=== PATIENT | female | born 1985 | race Caucasian/White ===

== ENCOUNTER → 2017-09-20 08:17 | Outpatient (CLI) | payer BC, SELFPAY ==
--- NOTE | 2017-09-20 | DI.US.S_ITS ---
PROCEDURE: US PELVIC COMPLETE INDICATIONS: DYSMENORRHEA TECHNIQUE: Real-time scanning was performed of the pelvic organs, with image documentation. Additional endovaginal scanning was necessary due to incomplete visualization of the adnexal and endometrial structures by transabdominal scanning. COMPARISON: None. FINDINGS: Transabdominal scanning: Limited scanning through the kidneys shows no hydronephrosis. No pathologic free abdominal or pelvic fluid. Endovaginal scanning: Uterus: Uterus is normal in size at 4.0 x 5.8 x 7.1 cm. The endometrium measures 4.5 mm in combined thickness. Ovaries: The right ovary measures 2.1 x 2.1 x 3.7 cm and the left measures 2.2 x 1.9 x 3.5 cm IMPRESSION: Normal appearing uterus and ovaries, source of dysmenorrhea is not identified by this examination. Dictated by: Papi Ruiz M.D. on 09/20/2017 at 9:08 Approved by: Papi Ruiz M.D. on 09/20/2017 at 9:10
== END ==
PROVIDERS: PCP Naturopath; Visit Provider Naturopath
DX: N94.6 Dysmenorrhea, unspecified (principal)
CPT/HCPCS: 76830; 76856

== ENCOUNTER → 2018-06-05 13:19 | Outpatient (CLI) | payer BC, SELFPAY ==
--- NOTE | 2018-06-05 | DI.RAD.S_ITS ---
PROCEDURE: XR HIP W PEL IF DONE LT MIN 4V INDICATIONS: BILATERAL HIP PAIN TECHNIQUE: AP pelvis with lateral view(s) of the bilateral hip(s). COMPARISON: None. FINDINGS: Bones: No fractures or dislocations. Pelvic ring appears intact. No suspicious bony lesions. Soft tissues: The visualized bowel gas pattern is normal. No suspicious soft tissue calcifications. IMPRESSION: No visualized acute fracture or dislocation. However, if clinical concern and/or pain persist, short interval imaging followup in 7-10 days is recommended, as occult injury cannot be definitively excluded. Dictated by: Cele Bonner M.D. on 06/05/2018 at 16:23 Approved by: Cele Bonner M.D. on 06/05/2018 at 16:25
== END ==
PROVIDERS: PCP Naturopath; Visit Provider Nurse Practitioner
DX: M25.551 Pain in right hip (principal); M25.552 Pain in left hip
CPT/HCPCS: 73522

== ENCOUNTER → 2018-06-25 13:39 | Outpatient (CLI) | payer BC, SELFPAY ==
[2018-06-25 14:37] LABS: Add Manual Diff / Slide Review NO; Basophils Absolute Auto 0 /uL (0-100); Basophils Percent Auto 0.5 % (0-2); Eosinophils Absolute Auto 100 /uL (0-450); Eosinophils Percent Auto 1.5 % (2-4); Hematocrit 42.3 % (36-46); Hemoglobin 13.8 g/dL (12.0-16.0); Lymphocytes Absolute Auto 2500 /uL (1100-4500); Lymphocytes Percent Auto 46.6 % (25-40); Mean Corpuscular HGB Conc 32.7 % (30-36); Monocytes Absolute Auto 400 /uL (0-900); Monocytes Percent Auto 7.9 % (3-14); Neutrophils Absolute Auto 2400 /uL (1500-7000); Neutrophils Percent Auto 43.5 % (50-75); Platelet Count 292 X10^3/uL (150-400); Red Blood Cell Count 4.19 X10^6/uL (4.0-5.2); White Blood Cell Count 5.5 X10^3/uL (4.5-11.0)
[2018-06-25 14:46] LABS: Blood Urea Nitrogen 7 mg/dL (7-17); Calcium 10.3 mg/dL (8.4-10.2); Carbon Dioxide 30 mmol/L (22-32); Chloride 100 mmol/L (98-107); Estimated Glomerular Filt Rate > 60.0 mL/min (>60); Glucose 91 mg/dL (70-100); HEMOLYSIS < 15 (0-50); Potassium 4.5 mmol/L (3.4-5.1); Sodium 140 mmol/L (137-145)
== END ==
PROVIDERS: PCP Naturopath; Visit Provider Orthopaedic Surgery Orthopaedic Surgery of the Spine
DX: M48.02 Spinal stenosis, cervical region (principal)
CPT/HCPCS: 36415; 80048; 85025

== ENCOUNTER → 2018-09-11 08:05 | Outpatient (CLI) | payer BC, SELFPAY ==
--- NOTE | 2018-09-11 | DI.RAD.S_ITS ---
PROCEDURE: XR CERVICAL SPINE 2V OR 3V INDICATIONS: NECK PAIN TECHNIQUE: 3 views of the cervical spine were acquired. COMPARISON: [facility], CR, XR CERVICAL SPINE 4V OR 5V, 06/07/2017, 13:36. FINDINGS: Bones: No fractures or dislocations to the T1 level. The lateral masses of C1 appear intact on the odontoid view. No suspicious bony lesions. Soft tissues: No prevertebral soft tissue swelling. IMPRESSION: Prior C5-6 anterior fusion plate fixation with interbody bone graft at at this disc level, establishing normal alignment. There is no visualized evidence of fixation plate loosening or disruption. Dictated by: Papi Ruiz M.D. on 09/11/2018 at 9:15 Approved by: Papi Ruiz M.D. on 09/11/2018 at 9:17
== END ==
PROVIDERS: Family Provider Physician Assistant Medical; PCP Naturopath; Visit Provider Physician Assistant Medical
DX: M43.22 Fusion of spine, cervical region (principal); M54.2 Cervicalgia; M54.12 Radiculopathy, cervical region; M48.20 Kissing spine, site unspecified
CPT/HCPCS: 72040

== ENCOUNTER → 2018-11-13 07:59 | Outpatient (CLI) | payer BC, SELFPAY ==
--- NOTE | 2018-11-13 | DI.RAD.S_ITS ---
PROCEDURE: XR CERVICAL SPINE 4V OR 5V INDICATIONS: Spinal stenosis, cervical region TECHNIQUE: 5 views of the cervical spine were acquired. COMPARISON: [facility], CR, XR CERVICAL SPINE 2V OR 3V, 09/11/2018, 8:48. [facility], MR, MR CERVICAL SPINE WITHOUT CONTRAST, 06/29/2017, 20:53. [facility], CR, XR CERVICAL SPINE 4V OR 5V, 06/07/2017, 13:36. FINDINGS: Bones: No fractures or dislocations to the T1 level. No suspicious bony lesions. There is discectomy and anterior fusion at C5-C6. There is preserved alignment between flexion and extension. Soft tissues: Prevertebral soft tissues are normal in thickness. IMPRESSION: 1. Stable post surgical changes with discectomy and anterior fusion at C5-C6. Dictated by: Colt Chaudhari M.D. on 11/13/2018 at 8:52 Approved by: Colt Chaudhari M.D. on 11/13/2018 at 8:54
== END ==
PROVIDERS: Family Provider Physician Assistant Medical; PCP Naturopath; Visit Provider Neurological Surgery
DX: M48.02 Spinal stenosis, cervical region (principal); M54.12 Radiculopathy, cervical region; Z98.1 Arthrodesis status
CPT/HCPCS: 72050

== ENCOUNTER 2018-12-21 17:15 | Emergency (ER) | payer OTHER, MEDICAID, SELFPAY ==
[2018-12-21 17:21] VITALS: BP 128/90; PULSE 87; RESP 18; TEMP 37.3; O2SAT 100
--- NOTE | 2018-12-21 19:21 | PC.NURSE ---
Warm blankets given. Pt resting quietly in darkened room. Awaiting orders from provider.
--- NOTE | 2018-12-21 20:15 | ED_ITS ---
HPI - Allergic Reaction <OSMEL Bess - Last Filed: 12/21/18 20:26> General Chief complaint: Allergic Reaction Stated complaint: thinks adverse reaction to medication change Time Seen by Provider: 12/21/18 17:24 Source: patient Mode of arrival: Ambulatory Limitations: no limitations History of Present Illness HPI narrative: The patient is a 33-year-old female former smoker with history of a C-spine injury who presents with a chief complaint of a medication reaction. She was changed from 200 mg pregabalin t.i.d. to 300 mg b.i.d.. She took her 1st 300 mg dose at noon today and felt very poorly after. She states that she felt muscle spasms, like her brain is caught on fire etc. She states that this is consistent with her previous reactions to medication increases for this medication. She states that the her chronic pain is worse since that medication has worn off, but she is decreasing side effects of higher dose medication. She states that she had to have a C-spine fusion after a injury resulting from a chiropractor visit several years ago. She states that she is trying to get off the Lyrica, but is having trouble controlling her pain. She has a pending pain management visit next month. Related Data Home Medications Medication Instructions Recorded Confirmed levothyroxine 50 mcg capsule 50 mcg PO DAILY 04/24/18 07/09/18 pregabalin 25 mg capsule 25 mg PO DAILY 07/09/18 07/09/18 Previous Rx's Medication Instructions Recorded pregabalin 200 mg PO TID #18 cap 12/21/18 Allergies Allergy/AdvReac Type Severity Reaction Status Date / Time adhesive [ADHESIVE] Allergy Unknown RASH Unverified 05/29/18 10:42 latex [LATEX] Allergy Unknown RASH, SKIN Unverified 05/29/18 10:42 CRACKING Penicillins [PENICILLINS] Allergy Unknown RASH Unverified 05/29/18 10:42 egg [EGG] AdvReac Unknown NAUSEA Unverified 05/29/18 10:42 Opioids - Morphine Analogues AdvReac Unknown NAUSEA Unverified 05/29/18 10:42 [OPIOIDS - MORPHINE ANALOGUES] gabapentin AdvReac Verified 12/21/18 17:56 narcotics Allergy Intermediate NAUSEA / Uncoded 05/29/18 10:42 VOMITING Review of Systems <OSMEL Bess - Last Filed: 12/21/18 20:26> Review of Systems Narrative: GENERAL: Denies chills, fatigue, malaise, fever, sweats. HEENT: Denies sinus pain, ear pain, sore throat, difficulty swallowing, dizziness. RESPIRATORY: Denies dyspnea, cough, wheezing, hemoptysis, sputum. CARDIOVASCULAR: Denies chest pain, palpitations, orthopnea, edema, GASTROINTESTINAL: Denies nausea, vomiting, abdominal pain, diarrhea, constipation, melena. : Denies dysuria, frequency, incontinence, hematuria, urinary retention. MUSCULOSKELETAL: denies weakness, joint pain, or bony pain SKIN: Denies rash, skin lesions, or other NEUROLOGIC: See HPI PSYCHIATRIC: No concerning psychosocial issues. 12 point review of systems is negative except for those stated above Patient History <OSMEL Bess - Last Filed: 12/21/18 20:26> Medical History Anemia (Acute) Anxiety (Acute ~1994) Asthma (Acute) Endometriosis (Acute) Former smoker (Acute) Hypothyroidism (Acute) Insomnia (Chronic) Migraines (Acute) Osteoarthritis (Acute) Pancreatitis (Acute ~2009) Panic attacks (Acute ~1994) PTSD (post-traumatic stress disorder) (Chronic ~1994) Seasonal allergies (Acute) Spinal stenosis of cervical region (Acute) Surgical History History of bilateral tubal ligation (Acute 04/28/17) Hx of appendectomy (Acute ~2005) Hx of laparoscopy (Acute ~2007) Status post appendectomy (Deleted) Status post delivery Status post delivery Status post delivery (02/22/16) Status post laparoscopy (Deleted) Social History marital status: details: venancio Pham, lives in [place] number of children: 3 household members: spouse and children lives independently: Yes caregiver/support person: No housing: house education level: college do you feel safe at home: Yes Smoking Status: Former smoker alcohol intake: former substance use type: does not use Exam <OSMEL Bess - Last Filed: 12/21/18 20:26> Narrative Exam Narrative: GENERAL: Thin female in no acute distress HEAD: Atraumatic. Normocephalic. No temporal or scalp tenderness. EYES: Pupils equal round and reactive. Extraocular motions intact. No scleral icterus. No injection or drainage. ENT: Nose without bleeding, purulent drainage or septal hematoma. Throat without erythema, tonsillar hypertrophy or exudate. Uvula midline. Airway patent. NECK: Trachea midline. No JVD or lymphadenopathy. Supple, nontender, no meningeal signs. CARDIOVASCULAR: Regular rate and rhythm RESPIRATORY: Clear to auscultation. Breath sounds equal bilaterally. No wheezes, rales, or rhonchi. No cough. No increased respiratory effort. No accessory muscle use. GASTROINTESTINAL: Abdomen soft, non-tender, nondistended. No hepato- splenomegaly, or palpable masses. No guarding. EXTREMITIES: No clubbing, cyanosis, or edema. No joint tenderness, effusion, or edema noted. BACK: Nontender without deformity or crepitance. No flank tenderness. NEURO: AOx3. Stable gait. Clear speech. No gross cranial nerve deficit SKIN: No rash or erythema. Initial Vital Signs Initial Vital Signs: Vital Signs Temperature 99.1 F 12/21/18 17:21 Pulse Rate 87 12/21/18 17:21 Respiratory Rate 18 12/21/18 17:21 Blood Pressure 128/90 12/21/18 17:21 Pulse Oximetry 100 12/21/18 17:21 <Michelle Hirsch DO - Last Filed: 12/22/18 01:58> Initial Vital Signs Initial Vital Signs: Vital Signs Temperature 99.1 F 12/21/18 17:21 Pulse Rate 87 12/21/18 17:21 Respiratory Rate 18 12/21/18 17:21 Blood Pressure 128/90 12/21/18 17:21 Pulse Oximetry 100 12/21/18 17:21 Course <OSMEL Bess - Last Filed: 12/21/18 20:26> Vital Signs Vital signs: Vital Signs - 8 hr 12/21/18 20:20 Pulse Rate 74 Respiratory Rate 16 Blood Pressure [Left Arm] 106/72 Pulse Oximetry 100 <Michelle Hirsch DO - Last Filed: 12/22/18 01:58> Vital Signs Vital signs: Vital Signs - 8 hr 12/21/18 20:20 Pulse Rate 74 Respiratory Rate 16 Blood Pressure [Left Arm] 106/72 Pulse Oximetry 100 MDM - Allergic Reaction <Summer MirandaCHOLO mcnally-BC - Last Filed: 12/21/18 20:26> [facility] Narrative Medical decision making narrative: The patient is a 33-year-old female who presents several hours after having a negative reaction to an increase in pregabalin dosing. She is concerned about continuing to take this medication, is concerned about titrating down. I spoke with Luis NAVARRO who is on-call for her PCP. He recommends restarting her on 200 mg t.i.d and would like her to follow up in clinic in the next few days. I discussed this with the patient and she is in accordance. She requests if she can stop taking the medication cold turkey, and I discouraged this. Discussed coming back to the emergency department for any acute concerns. Patient has no questions or concerns upon discharge and states understanding of return precautions as well as plan of care. Discharge Plan Departure Patient Disposition: Home Clinical Impression: Medication adverse effect Qualifiers: Encounter type: initial encounter Qualified Code(s): T50.905A - Adverse effect of unspecified drugs, medicaments and biological substances, initial encounter Discharge Date/Time: 12/21/18 20:21 Instructions: DI for Safely Taking and Storing Medications -- Adults, DI for Taking Pain Medication Activity Restrictions/Additional Instructions: Please stop taking your current dose of pregabalin and resume taking 200 mg 3 times a day. Please follow up with primary care provider as soon as possible. Please come back to the emergency department for any acute concerns. Prescriptions: New pregabalin 200 mg capsule 200 mg PO TID Qty: 18 RF: 0 No Action Lyrica 25 mg capsule 25 mg PO DAILY RF: 0 levothyroxine 50 mcg capsule 50 mcg PO DAILY RF: 0 Referrals: Yanelis Gillespie ND [Primary Care Provider] -
[2018-12-21 20:20] VITALS: BP 106/72; PULSE 74; RESP 16; O2SAT 100
== END 2018-12-21 20:21 | disposition home or self-care (01) ==
PROVIDERS: Emergency Provider Nurse Practitioner Family; Family Provider Physician Assistant Medical; PCP Naturopath
DX: T50.905A Adverse effect of unspecified drugs, medicaments and biological substances, initial encounter (principal)
CPT/HCPCS: 99283

== ENCOUNTER → 2019-03-22 17:37 | Outpatient (CLI) | payer OTHER, MEDICAID, SELFPAY ==
--- NOTE | 2019-03-22 17:39 | DI.MRI.S_ITS ---
PROCEDURE: MR CERVICAL SPINE WO CON INDICATIONS: Chronic cervical radiculopathy status post fusion TECHNIQUE: Noncontrast sagittal T1 spin echo and T2 fast spin echo, sagittal STIR, foraminal oblique sagittal T2 fast spin echo, and axial gradient echo or T2 fast spin echo through the cervical spine. COMPARISON: [facility], , C-SPINE WITHOUT CONTRAST, 02/24/2017, 7:56. FINDINGS: Image quality: Excellent. Alignment and Curvature: Straightening of the normal lordotic curvature. Trace retrolisthesis of C4 and C5 Bone Marrow: Postsurgical changes related to C5-C6 ACDF. Spinal Cord: Visualized spinal cord has normal size and signal. No cerebellar tonsillar herniation. Paraspinous Soft Tissues: No paravertebral masses. Prevertebral soft tissues are normal in thickness. C2-C3: Normal appearance. C3-C4: Persistent canal stenosis. Minimal if any bilateral foraminal narrowing, no interval change. C4-C5: No high-grade central canal stenosis. Mild bilateral foraminal stenoses, with questionable nerve root compression on the right. C5-C6: No high-grade central canal stenosis. No definite foraminal stenosis bilaterally C6-C7: No central canal stenosis. No foraminal stenosis bilaterally C7-T1: Normal appearance. IMPRESSION: Postsurgical changes as above, with mild straightening of the normal lordotic curvature and trace retrolisthesis C4 on C5. Mild bilateral C4-C5 foraminal narrowing, which is stable to very minimally progressed since the prior study Dictated by: Javi Allred M.D. on 03/25/2019 at 9:32 Approved by: Javi Allred M.D. on 03/25/2019 at 9:39
== END ==
PROVIDERS: Family Provider Physician Assistant Medical; PCP Naturopath; Referring Provider Physical Medicine & Rehabilitation; Visit Provider Physical Medicine & Rehabilitation
DX: M50.00 Cervical disc disorder with myelopathy, unspecified cervical region (principal); M54.12 Radiculopathy, cervical region; G95.9 Disease of spinal cord, unspecified; M48.02 Spinal stenosis, cervical region; Z98.1 Arthrodesis status
CPT/HCPCS: 72141

== ENCOUNTER → 2019-08-15 12:54 | Outpatient (CLI) | payer OTHER, MEDICAID, SELFPAY | PROVIDERS: PCP Naturopath; Referring Provider Physical Medicine & Rehabilitation; Visit Provider Physical Medicine & Rehabilitation | DX: Z98.1 Arthrodesis status (principal); M54.12 Radiculopathy, cervical region | CPT/HCPCS: 95886; 95910 ==

== ENCOUNTER → 2019-09-17 13:17 | Outpatient (CLI) | payer OTHER, MEDICAID, SELFPAY ==
--- NOTE | 2019-09-17 13:19 | DI.RAD.S_ITS ---
PROCEDURE: FL BARIUM SWALLOW W SPEECH INDICATIONS: Dysphagia status post cervical ACDF COMPARISON: None. TECHNIQUE: Examination was conducted in conjunction with speech pathology per standard protocol. In the lateral projection, filming was performed of the patient swallowing. AP projection filming may also be performed with patient swallowing. COMPARISON: FINDINGS: Function: The oral preparatory phase appears normal, with proper containment. The subsequent oral propulsive phase, pharyngeal phase, and esophageal phase of swallowing also appear normal with all proffered substances. No laryngotracheal penetration or aspiration. No pathologic vallecular pooling. Mild pooling noted in the vallecula bilaterally which was easily cleared with repeat swallows. 13 millimeter barium tablet passes was delayed at the left piriform sinus, but cleared from the piriform sinus and rapidly passed into the stomach with additional consumption of water. Morphology: No cricopharyngeal bar is identified. No cervical esophageal webs. No Zenker's diverticulum. No strictures. IMPRESSION: 1. No laryngotracheal penetration or aspiration. 2. No abnormal mass, stricture or diverticulum. 3. Mild bilateral vallecular pooling rapidly cleared with repeat swallows. Dictated by: Stella Stevens MD, PhD on 09/17/2019 at 16:36 Approved by: Stella Stevens MD, PhD on 09/17/2019 at 16:38
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
== END ==
PROVIDERS: PCP Naturopath; Referring Provider Physical Medicine & Rehabilitation; Visit Provider Physical Medicine & Rehabilitation
DX: R13.10 Dysphagia, unspecified (principal); Z98.1 Arthrodesis status
CPT/HCPCS: 74230; 92611

== ENCOUNTER → 2019-12-18 08:31 | Outpatient (CLI) | payer OTHER, MEDICAID, SELFPAY ==
--- NOTE | 2019-12-18 08:31 | DI.RAD.S_ITS ---
PROCEDURE: XR SHOULDER RT MIN 2V INDICATIONS: Right shoulder impingement TECHNIQUE: 3 views of the shoulder were acquired. COMPARISON: None. FINDINGS: Bones: No fractures or dislocations. No suspicious bony lesions. Visualized ribs appear intact. Soft tissues: No suspicious soft tissue calcifications. IMPRESSION: Source of shoulder pain is not seen. No trauma found, no osteophytic spurring. Follow-up MR evaluation may become necessary. Dictated by: Papi Ruiz M.D. on 12/18/2019 at 9:26 Approved by: Papi Ruiz M.D. on 12/18/2019 at 9:27
== END ==
PROVIDERS: Family Provider Naturopath; PCP Naturopath; Referring Provider Naturopath; Visit Provider Physical Medicine & Rehabilitation
DX: M75.41 Impingement syndrome of right shoulder (principal); M25.511 Pain in right shoulder
CPT/HCPCS: 73030

== ENCOUNTER 2019-12-18 10:30 | Outpatient (RCR) | payer OTHER, MEDICAID, SELFPAY ==
--- NOTE | 2019-10-21 17:18 | ST.OPIE ---
Visit Care Team Role Provider Type Yanelis Gillespie ND Primary Care Provider Non-Staff Specialty: Medical Address: [address] [place] [address], [place], [address] Email: Leander Romo DO Attending Provider Physician Referring Provider Specialty: Physiatry Pain Management Address: [address] [place], [address] Email: [email or web address] Speech-Language Pathology Initial Evaluation STERILIZATION TECHNICIAN Clinical Swallow Evaluation Start: 10/16/19 12:32 Freq: Status: Active Protocol: Document 10/16/19 13:18 SHEYLA (Rec: 10/16/19 13:18 SHEYLA [email or web address]) Clinical Swallow Evaluation Session Time Visit Start Date 10/16/19 Visit Start Time 12:30 Visit Stop Date 10/16/19 Visit Stop Time 13:30 Total Visit Minutes 60 Visit Information Visit Number Initial Evaluation Plan of Care Dates 10/16/19 - 01/08/20 Insurance Information [employer] Referral Referring Provider Reason for Referral Dysphagia Setting Assessment Location Outpatient Care Visit Type Note Type Initial evaluation Next Note Type Next Note Type Treatment Note Patient Information Identification Type Name,Date of History The pt is a 34-yr-old female familiar to this STERILIZATION TECHNICIAN from Modified Barium Study administered 09/23/19, which revealed mild oropharyngeal dysphagia (see report for details). The pt has a complex past medical history. 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 Sequela of injury included upper body neuropathy (face, neck, arms, mostly right side; unable to feel right side of face for 9 mos), changes in cognition, vision, taste, smell, speech articulation, and language skills, and increased fatigue. She underwent ACDF surgery ( July 2018) during which muscle relaxers were required in order to displace laryngeal musculature to perform surgery . Since then, she has experienced difficulty initiating swallow trigger, coughing and choking, and sticking sensation with oral intake. 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 Distant medical history is significant for developmental trauma resulting in PTSD and OCD. The pt also has a history of alcoholism, currently with 2 yrs sobriety after admitting herself in emergent recovery care. Currently, the pt reports difficulty with reading d/t injury of eye muscles on the right side but states she has normal auditory comprehension. She has been wearing corrective glasses which has improved the balance of vision between the two eyes. She reported having seen an optomotrist in [facility] and a neuro-optomotrist in [place] who told her that her optic nerve is intact but she has muscle weakness. To address her PTSD and OCD, the pt is actively working with mental health professionals and taking Wellbutrin for trauma. She also reports participating in neuro feedback system therapy and is working with Physical Therapy at a different clinic for strengthening and addressing nerve pain. The pt has a neurosurgeon consultation scheduled at [facility] in December. 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 She reports difficulty with managing multiple tasks, invoicing clients, etc. 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 She anticipates sharing control room operator responsibilities with colleagues as it is difficult for her to manage independently. She feels doing tasks takes 5x longer than it used to. She reports that other board members are aware of deficits and are supportive . Subjective Observations The pt arrived on time and provided extensive case history. Reported by Patient Location Head,Neck Other Symptoms Coughing,Food gets stuck Current Diet Regular,Chopped,Thin liquids Baseline Feeding Method Independent in self-feeding Objective Assessment Mental Status Alert,Responsive,Cooperative Oral Integrity WFL Dentition Within normal limits Lip Function Within normal limits Observation of Lips at Rest Symmetrical Pucker Within normal limits Lip Retraction Within normal limits Tongue Function Mild impairment Observations of Tongue at Rest Within normal limits Tongue Protrusion Within normal limits Tongue Lateralization Within normal limits Jaw Function Mild impairment Observations of Jaw at Rest Within normal limits Jaw Opening Reduced range of motion Jaw Closing Within normal limits Jaw Lateralization Within normal limits Hard/Soft Palate Function Within normal limits Observations of Hard/Soft Palate Within normal limits Gag Reflex Hyperactive Nasality Within normal limits Phonation Within normal limits Respiratory Sufficiency Within normal limits Comment Persistent glottal claros noted in speech Findings Swallowing Function Oropharyngeal phase dysphagia Severity of Swallow Impairment Mildly impaired Contributing Factors to Swallow Reduced oral strength/ Impairment coordination/sensation, Impaired oral-pharyngeal transport,Delayed swallow initiation Prognosis Good Based on Cognitive status,Age,Duration of symptoms/severity Comment Dysphagia type and severity are based on MBSS findings. No oral trials were administered in today's session d/t time constraints. Education RE MBSS findings was provided to the pt including video review. Trained pt in swallow exercises targeting lingual strength for oral containment and pharyngeal clearance, pharyngeal stripping wave, and airway protection. The pt returned demonstration and verbalized understanding. Impact on Safety and Functioning Risk for aspiration Recommendations Instrumental Assessment No Swallowing Treatment Yes Frequency 1x/wk Duration 3-5 visits; May increase with eval of speech, lang, cognitive communication Recommended Solids Regular Recommended Liquids Thin Safety Precautions/Swallowing Reduce distractions,Remain Recommendations upright (90 degrees) during all oral intake,Upright position at least 30 minutes after meals,Small bites and sips when eating Medication Recommendations As Tolerated Discharge Recommendations Home,Outpatient therapy Education Patient/Caregiver Education Described results of evaluation,Patient expressed understanding of evaluation, Patient expressed agreement with goals & treatment plans Goals Short-term Goals 1. The pt will participate in evaluation of speech, voice, and expressive/receptive/ cognitive communication to determine deficits and strengths and to guide POC. 2. The pt will complete exercises independently to improve swallow function/ safety and reduce risk of aspiration. 3. The pt will employ swallow precautions independently to improve swallow function/ safety and reduce risk of aspiration. Long-term Goals 1. The pt will consume regular texture and thin liquids WNL (i.e., without s/sx of aspiration and without discomfort).
--- NOTE | 2019-10-23 10:11 | ST.OPTN ---
Visit Care Team Role Provider Type Yanelis Gillespie ND Primary Care Provider Non-Staff Address: [address] [place] [address], [place], [address] Leander Romo DO Attending Provider Physician Referring Provider Address: [address] [place], [address] SUPERVISOR DRYING AND WINDING Treatment Note SUPERVISOR [employer]YING AND W[employer]ING Treatment Note Start: 10/16/19 12:32 Freq: Status: Active Protocol: Document 10/22/19 11:29 SHEYLA (Rec: 10/22/19 11:30 SHEYLA [id number]) Speech Pathology Treatment Note Session Time Visit Start Time 10:30 Visit Stop Time 11:25 Total Visit Minutes 55 Visit Information Visit Number 1 Plan of Care Dates 10/16/19 - 01/08/20 Insurance Information [employer] Setting Treatment Setting Outpatient Care Visit Type Note Type Treatment Note Next Note Type Next Note Type Treatment Note General Information General Information The pt is a 34-yr-old female familiar to this SUPERVISOR DRYING AND WINDING from Modified Barium Study administered 09/23/19, which revealed mild oropharyngeal dysphagia (see report for details). The pt has a complex past medical history. 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 Sequela of injury included upper body neuropathy (face, neck, arms, mostly right side; unable to feel right side of face for 9 mos), changes in cognition, vision, taste, smell, speech articulation, and language skills, and increased fatigue. She underwent ACDF surgery ( July 2018) during which muscle relaxers were required in order to displace laryngeal musculature to perform surgery . Since then, she has experienced difficulty initiating swallow trigger, coughing and choking, and sticking sensation with oral intake. 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 Distant medical history is significant for developmental trauma resulting in PTSD and OCD. The pt also has a history of alcoholism, currently with 2 yrs sobriety after admitting herself in emergent recovery care. Currently, the pt reports difficulty with reading d/t injury of eye muscles on the right side but states she has normal auditory comprehension. She has been wearing corrective glasses which has improved the balance of vision between the two eyes. She reported having seen an optomotrist in [facility] and a neuro-optomotrist in [place] who told her that her optic nerve is intact but she has muscle weakness. To address her PTSD and OCD, the pt is actively working with mental health professionals and taking Wellbutrin for trauma. She also reports participating in neuro feedback system therapy and is working with Physical Therapy at a different clinic for strengthening and addressing nerve pain. The pt has a neurosurgeon consultation scheduled at [facility] in December. 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 She reports difficulty with managing multiple tasks, invoicing clients, etc. 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 She anticipates sharing atmospheric chemist responsibilities with colleagues as it is difficult for her to manage independently. She feels doing tasks takes 5x longer than it used to. She reports that other board members are aware of deficits and are supportive. Subjective Observations/Patient Presentation Pt arrived on time. Reported increased stressors in personal life, adding to physical pain. She stated she had misplaced instructions for swallow exercises but completed 2 that she rememembered. Replacement copy was provided. The pt had no questions about exercises. Chief Complaint(s) Speech,Language,Swallowing, Cognitive,Voice Patient Knowledge/Awareness of SUPERVISOR DRYING AND WINDING Role Good in Treatment Objective Short Term Goals 1. The pt will participate in evaluation of speech, voice, and expressive/receptive/ cognitive communication to determine deficits and strengths and to guide POC. 2. The pt will complete exercises independently to improve swallow function/ safety and reduce risk of aspiration. 3. The pt will employ swallow precautions independently to improve swallow function/ safety and reduce risk of aspiration. 4. The pt will produce voicing in structured speaking tasks without glottal claros in 60% of opportunities, given min v/v cues. Snf Goals 1. The pt will consume regular texture and thin liquids WNL (i.e., without s/sx of aspiration and without discomfort). 2. The pt will produce vocal quality WNL in spontaneous speech with no greater than mild presence of glottal claros, as measured by CAPE-V assessment, to improve pt's ability to use voice as needed with reduced discomfort. Treatment Activities Assessed pt's vocal quality perceptually via Consensus Auditory-Perceptual Evaluation of Voice (CAPE-V): Overall Severity 49% (Moderate ) Roughness 36% (Mild-Moderate) Breathiness WNL Strain 41% (Moderate) Pitch WNL Loudness 22% (Mild) The majority of the roughness is perceived to be glottal claros vs possible VF pathology. Educated pt RE glottal claros, breath support at power of voice, impact of laryngeal strain and emotions on vocal quality. Trained awareness and avoidance of glottal claros. Given speech including and excluding glottal claros, the pt correctly identified glottal claros, demonstrating awareness and ability to perceive. She acknowledged hearing it come and go from her own voice and demonstrated ability to avoid producing it in structured exercises with ~85% accuracy. Loudness = ~62 dB in conversation. Increased to 68 in functional phrases created by the pt which she read aloud without glottal claros w/ 95% acc. Pt reported mild increase in soreness at throat as result of shift in vocal modal . Skilled feedback provided. Admiistered Cognitive Screen via SLUMS: WNL. Errors in understanding math problem presented orally and recall of story detail presented orally . Pt exhibited decreased clarity of thought and reported brain fog as she attempted to discuss personal reflection on the difficulty of SLUMS tasks. Stated she felt the questions were not difficult as long as she could take her time with them. Assessment Patient Response to Treatment Good Rehab Potential Good Impairments Identified Auditory Comprehension, Auditory Processing,Cognitive- Linguistic Skills,Dysphagia, Fluency of Speech,Memory - Short Term,Memory - Working, Reading Comprehension, Receptive Language,Vocal Quality Progress Towards Goals Good Progress Assessment of Overall Progress Improving Assessment of Improvement The pt exhibited ability to identify and minimize glottal claros. Anticipate soreness of throat to decrease as laryngeal musculature adapts to new correct posture and movements during speech. The pt scored WNL in completing simple cogntive assessment tasks. She c/o and exhibited increased effort and brain fog with increased length and complexity of cognitive tasks, such as reflecting on her symptoms and how they present, as well as explaining processes of moderate complexity. Further assessment of expressive/ receptive and cognitive communication skills to be performed at next treatment to better identify deficits and guide POC. Reviewed with Patient Goals,Progress Being Made,Home Exercise Program Patient/Caregiver Understanding Excellent Plan Therapeutic Contents Client Education,Cognitive- Linguistic Training, Compensatory Swallowing Training,Expressive Language Training,Fluency,Home Exercise Program,Information Processing,Receptive Language Training,Swallowing/Feeding, Voice Training Provided Patient/Caregiver Instruction Home Exercise Program,Plan of Care,Questions/Concerns Therapy Recommendations Continue with Current Program
--- NOTE | 2019-10-30 11:06 | ST.OPTN ---
Visit Care Team Role Provider Type Yanelis Gillespie ND Primary Care Provider Non-Staff Address: [address] [place] [address], [place], [address] Leander Romo DO Attending Provider Physician Referring Provider Address: [address] [place], [address] FUR GLAZER Treatment Note FUR GLAZER Treatment Note Start: 10/16/19 12:32 Freq: Status: Active Protocol: Document 10/30/19 10:23 SHEYLA (Rec: 10/30/19 11:06 SHEYLA [id number]) Speech Pathology Treatment Note Session Time Visit Start Time 09:30 Visit Stop Time 10:15 Total Visit Minutes 45 Visit Information Visit Number 2 Plan of Care Dates 10/16/19 - 01/08/20 Insurance Information [employer] Setting Treatment Setting Outpatient Care Visit Type Note Type Treatment Note Next Note Type Next Note Type Treatment Note General Information General Information The pt is a 34-yr-old female familiar to this FUR GLAZER from Modified Barium Study administered 09/23/19, which revealed mild oropharyngeal dysphagia (see report for details). The pt has a complex past medical history. 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 Sequela of injury included upper body neuropathy (face, neck, arms, mostly right side; unable to feel right side of face for 9 mos), changes in cognition, vision, taste, smell, speech articulation, and language skills, and increased fatigue. She underwent ACDF surgery ( July 2018) during which muscle relaxers were required in order to displace laryngeal musculature to perform surgery . Since then, she has experienced difficulty initiating swallow trigger, coughing and choking, and sticking sensation with oral intake. 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 Distant medical history is significant for developmental trauma resulting in PTSD and OCD. The pt also has a history of alcoholism, currently with 2 yrs sobriety after admitting herself in emergent recovery care. Currently, the pt reports difficulty with reading d/t injury of eye muscles on the right side but states she has normal auditory comprehension. She has been wearing corrective glasses which has improved the balance of vision between the two eyes. She reported having seen an [facility]omotrist in [facility] and a neuro-optomotrist in [place] who told her that her optic nerve is intact but she has muscle weakness. To address her PTSD and OCD, the pt is actively working with mental health professionals and taking Wellbutrin for trauma. She also reports participating in neuro feedback system therapy and is working with Physical Therapy at a different clinic for strengthening and addressing nerve pain. The pt has a neurosurgeon consultation scheduled at [facility] in December. 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 She reports difficulty with managing multiple tasks, invoicing clients, etc. 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 She anticipates sharing marshmallow runner responsibilities with colleagues as it is difficult for her to manage independently. She feels doing tasks takes 5x longer than it used to. She reports that other board members are aware of deficits and are supportive . Subjective Observations/Patient Presentation Pt arrived on time. Reported variable improvement with swallowing. Continues to have good and bad days, which seem dependent on stress levels. On bad days, the pt feels food sticking in her throat and has observed escape of solids to throat prior to swallow onset. She also reported increased WFDs the last day or two, as well as words not coming out as she intended. She described what appear to be attention deficits when reading aloud to her son, in which she assumes how a sentence will be completed, which is often wrong. She stated she has always tended to do this. Chief Complaint(s) Speech,Language,Swallowing, Cognitive,Voice Patient Knowledge/Awareness of FUR GLAZER Role Good in Treatment Objective Short Term Goals 1. The pt will participate in evaluation of speech, voice, and expressive/receptive/ cognitive communication to determine deficits and strengths and to guide POC. 2. The pt will complete exercises independently to improve swallow function/ safety and reduce risk of aspiration. 3. The pt will employ swallow precautions independently to improve swallow function/ safety and reduce risk of aspiration. 4. The pt will produce voicing in structured speaking tasks without glottal claros in 60% of opportunities, given min v/v cues. Rubber And Pounder Goals 1. The pt will consume regular texture and thin liquids WNL (i.e., without s/sx of aspiration and without discomfort). 2. The pt will produce vocal quality WNL in spontaneous speech with no greater than mild presence of glottal claros, as measured by CAPE-V assessment, to improve pt's ability to use voice as needed with reduced discomfort. Treatment Activities Swallowing: Education and feedback provided RE pt complaints/concerns. Encouraged her to continue back of tongue exercises to improve oral containment. Also recommended chin tuck for same, as well as trialing chin tuck and head turn to affected side to ease swallow and improve pharyngeal clearance and airway protection. The pt trialed postural changes with swallows of saliva and reported increased ease of swallow with chin tuck. Word Recall: Education and training provided RE word recall strategies including pausing, phonemic cueing, and using semantic features strategy. Provided training with use of semantic features worksheet and pictures. The pt verbalized understanding. Worksheet and instructions provided for home practice. Also recommended exercises and activities to promote word recall, including reading and/ or describing pictures aloud ( the pt reports increased headaches and fatigue with too much reading), practicing strategies as stated above, and playing word games alone or with others. She identified several word games she and her children enjoy, which are strongly encouraged. Speech Fluency/Accuracy: Educated and trained pt in use of pacing board to reduce rate of speech in effort to coordinate cognitive planning and speech production. The pt returned demonstration and verbalized understanding. She stated that slowing her speech has been beneficial and expected pacing board use would be even more helpful. Voice: The pt was observed to reduce glottal claros in speech, moreso at the start of the session with increased glottal claros present over duration of session, likely secondary to fatigue. Skilled feedback was provided, and the pt demonstrated her awareness and ability to self-correct. Assessment Patient Response to Treatment Good Rehab Potential Good Impairments Identified Auditory Comprehension, Auditory Processing,Cognitive- Linguistic Skills,Dysphagia, Fluency of Speech,Memory - Short Term,Memory - Working, Reading Comprehension, Receptive Language,Vocal Quality Progress Towards Goals Good Progress Assessment of Overall Progress Improving Assessment of Improvement The pt was highly receptive to all education and training provided today. She already employs some of the recommended strategies and activities, but stated, Not to this extent. It will be good to take them further. The pt is making progress with reducing glottal claros. Needs reinforcement. Her swallow safety and function is improving but inconsistent. Anticipate postural modifications will facilitate improvement. Reviewed with Patient Goals,Progress Being Made,Home Exercise Program Patient/Caregiver Understanding Excellent Plan Therapeutic Contents Client Education,Cognitive- Linguistic Training, Compensatory Swallowing Training,Expressive Language Training,Fluency,Home Exercise Program,Information Processing,Receptive Language Training,Swallowing/Feeding, Voice Training Provided Patient/Caregiver Instruction Home Exercise Program,Plan of Care,Questions/Concerns Therapy Recommendations Continue with Current Program
--- NOTE | 2019-11-14 16:36 | ST.OPTN ---
Visit Care Team Role Provider Type Yanelis Gillespie ND Primary Care Provider Non-Staff Address: [address] [place] [address], [place], [address] Leander Romo DO Attending Provider Physician Referring Provider Address: [address] [place], [address] BIOLOGICAL SCIENCE TECHNICIAN Treatment Note BIOLOGICAL SCIENCE TECHNICIAN Treatment Note Start: 10/16/19 12:32 Freq: Status: Active Protocol: Document 11/13/19 12:02 SHEYLA (Rec: 11/13/19 12:26 SHEYLA [id number]) Speech Pathology Treatment Note Session Time Visit Start Time 09:30 Visit Stop Time 10:24 Total Visit Minutes 54 Visit Information Visit Number 3 Plan of Care Dates 10/16/19 - 01/08/20 Insurance Information [employer] Setting Treatment Setting Outpatient Care Visit Type Note Type Treatment Note Next Note Type Next Note Type Treatment Note General Information General Information The pt is a 34-yr-old female familiar to this BIOLOGICAL SCIENCE TECHNICIAN from Modified Barium Study administered 09/23/19, which revealed mild oropharyngeal dysphagia (see report for details). The pt has a complex past medical history. 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 Sequela of injury included upper body neuropathy (face, neck, arms, mostly right side; unable to feel right side of face for 9 mos), changes in cognition, vision, taste, smell, speech articulation, and language skills, and increased fatigue. She underwent ACDF surgery ( July 2018) during which muscle relaxers were required in order to displace laryngeal musculature to perform surgery . Since then, she has experienced difficulty initiating swallow trigger, coughing and choking, and sticking sensation with oral intake. 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 Distant medical history is significant for developmental trauma resulting in PTSD and OCD. The pt also has a history of alcoholism, currently with 2 yrs sobriety after admitting herself in emergent recovery care. Currently, the pt reports difficulty with reading d/t injury of eye muscles on the right side but states she has normal auditory comprehension. She has been wearing corrective glasses which has improved the balance of vision between the two eyes. She reported having seen an optomotrist in [facility] and a neuro-optomotrist in [place] who told her that her optic nerve is intact but she has muscle weakness. To address her PTSD and OCD, the pt is actively working with mental health professionals and taking Wellbutrin for trauma. She also reports participating in neuro feedback system therapy and is working with Physical Therapy at a different clinic for strengthening and addressing nerve pain. The pt has a neurosurgeon consultation scheduled at [facility] in December. 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 She reports difficulty with managing multiple tasks, invoicing clients, etc. 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 She anticipates sharing electronic component processor responsibilities with colleagues as it is difficult for her to manage independently. She feels doing tasks takes 5x longer than it used to. She reports that other board members are aware of deficits and are supportive . Subjective Observations/Patient Presentation Pt arrived on time. She reported ongoing vision and balance issues. Stated she felt vision deficits directly impacted cognitive function and fatigue. She inquired if the clinician thought it would be beneficial for the pt to transfer her physical therapy, which she receives at a separate clinic and which focuses on right upper body pain, to [facility] for better communication between members of her medical team. Chief Complaint(s) Speech,Language,Swallowing, Cognitive,Voice Additional Areas of Concern Vision, balance, neck pain Rehab Expectation/Goals: Patient Goals Improve swallow safety/comfort , speech, language and cognitive skills Patient Knowledge/Awareness of BIOLOGICAL SCIENCE TECHNICIAN Role Excellent in Treatment Patient/Caregiver Compliance with Home Good Exercise Program Objective Short Term Goals 1. The pt will participate in evaluation of speech, voice, and expressive/receptive/ cognitive communication to determine deficits and strengths and to guide POC. 2. The pt will complete exercises independently to improve swallow function/ safety and reduce risk of aspiration. 3. The pt will employ swallow precautions independently to improve swallow function/ safety and reduce risk of aspiration. 4. The pt will produce voicing in structured speaking tasks without glottal claros in 60% of opportunities, given min v/v cues. Correction Goals 1. The pt will consume regular texture and thin liquids WNL (i.e., without s/sx of aspiration and without discomfort). 2. The pt will produce vocal quality WNL in spontaneous speech with no greater than mild presence of glottal claros, as measured by CAPE-V assessment, to improve pt's ability to use voice as needed with reduced discomfort. Treatment Activities Education provided RE memory, attention and executive function skills, their relationships to each other, and their involvement in functional activities which the pt reports having difficulty completing (e.g., forgetting about task from which she is interrupted, forgetting why she enters a room, misplacing objects, difficulties identifying and completing steps to complex tasks, etc.). Discussed external memory tools, strategies, and training of skills; incorporation of Constant Therapy training sidney into HEP; and potential impact of vision and vestibular impairments on cognitive function. Addressed the pt's questions and discussed pros and cons of transferring PT to [facility]. The pt expressed desire to do so and requested recommendation for referral be made to her PCP, Yanelis Gillespie ND, of [facility]. Pt also requested BIOLOGICAL SCIENCE TECHNICIAN inform Dr. Romo of this request for referral, and the clinician agreed. Memory & Attn: Initiated development of memory notebook . Trained pt in say-aloud strategies to increase attention and subsequently memory. The pt verbalized understanding and wrote steps to the strategy in her memory notebook for carryover and practice. Assessment Patient Response to Treatment Good Rehab Potential Good Impairments Identified Auditory Comprehension, Auditory Processing,Cognitive- Linguistic Skills,Dysphagia, Fluency of Speech,Memory - Short Term,Memory - Working, Reading Comprehension, Receptive Language,Vocal Quality Progress Towards Goals Good Progress Assessment of Overall Progress Improving Assessment of Improvement The pt was highly receptive to all education and training provided today. She initiated development of memory notebook and verbalized It is suspected that vision and vestibular impairments strongly impact the pt's cognitive skills, largely by increasing cognitive load and resulting in cognitive and physical fatigue. Vision deficits also appear to be a cause of frequent headaches, and the pt is frequently dizzy , and both situations require her to rest and interfere with her ability to complete tasks . It is recommended that the pt be assessed by Physical Therapists who specialize in vestibular impairments. Based on the pt's description of other pain, such as TMJ and muscular tightness aroung the head, neck and face, she may also benefit from working with PTs who specialize in these areas. As [facility] employs PTs who offer specialty services in these areas, it is recommended that the pt be referred to this clinic for evaluation and treatment, as indicated. Request for referral will be sent to the pt's PCP, and referring MD, Dr. Romo, will be copied on the request. Reviewed with Patient Goals,Progress Being Made,Home Exercise Program Patient/Caregiver Understanding Excellent Plan Therapeutic Contents Client Education,Cognitive- Linguistic Training, Compensatory Swallowing Training,Expressive Language Training,Fluency,Home Exercise Program,Information Processing,Receptive Language Training,Swallowing/Feeding, Voice Training Provided Patient/Caregiver Instruction Home Exercise Program,Plan of Care,Questions/Concerns Therapy Recommendations Continue with Current Program
--- NOTE | 2019-11-20 11:26 | ST.OPTN ---
Visit Care Team Role Provider Type Yanelis Gillespie ND Primary Care Provider Non-Staff Address: [address] [place] [address], [place], [address] Leander Romo DO Attending Provider Physician Referring Provider Address: [address] [place], [address] NICKEL PLANT OPERATOR Treatment Note NICKEL PLANT OPERATOR Treatment Note Start: 10/16/19 12:32 Freq: Status: Active Protocol: Document 11/20/19 11:07 SHEYLA (Rec: 11/20/19 11:26 SHEYLA [id number]) Speech Pathology Treatment Note Session Time Visit Start Time 09:30 Visit Stop Time 10:20 Total Visit Minutes 50 Visit Information Visit Number 4 Plan of Care Dates 10/16/19 - 01/08/20 Insurance Information [facility] Setting Treatment Setting Outpatient Care Visit Type Note Type Treatment Note Next Note Type Next Note Type Treatment Note General Information General Information The pt is a 34-yr-old female familiar to this NICKEL PLANT OPERATOR from Modified Barium Study administered 09/23/19, which revealed mild oropharyngeal dysphagia (see report for details). The pt has a complex past medical history. 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 Sequela of injury included upper body neuropathy (face, neck, arms, mostly right side; unable to feel right side of face for 9 mos), changes in cognition, vision, taste, smell, speech articulation, and language skills, and increased fatigue. She underwent ACDF surgery ( July 2018) during which muscle relaxers were required in order to displace laryngeal musculature to perform surgery . Since then, she has experienced difficulty initiating swallow trigger, coughing and choking, and sticking sensation with oral intake. 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 Distant medical history is significant for developmental trauma resulting in PTSD and OCD. The pt also has a history of alcoholism, currently with 2 yrs sobriety after admitting herself in emergent recovery care. Currently, the pt reports difficulty with reading d/t injury of eye muscles on the right side but states she has normal auditory comprehension. She has been wearing corrective glasses which has improved the balance of vision between the two eyes. She reported having seen an optomotrist in [facility] and a neuro-optomotrist in [place] who told her that her optic nerve is intact but she has muscle weakness. To address her PTSD and OCD, the pt is actively working with mental health professionals and taking Wellbutrin for trauma. She also reports participating in neuro feedback system therapy and is working with Physical Therapy at a different clinic for strengthening and addressing nerve pain. The pt has a neurosurgeon consultation scheduled at [facility] in December. 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 She reports difficulty with managing multiple tasks, invoicing clients, etc. 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 She anticipates sharing securities supervisor responsibilities with colleagues as it is difficult for her to manage independently. She feels doing tasks takes 5x longer than it used to. She reports that other board members are aware of deficits and are supportive . Subjective Observations/Patient Presentation Pt arrived on time. No new complaints. Chief Complaint(s) Speech,Language,Swallowing, Cognitive,Voice Additional Areas of Concern Vision, balance, neck pain Rehab Expectation/Goals: Patient Goals Improve swallow safety/comfort , speech, language and cognitive skills Patient Knowledge/Awareness of NICKEL PLANT OPERATOR Role Excellent in Treatment Patient/Caregiver Compliance with Home Good Exercise Program Objective Short Term Goals 1. The pt will participate in evaluation of speech, voice, and expressive/receptive/ cognitive communication to determine deficits and strengths and to guide POC. 2. The pt will complete exercises independently to improve swallow function/ safety and reduce risk of aspiration. 3. The pt will employ swallow precautions independently to improve swallow function/ safety and reduce risk of aspiration. 4. The pt will produce voicing in structured speaking tasks without glottal claros in 60% of opportunities, given min v/v cues. Retirement Goals 1. The pt will consume regular texture and thin liquids WNL (i.e., without s/sx of aspiration and without discomfort). 2. The pt will produce vocal quality WNL in spontaneous speech with no greater than mild presence of glottal claros, as measured by CAPE-V assessment, to improve pt's ability to use voice as needed with reduced discomfort. Treatment Activities Administered Cognitive Linguistic Quick Test (CLQT) for assessment of cognitive linquistic skills with the following results: Composite Severity Rating: Mild Impairment Attention, Executive Functions , and Visuospatial Skills: Mild Impairment Memory, Language, and Clock Drawing: WNL The pt exhibited slowed completion of [id number]-[id number]-[id number] tasks, often requiring page rotation in order to draw lines in different directions, d/t right hand pain with small motor movements. Although she made excellent progress and exhibited good executive function skills with both mazes, she did not complete either in the allotted time, rendering a score of zero. Additionally, secondary to visual impairments, the pt often expressed feeling visually overstimulated when presented with busy pages, such as symbol cancelation, trail making, and design memory tasks. She did, however, score full points in each of these tasks. At the end of the assessment, she reported increased brain fog, which she said is a very typical experience of most days when she attempts to work and do other activities. She stated that by the end of most days, she is exhausted. Assessment Patient Response to Treatment Good Rehab Potential Good Impairments Identified Auditory Comprehension, Auditory Processing,Cognitive- Linguistic Skills,Dysphagia, Fluency of Speech,Memory - Short Term,Memory - Working, Reading Comprehension, Receptive Language,Vocal Quality Progress Towards Goals Good Progress Assessment of Overall Progress Improving Assessment of Improvement The pt presents with mild cogntive-linguistic deficits in areas of attention, executive function, and visuospatial skills, which supports her reports. Ability to complete tasks was impeded by visual impairments and pain in her right hand, both of which slowed her ability to complete tasks within time constraints. Skilled intervention is medically necessary to increase ability to perform ADLs and work/ family responsibilities, particularly as the pt is a single mother reliant on her own income to care for herself and her family. Reviewed with Patient Goals,Progress Being Made,Home Exercise Program Patient/Caregiver Understanding Excellent Plan Amount of Therapy Recommended 5 Months Frequency of Treatment Once a Week Length of Session 45 Minutes Therapeutic Contents Client Education,Cognitive- Linguistic Training, Compensatory Swallowing Training,Expressive Language Training,Fluency,Home Exercise Program,Information Processing,Receptive Language Training,Swallowing/Feeding, Voice Training Provided Patient/Caregiver Instruction Home Exercise Program,Plan of Care,Questions/Concerns Therapy Recommendations Continue with Current Program
--- NOTE | 2019-11-20 17:11 | ST.OPTN ---
Visit Care Team Role Provider Type Yanelis Gillespie ND Primary Care Provider Non-Staff Address: [address] [place] [address], [place], [address] Leander Romo DO Attending Provider Physician Referring Provider Address: [address] [place], [address] GREY GOODS TESTER Treatment Note GREY GOODS TESTER Treatment Note Start: 10/16/19 12:32 Freq: Status: Active Protocol: Document 11/20/19 11:07 SHEYLA (Rec: 11/20/19 11:26 SHEYLA [id number]) Speech Pathology Treatment Note Session Time Visit Start Time 09:30 Visit Stop Time 10:20 Total Visit Minutes 50 Visit Information Visit Number 4 Plan of Care Dates 10/16/19 - 01/08/20 Insurance Information [employer] Setting Treatment Setting Outpatient Care Visit Type Note Type Treatment Note Next Note Type Next Note Type Treatment Note General Information General Information The pt is a 34-yr-old female familiar to this GREY GOODS TESTER from Modified Barium Study administered 09/23/19, which revealed mild oropharyngeal dysphagia (see report for details). The pt has a complex past medical history. 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 Sequela of injury included upper body neuropathy (face, neck, arms, mostly right side; unable to feel right side of face for 9 mos), changes in cognition, vision, taste, smell, speech articulation, and language skills, and increased fatigue. She underwent ACDF surgery ( July 2018) during which muscle relaxers were required in order to displace laryngeal musculature to perform surgery . Since then, she has experienced difficulty initiating swallow trigger, coughing and choking, and sticking sensation with oral intake. 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 Distant medical history is significant for developmental trauma resulting in PTSD and OCD. The pt also has a history of alcoholism, currently with 2 yrs sobriety after admitting herself in emergent recovery care. Currently, the pt reports difficulty with reading d/t injury of eye muscles on the right side but states she has normal auditory comprehension. She has been wearing corrective glasses which has improved the balance of vision between the two eyes. She reported having seen an optomotrist in [facility] and a neuro-optomotrist in [place] who told her that her optic nerve is intact but she has muscle weakness. To address her PTSD and OCD, the pt is actively working with mental health professionals and taking Wellbutrin for trauma. She also reports participating in neuro feedback system therapy and is working with Physical Therapy at a different clinic for strengthening and addressing nerve pain. The pt has a neurosurgeon consultation scheduled at [facility] in December. 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 She reports difficulty with managing multiple tasks, invoicing clients, etc. 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 She anticipates sharing outer diameter grinder tool responsibilities with colleagues as it is difficult for her to manage independently. She feels doing tasks takes 5x longer than it used to. She reports that other board members are aware of deficits and are supportive . Subjective Observations/Patient Presentation Pt arrived on time. No new complaints. Chief Complaint(s) Speech,Language,Swallowing, Cognitive,Voice Additional Areas of Concern Vision, balance, neck pain Rehab Expectation/Goals: Patient Goals Improve swallow safety/comfort , speech, language and cognitive skills Patient Knowledge/Awareness of GREY GOODS TESTER Role Excellent in Treatment Patient/Caregiver Compliance with Home Good Exercise Program Objective Short Term Goals 1. The pt will participate in evaluation of speech, voice, and expressive/receptive/ cognitive communication to determine deficits and strengths and to guide POC. GOAL MET 2. The pt will complete exercises independently to improve swallow function/ safety and reduce risk of aspiration. 3. The pt will employ swallow precautions independently to improve swallow function/ safety and reduce risk of aspiration. 4. The pt will produce voicing in structured speaking tasks without glottal claros in 60% of opportunities, given min v/v cues. COGNITIVE COMMUNICATION: 1. The pt will complete selective and alternating attention tasks of moderate difficulty to improve attention skills required for work/family/personal responsibilities. 2. The pt will use attention/ memory strategies with min cues while completing a series of tasks to increase her ability to track task progress and alternate between tasks effectively and improve attention and executive function skills. 3. The pt will complete deductive reasoning tasks of moderate complexity to improve executive functions. Nursing Home Goals 1. The pt will consume regular texture and thin liquids WNL (i.e., without s/sx of aspiration and without discomfort). 2. The pt will produce vocal quality WNL in spontaneous speech with no greater than mild presence of glottal claros, as measured by CAPE-V assessment, to improve pt's ability to use voice as needed with reduced discomfort. COGNITIVE COMMUNICATION: 1. Using attention/memory strategies independently as needed, the pt will complete a series of alternating tasks of moderate complexity with 80 % accuracy across all tasks to improve attention and executive function skills. 3. The pt will demonstrate executive function skills in work/family ADLs WFL as measured by pt report and clinician judgment. Treatment Activities Administered Cognitive Linguistic Quick Test (CLQT) for assessment of cognitive linguistic skills with the following results: Composite Severity Rating: Mild Impairment Attention, Executive Functions , and Visuospatial Skills: Mild Impairment Memory, Language, and Clock Drawing: WNL The pt exhibited slowed completion of gyo-kog-itajd tasks, often requiring page rotation in order to draw lines in different directions, d/t right hand pain with small motor movements. Although she made excellent progress and exhibited good executive function skills with both mazes, she did not complete either in the allotted time, rendering a score of zero. Additionally, secondary to visual impairments, the pt often expressed feeling visually overstimulated when presented with busy pages, such as symbol cancelation, trail making, and design memory tasks. She did, however, score full points in each of these tasks. At the end of the assessment, she reported increased brain fog, which she said is a very typical experience of most days when she attempts to work and do other activities. She stated that by the end of most days, she is exhausted. Assessment Patient Response to Treatment Good Rehab Potential Good Impairments Identified Auditory Comprehension, Auditory Processing,Cognitive- Linguistic Skills,Dysphagia, Fluency of Speech,Memory - Short Term,Memory - Working, Reading Comprehension, Receptive Language,Vocal Quality Progress Towards Goals Good Progress Assessment of Overall Progress Improving Assessment of Improvement The pt presents with mild cogntive-linguistic deficits in areas of attention, executive function, and visuospatial skills, which supports her reports. Ability to complete tasks was impeded by visual impairments and pain in her right hand, both of which slowed her ability to complete tasks within time constraints. Skilled intervention is medically necessary to increase ability to perform ADLs and work/ family responsibilities, particularly as the pt is a single mother reliant on her own income to care for herself and her family. Reviewed with Patient Goals,Progress Being Made,Home Exercise Program Patient/Caregiver Understanding Excellent Plan Amount of Therapy Recommended 5 Months Frequency of Treatment Once a Week Length of Session 45 Minutes Therapeutic Contents Client Education,Cognitive- Linguistic Training, Compensatory Swallowing Training,Expressive Language Training,Fluency,Home Exercise Program,Information Processing,Receptive Language Training,Swallowing/Feeding, Voice Training Provided Patient/Caregiver Instruction Home Exercise Program,Plan of Care,Questions/Concerns Therapy Recommendations Continue with Current Program
--- NOTE | 2019-11-27 10:47 | ST.OPTN ---
Visit Care Team Role Provider Type Yanelis Gillespie ND Primary Care Provider Non-Staff Address: [address] [place] [address], [place], [address] Leander Romo DO Attending Provider Physician Referring Provider Address: [address] [place], [address] REAL ESTATE OPERATIONS MANAGER Treatment Note REAL ESTATE OPERATIONS MANAGER Treatment Note Start: 10/16/19 12:32 Freq: Status: Active Protocol: Document 11/27/19 10:31 SHEYLA (Rec: 11/27/19 10:47 SHEYLA [id number]) Speech Pathology Treatment Note Session Time Visit Start Time 09:30 Visit Stop Time 10:15 Total Visit Minutes 45 Visit Information Visit Number 5 Plan of Care Dates 10/16/19 - 01/08/20 Insurance Information [facility] Setting Treatment Setting Outpatient Care Visit Type Note Type Treatment Note Next Note Type Next Note Type Treatment Note General Information General Information The pt is a 34-yr-old female familiar to this REAL ESTATE OPERATIONS MANAGER from Modified Barium Study administered 09/23/19, which revealed mild oropharyngeal dysphagia (see report for details). The pt has a complex past medical history. 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 Sequela of injury included upper body neuropathy (face, neck, arms, mostly right side; unable to feel right side of face for 9 mos), changes in cognition, vision, taste, smell, speech articulation, and language skills, and increased fatigue. She underwent ACDF surgery ( July 2018) during which muscle relaxers were required in order to displace laryngeal musculature to perform surgery . Since then, she has experienced difficulty initiating swallow trigger, coughing and choking, and sticking sensation with oral intake. 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 Distant medical history is significant for developmental trauma resulting in PTSD and OCD. The pt also has a history of alcoholism, currently with 2 yrs sobriety after admitting herself in emergent recovery care. Currently, the pt reports difficulty with reading d/t injury of eye muscles on the right side but states she has normal auditory comprehension. She has been wearing corrective glasses which has improved the balance of vision between the two eyes. She reported having seen an optomotrist in [facility] and a neuro-optomotrist in [place] who told her that her optic nerve is intact but she has muscle weakness. To address her PTSD and OCD, the pt is actively working with mental health professionals and taking Wellbutrin for trauma. She also reports participating in neuro feedback system therapy and is working with Physical Therapy at a different clinic for strengthening and addressing nerve pain. The pt has a neurosurgeon consultation scheduled at [facility] in December. 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 She reports difficulty with managing multiple tasks, invoicing clients, etc. 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 She anticipates sharing construction craft laborer responsibilities with colleagues as it is difficult for her to manage independently. She feels doing tasks takes 5x longer than it used to. She reports that other board members are aware of deficits and are supportive . Subjective Observations/Patient Presentation Pt arrived on time. Continues to have significant neck pain since 2 wks ago when she feels she may have strained it. She continues to feel sticking sensation with oral intake, particularly with pills which she feels are stuck in my throat for hours. She is doing swallow exercises and states that recommended postures with intake are helping. She also reported a childhood hx of 2 pancreatic attacks, GERD for which she was treated medicinally, and abuse of diet pills which may have triggered the pancreatic attacks. She denied heartburn symptom of GERD. Chief Complaint(s) Speech,Language,Swallowing, Cognitive,Voice Additional Areas of Concern Vision, balance, neck pain Rehab Expectation/Goals: Patient Goals Improve swallow safety/comfort , speech, language and cognitive skills Patient Knowledge/Awareness of REAL ESTATE OPERATIONS MANAGER Role Excellent in Treatment Patient/Caregiver Compliance with Home Good Exercise Program Objective Short Term Goals 1. The pt will participate in evaluation of speech, voice, and expressive/receptive/ cognitive communication to determine deficits and strengths and to guide POC. GOAL MET 2. The pt will complete exercises independently to improve swallow function/ safety and reduce risk of aspiration. 3. The pt will employ swallow precautions independently to improve swallow function/ safety and reduce risk of aspiration. 4. The pt will produce voicing in structured speaking tasks without glottal claros in 60% of opportunities, given min v/v cues. COGNITIVE COMMUNICATION: 1. The pt will complete selective and alternating attention tasks of moderate difficulty to improve attention skills required for work/family/personal responsibilities. 2. The pt will use attention/ memory strategies with min cues while completing a series of tasks to increase her ability to track task progress and alternate between tasks effectively and improve attention and executive function skills. 3. The pt will complete deductive reasoning tasks of moderate complexity to improve executive functions. Nursing Home Goals 1. The pt will consume regular texture and thin liquids WNL (i.e., without s/sx of aspiration and without discomfort). 2. The pt will produce vocal quality WNL in spontaneous speech with no greater than mild presence of glottal claros, as measured by CAPE-V assessment, to improve pt's ability to use voice as needed with reduced discomfort. COGNITIVE COMMUNICATION: 1. Using attention/memory strategies independently as needed, the pt will complete a series of alternating tasks of moderate complexity with 80 % accuracy accross all tasks to improve attention and executive function skills. 3. The pt will demonstrate executive function skills in work/family ADLs WFL as measured by pt report and clinician judgment. Treatment Activities Dysphagia: Pt was educated ( orally and in writing) on GERD /LPR symptoms and potential impacts on swallow and voice. She completed Reflux Symptom Index with score of 24 pts (> 13 may be indicative of significant reflux disease). Difficult to determine, however, if symptoms are result from reflux or from cervical spine comorbidities. General GERD/LPR diet and lifestyle modifications were discussed and recommended as a trial to see if symptoms are relieved. Cognitive-Linguistic: Initiated training of internal memory strategies. Education was provided orally with examples and in writing for home practice. The pt verbalized understanding, and given 2 word lists of 3 words each, one associated words and one unassociated words, the pt developed a sentence for each word to assist recall. Will reinforce in future sessions. Assessment Patient Response to Treatment Good Rehab Potential Good Impairments Identified Auditory Comprehension, Auditory Processing,Cognitive- Linguistic Skills,Dysphagia, Fluency of Speech,Memory - Short Term,Memory - Working, Reading Comprehension, Receptive Language,Vocal Quality Progress Towards Goals Good Progress Assessment of Overall Progress Improving Assessment of Improvement The pt reports improved but not resolved dysphagia symptoms, primarily characterized by sticking sensation in throat. While she scored high on Reflux Symptoms Index, it is difficult to determine if symptoms are related to GERD or cervical comorbidities. The pt may benefit from modification to food and lifestyle as a trial to see if symptoms lessen. She was receptive to this recommendation without committing to it. The pt was responsive to initial training of internal memory strategies and was participatory in discussion and initial exercises, demonstrating understanding of strategies. She also independently identified functional situations in which she could apply these strategies. Additionally, she reported having good success with say-aloud strategies and other external memory tools targeted in previous sessions. Reviewed with Patient Goals,Progress Being Made,Home Exercise Program Patient/Caregiver Understanding Excellent Plan Amount of Therapy Recommended 5 Months Frequency of Treatment Once a Week Length of Session 45 Minutes Treatment Emphasis Next Session F/U on memory notebook; Cont internal mem strategies; HEP: deductive reason Therapeutic Contents Client Education,Cognitive- Linguistic Training, Compensatory Swallowing Training,Expressive Language Training,Fluency,Home Exercise Program,Information Processing,Receptive Language Training,Swallowing/Feeding, Voice Training Provided Patient/Caregiver Instruction Home Exercise Program,Plan of Care,Questions/Concerns Therapy Recommendations Continue with Current Program
--- NOTE | 2019-12-04 18:40 | ST.OPTN ---
Visit Care Team Role Provider Type Yanelis Gillespie ND Primary Care Provider Non-Staff Address: [address] [place] [address], [place], [address] Leander Romo DO Attending Provider Physician Referring Provider Address: [address] [place], [address] APPLICATION COUNSELOR Treatment Note APPLICATION COUNSELOR Treatment Note Start: 10/16/19 12:32 Freq: Status: Active Protocol: Document 12/04/19 18:31 SHEYLA (Rec: 12/04/19 18:40 SHEYLA [id number]) Speech Pathology Treatment Note Session Time Visit Start Time 14:30 Visit Stop Time 15:20 Total Visit Minutes 50 Visit Information Visit Number 6 Plan of Care Dates 10/16/19 - 01/08/20 Insurance Information [facility] Setting Treatment Setting Outpatient Care Visit Type Note Type Treatment Note Next Note Type Next Note Type Treatment Note General Information General Information The pt is a 34-yr-old female familiar to this APPLICATION COUNSELOR from Modified Barium Study administered 09/23/19, which revealed mild oropharyngeal dysphagia (see report for details). The pt has a complex past medical history. 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 Sequela of injury included upper body neuropathy (face, neck, arms, mostly right side; unable to feel right side of face for 9 mos), changes in cognition, vision, taste, smell, speech articulation, and language skills, and increased fatigue. She underwent ACDF surgery ( July 2018) during which muscle relaxers were required in order to displace laryngeal musculature to perform surgery . Since then, she has experienced difficulty initiating swallow trigger, coughing and choking, and sticking sensation with oral intake. 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 Distant medical history is significant for developmental trauma resulting in PTSD and OCD. The pt also has a history of alcoholism, currently with 2 yrs sobriety after admitting herself in emergent recovery care. Currently, the pt reports difficulty with reading d/t injury of eye muscles on the right side but states she has normal auditory comprehension. She has been wearing corrective glasses which has improved the balance of vision between the two eyes. She reported having seen an optomotrist in [facility] and a neuro-optomotrist in [place] who told her that her optic nerve is intact but she has muscle weakness. To address her PTSD and OCD, the pt is actively working with mental health professionals and taking Wellbutrin for trauma. She also reports participating in neuro feedback system therapy and is working with Physical Therapy at a different clinic for strengthening and addressing nerve pain. The pt has a neurosurgeon consultation scheduled at [facility] in December. 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 She reports difficulty with managing multiple tasks, invoicing clients, etc. 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 She anticipates sharing oyster unloader responsibilities with colleagues as it is difficult for her to manage independently. She feels doing tasks takes 5x longer than it used to. She reports that other board members are aware of deficits and are supportive . Subjective Observations/Patient Presentation Pt arrived on time. She reported successful carryover of internal memory strategies trained in therapy to notetaking and studying in her education courses. She continues to struggle with losing items around the house and tracking other objects and information, such as appts. She described use of sticky- note reminders that worked in past but are no longer helping her. Chief Complaint(s) Speech,Language,Swallowing, Cognitive,Voice Additional Areas of Concern Vision, balance, neck pain Rehab Expectation/Goals: Patient Goals Improve swallow safety/comfort , speech, language and cognitive skills Patient Knowledge/Awareness of APPLICATION COUNSELOR Role Excellent in Treatment Patient/Caregiver Compliance with Home Good Exercise Program Objective Short Term Goals 1. The pt will participate in evaluation of speech, voice, and expressive/receptive/ cognitive communication to determine deficits and strengths and to guide POC. GOAL MET 2. The pt will complete exercises independently to improve swallow function/ safety and reduce risk of aspiration. 3. The pt will employ swallow precautions independently to improve swallow function/ safety and reduce risk of aspiration. 4. The pt will produce voicing in structured speaking tasks without glottal claros in 60% of opportunities, given min v/v cues. COGNITIVE COMMUNICATION: 1. The pt will complete selective and alternating attention tasks of moderate difficulty to improve attention skills required for work/family/personal responsibilities. 2. The pt will use attention/ memory strategies with min cues while completing a series of tasks to increase her ability to track task progress and alternate between tasks effectively and improve attention and executive function skills. 3. The pt will complete deductive reasoning tasks of moderate complexity to improve executive functions. Hunter Trapper Goals 1. The pt will consume regular texture and thin liquids WNL (i.e., without s/sx of aspiration and without discomfort). 2. The pt will produce vocal quality WNL in spontaneous speech with no greater than mild presence of glottal claros, as measured by CAPE-V assessment, to improve pt's ability to use voice as needed with reduced discomfort. COGNITIVE COMMUNICATION: 1. Using attention/memory strategies independently as needed, the pt will complete a series of alternating tasks of moderate complexity with 80 % accuracy accross all tasks to improve attention and executive function skills. 3. The pt will demonstrate executive function skills in work/family ADLs WFL as measured by pt report and clinician judgment. Treatment Activities The pt described use of internal memory strategies related to educational studies , demonstrating excellent understanding and carryover of trained skills. Educated pt on external memory tools including memory notebook and organizing her home environment to promote a place for everything, and everything in its place to reduce episodes of losing objects. A memory notebook had been initiated in previous session. The pt produced it from her purse but had used it very little with no sense of overt organization. Trained pt in organizing the book in sections targeting her needs. She verbalized understanding of all information provided and identified categories for Memory Notebook sections as well as objects for which she agreed to determine a designated place for at home. Assessment Patient Response to Treatment Good Rehab Potential Good Impairments Identified Auditory Comprehension, Auditory Processing,Cognitive- Linguistic Skills,Dysphagia, Fluency of Speech,Memory - Short Term,Memory - Working, Reading Comprehension, Receptive Language,Vocal Quality Progress Towards Goals Good Progress Assessment of Overall Progress Improving Assessment of Improvement The pt is demonstrating excellent understanding and carryover of internal memory strategies that are assisting her in completing coursework with less effort and resulting in better grades. She expressed being very encouraged by this. She was receptive to all information and training provided. Reviewed with Patient Goals,Progress Being Made,Home Exercise Program Patient/Caregiver Understanding Excellent Plan Amount of Therapy Recommended 5 Months Frequency of Treatment Once a Week Length of Session 45 Minutes Treatment Emphasis Next Session F/U on home organization/ external memory tools; HEP, executive function Therapeutic Contents Client Education,Cognitive- Linguistic Training, Compensatory Swallowing Training,Expressive Language Training,Fluency,Home Exercise Program,Information Processing,Receptive Language Training,Swallowing/Feeding, Voice Training Provided Patient/Caregiver Instruction Home Exercise Program,Plan of Care,Questions/Concerns Therapy Recommendations Continue with Current Program
--- NOTE | 2019-12-23 09:32 | ST.OPTN ---
Visit Care Team Role Provider Type Yanelis Gillespie ND Primary Care Provider Non-Staff Address: [address] [place] [address], [place], [address] Leander Romo DO Attending Provider Physician Referring Provider Address: [address] [place], [address] ESCALATION ENGINEER Treatment Note ESCALATION ENGINEER Treatment Note Start: 10/16/19 12:32 Freq: Status: Active Protocol: Document 12/18/19 18:08 SHEYLA (Rec: 12/18/19 18:09 [email or web address]) Speech Pathology Treatment Note Session Time Visit Start Time 10:30 Visit Stop Time 11:20 Total Visit Minutes 50 Visit Information Visit Number 7 Plan of Care Dates 10/16/19 - 01/08/20 Insurance Information [employer] Setting Treatment Setting Outpatient Care Visit Type Note Type Treatment Note General Information General Information The pt is a 34-yr-old female familiar to this ESCALATION ENGINEER from Modified Barium Study administered 09/23/19, which revealed mild oropharyngeal dysphagia (see report for details). The pt has a complex past medical history. 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 Sequela of injury included upper body neuropathy (face, neck, arms, mostly right side; unable to feel right side of face for 9 mos), changes in cognition, vision, taste, smell, speech articulation, and language skills, and increased fatigue. She underwent ACDF surgery ( July 2018) during which muscle relaxers were required in order to displace laryngeal musculature to perform surgery . Since then, she has experienced difficulty initiating swallow trigger, coughing and choking, and sticking sensation with oral intake. 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 Distant medical history is significant for developmental trauma resulting in PTSD and OCD. The pt also has a history of alcoholism, currently with 2 yrs sobriety after admitting herself in emergent recovery care. Currently, the pt reports difficulty with reading d/t injury of eye muscles on the right side but states she has normal auditory comprehension. She has been wearing corrective glasses which has improved the balance of vision between the two eyes. She reported having seen an optomotrist in [facility] and a neuro-optomotrist in [place] who told her that her optic nerve is intact but she has muscle weakness. To address her PTSD and OCD, the pt is actively working with mental health professionals and taking Wellbutrin for trauma. She also reports participating in neuro feedback system therapy and is working with Physical Therapy at a different clinic for strengthening and addressing nerve pain. The pt has a neurosurgeon consultation scheduled at [facility] in December. 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 She reports difficulty with managing multiple tasks, invoicing clients, etc. 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 She anticipates sharing digital marketing lead responsibilities with colleagues as it is difficult for her to manage independently. She feels doing tasks takes 5x longer than it used to. She reports that other board members are aware of deficits and are supportive . Subjective Observations/Patient Presentation The pt arrived on time. No new complaints. At the start of the session she was upset from a negative personal encounter she had had right before coming to the clinic. After discussing the issue, she was less tearful and able to transition to topics of the session. The pt reported having established care with Dr. Tyesha Guo of Neurology who requested a copy of the pt's MBSS reports. The pt signed a ROZ and reports were faxed to Dr. Guo after the session. Chief Complaint(s) Speech,Language,Swallowing, Cognitive,Voice Additional Areas of Concern Vision, balance, neck pain Rehab Expectation/Goals: Patient Goals Improve swallow safety/comfort , speech, language and cognitive skills Patient Knowledge/Awareness of ESCALATION ENGINEER Role Excellent in Treatment Patient/Caregiver Compliance with Home Good Exercise Program Objective Short Term Goals 1. The pt will complete exercises independently to improve swallow function/ safety and reduce risk of aspiration. GOAL MET 3. The pt will employ swallow precautions independently to improve swallow function/ safety and reduce risk of aspiration. GOAL MET 4. The pt will produce voicing in structured speaking tasks without glottal claros in 60% of opportunities, given min v/v cues. GOAL NOT MET COGNITIVE COMMUNICATION: 1. The pt will complete selective and alternating attention tasks of moderate difficulty to improve attention skills required for work/family/personal responsibilities. MAKING PROGRESS; GOAL NOT MET 2. The pt will use attention/ memory strategies with min cues while completing a series of tasks to increase her ability to track task progress and alternate between tasks effectively and improve attention and executive function skills. MAKING PROGRESS; GOAL NOT MET 3. The pt will complete deductive reasoning tasks of moderate complexity to improve executive functions. MAKING PROGRESS; GOAL NOT MET Mechanical Engineering Technologist Goals 1. The pt will consume regular texture and thin liquids WNL (i.e., without s/sx of aspiration and without discomfort). MAKING PROGRESS; GOAL NOT MET. PT CONTINUES WITH DISCOMFORT AND OCCASIONAL COUGHING. 2. The pt will produce vocal quality WNL in spontaneous speech with no greater than mild presence of glottal claros, as measured by CAPE-V assessment, to improve pt's ability to use voice as needed with reduced discomfort. GOAL NOT MET COGNITIVE COMMUNICATION: 1. Using attention/memory strategies independently as needed, the pt will complete a series of alternating tasks of moderate complexity with 80 % accuracy accross all tasks to improve attention and executive function skills. MAKING PROGRESS; GOAL NOT MET 3. The pt will demonstrate executive function skills in work/family ADLs WFL as measured by pt report and clinician judgment. GOAL MET Treatment Activities Skilled counseling was provided to the pt at start of session as related to the issue that was upsetting her. Discussed establishment of care with Neurology, and [facility]. This session is the last that has been authorized by the pt's insurance. We discussed possibility of requesting additional authorization, as the pt has not yet met goals of treatment , or ending care now and resuming at start of the new year. The pt requested some time to think about this and stated she would let the clinician know within the week how she would like to proceed . Dysphagia: The pt reported compliance with swallow exercises, continued frequent discomfort with swallow as if her larynx gets caught high in her throat requiring manual assistance to return to natural position. Discussed possible referral to manual therapist, but recommended discussing this with Dr. Sari snell and proceding based on her recommendation. The pt also reported continued difficulty when gargling, stating that while improving, liquid occasionally enters the pharynx causing her significant coughing. Educated and trained pt in back of tongue exercises, which are part of her existing HEP, and mindfulness of tongue positioning during gargle. She verbalized understanding and demonstrated appropriate completion of exercises. Dysphonia: The pt exhibited significant glottal claros; otherwise vocal quality WNL. The pt demonstrated ability to reduce/eliminate glottal claros volitionally, indicating glottal claros as a behavior choice/habit vs VF pathology. Cognitive Communication: The pt c/o continued eye strain and headaches related to excessive exposure to computer screens. Paper based HEP tasks were provided to the pt with oral and written instructions. The pt completed visual analogies x2 trials, demonstrating understanding. Instructions for memory tasks, also provided in paper-based format, were given orally and in writing, of which the pt verbalized understanding. Assessment Patient Response to Treatment Good Rehab Potential Good Impairments Identified Auditory Comprehension, Auditory Processing,Cognitive- Linguistic Skills,Dysphagia, Fluency of Speech,Memory - Short Term,Memory - Working, Reading Comprehension, Receptive Language,Vocal Quality Progress Towards Goals Good Progress Assessment of Overall Progress Improving Assessment of Improvement Over the course of treatment, the pt has made progress with dysphagia symptoms though continues with physical discomfort with swallow, most notably the sensation that her larynx or possibly hyoid bone displaces and feels to be lodged in an elevated postion frequently with swallow. The pt is able to manually manage this but it does significantly interfere with swallow. Manual therapy may be beneficial. This clinician is not trained in manual therapy and, therefore, this would need to be referred out. The pt has newly established care with a neurologist who should be consulted prior to referral for manual therapy. The pt verbalized understanding of this and intention to discuss with Dr. Guo. The pt continues with nearly constant glottal claros in voice. She is able to volitionally eliminate this, demonstrating that this is a behavior choice and/or vocal habit vs a pathology. It is most likely an indication of the amount of stress the pt is under in her very busy personal life as a single working mother and student with many responsibilities. Skilled intervention is no longer warranted for dysphonia. The pt has made good progress in using internal and external memory tools to improve short -term and working memory skills as well as executive functions. This has enabled her to be more efficient with her work, particularly her schoolwork, and has resulted in better grades. She continues with deficits in areas of attention and has not yet met goals targeting cognitive communication skills . Continued skilled intervention is recommended and medically necessary to improve these skills in order for the pt to meet her many functional demands of work, family, and school lives. Reviewed with Patient Goals,Progress Being Made,Home Exercise Program Patient/Caregiver Understanding Excellent Plan Therapeutic Contents Client Education,Cognitive- Linguistic Training, Compensatory Swallowing Training,Expressive Language Training,Fluency,Home Exercise Program,Information Processing,Receptive Language Training,Swallowing/Feeding, Voice Training Provided Patient/Caregiver Instruction Home Exercise Program,Plan of Care,Questions/Concerns Therapy Recommendations Continue with Current Program
--- NOTE | 2020-04-13 16:06 | ST.OPDS ---
Visit Care Team Role Provider Type Yanelis Gillespie ND Primary Care Provider Non-Staff Address: [address] [place] [address], [place], [address] Leander Romo DO Attending Provider Physician Referring Provider Address: [address] [place], [address] HEADING MATCHER AND ASSEMBLER Treatment Note HEADING MATCHER AND ASSEMBLER Treatment Note Start: 10/16/19 12:32 Freq: Status: Active Protocol: Document 04/13/20 16:04 SHEYLA (Rec: 04/13/20 16:06 SHEYLA [email or web address]) Speech Pathology Treatment Note Visit Information Plan of Care Dates 10/16/19 - 01/08/20 Insurance Information [employer] Setting Treatment Setting Outpatient Care Visit Type Note Type Discharge Summary General Information General Information The pt is a 34-yr-old female familiar to this HEADING MATCHER AND ASSEMBLER from Modified Barium Study administered 09/23/19, which revealed mild oropharyngeal dysphagia (see report for details). The pt has a complex past medical history. 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 Sequela of injury included upper body neuropathy (face, neck, arms, mostly right side; unable to feel right side of face for 9 mos), changes in cognition, vision, taste, smell, speech articulation, and language skills, and increased fatigue. She underwent ACDF surgery ( July 2018) during which muscle relaxers were required in order to displace laryngeal musculature to perform surgery . Since then, she has experienced difficulty initiating swallow trigger, coughing and choking, and sticking sensation with oral intake. 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 Distant medical history is significant for developmental trauma resulting in PTSD and OCD. The pt also has a history of alcoholism, currently with 2 yrs sobriety after admitting herself in emergent recovery care. Currently, the pt reports difficulty with reading d/t injury of eye muscles on the right side but states she has normal auditory comprehension. She has been wearing corrective glasses which has improved the balance of vision between the two eyes. She reported having seen an optomotrist in [facility] and a neuro-optomotrist in [place] who told her that her optic nerve is intact but she has muscle weakness. To address her PTSD and OCD, the pt is actively working with mental health professionals and taking Wellbutrin for trauma. She also reports participating in neuro feedback system therapy and is working with Physical Therapy at a different clinic for strengthening and addressing nerve pain. The pt has a neurosurgeon consultation scheduled at [facility] in December. 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 She reports difficulty with managing multiple tasks, invoicing clients, etc. 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 She anticipates sharing mail superintendent responsibilities with colleagues as it is difficult for her to manage independently. She feels doing tasks takes 5x longer than it used to. She reports that other board members are aware of deficits and are supportive . Subjective Observations/Patient Presentation The pt was last seen Dec 18, 2019, when treatment was held d/t exhaustion of benefits. Pt now has new orders to resume therapy. This chart is d/c'd and new chart will be opened under new orders. Chief Complaint(s) Speech,Language,Swallowing, Cognitive,Voice Additional Areas of Concern Vision, balance, neck pain Rehab Expectation/Goals: Patient Goals Improve swallow safety/comfort , speech, language and cognitive skills Objective Short Term Goals 1. The pt will complete exercises independently to improve swallow function/ safety and reduce risk of aspiration. GOAL MET 3. The pt will employ swallow precautions independently to improve swallow function/ safety and reduce risk of aspiration. GOAL MET 4. The pt will produce voicing in structured speaking tasks without glottal claros in 60% of opportunities, given min v/v cues. GOAL NOT MET COGNITIVE COMMUNICATION: 1. The pt will complete selective and alternating attention tasks of moderate difficulty to improve attention skills required for work/family/personal responsibilities. MAKING PROGRESS; GOAL NOT MET 2. The pt will use attention/ memory strategies with min cues while completing a series of tasks to increase her ability to track task progress and alternate between tasks effectively and improve attention and executive function skills. MAKING PROGRESS; GOAL NOT MET 3. The pt will complete deductive reasoning tasks of moderate complexity to improve executive functions. MAKING PROGRESS; GOAL NOT MET Longterm Goals 1. The pt will consume regular texture and thin liquids WNL (i.e., without s/sx of aspiration and without discomfort). MAKING PROGRESS; GOAL NOT MET. PT CONTINUES WITH DISCOMFORT AND OCCASIONAL COUGHING. 2. The pt will produce vocal quality WNL in spontaneous speech with no greater than mild presence of glottal claros, as measured by CAPE-V assessment, to improve pt's ability to use voice as needed with reduced discomfort. GOAL NOT MET COGNITIVE COMMUNICATION: 1. Using attention/memory strategies independently as needed, the pt will complete a series of alternating tasks of moderate complexity with 80 % accuracy accross all tasks to improve attention and executive function skills. MAKING PROGRESS; GOAL NOT MET 3. The pt will demonstrate executive function skills in work/family ADLs WFL as measured by pt report and clinician judgment. GOAL MET Assessment Patient Response to Treatment Good Rehab Potential Good Impairments Identified Auditory Comprehension, Auditory Processing,Cognitive- Linguistic Skills,Dysphagia, Fluency of Speech,Memory - Short Term,Memory - Working, Reading Comprehension, Receptive Language,Vocal Quality Progress Towards Goals Good Progress Assessment of Overall Progress Improving Plan Therapy Recommendations Discharge from Speech Therapy
== END 2020-04-13 17:00 ==
LOC: SP 10:30
PROVIDERS: PCP Naturopath; Referring Provider Physical Medicine & Rehabilitation; Visit Provider Physical Medicine & Rehabilitation
DX: R13.10 Dysphagia, unspecified (principal)
CPT/HCPCS: 92507; 92526; 92610; 96125; 97129; 97130

== ENCOUNTER → 2020-03-12 13:04 | Outpatient (CLI) | payer OTHER, MEDICAID, SELFPAY ==
--- NOTE | 2020-03-12 | DI.CT.S_ITS ---
PROCEDURE: CT CERVICAL SPINE WO CON INDICATIONS: Arthrodesis status TECHNIQUE: Noncontrast 3 mm thick sections acquired from the skull base to the T4 level. Sagittal and coronal reformats were then constructed. For radiation dose reduction, the following was used: automated exposure control, adjustment of mA and/or kV according to patient size. COMPARISON: [facility], CR, XR CERVICAL SPINE 4V OR 5V, 06/07/2017, 13:36. [facility], CT, HEAD AND NECK ANGIO, 02/27/2017, 21:50. [facility], CR, XR CERVICAL SPINE 4V OR 5V, 11/13/2018, 9:01. [facility], CR, XR CERVICAL SPINE 2V OR 3V, 09/11/2018, 8:48. [facility], MR, MR CERVICAL SPINE WO CON, 03/22/2019, 17:48. FINDINGS: Image quality: Excellent. Bones: No fractures or dislocations. Visualized superior ribs are intact. Reversal of the normal cervical lordosis is seen, with the apex at the C3-C4 level. No focal AP alignment abnormality is seen. Anterior fixation hardware is seen at the C5-C6 level. The screws appear well placed. The fusion plate is well seated. There is a disc spacer seen at C5-C6. No findings of hardware failure or hardware loosening are seen. Soft tissues: Prevertebral soft tissues are normal in thickness. No paravertebral hematomas. No apical pneumothoraces. IMPRESSION: Normal anterior C5-C6 hardware, without findings of hardware failure or hardware loosening. Reversal of the normal cervical lordosis is seen. This is commonly observed in patients with muscular spasm. Dictated by: Jimbo Garland M.D. on 03/12/2020 at 12:32 Approved by: Jimbo Garland M.D. on 03/12/2020 at 12:34
== END ==
PROVIDERS: Family Provider Naturopath; PCP Naturopath; Referring Provider Physician Assistant; Visit Provider Physician Assistant
DX: M54.2 Cervicalgia (principal); Z98.1 Arthrodesis status
CPT/HCPCS: 72125

== ENCOUNTER → 2020-03-27 12:41 | Outpatient (CLI) | payer OTHER, MEDICAID, SELFPAY ==
--- NOTE | 2020-03-27 | DI.MRI.S_ITS ---
PROCEDURE: MR SHOULDER RT W CON INDICATIONS: Right shoulder pain TECHNIQUE: After the administration of 12 mL of dilute intra-articular Gadolinium contrast, oblique coronal T1 and T2 spin echo with fat saturation, oblique sagittal T1 spin echo with and without fat saturation, oblique sagittal T2 fast spin echo with fat saturation, axial T1 spin echo with fat saturation through the shoulder. COMPARISON: [facility], CR, XR SHOULDER RT MIN 2V, 12/18/2019, 8:33. [facility], RF, [place] SHOULDER INJECTION MR/CT RT, 03/27/2020, 13:55. FINDINGS: Image quality: Excellent. Rotator cuff: Mild supraspinatus and infraspinatus tendinosis. The teres minor and subscapularis tendons are intact. There is no significant rotator cuff muscle atrophy. Bones and bursae: No acute trabecular bone injury. Mild acromioclavicular degenerative changes are present. A trace amount of fluid in the subacromial/subdeltoid bursa may indicate mild bursitis. Capsule and soft tissues: The glenoid labrum is intact. A normal variant sublabral sulcus is noted superiorly. There is tendinosis and partial longitudinal tearing of the intra-articular portion of the biceps long head tendon. The inferior glenohumeral ligament is of normal thickness. No intra-articular bodies. IMPRESSION: 1. Partial longitudinal tearing of the biceps long head tendon superimposed on moderate tendinosis. 2. Mild supraspinatus and infraspinatus tendinosis. 3. Intact glenoid labrum. 4. Mild acromioclavicular joint osteoarthrosis. 5. Trace subacromial/subdeltoid bursal effusion or bursitis. Dictated by: Dameon Montoya M.D. on 03/27/2020 at 14:08 Approved by: Dameon Montoya M.D. on 03/27/2020 at 14:16
--- NOTE | 2020-03-27 | DI.RAD.S_ITS ---
PROCEDURE: [place] SHOULDER INJECTION MR/CT RT INDICATIONS: Right shoulder pain COMPARISON: None. TECHNIQUE: The indications, alternatives, benefits, risks, and complications of the procedure were explained to the patient. Written informed consent was obtained and placed in the chart. The shoulder was examined fluoroscopically and a site for needle placement chosen for entry into the glenohumeral joint from an anterior approach. The skin was prepped and draped in a sterile fashion, and 1% lidocaine infiltrated from skin down to joint capsule. A spinal needle was inserted into the glenohumeral joint, and a small amount of iodinated contrast media injected to confirm intra-articular placement of the needle tip. This was followed by approximately 12 mL dilute solution of a gadolinium containing MR contrast agent. The needle was removed and a dressing was applied. The patient was given postprocedural instructions and sent to the MR suite for MR imaging. FINDINGS: A single fluoroscopic spot image demonstrates intra-articular location of injected iodinated contrast. IMPRESSION: Successful fluoroscopically guided administration of dilute Gadolinium solution into the shoulder joint for MR arthrogram. Dictated by: Stella Stevens MD, PhD on 03/27/2020 at 13:39 Approved by: Stella Stevens MD, PhD on 03/27/2020 at 13:39
== END ==
PROVIDERS: Family Provider Naturopath; PCP Naturopath; Referring Provider Physician Assistant Medical; Visit Provider Physician Assistant Medical
DX: M25.511 Pain in right shoulder (principal); S46.111A Strain of muscle, fascia and tendon of long head of biceps, right arm, initial encounter; M19.011 Primary osteoarthritis, right shoulder
CPT/HCPCS: 23350; 73222; 77002

== ENCOUNTER 2020-04-27 11:00 | Outpatient (RCR) | payer OTHER, MEDICAID, SELFPAY ==
--- NOTE | 2020-01-10 16:00 | PT.OPPOC ---
Physical, Occupational & Speech Therapy At [facility] Current Diagnoses Cervicalgia (01/10/20) Dizziness and giddiness (01/10/20) Visit Care Team Role Provider Type Yanelis Gillespie ND Family Provider Non-Staff Primary Care Provider Specialty: Medical Address: [address] [place] [address], [id number] Email: OSMEL Beckham Attending Provider Non-Staff Referring Provider Specialty: Medical Address: [address] [place] [address], [address], [place], [address] Email: Plan Of Care PT-OP-T Assessment and Plan Start: 01/07/20 15:06 Freq: Status: Active Protocol: Document 01/10/20 11:00 AMB (Rec: 01/13/20 09:59 AMB [id number]) Physical Therapy Assessment Rehab Potential Rehabilitation Potential Good Evaluation Complexity Number of Personal Factors/Comorbidities 3 or More Number of Body Systems Impaired 4 or More Clinical Presentation at Evaluation Evolving Impairments Impairments Activity Tolerance,Functional Activities,Pain,ROM,Vestibular ,Visual Motor Goals Three Impairment Pain Short Term Goal (STG) Sarah will study at her computer for 1 hour with pain of 4/10 or less. STG Duration 4 weeks Phone Engineer Goal (LTG) Sarah will drive her car for 20 minutes with 4/10 pain or less. LTG Duration 8 weeks Two Impairment Dizziness Short Term Goal (STG) Sarah will look up without dizziness. STG Duration 4 weeks Long-Term Goal (LTG) Sarah will read for 20 minutes without dizziness. LTG Duration 8 weeks One Impairment Neck ROM Short Term Goal (STG) Sarah will improve her cervical extension AROM to 40 degrees. STG Duration 4 weeks Assessment Summary Assessment Sarah attends PT with a host of chronic autonomic pain complaints s/p ACDF. She has previously tried physical therapy, but is coming to this physical therapy to work on her dizziness. We will further evaluate her vestibular function, but likely her dizziness is more cervicogenic and part of her difficulty with her autonomic nervous system in the context of persistent pain. She will benefit from gentle habituation and pain education to help her be able to move her neck, shoulder and overall body with greater ease and less pain. Physical Therapy Plan Frequency and Duration Frequency of Treatment 2x/Week Duration of Treatment 8 weeks Plan of Care Start Date 01/10/20 Plan of Care End Date 03/06/20 Therapeutic Interventions Therapeutic Interventions Balance Training,Home Exercise Program,Manual Therapy, Neuromuscular Re-education, Self-Care/Home Management, Therapeutic Activities, Therapeutic Exercises Modalities Cold Pack/Ice Massage,Hot Packs Plan of Care Dates Plan of Care Start Date 01/10/20 Plan of Care End Date 03/06/20 Electronically Signed by: Sophia Solis, PT 01/13/20 1015 Please Sign and Return: I have reviewed this Plan of Care and certify that the skilled therapy services above are required to meet the patient?s needs. Physician Signature Date Printed Name and Credentials Clinical Instructor Signature Printed Name and Credentials
--- NOTE | 2020-01-10 16:00 | PT.OIE ---
Current Diagnoses Cervicalgia (01/10/20) Dizziness and giddiness (01/10/20) Past Medical History (Last Reviewed 12/18/19 @ 10:01 by Leander Romo DO) Anemia Anxiety (~1994) Asthma Cervical myelopathy Cervical radiculopathy Dysphagia Endometriosis Former smoker History of ETOH abuse Hypothyroidism Insomnia Migraines Occipital neuralgia of right side Osteoarthritis Pancreatitis (~2009) Panic attacks (~1994) PTSD (post-traumatic stress disorder) (~1994) Rotator cuff impingement syndrome of right shoulder Seasonal allergies Spinal stenosis of cervical region Past Surgical History (Last Reviewed 12/18/19 @ 10:01 by Leander Romo DO) History of bilateral tubal ligation (04/28/17) Hx of appendectomy (~2005) Hx of laparoscopy (~2007) S/P cervical spinal fusion Status post appendectomy Status post delivery Status post delivery Status post delivery (02/22/16) Status post laparoscopy Visit Care Team Role Provider Type Yanelis Gillespie ND Family Provider Non-Staff Primary Care Provider Specialty: Medical Address: [address] [place] [address], [id number] Email: OSMEL Beckham Attending Provider Non-Staff Referring Provider Specialty: Medical Address: [address] [place] [address] [place], [address] Email: Physical Therapy Initial Evaluation PT-OP-A Visit Information Start: 01/07/20 15:06 Freq: Status: Active Protocol: Document 01/10/20 11:00 AMB (Rec: 01/10/20 15:56 AMB [email or web address]) Out-Patient Physical Therapy Visit Information Visit Information Visit Type Initial Evaluation Visit Start Time 11:00 Visit Stop Time 12:00 Total Visit Minutes 60 Visit Number 1 PT-OP-B Current Condition Start: 01/07/20 15:06 Freq: Status: Active Protocol: Document 01/10/20 11:00 AMB (Rec: 01/10/20 11:21 AMB [id number]) Current Condition History of Current Condition Onset Date July 11, 2018 Current Complaints upper cervical pain History of Current Condition Neck pain s/p C56 ACDF which she had after a chiropractic neck adjustment for frozen shoulder. Continues to have upper cervical neck pain. Had a surgical consult with pt reports nerve compression at C23. R shoulder issues. Constant headaches with L neck pain s/p stretching/yoga 6 weeks ago. The most troubling part of it is cognitive brain fog-- visually challenged and swallow issues. Also reports TMJ sx. Also reports dizziness- feels like she is floating around in her body. 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 Extended sitting with studying is struggling. Pt feels scapular pain and feels like anterior cervical muscles get really tense. Prior Treatments and Tests Previous PT- hoping for vestibular assessment- has previously tried strengthening and soft tissue work. Treatment Goals Patient/Caregiver Goals Address the dizziness Personal Factors Other Personal Factors That May Effect Concussion hx, dizziness/falls Therapy/Recovery , depression, hypothyroid, current custody navarro PT-OP-C Subjective Start: 01/07/20 15:06 Freq: Status: Active Protocol: Document 01/10/20 11:00 AMB (Rec: 01/13/20 08:12 AMB [email or web address]) Patient Questionnaires Neck Disability Index NDI Score 32 Neck Disability Index Impairment 60 to 79% Impaired (Score 30- 39) Quick Dash- Upper Extremity Quick Dash UE Score 66 OP-PT Pain Assessment Comments Pain Comments Sub occipital: 7/10, R parascapular 6/10, R anterior cervical 6/10, PT-OP-K Range of Motion Start: 01/07/20 15:06 Freq: Status: Active Protocol: Document 01/10/20 11:00 AMB (Rec: 01/13/20 08:12 AMB [email or web address]) Cervical Spine Range of Motion Cervical Spine Active Degrees Testing Position Sitting Flexion 60 Extension 20 Rotation Left 45 Rotation Right 45 Shoulder Goniometric Range of Motion Shoulder Right Active Flexion 170 Abduction 105 Comments pain limits PT-OP-T Assessment and Plan Start: 01/07/20 15:06 Freq: Status: Active Protocol: Document 01/10/20 11:00 AMB (Rec: 01/13/20 09:59 AMB [id number]) Physical Therapy Assessment Rehab Potential Rehabilitation Potential Good Evaluation Complexity Number of Personal Factors/Comorbidities 3 or More Number of Body Systems Impaired 4 or More Clinical Presentation at Evaluation Evolving Impairments Impairments Activity Tolerance,Functional Activities,Pain,ROM,Vestibular ,Visual Motor Goals Three Impairment Pain Short Term Goal (STG) Sarah will study at her computer for 1 hour with pain of 4/10 or less. STG Duration 4 weeks Nursing Home Goal (LTG) Sarah will drive her car for 20 minutes with 4/10 pain or less. LTG Duration 8 weeks Two Impairment Dizziness Short Term Goal (STG) Sarah will look up without dizziness. STG Duration 4 weeks Nursing Home Goal (LTG) Sarah will read for 20 minutes without dizziness. LTG Duration 8 weeks One Impairment Neck ROM Short Term Goal (STG) Sarah will improve her cervical extension AROM to 40 degrees. STG Duration 4 weeks Assessment Summary Assessment Sarah attends PT with a host of chronic autonomic pain complaints s/p ACDF. She has previously tried physical therapy, but is coming to this physical therapy to work on her dizziness. We will further evaluate her vestibular function, but likely her dizziness is more cervicogenic and part of her difficulty with her autonomic nervous system in the context of persistent pain. She will benefit from gentle habituation and pain education to help her be able to move her neck, shoulder and overall body with greater ease and less pain. Physical Therapy Plan Frequency and Duration Frequency of Treatment 2x/Week Duration of Treatment 8 weeks Plan of Care Start Date 01/10/20 Plan of Care End Date 03/06/20 Therapeutic Interventions Therapeutic Interventions Balance Training,Home Exercise Program,Manual Therapy, Neuromuscular Re-education, Self-Care/Home Management, Therapeutic Activities, Therapeutic Exercises Modalities Cold Pack/Ice Massage
--- NOTE | 2020-01-17 12:00 | PT.OTN ---
Current Diagnoses Cervicalgia (01/17/20) Dizziness and giddiness (01/17/20) Physical Therapy Treatment Note PT-OP-A Visit Information Start: 01/07/20 15:06 Freq: Status: Active Protocol: Document 01/17/20 10:15 AMB (Rec: 01/18/20 09:30 AMB [email or web address]) Out-Patient Physical Therapy Visit Information Visit Information Visit Type Treatment Note Visit Start Time 10:15 Visit Stop Time 11:00 Total Visit Minutes 45 Visit Number 2 PT-OP-B Current Condition Start: 01/07/20 15:06 Freq: Status: Active Protocol: Document 01/10/20 11:00 AMB (Rec: 01/10/20 11:21 AMB [id number]) Current Condition History of Current Condition Onset Date July 11, 2018 Current Complaints upper cervical pain History of Current Condition Neck pain s/p C56 ACDF which she had after a chiropractic neck adjustment for frozen shoulder. Continues to have upper cervical neck pain. Had a surgical consult with pt reports nerve compression at C23. R shoulder issues. Constant headaches with L neck pain s/p stretching/yoga 6 weeks ago. The most troubling part of it is cognitive brain fog-- visually challenged and swallow issues. Also reports TMJ sx. Also reports dizziness- feels like she is floating around in her body. 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 Extended sitting with studying is struggling. Pt feels scapular pain and feels like anterior cervical muscles get really tense. Prior Treatments and Tests Previous PT- hoping for vestibular assessment- has previously tried strengthening and soft tissue work. Treatment Goals Patient/Caregiver Goals Address the dizziness Personal Factors Other Personal Factors That May Effect Concussion hx, dizziness/falls Therapy/Recovery , depression, hypothyroid, current custody navarro PT-OP-C Subjective Start: 01/07/20 15:06 Freq: Status: Active Protocol: Document 01/17/20 10:15 AMB (Rec: 01/18/20 09:30 AMB [email or web address]) OP-PT Subjective Patient Comments Patient Comments Sarah attends continuing to have brain fog. Spent time asking more about dizziness. Does occur with positional changes, mostly the act of lying down or looking up, but she will stay dizzy until she moves out of the position. PT-OP-K Range of Motion Start: 01/07/20 15:06 Freq: Status: Active Protocol: Document 01/10/20 11:00 AMB (Rec: 01/13/20 08:12 AMB [email or web address]) Cervical Spine Range of Motion Cervical Spine Active Degrees Testing Position Sitting Flexion 60 Extension 20 Rotation Left 45 Rotation Right 45 Shoulder Goniometric Range of Motion Shoulder Right Active Flexion 170 Abduction 105 Comments pain limits PT-OP-Q Treatments Start: 01/07/20 15:06 Freq: Status: Active Protocol: Document 01/17/20 10:15 AMB (Rec: 01/18/20 09:30 AMB [email or web address]) Neuro Re-Education Treatment Vestibular Rehabilitation VOR Retraining Background white Distance From Target 3 feet Speed slow Position seated Reps/Duration 15 seconds at a time Comments difficulty with convergence Other Activities 1 Details breathing Comments paced, slow, diaphragmatic, educated on energy conservation PT-OP-T Assessment and Plan Start: 01/07/20 15:06 Freq: Status: Active Protocol: Document 01/17/20 10:15 AMB (Rec: 01/18/20 09:30 AMB [email or web address]) Physical Therapy Assessment Assessment Summary Assessment Sarah had dizziness with vertebral artery screen, but also neck pain. 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 Presentation is complicated, but mostly presents as migraine related dizziness to me at this time, likely complicated by neck pain, true BPPV unlikely at this time due to sx description and no increase in dizziness or nystagmus with supine roll test, but if pt can tolerate more cervical extension in the future, could consider [place] to rule out. Physical Therapy Plan Next Visit Focus/Plan Next Note Type Treatment Note Next Visit Plan Progress visual/vestibular tx, breathing techniques for pain management
--- NOTE | 2020-01-20 13:02 | PT.OTN ---
Current Diagnoses Cervicalgia (01/20/20) Dizziness and giddiness (01/20/20) Physical Therapy Treatment Note PT-OP-A Visit Information Start: 01/07/20 15:06 Freq: Status: Active Protocol: Document 01/20/20 10:15 AMB (Rec: 01/20/20 13:01 AMB [email or web address]) Out-Patient Physical Therapy Visit Information Visit Information Visit Type Treatment Note Visit Start Time 10:15 Visit Stop Time 11:00 Total Visit Minutes 45 Visit Number 3 PT-OP-B Current Condition Start: 01/07/20 15:06 Freq: Status: Active Protocol: Document 01/10/20 11:00 AMB (Rec: 01/10/20 11:21 AMB [id number]) Current Condition History of Current Condition Onset Date July 11, 2018 Current Complaints upper cervical pain History of Current Condition Neck pain s/p C56 ACDF which she had after a chiropractic neck adjustment for frozen shoulder. Continues to have upper cervical neck pain. Had a surgical consult with pt reports nerve compression at C23. R shoulder issues. Constant headaches with L neck pain s/p stretching/yoga 6 weeks ago. The most troubling part of it is cognitive brain fog-- visually challenged and swallow issues. Also reports TMJ sx. Also reports dizziness- feels like she is floating around in her body. 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 Extended sitting with studying is struggling. Pt feels scapular pain and feels like anterior cervical muscles get really tense. Prior Treatments and Tests Previous PT- hoping for vestibular assessment- has previously tried strengthening and soft tissue work. Treatment Goals Patient/Caregiver Goals Address the dizziness Personal Factors Other Personal Factors That May Effect Concussion hx, dizziness/falls Therapy/Recovery , depression, hypothyroid, current custody navarro PT-OP-C Subjective Start: 01/07/20 15:06 Freq: Status: Active Protocol: Document 01/20/20 10:15 AMB (Rec: 01/20/20 13:01 AMB [email or web address]) OP-PT Subjective Patient Comments Patient Comments Sarah has not tried the VOR exercise yet, she had a weekend of self care. PT-OP-K Range of Motion Start: 01/07/20 15:06 Freq: Status: Active Protocol: Document 01/10/20 11:00 AMB (Rec: 01/13/20 08:12 AMB [email or web address]) Cervical Spine Range of Motion Cervical Spine Active Degrees Testing Position Sitting Flexion 60 Extension 20 Rotation Left 45 Rotation Right 45 Shoulder Goniometric Range of Motion Shoulder Right Active Flexion 170 Abduction 105 Comments pain limits PT-OP-Q Treatments Start: 01/07/20 15:06 Freq: Status: Active Protocol: Document 01/20/20 10:15 AMB (Rec: 01/20/20 13:01 AMB [email or web address]) Neuro Re-Education Treatment Balance Activities 1 Details hallway walking Comments vertical and horizontal head turns Vestibular Rehabilitation Targets Details vertical/horizontal Comments horizontal more challenging Other- 1 Details rhea string Comments supine PT-OP-R Modalities Start: 01/07/20 15:06 Freq: Status: Active Protocol: Document 01/20/20 10:15 AMB (Rec: 01/20/20 13:02 AMB [email or web address]) Hot Pack/Cold Pack Treatment Hot Pack Patient Position Hooklying Comments hot pack to upper back, cold pack to occiput PT-OP-T Assessment and Plan Start: 01/07/20 15:06 Freq: Status: Active Protocol: Document 01/20/20 10:15 AMB (Rec: 01/20/20 13:01 AMB [email or web address]) Physical Therapy Assessment Goals Three Impairment Pain Short Term Goal (STG) Sarah will study at her computer for 1 hour with pain of 4/10 or less. STG Duration 4 weeks Corner Bead Operator Goal (LTG) Sarah will drive her car for 20 minutes with 4/10 pain or less. LTG Duration 8 weeks Two Impairment Dizziness Short Term Goal (STG) Sarah will look up without dizziness. STG Duration 4 weeks Corner Bead Operator Goal (LTG) Sarah will read for 20 minutes without dizziness. LTG Duration 8 weeks One Impairment Neck ROM Short Term Goal (STG) Sarah will improve her cervical extension AROM to 40 degrees. STG Duration 4 weeks Assessment Summary Assessment Walking with head turns increased dizziness, other exercises increased eye strain / headache. Physical Therapy Plan Frequency and Duration Frequency of Treatment 2x/Week Duration of Treatment 8 weeks Plan of Care Start Date 01/10/20 Plan of Care End Date 03/06/20 Therapeutic Interventions Therapeutic Interventions Balance Training,Home Exercise Program,Manual Therapy, Neuromuscular Re-education, Self-Care/Home Management, Therapeutic Activities, Therapeutic Exercises Modalities Cold Pack/Ice Massage,Hot Packs Next Visit Focus/Plan Next Note Type Treatment Note Next Visit Plan REcheck how cold/heat combo worked, progress dynamic balance exercises as tolerated .
--- NOTE | 2020-01-24 12:00 | PT.OTN ---
Current Diagnoses Cervicalgia (01/24/20) Dizziness and giddiness (01/24/20) Physical Therapy Treatment Note PT-OP-A Visit Information Start: 01/07/20 15:06 Freq: Status: Active Protocol: Document 01/24/20 10:20 AMB (Rec: 01/24/20 11:01 AMB [id number]) Out-Patient Physical Therapy Visit Information Visit Information Visit Type Treatment Note Visit Note pt arrived 5 min late Visit Start Time 10:20 Visit Stop Time 11:10 Total Visit Minutes 55 Visit Number 4 PT-OP-B Current Condition Start: 01/07/20 15:06 Freq: Status: Active Protocol: Document 01/10/20 11:00 AMB (Rec: 01/10/20 11:21 AMB [id number]) Current Condition History of Current Condition Onset Date July 11, 2018 Current Complaints upper cervical pain History of Current Condition Neck pain s/p C56 ACDF which she had after a chiropractic neck adjustment for frozen shoulder. Continues to have upper cervical neck pain. Had a surgical consult with pt reports nerve compression at C23. R shoulder issues. Constant headaches with L neck pain s/p stretching/yoga 6 weeks ago. The most troubling part of it is cognitive brain fog-- visually challenged and swallow issues. Also reports TMJ sx. Also reports dizziness- feels like she is floating around in her body. 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 Extended sitting with studying is struggling. Pt feels scapular pain and feels like anterior cervical muscles get really tense. Prior Treatments and Tests Previous PT- hoping for vestibular assessment- has previously tried strengthening and soft tissue work. Treatment Goals Patient/Caregiver Goals Address the dizziness Personal Factors Other Personal Factors That May Effect Concussion hx, dizziness/falls Therapy/Recovery , depression, hypothyroid, current custody navarro PT-OP-C Subjective Start: 01/07/20 15:06 Freq: Status: Active Protocol: Document 01/24/20 10:20 AMB (Rec: 01/24/20 11:01 AMB [id number]) OP-PT Subjective Patient Comments Patient Comments Sarah has not done her exercises due to her period starting and being extra fatigue, she does attend with her glasses today. PT-OP-K Range of Motion Start: 01/07/20 15:06 Freq: Status: Active Protocol: Document 01/10/20 11:00 AMB (Rec: 01/13/20 08:12 AMB [email or web address]) Cervical Spine Range of Motion Cervical Spine Active Degrees Testing Position Sitting Flexion 60 Extension 20 Rotation Left 45 Rotation Right 45 Shoulder Goniometric Range of Motion Shoulder Right Active Flexion 170 Abduction 105 Comments pain limits PT-OP-Q Treatments Start: 01/07/20 15:06 Freq: Status: Active Protocol: Document 01/24/20 10:20 AMB (Rec: 01/25/20 09:10 AMB [email or web address]) Neuro Re-Education Treatment Balance Activities 2 Details foam balance Comments blue foam EO HT horizontal 1 Details hallway walking Comments pt noted feeling of hip instability with looking down, discussed SI Belt, pt can purchase from [employer], as she did find it helpful Vestibular Rehabilitation VOR Retraining Background white Distance From Target 3 feet Speed slow Position standing Reps/Duration 15 seconds at a time Comments difficulty with convergence PT-OP-R Modalities Start: 01/07/20 15:06 Freq: Status: Active Protocol: Document 01/24/20 10:20 AMB (Rec: 01/25/20 09:10 AMB [email or web address]) Hot Pack/Cold Pack Treatment Hot Pack Patient Position Hooklying Treatment Duration (minutes) 10 Comments hot pack to upper back, cold pack to occiput PT-OP-T Assessment and Plan Start: 01/07/20 15:06 Freq: Status: Active Protocol: Document 01/24/20 10:20 AMB (Rec: 01/24/20 11:01 AMB [id number]) Physical Therapy Assessment Assessment Summary Assessment Pt tolerated balance and eye exercises better with glasses with prism. Ended with ice and heat as exercises do exacerbate her sx Physical Therapy Plan Next Visit Focus/Plan Next Visit Plan Progress VOR and balance exercises as tolerated
--- NOTE | 2020-02-12 16:07 | PT.OTN ---
Current Diagnoses Cervicalgia (02/12/20) Dizziness and giddiness (02/12/20) Physical Therapy Treatment Note PT-OP-A Visit Information Start: 01/07/20 15:06 Freq: Status: Active Protocol: Document 02/12/20 11:05 AMB (Rec: 02/12/20 12:01 AMB [id number]) Out-Patient Physical Therapy Visit Information Visit Information Visit Type Treatment Note Visit Note pt arrived 5 min late Visit Start Time 11:00 Visit Stop Time 11:55 Total Visit Minutes 55 Visit Number 5 PT-OP-B Current Condition Start: 01/07/20 15:06 Freq: Status: Active Protocol: Document 01/10/20 11:00 AMB (Rec: 01/10/20 11:21 AMB [id number]) Current Condition History of Current Condition Onset Date July 11, 2018 Current Complaints upper cervical pain History of Current Condition Neck pain s/p C56 ACDF which she had after a chiropractic neck adjustment for frozen shoulder. Continues to have upper cervical neck pain. Had a surgical consult with pt reports nerve compression at C23. R shoulder issues. Constant headaches with L neck pain s/p stretching/yoga 6 weeks ago. The most troubling part of it is cognitive brain fog-- visually challenged and swallow issues. Also reports TMJ sx. Also reports dizziness- feels like she is floating around in her body. 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 Extended sitting with studying is struggling. Pt feels scapular pain and feels like anterior cervical muscles get really tense. Prior Treatments and Tests Previous PT- hoping for vestibular assessment- has previously tried strengthening and soft tissue work. Treatment Goals Patient/Caregiver Goals Address the dizziness Personal Factors Other Personal Factors That May Effect Concussion hx, dizziness/falls Therapy/Recovery , depression, hypothyroid, current custody navarro PT-OP-C Subjective Start: 01/07/20 15:06 Freq: Status: Active Protocol: Document 02/12/20 11:05 AMB (Rec: 02/12/20 12:01 AMB [id number]) OP-PT Subjective Patient Comments Patient Comments Eye exercises do increase sx but stop after. Pt is concerned about her neck but is still a problem PT-OP-K Range of Motion Start: 01/07/20 15:06 Freq: Status: Active Protocol: Document 01/10/20 11:00 AMB (Rec: 01/13/20 08:12 AMB [email or web address]) Cervical Spine Range of Motion Cervical Spine Active Degrees Testing Position Sitting Flexion 60 Extension 20 Rotation Left 45 Rotation Right 45 Shoulder Goniometric Range of Motion Shoulder Right Active Flexion 170 Abduction 105 Comments pain limits PT-OP-Q Treatments Start: 01/07/20 15:06 Freq: Status: Active Protocol: Document 02/12/20 11:00 AMB (Rec: 02/12/20 16:07 AMB [id number]) Neuro Re-Education Treatment Balance Activities 2 Details foam balance Comments blue foam stepping on and off Vestibular Rehabilitation VOR Retraining Background white Distance From Target 3 feet Speed slow Position standing Reps/Duration 15 seconds at a time Comments difficulty with convergence NBOS- stride stance PT-OP-R Modalities Start: 01/07/20 15:06 Freq: Status: Active Protocol: Document 02/12/20 11:00 AMB (Rec: 02/12/20 16:07 AMB [id number]) Hot Pack/Cold Pack Treatment Hot Pack Patient Position Hooklying Treatment Duration (minutes) 10 Comments hot pack to upper back, cold pack to occiput PT-OP-T Assessment and Plan Start: 01/07/20 15:06 Freq: Status: Active Protocol: Document 02/12/20 11:00 AMB (Rec: 02/12/20 15:45 AMB [email or web address]) Physical Therapy Assessment Assessment Summary Assessment Pt with difficulty with exercises today, continues to have neck pain limit her with her dizziness exercises, which does limit her. Walking backwards and stepping up continue to flare her sx. Physical Therapy Plan Next Visit Focus/Plan Next Note Type Treatment Note Next Visit Plan Progress VOR and balance exercises as tolerated. Return to walking backwards and stepping up.
--- NOTE | 2020-02-17 10:51 | PT.OTN ---
Current Diagnoses Cervicalgia (02/17/20) Dizziness and giddiness (02/17/20) Physical Therapy Treatment Note PT-OP-A Visit Information Start: 01/07/20 15:06 Freq: Status: Active Protocol: Document 02/17/20 10:17 AMB (Rec: 02/17/20 10:51 AMB [id number]) Out-Patient Physical Therapy Visit Information Visit Information Visit Type Treatment Note Visit Start Time 10:15 Visit Stop Time 11:10 Total Visit Minutes 55 Visit Number 6 PT-OP-B Current Condition Start: 01/07/20 15:06 Freq: Status: Active Protocol: Document 01/10/20 11:00 AMB (Rec: 01/10/20 11:21 AMB [id number]) Current Condition History of Current Condition Onset Date July 11, 2018 Current Complaints upper cervical pain History of Current Condition Neck pain s/p C56 ACDF which she had after a chiropractic neck adjustment for frozen shoulder. Continues to have upper cervical neck pain. Had a surgical consult with pt reports nerve compression at C23. R shoulder issues. Constant headaches with L neck pain s/p stretching/yoga 6 weeks ago. The most troubling part of it is cognitive brain fog-- visually challenged and swallow issues. Also reports TMJ sx. Also reports dizziness- feels like she is floating around in her body. 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 Extended sitting with studying is struggling. Pt feels scapular pain and feels like anterior cervical muscles get really tense. Prior Treatments and Tests Previous PT- hoping for vestibular assessment- has previously tried strengthening and soft tissue work. Treatment Goals Patient/Caregiver Goals Address the dizziness Personal Factors Other Personal Factors That May Effect Concussion hx, dizziness/falls Therapy/Recovery , depression, hypothyroid, current custody navarro PT-OP-C Subjective Start: 01/07/20 15:06 Freq: Status: Active Protocol: Document 02/17/20 10:17 AMB (Rec: 02/17/20 10:51 AMB [id number]) OP-PT Subjective Patient Comments Patient Comments Dizziness is about the same, increased headache over the last weekend. PT-OP-K Range of Motion Start: 01/07/20 15:06 Freq: Status: Active Protocol: Document 12/04/20 11:00 AMB (Rec: 01/13/20 08:12 AMB [email or web address]) Cervical Spine Range of Motion Cervical Spine Active Degrees Testing Position Sitting Flexion 60 Extension 20 Rotation Left 45 Rotation Right 45 Shoulder Goniometric Range of Motion Shoulder Right Active Flexion 170 Abduction 105 Comments pain limits PT-OP-Q Treatments Start: 01/07/20 15:06 Freq: Status: Active Protocol: Document 02/17/20 10:17 AMB (Rec: 02/17/20 10:51 AMB [id number]) Neuro Re-Education Treatment Vestibular Rehabilitation Targets Background white Distance From Target 3' Speed slow Comments on blue foam Other Activities 3 Details walking backwards Comments hallway 2 Details weightshift Comments in stride sx (r side) PT-OP-R Modalities Start: 01/07/20 15:06 Freq: Status: Active Protocol: Document 02/17/20 10:17 AMB (Rec: 02/17/20 10:51 AMB [id number]) Hot Pack/Cold Pack Treatment Hot Pack Patient Position Hooklying Treatment Duration (minutes) 10 Comments hot pack to upper back, cold pack to occiput PT-OP-T Assessment and Plan Start: 01/07/20 15:06 Freq: Status: Active Protocol: Document 02/17/20 10:17 AMB (Rec: 02/17/20 10:51 AMB [id number]) Physical Therapy Assessment Goals Three Impairment Pain Short Term Goal (STG) Sarah will study at her computer for 1 hour with pain of 4/10 or less. STG Duration 4 weeks Storage Manager Goal (LTG) Sarah will drive her car for 20 minutes with 4/10 pain or less. LTG Duration 8 weeks Two Impairment Dizziness Short Term Goal (STG) Sarah will look up without dizziness. STG Duration 4 weeks Storage Manager Goal (LTG) Sarah will read for 20 minutes without dizziness. LTG Duration 8 weeks One Impairment Neck ROM Short Term Goal (STG) Sarah will improve her cervical extension AROM to 40 degrees. STG Duration 4 weeks Assessment Summary Assessment Pt did noticed more sx with weightshift to the right side. Pt feels swishy when shifting onto the right side. Physical Therapy Plan Next Visit Focus/Plan Next Note Type Treatment Note Next Visit Plan Ask again about SI belt, review walking backward and stepping up.
--- NOTE | 2020-02-21 11:54 | PT.OTN ---
Current Diagnoses Cervicalgia (02/21/20) Dizziness and giddiness (02/21/20) Physical Therapy Treatment Note PT-OP-A Visit Information Start: 01/07/20 15:06 Freq: Status: Active Protocol: Document 02/21/20 10:15 AMB (Rec: 02/21/20 11:02 AMB [id number]) Out-Patient Physical Therapy Visit Information Visit Information Visit Type Treatment Note Visit Start Time 10:15 Visit Stop Time 11:10 Total Visit Minutes 55 Visit Number 7 PT-OP-B Current Condition Start: 01/07/20 15:06 Freq: Status: Active Protocol: Document 01/10/20 11:00 AMB (Rec: 01/10/20 11:21 AMB [id number]) Current Condition History of Current Condition Onset Date July 11, 2018 Current Complaints upper cervical pain History of Current Condition Neck pain s/p C56 ACDF which she had after a chiropractic neck adjustment for frozen shoulder. Continues to have upper cervical neck pain. Had a surgical consult with pt reports nerve compression at C23. R shoulder issues. Constant headaches with L neck pain s/p stretching/yoga 6 weeks ago. The most troubling part of it is cognitive brain fog-- visually challenged and swallow issues. Also reports TMJ sx. Also reports dizziness- feels like she is floating around in her body. 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 Extended sitting with studying is struggling. Pt feels scapular pain and feels like anterior cervical muscles get really tense. Prior Treatments and Tests Previous PT- hoping for vestibular assessment- has previously tried strengthening and soft tissue work. Treatment Goals Patient/Caregiver Goals Address the dizziness Personal Factors Other Personal Factors That May Effect Concussion hx, dizziness/falls Therapy/Recovery , depression, hypothyroid, current custody navarro PT-OP-C Subjective Start: 01/07/20 15:06 Freq: Status: Active Protocol: Document 02/21/20 10:15 AMB (Rec: 02/21/20 11:02 AMB [id number]) OP-PT Subjective Patient Comments Patient Comments Pt feels like dizziness is getting better, but headache and neck pain are worse. Pt was able to do two quizzes with good concentration. PT-OP-K Range of Motion Start: 12/01/20 15:06 Freq: Status: Active Protocol: Document 01/10/20 11:00 AMB (Rec: 01/13/20 08:12 AMB [email or web address]) Cervical Spine Range of Motion Cervical Spine Active Degrees Testing Position Sitting Flexion 60 Extension 20 Rotation Left 45 Rotation Right 45 Shoulder Goniometric Range of Motion Shoulder Right Active Flexion 170 Abduction 105 Comments pain limits PT-OP-Q Treatments Start: 01/07/20 15:06 Freq: Status: Active Protocol: Document 02/21/20 10:15 AMB (Rec: 02/21/20 11:53 AMB [email or web address]) Neuro Re-Education Treatment Balance Activities 2 Details foam balance Comments blue foam stepping on and off- - added VOR X exercise Other Activities 3 Details walking backwards Comments hallway 1 Details 3 step and bow with head turns PT-OP-R Modalities Start: 01/07/20 15:06 Freq: Status: Active Protocol: Document 02/17/20 10:17 AMB (Rec: 02/17/20 10:51 AMB [id number]) Hot Pack/Cold Pack Treatment Hot Pack Patient Position Hooklying Treatment Duration (minutes) 10 Comments hot pack to upper back, cold pack to occiput PT-OP-T Assessment and Plan Start: 01/07/20 15:06 Freq: Status: Active Protocol: Document 02/21/20 10:15 AMB (Rec: 02/21/20 11:02 AMB [id number]) Physical Therapy Assessment Goals Three Impairment Pain Short Term Goal (STG) Sarah will study at her computer for 1 hour with pain of 4/10 or less. STG Duration 4 weeks Command And Control Goal (LTG) Sarah will drive her car for 20 minutes with 4/10 pain or less. LTG Duration 8 weeks Two Impairment Dizziness Short Term Goal (STG) Sarah will look up without dizziness. STG Duration 4 weeks Command And Control Goal (LTG) Sarah will read for 20 minutes without dizziness. LTG Duration 8 weeks One Impairment Neck ROM Short Term Goal (STG) Sarah will improve her cervical extension AROM to 40 degrees. STG Duration 4 weeks Assessment Summary Assessment Pt tolerated treatment today without a significant increase in sx, slight increase in headache and nausea with walking backwards. Physical Therapy Plan Next Visit Focus/Plan Next Note Type Treatment Note Next Visit Plan Ask again about SI belt, review walking backward and stepping up.
--- NOTE | 2020-03-04 13:21 | PT.OPPOC ---
Physical, Occupational & Speech Therapy At [facility] Current Diagnoses Cervicalgia (03/04/20) Dizziness and giddiness (03/04/20) Visit Care Team Role Provider Type Yanelis Gillespie ND Family Provider Non-Staff Primary Care Provider Specialty: Medical Address: [address] [place] [address], [id number] Email: OSMEL Beckham Attending Provider Non-Staff Referring Provider Specialty: Medical Address: [address] [place] [address], [id number] Email: Plan Of Care PT-OP-T Assessment and Plan Start: 01/07/20 15:06 Freq: Status: Active Protocol: Document 03/04/20 11:33 AMB (Rec: 03/04/20 11:36 AMB [id number]) Physical Therapy Assessment Goals Three Impairment Pain Short Term Goal (STG) Sarah will study at her computer for 1 hour with pain of 4/10 or less. Flucuates between 5-7/10 STG Duration 4 weeks Long-Term Goal (LTG) Sarah will drive her car for 20 minutes with 4/10 pain or less. Fluctuates between 5 /10 and 7/10. LTG Duration 8 weeks Two Impairment Dizziness Short Term Goal (STG) Sarah will look up without dizziness.--- Improved, mild dizziness with looking up remains. STG Duration 4 weeks Long-Term Goal (LTG) Sarah will read for 20 minutes without dizziness. Can do for 5-10 minutes which is an improvement, but not meeting goal yet. LTG Duration 8 weeks One Impairment Neck ROM Short Term Goal (STG) Sarah will improve her cervical extension AROM to 40 degrees. STG Duration 4 weeks Assessment Summary Assessment Sarah states that her dizziness has improved with physical therapy, although reading continues to be problematic. She is most impacted at this point by her headache, and is hoping to work on that in physical therapy. She is also wondering if she is going to be getting further surgery- still waiting on insurance authorization for further imaging, and since she has a hard limit of therapy in a calendar year she is worried about using too much too early in the year. Physical therapy will therefore start working on headache issues for a brief stint, and then likely d/c if she is still considering surgery so that we don't use all of her insurance allowed visits. She is hoping to return to speech therapy, but would need a new referral to do so. Physical Therapy Plan Frequency and Duration Frequency of Treatment 1x/Week Duration of Treatment 8 weeks Plan of Care Start Date 03/04/20 Plan of Care End Date 04/29/20 Therapeutic Interventions Therapeutic Interventions Balance Training,Home Exercise Program,Manual Therapy, Neuromuscular Re-education, Self-Care/Home Management, Therapeutic Activities, Therapeutic Exercises Modalities Cold Pack/Ice Massage,Hot Packs Next Visit Focus/Plan Next Note Type Treatment Note Next Visit Plan Manual therapy with focus on home management techniques of headache Plan of Care Dates Plan of Care Start Date 03/04/20 Plan of Care End Date 04/29/20 Electronically Signed by: Sophia Solis, PT 03/04/20 [id number] Please Sign and Return: I have reviewed this Plan of Care and certify that the skilled therapy services above are required to meet the patient?s needs. Physician Signature Date Printed Name and Credentials Clinical Instructor Signature Printed Name and Credentials
--- NOTE | 2020-03-04 13:21 | PT.OTN ---
Current Diagnoses Cervicalgia (03/04/20) Dizziness and giddiness (03/04/20) Physical Therapy Treatment Note PT-OP-A Visit Information Start: 01/07/20 15:06 Freq: Status: Active Protocol: Document 03/04/20 11:15 AMB (Rec: 03/04/20 13:20 AMB [email or web address]) Out-Patient Physical Therapy Visit Information Visit Information Visit Type Progress Note Visit Start Time 11:15 Visit Stop Time 12:00 Total Visit Minutes 45 Visit Number 8 PT-OP-B Current Condition Start: 01/07/20 15:06 Freq: Status: Active Protocol: Document 01/10/20 11:00 AMB (Rec: 01/10/20 11:21 AMB [id number]) Current Condition History of Current Condition Onset Date July 11, 2018 Current Complaints upper cervical pain History of Current Condition Neck pain s/p C56 ACDF which she had after a chiropractic neck adjustment for frozen shoulder. Continues to have upper cervical neck pain. Had a surgical consult with pt reports nerve compression at C23. R shoulder issues. Constant headaches with L neck pain s/p stretching/yoga 6 weeks ago. The most troubling part of it is cognitive brain fog-- visually challenged and swallow issues. Also reports TMJ sx. Also reports dizziness- feels like she is floating around in her body. 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 Extended sitting with studying is struggling. Pt feels scapular pain and feels like anterior cervical muscles get really tense. Prior Treatments and Tests Previous PT- hoping for vestibular assessment- has previously tried strengthening and soft tissue work. Treatment Goals Patient/Caregiver Goals Address the dizziness Personal Factors Other Personal Factors That May Effect Concussion hx, dizziness/falls Therapy/Recovery , depression, hypothyroid, current custody navarro PT-OP-C Subjective Start: 01/07/20 15:06 Freq: Status: Active Protocol: Document 03/04/20 11:15 AMB (Rec: 03/04/20 13:20 AMB [email or web address]) OP-PT Subjective Patient Comments Patient Comments Pt continues to have 7/10 neck pain that is increasing her headache days. PT-OP-K Range of Motion Start: 01/07/20 15:06 Freq: Status: Active Protocol: Document 03/04/20 11:15 AMB (Rec: 03/04/20 12:55 AMB [email or web address]) Cervical Spine Range of Motion Cervical Spine Active Degrees Testing Position Sitting Extension 35 PT-OP-Q Treatments Start: 01/07/20 15:06 Freq: Status: Active Protocol: Document 03/04/20 11:15 AMB (Rec: 03/04/20 13:20 AMB [email or web address]) Therapeutic Exercises Sitting Exercises 1 Sitting Exercise Name cervical extension Comments AROM- increases stiffness Manual Therapy Treatment Soft Tissue Mobilization 1 Body Location neck Mobilization Type Myofascial Release Intensity/Depth Moderate Body Position Hooklying Comments suboccipitals, R SCM, cervical paraspinals PT-OP-T Assessment and Plan Start: 01/07/20 15:06 Freq: Status: Active Protocol: Document 03/04/20 11:33 AMB (Rec: 03/04/20 11:36 AMB [id number]) Physical Therapy Assessment Goals Three Impairment Pain Short Term Goal (STG) Sarah will study at her computer for 1 hour with pain of 4/10 or less. Flucuates between 5-7/10 STG Duration 4 weeks Tile Trimmer Goal (LTG) Sarah will drive her car for 20 minutes with 4/10 pain or less. Fluctuates between 5 /10 and 7/10. LTG Duration 8 weeks Two Impairment Dizziness Short Term Goal (STG) Sarah will look up without dizziness.--- Improved, mild dizziness with looking up remains. STG Duration 4 weeks Group Home Goal (LTG) Sarah will read for 20 minutes without dizziness. Can do for 5-10 minutes which is an improvement, but not meeting goal yet. LTG Duration 8 weeks One Impairment Neck ROM Short Term Goal (STG) Sarah will improve her cervical extension AROM to 40 degrees. STG Duration 4 weeks Assessment Summary Assessment Sarah states that her dizziness has improved with physical therapy, although reading continues to be problematic. She is most impacted at this point by her headache, and is hoping to work on that in physical therapy. She is also wondering if she is going to be getting further surgery- still waiting on insurance authorization for further imaging, and since she has a hard limit of therapy in a calendar year she is worried about using too much too early in the year. Physical therapy will therefore start working on headache issues for a brief stint, and then likely d/c if she is still considering surgery so that we don't use all of her insurance allowed visits. She is hoping to return to speech therapy, but would need a new referral to do so. Physical Therapy Plan Frequency and Duration Frequency of Treatment 1x/Week Duration of Treatment 8 weeks Plan of Care Start Date 03/04/20 Plan of Care End Date 04/29/20 Therapeutic Interventions Therapeutic Interventions Balance Training,Home Exercise Program,Manual Therapy, Neuromuscular Re-education, Self-Care/Home Management, Therapeutic Activities, Therapeutic Exercises Modalities Cold Pack/Ice Massage,Hot Packs Next Visit Focus/Plan Next Note Type Treatment Note Next Visit Plan Manual therapy with focus on home management techniques of headache
--- NOTE | 2020-03-06 15:12 | PT.OTN ---
Current Diagnoses Cervicalgia (03/06/20) Dizziness and giddiness (03/06/20) Physical Therapy Treatment Note PT-OP-A Visit Information Start: 01/07/20 15:06 Freq: Status: Active Protocol: Document 03/06/20 14:15 AMB (Rec: 03/07/20 15:12 AMB [email or web address]) Out-Patient Physical Therapy Visit Information Visit Information Visit Type Treatment Note Visit Start Time 14:15 Visit Stop Time 15:00 Total Visit Minutes 45 Visit Number 9 PT-OP-B Current Condition Start: 01/07/20 15:06 Freq: Status: Active Protocol: Document 01/10/20 11:00 AMB (Rec: 01/10/20 11:21 AMB [id number]) Current Condition History of Current Condition Onset Date July 11, 2018 Current Complaints upper cervical pain History of Current Condition Neck pain s/p C56 ACDF which she had after a chiropractic neck adjustment for frozen shoulder. Continues to have upper cervical neck pain. Had a surgical consult with pt reports nerve compression at C23. R shoulder issues. Constant headaches with L neck pain s/p stretching/yoga 6 weeks ago. The most troubling part of it is cognitive brain fog-- visually challenged and swallow issues. Also reports TMJ sx. Also reports dizziness- feels like she is floating around in her body. 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 Extended sitting with studying is struggling. Pt feels scapular pain and feels like anterior cervical muscles get really tense. Prior Treatments and Tests Previous PT- hoping for vestibular assessment- has previously tried strengthening and soft tissue work. Treatment Goals Patient/Caregiver Goals Address the dizziness Personal Factors Other Personal Factors That May Effect Concussion hx, dizziness/falls Therapy/Recovery , depression, hypothyroid, current custody navarro PT-OP-C Subjective Start: 01/07/20 15:06 Freq: Status: Active Protocol: Document 03/06/20 14:15 AMB (Rec: 03/07/20 15:12 AMB [email or web address]) OP-PT Subjective Patient Comments Patient Comments Pt reports significant reduction in headache sx after last treatment, down to more of a 4/10, still feels fuzzy. PT-OP-K Range of Motion Start: 01/07/20 15:06 Freq: Status: Active Protocol: Document 03/04/20 11:15 AMB (Rec: 03/04/20 12:55 AMB [email or web address]) Cervical Spine Range of Motion Cervical Spine Active Degrees Testing Position Sitting Extension 35 PT-OP-Q Treatments Start: 01/07/20 15:06 Freq: Status: Active Protocol: Document 03/06/20 14:15 AMB (Rec: 03/07/20 15:12 AMB [email or web address]) Manual Therapy Treatment Soft Tissue Mobilization 1 Body Location neck Mobilization Type Myofascial Release Intensity/Depth Moderate Body Position Hooklying Comments suboccipitals, R SCM, cervical paraspinals PT-OP-T Assessment and Plan Start: 01/07/20 15:06 Freq: Status: Active Protocol: Document 03/06/20 14:15 AMB (Rec: 03/07/20 15:12 AMB [email or web address]) Physical Therapy Assessment Assessment Summary Assessment Improved neck and headache sx after working on subboccipitals and R SCM, but will need to check in on how long that lasts. Extensive education today on neck/ shoulder/brain anatomy, given that pt is having upcoming imaging of neck and shoulder. Physical Therapy Plan Next Visit Focus/Plan Next Note Type Treatment Note Next Visit Plan Manual therapy with focus on home management techniques of headache
--- NOTE | 2020-03-09 13:28 | PT.OTN ---
Current Diagnoses Cervicalgia (03/09/20) Dizziness and giddiness (03/09/20) Physical Therapy Treatment Note PT-OP-A Visit Information Start: 01/07/20 15:06 Freq: Status: Active Protocol: Document 03/09/20 10:30 AMB (Rec: 03/09/20 12:48 AMB [email or web address]) Out-Patient Physical Therapy Visit Information Visit Information Visit Type Treatment Note Visit Start Time 10:30 Visit Stop Time 11:15 Total Visit Minutes 45 Visit Number 10 PT-OP-B Current Condition Start: 01/07/20 15:06 Freq: Status: Active Protocol: Document 01/10/20 11:00 AMB (Rec: 01/10/20 11:21 AMB [id number]) Current Condition History of Current Condition Onset Date July 11, 2018 Current Complaints upper cervical pain History of Current Condition Neck pain s/p C56 ACDF which she had after a chiropractic neck adjustment for frozen shoulder. Continues to have upper cervical neck pain. Had a surgical consult with pt reports nerve compression at C23. R shoulder issues. Constant headaches with L neck pain s/p stretching/yoga 6 weeks ago. The most troubling part of it is cognitive brain fog-- visually challenged and swallow issues. Also reports TMJ sx. Also reports dizziness- feels like she is floating around in her body. 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 Extended sitting with studying is struggling. Pt feels scapular pain and feels like anterior cervical muscles get really tense. Prior Treatments and Tests Previous PT- hoping for vestibular assessment- has previously tried strengthening and soft tissue work. Treatment Goals Patient/Caregiver Goals Address the dizziness Personal Factors Other Personal Factors That May Effect Concussion hx, dizziness/falls Therapy/Recovery , depression, hypothyroid, current custody navarro PT-OP-C Subjective Start: 01/07/20 15:06 Freq: Status: Active Protocol: Document 03/09/20 10:30 AMB (Rec: 03/09/20 12:48 AMB [email or web address]) OP-PT Subjective Patient Comments Patient Comments Pt was able to do homework over the weekend without a significant headache sx although SCM pain continues. PT-OP-K Range of Motion Start: 01/07/20 15:06 Freq: Status: Active Protocol: Document 03/04/20 11:15 AMB (Rec: 03/04/20 12:55 AMB [email or web address]) Cervical Spine Range of Motion Cervical Spine Active Degrees Testing Position Sitting Extension 35 PT-OP-Q Treatments Start: 01/07/20 15:06 Freq: Status: Active Protocol: Document 03/09/20 10:30 AMB (Rec: 03/09/20 12:48 AMB [email or web address]) Manual Therapy Treatment Soft Tissue Mobilization 1 Body Location neck Mobilization Type Instrument Assisted,Myofascial Release Intensity/Depth Moderate Body Position Hooklying Comments suboccipitals, R SCM, cervical paraspinals PT-OP-R Modalities Start: 03/09/20 12:49 Freq: Status: Active Protocol: Document 03/09/20 10:30 AMB (Rec: 03/09/20 13:28 AMB [email or web address]) Hot Pack/Cold Pack Treatment Hot Pack Patient Position Hooklying Treatment Duration (minutes) 10 Comments hot pack to upper back, cold pack to occiput PT-OP-T Assessment and Plan Start: 01/07/20 15:06 Freq: Status: Active Protocol: Document 03/09/20 10:30 AMB (Rec: 03/09/20 12:48 AMB [email or web address]) Physical Therapy Assessment Assessment Summary Assessment Pt's sx seem to be improving, but she is concerned about how many appt she will have if she does have surgery, so discussed self MFR possibly with cupping/ Physical Therapy Plan Next Visit Focus/Plan Next Note Type Treatment Note Next Visit Plan Manual therapy with focus on home management techniques of headache
--- NOTE | 2020-03-16 15:39 | PT.OTN ---
Current Diagnoses Cervicalgia (03/16/20) Dizziness and giddiness (03/16/20) Physical Therapy Treatment Note PT-OP-A Visit Information Start: 01/07/20 15:06 Freq: Status: Active Protocol: Document 03/16/20 13:30 AMB (Rec: 03/16/20 15:39 AMB [id number]) Out-Patient Physical Therapy Visit Information Visit Information Visit Type Treatment Note Visit Start Time 13:30 Visit Stop Time 14:15 Total Visit Minutes 45 Visit Number 11 PT-OP-B Current Condition Start: 01/07/20 15:06 Freq: Status: Active Protocol: Document 01/10/20 11:00 AMB (Rec: 01/10/20 11:21 AMB [id number]) Current Condition History of Current Condition Onset Date July 11, 2018 Current Complaints upper cervical pain History of Current Condition Neck pain s/p C56 ACDF which she had after a chiropractic neck adjustment for frozen shoulder. Continues to have upper cervical neck pain. Had a surgical consult with pt reports nerve compression at C23. R shoulder issues. Constant headaches with L neck pain s/p stretching/yoga 6 weeks ago. The most troubling part of it is cognitive brain fog-- visually challenged and swallow issues. Also reports TMJ sx. Also reports dizziness- feels like she is floating around in her body. 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 Extended sitting with studying is struggling. Pt feels scapular pain and feels like anterior cervical muscles get really tense. Prior Treatments and Tests Previous PT- hoping for vestibular assessment- has previously tried strengthening and soft tissue work. Treatment Goals Patient/Caregiver Goals Address the dizziness Personal Factors Other Personal Factors That May Effect Concussion hx, dizziness/falls Therapy/Recovery , depression, hypothyroid, current custody navarro PT-OP-C Subjective Start: 01/07/20 15:06 Freq: Status: Active Protocol: Document 03/16/20 13:30 AMB (Rec: 03/16/20 15:39 AMB [id number]) OP-PT Subjective Patient Comments Patient Comments Pt had midterms this weekend, so that did lead to headaches, noticing most tension in R side, did get CT, still waiting on MRI. PT-OP-K Range of Motion Start: 01/07/20 15:06 Freq: Status: Active Protocol: Document 03/04/20 11:15 AMB (Rec: 03/04/20 12:55 AMB [email or web address]) Cervical Spine Range of Motion Cervical Spine Active Degrees Testing Position Sitting Extension 35 PT-OP-Q Treatments Start: 01/07/20 15:06 Freq: Status: Active Protocol: Document 03/16/20 13:30 AMB (Rec: 03/16/20 15:39 AMB [id number]) Manual Therapy Treatment Soft Tissue Mobilization 1 Body Location neck Mobilization Type Myofascial Release Intensity/Depth Moderate Body Position Hooklying Comments suboccipitals, R SCM, cervical paraspinals, scalenes (R) PT-OP-R Modalities Start: 03/09/20 12:49 Freq: Status: Active Protocol: Document 03/09/20 10:30 AMB (Rec: 03/09/20 13:28 AMB [email or web address]) Hot Pack/Cold Pack Treatment Hot Pack Patient Position Hooklying Treatment Duration (minutes) 10 Comments hot pack to upper back, cold pack to occiput PT-OP-T Assessment and Plan Start: 01/07/20 15:06 Freq: Status: Active Protocol: Document 03/16/20 13:30 AMB (Rec: 03/16/20 15:39 AMB [id number]) Physical Therapy Assessment Assessment Summary Assessment Pt with tension at Scalenes, SCM and suboccipitals today. Physical Therapy Plan Next Visit Focus/Plan Next Note Type Treatment Note Next Visit Plan Manual therapy with focus on home management techniques of headache
--- NOTE | 2020-03-24 11:52 | PT.OTN ---
Current Diagnoses Cervicalgia (03/24/20) Dizziness and giddiness (03/24/20) Physical Therapy Treatment Note PT-OP-A Visit Information Start: 01/07/20 15:06 Freq: Status: Active Protocol: Document 03/24/20 11:00 AMB (Rec: 03/24/20 11:52 AMB [id number]) Out-Patient Physical Therapy Visit Information Visit Information Visit Type Treatment Note Visit Start Time 11:00 Visit Stop Time 11:45 Total Visit Minutes 45 Visit Number 12 PT-OP-B Current Condition Start: 01/07/20 15:06 Freq: Status: Active Protocol: Document 01/10/20 11:00 AMB (Rec: 01/10/20 11:21 AMB [id number]) Current Condition History of Current Condition Onset Date July 11, 2018 Current Complaints upper cervical pain History of Current Condition Neck pain s/p C56 ACDF which she had after a chiropractic neck adjustment for frozen shoulder. Continues to have upper cervical neck pain. Had a surgical consult with pt reports nerve compression at C23. R shoulder issues. Constant headaches with L neck pain s/p stretching/yoga 6 weeks ago. The most troubling part of it is cognitive brain fog-- visually challenged and swallow issues. Also reports TMJ sx. Also reports dizziness- feels like she is floating around in her body. 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 Extended sitting with studying is struggling. Pt feels scapular pain and feels like anterior cervical muscles get really tense. Prior Treatments and Tests Previous PT- hoping for vestibular assessment- has previously tried strengthening and soft tissue work. Treatment Goals Patient/Caregiver Goals Address the dizziness Personal Factors Other Personal Factors That May Effect Concussion hx, dizziness/falls Therapy/Recovery , depression, hypothyroid, current custody navarro PT-OP-C Subjective Start: 01/07/20 15:06 Freq: Status: Active Protocol: Document 03/24/20 11:00 AMB (Rec: 03/24/20 11:52 AMB [id number]) OP-PT Subjective Patient Comments Patient Comments Pt has had bad days and good days, having a hard time figuring out what is triggering the headaches. PT-OP-K Range of Motion Start: 01/07/20 15:06 Freq: Status: Active Protocol: Document 03/04/20 11:15 AMB (Rec: 03/04/20 12:55 AMB [email or web address]) Cervical Spine Range of Motion Cervical Spine Active Degrees Testing Position Sitting Extension 35 PT-OP-Q Treatments Start: 01/07/20 15:06 Freq: Status: Active Protocol: Document 03/24/20 11:00 AMB (Rec: 03/24/20 11:52 AMB [id number]) Therapeutic Exercises Supine Exercises 2 Supine Exercise Name SCM stretch Reps/Minutes 20 sec Comments increased dizziness 1 Supine Exercise Name cervical rotation isometrics Reps/Minutes 10 Other Exercises 1 Other Exercise Name cat cow Reps/Minutes 30 Comments reduced ROM to tolerance Manual Therapy Treatment Soft Tissue Mobilization 1 Body Location neck Mobilization Type Myofascial Release Intensity/Depth Moderate Body Position Hooklying Comments suboccipitals, R SCM, cervical paraspinals, scalenes (R) PT-OP-R Modalities Start: 03/09/20 12:49 Freq: Status: Active Protocol: Document 03/09/20 10:30 AMB (Rec: 03/09/20 13:28 AMB [email or web address]) Hot Pack/Cold Pack Treatment Hot Pack Patient Position Hooklying Treatment Duration (minutes) 10 Comments hot pack to upper back, cold pack to occiput PT-OP-T Assessment and Plan Start: 01/07/20 15:06 Freq: Status: Active Protocol: Document 03/24/20 11:00 AMB (Rec: 03/24/20 11:52 AMB [id number]) Physical Therapy Assessment Assessment Summary Assessment Pt with continued tension throughout neck that is impacting her dizziness. Physical Therapy Plan Next Visit Focus/Plan Next Note Type Treatment Note Next Visit Plan Manual therapy with focus on home management techniques of headache- review cat cow
--- NOTE | 2020-04-27 15:25 | PT.OTN ---
Current Diagnoses Cervicalgia (04/27/20) Dizziness and giddiness (04/27/20) Physical Therapy Treatment Note PT-OP-A Visit Information Start: 01/07/20 15:06 Freq: Status: Active Protocol: Document 04/27/20 11:00 AMB (Rec: 04/27/20 11:56 AMB [id number]) Out-Patient Physical Therapy Visit Information Visit Information Visit Type Treatment Note Visit Start Time 11:00 Visit Stop Time 11:45 Total Visit Minutes 45 Visit Number 13 PT-OP-B Current Condition Start: 01/07/20 15:06 Freq: Status: Active Protocol: Document 01/10/20 11:00 AMB (Rec: 01/10/20 11:21 AMB [id number]) Current Condition History of Current Condition Onset Date July 11, 2018 Current Complaints upper cervical pain History of Current Condition Neck pain s/p C56 ACDF which she had after a chiropractic neck adjustment for frozen shoulder. Continues to have upper cervical neck pain. Had a surgical consult with pt reports nerve compression at C23. R shoulder issues. Constant headaches with L neck pain s/p stretching/yoga 6 weeks ago. The most troubling part of it is cognitive brain fog-- visually challenged and swallow issues. Also reports TMJ sx. Also reports dizziness- feels like she is floating around in her body. 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 Extended sitting with studying is struggling. Pt feels scapular pain and feels like anterior cervical muscles get really tense. Prior Treatments and Tests Previous PT- hoping for vestibular assessment- has previously tried strengthening and soft tissue work. Treatment Goals Patient/Caregiver Goals Address the dizziness Personal Factors Other Personal Factors That May Effect Concussion hx, dizziness/falls Therapy/Recovery , depression, hypothyroid, current custody navarro PT-OP-C Subjective Start: 01/07/20 15:06 Freq: Status: Active Protocol: Document 04/27/20 11:00 AMB (Rec: 04/27/20 11:56 AMB [id number]) OP-PT Subjective Patient Comments Patient Comments Pt returns one month later, had to cancel because lack of childcare. PT-OP-K Range of Motion Start: 01/07/20 15:06 Freq: Status: Active Protocol: Document 03/04/20 11:15 AMB (Rec: 03/04/20 12:55 AMB [email or web address]) Cervical Spine Range of Motion Cervical Spine Active Degrees Testing Position Sitting Extension 35 PT-OP-Q Treatments Start: 01/07/20 15:06 Freq: Status: Active Protocol: Document 04/27/20 11:00 AMB (Rec: 04/27/20 15:23 AMB [id number]) Self-Care/Home Management Treatment Education Other Education Finalized HEP, pt concerned about recent MRI results, wondering if she should see ortho, also concerned about Lincoln Danlos syndrome. Likely not going to get surgery on neck at this time, considering surgery on shoulder. PT-OP-R Modalities Start: 03/09/20 12:49 Freq: Status: Active Protocol: Document 03/09/20 10:30 AMB (Rec: 03/09/20 13:28 AMB [email or web address]) Hot Pack/Cold Pack Treatment Hot Pack Patient Position Hooklying Treatment Duration (minutes) 10 Comments hot pack to upper back, cold pack to occiput PT-OP-T Assessment and Plan Start: 01/07/20 15:06 Freq: Status: Active Protocol: Document 04/27/20 11:00 AMB (Rec: 04/27/20 11:56 AMB [id number]) Physical Therapy Assessment Goals Three Impairment Pain Short Term Goal (STG) Sarah will study at her computer for 1 hour with pain of 4/10 or less. Flucuates between 5-7/10 STG Duration 4 weeks Rn Teacher Goal (LTG) Sarah will drive her car for 20 minutes with 4/10 pain or less. Fluctuates between 5 /10 and 7/10. LTG Duration 8 weeks Two Impairment Dizziness Short Term Goal (STG) Sarah will look up without dizziness.--- Improved, mild dizziness with looking up remains. STG Duration 4 weeks Detention Goal (LTG) Sarah will read for 20 minutes without dizziness. Can do for 5-10 minutes which is an improvement, but not meeting goal yet. LTG Duration 8 weeks One Impairment Neck ROM Short Term Goal (STG) Sarah will improve her cervical extension AROM to 40 degrees. STG Duration NOT MET Assessment Summary Assessment Pt on hold for one month, then likely d/c so we don't use all of her appointments for the calendar year, considerin that she might be pursuing surgery for her shoulder. Physical Therapy Plan Next Visit Focus/Plan Next Note Type Treatment Note Next Visit Plan Possible d/c
--- NOTE | 2020-06-07 11:50 | PT.OPDS ---
Current Diagnoses Cervicalgia (04/27/20) Dizziness and giddiness (04/27/20) Visit Care Team Role Provider Type Yanelis Gillespie ND Family Provider Non-Staff Primary Care Provider Specialty: Medical Address: [address] [place] [address], [id number] Email: OSMEL Beckham Attending Provider Non-Staff Referring Provider Specialty: Medical Address: [address] [place] [address], [id number] Email: Visit Number Visit Number 13 Discharge Summary PT-OP-B Current Condition Start: 01/07/20 15:06 Freq: Status: Active Protocol: Document 01/10/20 11:00 AMB (Rec: 01/10/20 11:21 AMB [id number]) Current Condition History of Current Condition Onset Date July 11, 2018 Current Complaints upper cervical pain History of Current Condition Neck pain s/p C56 ACDF which she had after a chiropractic neck adjustment for frozen shoulder. Continues to have upper cervical neck pain. Had a surgical consult with pt reports nerve compression at C23. R shoulder issues. Constant headaches with L neck pain s/p stretching/yoga 6 weeks ago. The most troubling part of it is cognitive brain fog-- visually challenged and swallow issues. Also reports TMJ sx. Also reports dizziness- feels like she is floating around in her body. 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 Extended sitting with studying is struggling. Pt feels scapular pain and feels like anterior cervical muscles get really tense. Prior Treatments and Tests Previous PT- hoping for vestibular assessment- has previously tried strengthening and soft tissue work. Treatment Goals Patient/Caregiver Goals Address the dizziness Personal Factors Other Personal Factors That May Effect Concussion hx, dizziness/falls Therapy/Recovery , depression, hypothyroid, current custody navarro PT-OP-C Subjective Start: 01/07/20 15:06 Freq: Status: Active Protocol: Document 04/27/20 11:00 AMB (Rec: 04/27/20 11:56 AMB [id number]) OP-PT Subjective Patient Comments Patient Comments Pt returns one month later, had to cancel because lack of childcare. PT-OP-K Range of Motion Start: 01/07/20 15:06 Freq: Status: Active Protocol: Document 03/04/20 11:15 AMB (Rec: 03/04/20 12:55 AMB [id number]) Cervical Spine Range of Motion Cervical Spine Active Degrees Testing Position Sitting Extension 35 PT-OP-T Assessment and Plan Start: 01/07/20 15:06 Freq: Status: Active Protocol: Document 06/07/20 11:49 AMB (Rec: 06/07/20 11:50 AMB [email or web address]) Physical Therapy Assessment Goals Three Impairment Pain Short Term Goal (STG) Sarah will study at her computer for 1 hour with pain of 4/10 or less. Flucuates between 5-7/10 STG Duration 4 weeks Half-Way Goal (LTG) Sarah will drive her car for 20 minutes with 4/10 pain or less. Fluctuates between 5 /10 and 7/10. LTG Duration 8 weeks Two Impairment Dizziness Short Term Goal (STG) Sarah will look up without dizziness.--- Improved, mild dizziness with looking up remains. STG Duration 4 weeks Half-Way Goal (LTG) Sarah will read for 20 minutes without dizziness. Can do for 5-10 minutes which is an improvement, but not meeting goal yet. LTG Duration 8 weeks One Impairment Neck ROM Short Term Goal (STG) Sarah will improve her cervical extension AROM to 40 degrees. STG Duration NOT MET Assessment Summary Assessment Pt was put on hold and has not followed up with the clinic in that time, therefore she is discharged. Progress with PT had been mixed, while we focused on her dizziness she continued to have pain and chronic fatigue issues that limited her function significantly.
== END 2020-06-10 13:39 | disposition home or self-care (01) ==
LOC: PHYS 11:00
PROVIDERS: Family Provider Naturopath; PCP Naturopath; Referring Provider Nurse Practitioner Family; Visit Provider Nurse Practitioner Family
DX: M54.2 Cervicalgia (principal); R42 Dizziness and giddiness
CPT/HCPCS: 97010; 97110; 97112; 97140; 97162; 97535

== ENCOUNTER → 2020-05-19 16:50 | Outpatient (CLI) | payer OTHER, MEDICAID, SELFPAY ==
--- NOTE | 2020-05-19 16:54 | DI.RAD.S_ITS ---
PROCEDURE: XR CERVICAL SPINE MIN 6V INDICATIONS: NECK PAIN TECHNIQUE: 7 views of the cervical spine were acquired. COMPARISON: [facility], CT, CT CERVICAL SPINE WO CON, 03/12/2020, 13:05. [facility], CR, XR CERVICAL SPINE 4V OR 5V, 11/13/2018, 9:01. FINDINGS: Bones: No acute fractures or dislocations to the T1 level. Postsurgical changes are seen from anterior fixation at the C5-C6 level with anterior plate and screws and disc spacer. There is suggestion of solid osseous fusion across the disc space, better seen on prior CT from 03/12/2020. No suspicious bony lesions. Mild disc space narrowing is seen at the C4-5 level with degenerative endplate changes. There is mild bilateral facet hypertrophy at multiple levels. There is mildly limited range of motion between flexion and extension, with preserved normal bony alignment. Oblique views demonstrate mild narrowing of the right C3-4 and C4-5 neural foramina and mild narrowing of the left C5-6 and C6-7 neural foramina. Open-mouth views demonstrate normal alignment of the C1 lateral masses relative to the odontoid. Soft tissues: Prevertebral soft tissues are normal in thickness. IMPRESSION: Postsurgical changes from anterior fixation at the C5-C6 level. Mild spondylosis as described above. Mildly limited range of motion without abnormal spondylolisthesis. Dictated by: Dameon Montoya M.D. on 05/20/2020 at 9:00 Approved by: Dameon Montoya M.D. on 05/20/2020 at 9:17
== END ==
PROVIDERS: PCP Naturopath; Referring Provider Physician Assistant; Visit Provider Physician Assistant
DX: M54.2 Cervicalgia (principal); M47.812 Spondylosis without myelopathy or radiculopathy, cervical region; Z98.1 Arthrodesis status
CPT/HCPCS: 72052

== ENCOUNTER 2020-07-15 09:30 | Outpatient (RCR) | payer OTHER, MEDICAID, SELFPAY ==
--- NOTE | 2020-04-20 16:19 | ST.OPIE ---
Visit Care Team Role Provider Type Yanelis Gillespie ND Primary Care Provider Non-Staff Specialty: Medical Address: [address] [place] [address], [place], [address] Email: Tyesha Ivan PA-C Attending Provider Non-Staff Referring Provider Specialty: Medical Address: [address] [place] [address], [address], [place], [address] Email: Speech-Language Pathology Initial Evaluation TERMITE CONTROL SERVICER Adult Cognitive Linguistic Eval Start: 04/20/20 12:27 Freq: Status: Active Protocol: Document 04/20/20 12:27 SHEYLA (Rec: 04/20/20 13:02 SHEYLA [email or web address]) Adult Cognitive Linguistic Evaluation Session Time Visit Start Time 12:30 Visit Stop Time 13:30 Total Visit Minutes 60 Visit Information Visit Number Initial Evaluation Plan of Care Dates 04/19/20 - 07/20/20 Insurance Information [employer] Referral Referring Provider Tyesha Ivan Reason for Referral Dysphagia, Poor short term memory Setting Assessment Location Outpatient Care Visit Type Note Type Initial evaluation Next Note Type Next Note Type Treatment Note Patient Information Identification Type Name,ID Card Medical History The pt is a 34-yr-old female familiar to this TERMITE CONTROL SERVICER from speech therapy last year, which targeted dysphagia and expressive, receptive and cognitive communication deficits resulting from a cervical injury sustained during a series of chiropractic treatments (Feb 2017) and ACDF surgery (). The pt reports continued mild swallow difficulties with occ pain at right side of larynx. Feels like there's an odd bone in [her] throat preventing throat movements from engaging. Oral phase appears to be normal. Pt is c/o choking d/t normal oral a/p transit of boluses to pharynx followed by delayed pharyngeal swallow trigger. She also continues with vocal claros, trouble singing, and sore throat with tightness at right side. The pt underwent physical evaluation at last week to address ongoing right side pain. 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 Pt is unable to write more than 3-4 sentences without severe hand pain. Cognitively, the pt feels she is more lucid for longer periods when able to avoid triggers, as compared to fall when last seen for Speech Therapy. STM is first to go. She reports difficulty maintaining attention with multiple steps in processes, trouble organizing and tracking tasks that have been/ need to be completed, including writing tasks for school. She also reports inability to organized both personal and business calendars, needing to focus on one or the other. 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 She continues to pursue her bachelor's degree at a part- time status but struggles with computer work, information processing and recall, and writing tasks. Pt goals: Improve executive functions to be sure she is completing personal and family responsibilities; to not fear she's forgetting important information for herself and her children; to manage a calendar; improve study goals to retain new information and improve critical thinking and organization. Be able to organize and articulate her thoughts. Language(s) Spoken in the Home Kiswahili Education Level BS in progress, on track for PhD program Occupation Status Not working d/t deficits Hearing Hearing Level Normal Auditory History Intermittent tinnitus Vision Vision Status Impaired Comments Right side muscle weakness, wears assistive glasses Previous Therapy Previous Speech-Language Therapy Yes History of Therapy Oct - Dec 2019; Discontinued d/t pt scheduling conflicts. Subjective Patient Report The pt arrived on time and provided updated case history as outlined above. Informal Assessment Receptive Language Normal Normal for basic conversation. Further evaluation required. Expressive Language Normal Normal for basic conversation. Further evaluation required. Pragmatic Language Normal Yes Speech Normal Yes Cognition Normal No Cognitive Impairment(s) Attention,Short-term memory, Executive functioning,Thought organization Formal Assessment Standardized Test/Screener Type Cognitive Linguistic Quick Test (CLQT) Administration Complete Results The pt scored WNL in all areas (Attn, Memory, Executive Functions, Language, Visuospatial Skills) with exception of Clock Drawing task, in which she struggled to recall placement of #12, resulting in crowded number spacing; also set hands to 12:10 vs 11:10. Story Retelling: Recalled 13/18 details, answered 6/6 yes/no questions. Generative Namin animals and 10 words beginning with M in 60 sec per task. Design Generation: 7 total designs with 1 design copied; pt acknowledged the design was copied but did not attempt to correct it. Findings/Results Findings Language function requires further assessment. CLQT results indicate normal cognitive function with mild deficits in clock drawing task , which is an improvement from results of same assessment administered in Oct 2019, which revealed mild cognitive impairment. Although the CLQT maintains test-retest reliability, administration of SCCAN (Scales of Cognitive and Communicative Ability for Neurorehabilitation) and informal language testing will be performed in treatment to further guide POC. Cognitive Communication Deficits Self-awareness of Cognitive- Predictive awareness (able to Communication Deficits predict problem; impact of impairments) Concomitant Factors Comment Pain, right side visual impairment Impact on Functioning Activity Limits/Particip.Rest. Mild: Household Tasks Interpersonal Interactions Community Mod: General Tasks and Demands Education Sev: Employment Prognosis Prognosis Good Based on Other (comment) Comment Benefit from previous Speech Therapy Plan of Care Speech-Language Treatment Yes Frequency 1x/wk Duration 16 wks Patient/Caregiver Education Described results of evaluation,Patient expressed understanding of evaluation, Patient expressed agreement with goals and treatment plans ,Patient requires further education/training Short Term Goals Additional goals to be developed upon completion of assessments. 1. The pt will participate in further assessment of expressive, receptive, and cognitive communication skills to guide POC. 2. Given novel information of moderate length and complexity presented orally, the pt will recall topic and kilgore details with 80% accuracy to improve auditory comprehension and recall necessary to perform school work and personal/ family responsibilities. 3. Given written text of moderate complexity and note taking guides as needed, the pt will take notes of important information in a visually organized manner to improve her ability to process and recall information related to college studies. 4. The pt will participate in development of external memory /organizational tools (e.g., family organization center, calendars, alarms, etc.) to improve her ability to track and recall information necessary to perform personal, family, and school related responsibilities. 5. The pt will independently perform exercises to improve strength, coordination, and ROM of swallow musculature to improve safety and comfort with oral intake. Brine Tank Operator Goals 1. Given information of moderate complexity presented orally and in writing and using organizational tools as needed, the pt will recall information via retelling or answering related questions with 80% accuracy to improve information processing, memory skills, and executive functions necessary to perform personal, family and educational responsibilities. 2. The pt will tolerate regular texture foods and thin liquids of choice with no overt s/sx of aspiration or discomfort, as measured by pt report and clinician judgment.
--- NOTE | 2020-05-18 16:35 | ST.OPTN ---
Visit Care Team Role Provider Type Yanelis Gillespie ND Primary Care Provider Non-Staff Address: [address] [place] [address], [place], [address] Tyesha Ivan PA-C Attending Provider Non-Staff Referring Provider Address: [address] [place] [address], [address], [place], [address] RESIDENT CARE MANAGER RN Treatment Note RESIDENT CARE MANAGER RN Treatment Note Start: 04/20/20 12:27 Freq: Status: Active Protocol: Document 05/18/20 15:59 SHEYLA (Rec: 05/18/20 16:00 SHEYLA [id number]) Speech Pathology Treatment Note Session Time Visit Start Time 09:30 Visit Stop Time 10:30 Total Visit Minutes 60 Visit Information Visit Number 1 Plan of Care Dates 04/19/20 - 07/20/20 Insurance Information [employer] Setting Treatment Setting Outpatient Care Visit Type Note Type Treatment Note Next Note Type Next Note Type Treatment Note General Information General Information The pt is a 34-yr-old female familiar to this RESIDENT CARE MANAGER RN from speech therapy last year, which targeted dysphagia and expressive, receptive and cognitive communication deficits resulting from a cervical injury sustained during a series of chiropractic treatments (Feb 2017) and ACDF surgery (). The pt reports continued mild swallow difficulties with occ pain at right side of larynx. Feels like there's an odd bone in her throat preventing throat movements from engaging. Oral phase appears to be normal. Pt is c/o choking d/t normal oral a/p transit of boluses to pharynx followed by delayed pharyngeal swallow trigger. She also continues with vocal claros, trouble singing, and sore throat with tightness at right side. The pt underwent physical evaluation at last week to address ongoing right side pain. 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 Pt is unable to write more than 3-4 sentences without severe hand pain. Cognitively, the pt feels she is more lucid for longer periods when able to avoid triggers, as compared to fall when last seen for Speech Therapy. STM is first to go. She reports difficulty maintaining attention with multiple steps in processes, trouble organizing and tracking tasks that have been/ need to be completed, including writing tasks for school. She also reports inability to organized both personal and business calendars, needing to focus on one or the other. 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 She continues to pursue her bachelor's degree at a part- time status but struggles with computer work, information processing and recall, and writing tasks. Pt goals: Improve executive functions to be sure she is completing personal and family responsibilities, to not fear she's forgetting important information for herself and her children; to manage a calendar; improve study goals to retain new information and improve critical thinking and organization. Be able to organize and articulate her thoughts. Subjective Observations/Patient Presentation The pt arrived on time. During assessment, the pt reported increased cognitive fogginess after the 3rd task; however, she was able to complete all tasks presented today. She informed she has consolidated all information related to her daily schedule in one daytimer but must review information multiple times a day to ensure she does not overlook anything. She also reported difficulty shifting between homework guidelines and research when attempting to write a research paper, for example, and losing her thought patterns while reading information related to schoolwork. She continues to listen to coursework via audio textbooks vs reading. Chief Complaint(s) Language,Swallowing,Cognitive, Voice Patient Knowledge/Awareness of RESIDENT CARE MANAGER RN Role Excellent in Treatment Objective Short Term Goals 1. The pt will participate in further assessment of expressive, receptive, and cognitive communication skills to guide POC. GOAL MET 2. Given novel information of moderate length and complexity presented orally, the pt will recall topic and kilgore details with 80% accuracy to improve auditory comprehension and recall necessary to perform school work and personal/ family responsibilities. 3. Given written text of moderate complexity and note taking guides as needed, the pt will take notes of important information in a visually organized manner to improve her ability to process and recall information related to college studies. 4. The pt will participate in development of external memory /organizational tools (e.g., family organization center, calendars, alarms, etc.) to improve her ability to track and recall information necessary to perform personal, family, and school related responsibilities. 5. The pt will independently perform exercises to improve strength, coordination, and ROM of swallow musculature to improve safety and comfort with oral intake. Language And Literature Division Chair Goals 1. Given information of moderate complexity presented orally and in writing and using organizational tools as needed, the pt will recall information via retelling or answering related questions with 80% accuracy to improve information processing, memory skills, and executive functions necessary to perform personal, family and educational responsibilities. 2. The pt will tolerate regular texture foods and thin liquids of choice with no overt s/sx of aspiration or discomfort, as measured by pt report and clinician judgment. Treatment Activities Administered Scales of Cognitive and Communicative Ability for Neurorehabilitation (SCCAN) for further assessment of expressive/receptive/cognitive communication skills withe the following results: Total Raw Score: 91 Percentile Rank: 61 SCCAN Index: 106 Degree of Severity: Typical Functioning The pt scored 100% in all areas tested with exception of Memory, which scored 84% with delayed recall more greatly impaired than immediate. Educated pt on results and discussed pt's challenges with attention and memory when tracking daily events/ responsibilities and completing schoolwork. Initiated training of PQRST reading strategy and Goal-Plan -Do-Review time management and problem solving strategy. The pt verbalized understanding. Recommended pt trial use of [id number] software when reading and organizing notes for homework assignments to assist with thought organization and compensation for attention deficits. She was in agreement. Assessment Patient Response to Treatment Good Rehab Potential Good Impairments Identified Attention,Auditory Processing, Cognitive-Linguistic Skills, Expressive Language,Memory - Short Term,Memory - Working Progress Towards Goals Good Progress Assessment of Overall Progress Improving Assessment of Improvement The pt performed very well on standardized testing, which revealed deficits in memory that are consistent with the pt's reports. She exhibited fatigue within 5 minutes of beginning today's assessment but was able to persevere and perform well. While her test scores were high, the impact of her deficits on functional task completion, including caring for herself and 3 childres, are significant and prevent her from holding employment. She is making progress in organizing her functional environment and in development of memory tools (e .g., daytimer use). She was receptive to feedback and recommendations of strategies and tools to increase thought and note organization necessary for schoolwork and others to reduce attention demands. Reviewed with Patient Goals,Progress Being Made,Home Exercise Program Patient/Caregiver Understanding Excellent Plan Therapeutic Contents Client Education,Cognitive- Linguistic Training, Compensatory Swallowing Training,Home Exercise Program ,Information Processing, Swallowing/Feeding,Voice Training Provided Patient/Caregiver Instruction Home Exercise Program,Plan of Care,Questions/Concerns Therapy Recommendations Continue with Current Program
--- NOTE | 2020-05-25 11:01 | ST.OPTN ---
Visit Care Team Role Provider Type Yanelis Gillespie ND Primary Care Provider Non-Staff Address: [address] [place] [address], [place], [address] Tyesha Ivan PA-C Attending Provider Non-Staff Referring Provider Address: [address] [place] [address], [address], [place], [address] FIRE PRODUCTION OPERATOR Treatment Note FIRE PRODUCTION OPERATOR Treatment Note Start: 04/20/20 12:27 Freq: Status: Active Protocol: Document 05/25/20 10:39 SHEYLA (Rec: 05/25/20 11:01 SHEYLA [id number]) Speech Pathology Treatment Note Session Time Visit Start Time 09:30 Visit Stop Time 10:20 Total Visit Minutes 50 Visit Information Visit Number 2 Plan of Care Dates 04/19/20 - 07/20/20 Insurance Information [employer] Setting Treatment Setting Outpatient Care Visit Type Note Type Treatment Note Next Note Type Next Note Type Treatment Note General Information General Information The pt is a 34-yr-old female familiar to this FIRE PRODUCTION OPERATOR from speech therapy last year, which targeted dysphagia and expressive, receptive and cognitive communication deficits resulting from a cervical injury sustained during a series of chiropractic treatments (Feb 2017) and ACDF surgery (). The pt reports continued mild swallow difficulties with occ pain at right side of larynx. Feels like there's an odd bone in her throat preventing throat movements from engaging. Oral phase appears to be normal. Pt is c/o choking d/t normal oral a/p transit of boluses to pharynx followed by delayed pharyngeal swallow trigger. She also continues with vocal claros, trouble singing, and sore throat with tightness at right side. The pt underwent physical evaluation at last week to address ongoing right side pain. 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 Pt is unable to write more than 3-4 sentences without severe hand pain. Cognitively, the pt feels she is more lucid for longer periods when able to avoid triggers, as compared to fall when last seen for Speech Therapy. STM is first to go. She reports difficulty maintaining attention with multiple steps in processes, trouble organizing and tracking tasks that have been/ need to be completed, including writing tasks for school. She also reports inability to organized both personal and business calendars, needing to focus on one or the other. 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 She continues to pursue her bachelor's degree at a part- time status but struggles with computer work, information processing and recall, and writing tasks. Pt goals: Improve executive functions to be sure she is completing personal and family responsibilities, to not fear she's forgetting important information for herself and her children; to manage a calendar; improve study goals to retain new information and improve critical thinking and organization. Be able to organize and articulate her thoughts. Subjective Observations/Patient Presentation The pt arrived on time. She reported difficulty consolidating and organizing her thoughts in order to complete online posts for her schoolwork. Stated she loses her train of thought, restarts task, loses train of thought again, becomes frustrated and abandons the task, resulting in loss of points in her classes. Chief Complaint(s) Language,Swallowing,Cognitive, Voice Patient Knowledge/Awareness of FIRE PRODUCTION OPERATOR Role Excellent in Treatment Objective Short Term Goals 1. The pt will participate in further assessment of expressive, receptive, and cognitive communication skills to guide POC. GOAL MET 2. Given novel information of moderate length and complexity presented orally, the pt will recall topic and kilgore details with 80% accuracy to improve auditory comprehension and recall necessary to perform school work and personal/ family responsibilities. 3. Given written text of moderate complexity and note taking guides as needed, the pt will take notes of important information in a visually organized manner to improve her ability to process and recall information related to college studies. 4. The pt will participate in development of external memory /organizational tools (e.g., family organization center, calendars, alarms, etc.) to improve her ability to track and recall information necessary to perform personal, family, and school related responsibilities. 5. The pt will independently perform exercises to improve strength, coordination, and ROM of swallow musculature to improve safety and comfort with oral intake. Half-Way Goals 1. Given information of moderate complexity presented orally and in writing and using organizational tools as needed, the pt will recall information via retelling or answering related questions with 80% accuracy to improve information processing, memory skills, and executive functions necessary to perform personal, family and educational responsibilities. 2. The pt will tolerate regular texture foods and thin liquids of choice with no overt s/sx of aspiration or discomfort, as measured by pt report and clinician judgment. Treatment Activities Initiated training in brainstorming strategies using both [id number] technology and visual idea mapping in order to improve the pt's ability to organize her thoughts to complete online posts required for academic credit. The pt chose an assignment topic and orally discussed her ideas about the topic and intended content of her response. While she discussed this orally, the FIRE PRODUCTION OPERATOR created a visual organizational map using kilgore words from the pt's speech. Given the completed visual map , the pt was instructed to form 1-3 simple sentences orally recorded into and transcribed by her phone ( [id number] technology). The pt completed 2 sentences that were lengthy and complex, yet targeted the topic. She expressed difficulty in letting go of the tendency to edit as she went, which increased complexity of the task and appears to contribute to her loss of train of thought. Recommended the pt record her initial oral brainstorming and print out the dictation so that she can highlight kilgore words in order to reduce physical pain associated with handwriting and assist in memory recall. The pt was receptive of and responsive to initial training of strategies; needs reinforcement. Assessment Patient Response to Treatment Good Rehab Potential Good Impairments Identified Attention,Auditory Processing, Cognitive-Linguistic Skills, Expressive Language,Memory - Short Term,Memory - Working Progress Towards Goals Good Progress Assessment of Overall Progress Improving Assessment of Improvement The pt's deficits in areas of word recall, thought organization, and memory are negatively impacting her ability to complete coursework and, ultimately, her grades. She was highly engaged in today's activities and orally discussed many excellent points related to an assignment topic, clearly demonstrating her knowledge of the subject. With visual diagram developed by this FIRE PRODUCTION OPERATOR, the pt was able to connect related ideas in order to organize thoughts, focus on the topic, and eliminate extraneous ideas. However, she exhibited difficulty in creating simple sentences; the use of complex sentences exemplifies her struggles in thought organization, while further contributing to the problem. Use of [id number] technology was helpful as it reduced physical demands of writing and reduced memory loss d/t extended processing times. The pt would likely benefit from recording (voice- to-text) oral brainstorming, from which she could independently develop a visual organization map (either while listening to recording or by printing out the java application developer). This needs further training and reinforcement, both of brainstorming strategies and ability to write simple sentences. The pt was receptive to these strategies and expressed intent to use. Reviewed with Patient Goals,Progress Being Made,Home Exercise Program Patient/Caregiver Understanding Excellent Plan Amount of Therapy Recommended 6 Months Frequency of Treatment Once a Week Length of Session 45 Minutes Therapeutic Contents Client Education,Cognitive- Linguistic Training, Compensatory Swallowing Training,Home Exercise Program ,Information Processing, Swallowing/Feeding,Voice Training Provided Patient/Caregiver Instruction Home Exercise Program,Plan of Care,Questions/Concerns Therapy Recommendations Continue with Current Program
--- NOTE | 2020-06-01 10:12 | ST.OPTN ---
Visit Care Team Role Provider Type Yanelis Gillespie ND Primary Care Provider Non-Staff Address: [address] [place] [address], [place], [address] Tyesha Ivan PA-C Attending Provider Non-Staff Referring Provider Address: [address] [place] [address], [address], [place], [address] LEAD MASSAGE THERAPIST Treatment Note LEAD MASSAGE THERAPIST Treatment Note Start: 04/20/20 12:27 Freq: Status: Active Protocol: Document 06/01/20 10:01 SHEYLA (Rec: 06/01/20 10:12 SHEYLA [email or web address]) Speech Pathology Treatment Note Session Time Visit Start Time 09:30 Visit Stop Time 10:00 Total Visit Minutes 30 Visit Information Visit Number 3 Plan of Care Dates 04/19/20 - 07/20/20 Insurance Information [employer] Setting Treatment Setting Outpatient Care Visit Type Note Type Treatment Note Next Note Type Next Note Type Treatment Note General Information General Information The pt is a 34-yr-old female familiar to this LEAD MASSAGE THERAPIST from speech therapy last year, which targeted dysphagia and expressive, receptive and cognitive communication deficits resulting from a cervical injury sustained during a series of chiropractic treatments (Feb 2017) and ACDF surgery (). The pt reports continued mild swallow difficulties with occ pain at right side of larynx. Feels like there's an odd bone in her throat preventing throat movements from engaging. Oral phase appears to be normal. Pt is c/o choking d/t normal oral a/p transit of boluses to pharynx followed by delayed pharyngeal swallow trigger. She also continues with vocal claros, trouble singing, and sore throat with tightness at right side. The pt underwent physical evaluation at last week to address ongoing right side pain. 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 Pt is unable to write more than 3-4 sentences without severe hand pain. Cognitively, the pt feels she is more lucid for longer periods when able to avoid triggers, as compared to fall when last seen for Speech Therapy. STM is first to go. She reports difficulty maintaining attention with multiple steps in processes, trouble organizing and tracking tasks that have been/ need to be completed, including writing tasks for school. She also reports inability to organized both personal and business calendars, needing to focus on one or the other. 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 She continues to pursue her bachelor's degree at a part- time status but struggles with computer work, information processing and recall, and writing tasks. Pt goals: Improve executive functions to be sure she is completing personal and family responsibilities, to not fear she's forgetting important information for herself and her children; to manage a calendar; improve study goals to retain new information and improve critical thinking and organization. Be able to organize and articulate her thoughts. Subjective Observations/Patient Presentation The pt arrived on time, needed to leave at 10:00 because she double-booked appts d/t operating from more than one calendar and forgot about the other appt. She reported a very stressful weekend with increased difficulties with word finding, STM, and generally unreliable memory. She completed her final exams for school, earning Cs d/t memory problems. Chief Complaint(s) Language,Swallowing,Cognitive, Voice Patient Knowledge/Awareness of LEAD MASSAGE THERAPIST Role Excellent in Treatment Objective Short Term Goals 1. The pt will participate in further assessment of expressive, receptive, and cognitive communication skills to guide POC. GOAL MET 2. Given novel information of moderate length and complexity presented orally, the pt will recall topic and matson details with 80% accuracy to improve auditory comprehension and recall necessary to perform school work and personal/ family responsibilities. 3. Given written text of moderate complexity and note taking guides as needed, the pt will take notes of important information in a visually organized manner to improve her ability to process and recall information related to college studies. 4. The pt will participate in development of external memory /organizational tools (e.g., family organization center, calendars, alarms, etc.) to improve her ability to track and recall information necessary to perform personal, family, and school related responsibilities. 5. The pt will independently perform exercises to improve strength, coordination, and ROM of swallow musculature to improve safety and comfort with oral intake. Assisted Goals 1. Given information of moderate complexity presented orally and in writing and using organizational tools as needed, the pt will recall information via retelling or answering related questions with 80% accuracy to improve information processing, memory skills, and executive functions necessary to perform personal, family and educational responsibilities. 2. The pt will tolerate regular texture foods and thin liquids of choice with no overt s/sx of aspiration or discomfort, as measured by pt report and clinician judgment. Treatment Activities Today's session focused on education, counseling and strategy training RE common occurrence of cognitive decline when stress is increased. Strategies: Deep breathing to calm system and allow flow of words; Mantra: Simple and Organized (what the brain needs) to increase focus and direction necessary for executive function; circumlocution for WFDs; consolidate all calendar events into one calendar to avoid double booking or missing appts. Pt in agreement with all strategies and receptive to education. Assessment Patient Response to Treatment Good Rehab Potential Good Impairments Identified Attention,Auditory Processing, Cognitive-Linguistic Skills, Expressive Language,Memory - Short Term,Memory - Working Progress Towards Goals Good Progress Assessment of Overall Progress Improving Assessment of Improvement The pt's deficits in areas of word recall, thought organization, and memory are negatively impacting her ability to complete coursework and, ultimately, her grades, as well as ADLs when stress levels are increased. She was responsive to all education and strategies discussed today , in agreement, and verbalized intention to employ them. Matson points were provided in writing for recall and carryover. Reviewed with Patient Goals,Progress Being Made,Home Exercise Program Patient/Caregiver Understanding Excellent Plan Amount of Therapy Recommended 6 Months Frequency of Treatment Once a Week Length of Session 45 Minutes Treatment Emphasis Next Session Memory & reading strategies for schoolwork Therapeutic Contents Client Education,Cognitive- Linguistic Training, Compensatory Swallowing Training,Home Exercise Program ,Information Processing, Swallowing/Feeding,Voice Training Provided Patient/Caregiver Instruction Home Exercise Program,Plan of Care,Questions/Concerns Therapy Recommendations Continue with Current Program
--- NOTE | 2020-06-15 15:55 | ST.OPTN ---
Visit Care Team Role Provider Type Yanelis Gillespie ND Primary Care Provider Non-Staff Address: [address] [place] [address], [place], [address] Tyesha Ivan PA-C Attending Provider Non-Staff Referring Provider Address: [address] [place] [address], [address], [place], [address] SUPERCALENDER OPERATOR Treatment Note SUPERCALENDER OPERATOR Clinical Instructor Line Start: 06/15/20 13:28 Freq: Status: Active Protocol: Document 06/15/20 15:48 LNK (Rec: 06/15/20 15:48 LNK [email or web address]) Clinical Instructor Signature Clinical Instructor Clinical Instructor Yes SUPERCALENDER OPERATOR Treatment Note Start: 04/20/20 12:27 Freq: Status: Active Protocol: Document 06/15/20 12:31 HM (Rec: 06/15/20 12:46 HM [id number]) Speech Pathology Treatment Note Session Time Visit Start Time 11:40 Visit Stop Time 12:30 Total Visit Minutes 50 Visit Information Visit Number 4 Plan of Care Dates 04/19/20 - 07/20/20 Insurance Information [employer] Setting Treatment Setting Outpatient Care Visit Type Note Type Treatment Note Next Note Type Next Note Type Treatment Note General Information General Information The pt is a 34-yr-old female familiar to this SUPERCALENDER OPERATOR from speech therapy last year, which targeted dysphagia and expressive, receptive and cognitive communication deficits resulting from a cervical injury sustained during a series of chiropractic treatments (Feb 2017) and ACDF surgery (). The pt reports continued mild swallow difficulties with occ pain at right side of larynx. Feels like there's an odd bone in her throat preventing throat movements from engaging. Oral phase appears to be normal. Pt is c/o choking d/t normal oral a/p transit of boluses to pharynx followed by delayed pharyngeal swallow trigger. She also continues with vocal claros, trouble singing, and sore throat with tightness at right side. The pt underwent physical evaluation at last week to address ongoing right side pain. 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 Pt is unable to write more than 3-4 sentences without severe hand pain. Cognitively, the pt feels she is more lucid for longer periods when able to avoid triggers, as compared to fall when last seen for Speech Therapy. STM is first to go. She reports difficulty maintaining attention with multiple steps in processes, trouble organizing and tracking tasks that have been/ need to be completed, including writing tasks for school. She also reports inability to organized both personal and business calendars, needing to focus on one or the other. 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 She continues to pursue her bachelor's degree at a part- time status but struggles with computer work, information processing and recall, and writing tasks. Pt goals: Improve executive functions to be sure she is completing personal and family responsibilities, to not fear she's forgetting important information for herself and her children; to manage a calendar; improve study goals to retain new information and improve critical thinking and organization. Be able to organize and articulate her thoughts. Subjective Observations/Patient Presentation Session conducted by student speech language pathologist, Christine Leonard. The pt arrived on time. She reported the past week had been very stressful due to a close friend needing support from her. She begins her school semester on June 22 and will have her youngest child home with her during the day (he is not in a summer preschool program). Pt reports she continues to consolidate her calendars and is hoping to use her phone for everything as it sends a daily agenda email. Chief Complaint(s) Language,Swallowing,Cognitive, Voice Patient Knowledge/Awareness of SUPERCALENDER OPERATOR Role Excellent in Treatment Objective Short Term Goals 1. The pt will participate in further assessment of expressive, receptive, and cognitive communication skills to guide POC. GOAL MET 2. Given novel information of moderate length and complexity presented orally, the pt will recall topic and kilgore details with 80% accuracy to improve auditory comprehension and recall necessary to perform school work and personal/ family responsibilities. 3. Given written text of moderate complexity and note taking guides as needed, the pt will take notes of important information in a visually organized manner to improve her ability to process and recall information related to college studies. 4. The pt will participate in development of external memory /organizational tools (e.g., family organization center, calendars, alarms, etc.) to improve her ability to track and recall information necessary to perform personal, family, and school related responsibilities. 5. The pt will independently perform exercises to improve strength, coordination, and ROM of swallow musculature to improve safety and comfort with oral intake. High School History Teacher Goals 1. Given information of moderate complexity presented orally and in writing and using organizational tools as needed, the pt will recall information via retelling or answering related questions with 80% accuracy to improve information processing, memory skills, and executive functions necessary to perform personal, family and educational responsibilities. 2. The pt will tolerate regular texture foods and thin liquids of choice with no overt s/sx of aspiration or discomfort, as measured by pt report and clinician judgment. Treatment Activities Today's session focused on counseling and developing strategies for to-do lists/ planning and completing daily tasks. Pt reported that she continues to utilize a central location for important information. Pt was given a linear [employer] form as she reported it was easier for her to follow than the previously used [employer] chart. Discussed cross-checking her phone calendar with paper calendar each morning to make sure everything is accounted for in her phone. Talked through setting specific study times and discussing this with her 4 year-old. Pt and clinician set up an external aid for identifying daily tasks, estimating time to complete each one, and plugging the tasks into available times throughout the day. Pt was enthusiastic about this strategy and expressed that this will help her to focus on one task at a time. Assessment Patient Response to Treatment Good Rehab Potential Good Impairments Identified Attention,Auditory Processing, Cognitive-Linguistic Skills, Expressive Language,Memory - Short Term,Memory - Working Progress Towards Goals Good Progress Assessment of Overall Progress Improving Assessment of Improvement The pt's deficits in areas of word recall, thought organization, and memory are negatively impacting her ability to complete coursework and, ultimately, her grades, as well as ADLs when stress levels are increased. She was responsive to all education and strategies discussed today , in agreement, and verbalized intention to employ them. Reviewed with Patient Goals,Progress Being Made,Home Exercise Program Patient/Caregiver Understanding Excellent Plan Amount of Therapy Recommended 6 Months Frequency of Treatment Once a Week Length of Session 45 Minutes Treatment Emphasis Next Session Memory & reading strategies for schoolwork Therapeutic Contents Client Education,Cognitive- Linguistic Training, Compensatory Swallowing Training,Home Exercise Program ,Information Processing, Swallowing/Feeding,Voice Training Provided Patient/Caregiver Instruction Home Exercise Program,Plan of Care,Questions/Concerns Therapy Recommendations Continue with Current Program
--- NOTE | 2020-07-15 15:49 | ST.OPTN ---
Visit Care Team Role Provider Type Yanelis Gillespie ND Primary Care Provider Non-Staff Address: [address] [place] [address], [place], [address] Tyesha Ivan PA-C Attending Provider Non-Staff Referring Provider Address: [address] [place] [address], [address], [place], [address] COLLAR SEWER Treatment Note COLLAR SEWER Clinical Instructor Line Start: 06/15/20 13:28 Freq: Status: Active Protocol: Document 06/15/20 15:48 LNK (Rec: 06/15/20 15:48 LNK [id number]) Clinical Instructor Signature Clinical Instructor Clinical Instructor Yes COLLAR SEWER Treatment Note Start: 04/20/20 12:27 Freq: Status: Active Protocol: Document 07/15/20 19:35 SHEYLA (Rec: 07/15/20 19:41 SHEYLA [id number]) Speech Pathology Treatment Note Session Time Visit Start Time 09:30 Visit Stop Time 10:20 Total Visit Minutes 50 Visit Information Visit Number 5 Plan of Care Dates 04/19/20 - 07/20/20 Insurance Information [employer] Setting Treatment Setting Outpatient Care Visit Type Note Type Treatment Note Next Note Type Next Note Type Progress Note General Information General Information The pt is a now 35-yr-old female familiar to this COLLAR SEWER from speech therapy last year, which targeted dysphagia and expressive, receptive and cognitive communication deficits resulting from a cervical injury sustained during a series of chiropractic treatments (Feb 2017) and ACDF surgery (). The pt reports continued mild swallow difficulties with occ pain at right side of larynx. Feels like there's an odd bone in her throat preventing throat movements from engaging. Oral phase appears to be normal. Pt is c/o choking d/t normal oral a/p transit of boluses to pharynx followed by delayed pharyngeal swallow trigger. She also continues with vocal claros, trouble singing, and sore throat with tightness at right side. The pt underwent physical evaluation at last week to address ongoing right side pain. 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 Pt is unable to write more than 3-4 sentences without severe hand pain. Cognitively, the pt feels she is more lucid for longer periods when able to avoid triggers, as compared to fall when last seen for Speech Therapy. STM is first to go. She reports difficulty maintaining attention with multiple steps in processes, trouble organizing and tracking tasks that have been/ need to be completed, including writing tasks for school. She also reports inability to organized both personal and business calendars, needing to focus on one or the other. These cognitive challenges have forced her to end her [employer] business and prevent her from earning income. 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 She continues to pursue her bachelor's degree at a part- time status but struggles with computer work, information processing and recall, and writing tasks. Pt goals: Improve executive functions to be sure she is completing personal and family responsibilities, to not fear she's forgetting important information for herself and her children; to manage a calendar; improve study goals to retain new information and improve critical thinking and organization. Be able to organize and articulate her thoughts. Subjective Others Present Student Observations/Patient Presentation The pt arrived on time. No new complaints. Continues to struggle with managing multiple calendars for self, children, and school. She underwent a MBSS at since last visit, finding mild pharyngeal dysphagia secondary to presence of cervical hardware that intrudes into pharynx and interferes with bolus flow, per pt report. The administering COLLAR SEWER advised the pt to continue with swallow exercises that have been targeted previously in dysphagia therapy. No changes in diet were recommended. Chief Complaint(s) Language,Swallowing,Cognitive, Voice Patient Knowledge/Awareness of COLLAR SEWER Role Excellent in Treatment Patient/Caregiver Compliance with Home Good Exercise Program Objective Short Term Goals 1. The pt will participate in further assessment of expressive, receptive, and cognitive communication skills to guide POC. GOAL MET 2. Given novel information of moderate length and complexity presented orally, the pt will recall topic and kilgore details with 80% accuracy to improve auditory comprehension and recall necessary to perform school work and personal/ family responsibilities. 3. Given written text of moderate complexity and note taking guides as needed, the pt will take notes of important information in a visually organized manner to improve her ability to process and recall information related to college studies. 4. The pt will participate in development of external memory /organizational tools (e.g., family organization center, calendars, alarms, etc.) to improve her ability to track and recall information necessary to perform personal, family, and school related responsibilities. 5. The pt will independently perform exercises to improve strength, coordination, and ROM of swallow musculature to improve safety and comfort with oral intake. Assembler Watch Train Goals 1. Given information of moderate complexity presented orally and in writing and using organizational tools as needed, the pt will recall information via retelling or answering related questions with 80% accuracy to improve information processing, memory skills, and executive functions necessary to perform personal, family and educational responsibilities. 2. The pt will tolerate regular texture foods and thin liquids of choice with no overt s/sx of aspiration or discomfort, as measured by pt report and clinician judgment. Treatment Activities Consulted with pt RE MBSS findings and current swallow function, which the pt reported is manageable but unchanged. Also discussed note -taking and management of classwork. The pt stated that her class this summer was not as challenging as others, making it easier to manage. Skilled feedback was provided RE continued use of voice-to- text software for note-taking and review of materials, as well as using audiobooks when able for course textbooks. The pt was able to obtain audiobooks for this course, which she finds helpful. Continued collaboration with pt RE calendar and information management with suggestions of using or creating a daytimer with various sections that allow the pt to consolidate various calendars and information into one tool. The pt was agreeable to this idea. Assessment Patient Response to Treatment Good Rehab Potential Good Impairments Identified Attention,Auditory Processing, Cognitive-Linguistic Skills, Expressive Language,Memory - Short Term,Memory - Working Progress Towards Goals Good Progress Assessment of Overall Progress Improving Assessment of Improvement The pt's deficits in areas of word recall, thought organization, and memory are negatively impacting her ability to complete coursework and, ultimately, her grades and ability to return to work, as well as ADLs when stress levels are increased. She was responsive to all education and strategies discussed today , in agreement, and verbalized intention to employ them. Continued skilled intervention is medically necessary for the pt to improve skills and strategies necessary to meet demands of her personal, school and family life and to return to work. Reviewed with Patient Goals,Progress Being Made,Home Exercise Program Patient/Caregiver Understanding Excellent Plan Amount of Therapy Recommended 6 Months Frequency of Treatment Once a Week Length of Session 45 Minutes Treatment Emphasis Next Session Memory & reading strategies for schoolwork Therapeutic Contents Client Education,Cognitive- Linguistic Training, Compensatory Swallowing Training,Home Exercise Program ,Information Processing, Swallowing/Feeding,Voice Training Provided Patient/Caregiver Instruction Home Exercise Program,Plan of Care,Questions/Concerns Therapy Recommendations Continue with Current Program
--- NOTE | 2020-07-17 15:49 | ST.OPTN ---
Visit Care Team Role Provider Type Yanelis Gillespie ND Primary Care Provider Non-Staff Address: [address] [place] [address], [place], [address] Tyesha Ivan PA-C Attending Provider Non-Staff Referring Provider Address: [address] [place] [address], [address], [place], [address] WIRELESS SALES ASSOCIATE Treatment Note WIRELESS SALES ASSOCIATE Clinical Instructor Line Start: 06/15/20 13:28 Freq: Status: Active Protocol: Document 06/15/20 15:48 LNK (Rec: 06/15/20 15:48 LNK [id number]) Clinical Instructor Signature Clinical Instructor Clinical Instructor Yes WIRELESS SALES ASSOCIATE Treatment Note Start: 04/20/20 12:27 Freq: Status: Active Protocol: Document 07/15/20 19:35 SHEYLA (Rec: 07/15/20 19:41 SHEYLA [id number]) Speech Pathology Treatment Note Session Time Visit Start Time 09:30 Visit Stop Time 10:20 Total Visit Minutes 50 Visit Information Visit Number 5 Plan of Care Dates 04/19/20 - 07/20/20 Insurance Information [employer] Setting Treatment Setting Outpatient Care Visit Type Note Type Treatment Note Next Note Type Next Note Type Progress Note General Information General Information The pt is a now 35-yr-old female familiar to this WIRELESS SALES ASSOCIATE from speech therapy last year, which targeted dysphagia and expressive, receptive and cognitive communication deficits resulting from a cervical injury sustained during a series of chiropractic treatments (Feb 2017) and ACDF surgery (). The pt reports continued mild swallow difficulties with occ pain at right side of larynx. Feels like there's an odd bone in her throat preventing throat movements from engaging. Oral phase appears to be normal. Pt is c/o choking d/t normal oral a/p transit of boluses to pharynx followed by delayed pharyngeal swallow trigger. She also continues with vocal claros, trouble singing, and sore throat with tightness at right side. The pt underwent physical evaluation at last week to address ongoing right side pain. 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 Pt is unable to write more than 3-4 sentences without severe hand pain. Cognitively, the pt feels she is more lucid for longer periods when able to avoid triggers, as compared to fall when last seen for Speech Therapy. STM is first to go. She reports difficulty maintaining attention with multiple steps in processes, trouble organizing and tracking tasks that have been/ need to be completed, including writing tasks for school. She also reports inability to organized both personal and business calendars, needing to focus on one or the other. These cognitive challenges have forced her to end her [employer] business and prevent her from earning income. 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 She continues to pursue her bachelor's degree at a part- time status but struggles with computer work, information processing and recall, and writing tasks. Pt goals: Improve executive functions to be sure she is completing personal and family responsibilities, to not fear she's forgetting important information for herself and her children; to manage a calendar; improve study goals to retain new information and improve critical thinking and organization. Be able to organize and articulate her thoughts. Subjective Others Present Student Observations/Patient Presentation The pt arrived on time. No new complaints. Continues to struggle with managing multiple calendars for self, children, and school. She underwent a MBSS at since last visit, finding mild pharyngeal dysphagia secondary to presence of cervical hardware that intrudes into pharynx and interferes with bolus flow, per pt report. The administering WIRELESS SALES ASSOCIATE advised the pt to continue with swallow exercises that have been targeted previously in dysphagia therapy. No changes in diet were recommended. Chief Complaint(s) Language,Swallowing,Cognitive, Voice Patient Knowledge/Awareness of WIRELESS SALES ASSOCIATE Role Excellent in Treatment Patient/Caregiver Compliance with Home Good Exercise Program Objective Short Term Goals 1. The pt will participate in further assessment of expressive, receptive, and cognitive communication skills to guide POC. GOAL MET 2. Given novel information of moderate length and complexity presented orally, the pt will recall topic and kilgore details with 80% accuracy to improve auditory comprehension and recall necessary to perform school work and personal/ family responsibilities. 3. Given written text of moderate complexity and note taking guides as needed, the pt will take notes of important information in a visually organized manner to improve her ability to process and recall information related to college studies. 4. The pt will participate in development of external memory /organizational tools (e.g., family organization center, calendars, alarms, etc.) to improve her ability to track and recall information necessary to perform personal, family, and school related responsibilities. 5. The pt will independently perform exercises to improve strength, coordination, and ROM of swallow musculature to improve safety and comfort with oral intake. Ager Operator Goals 1. Given information of moderate complexity presented orally and in writing and using organizational tools as needed, the pt will recall information via retelling or answering related questions with 80% accuracy to improve information processing, memory skills, and executive functions necessary to perform personal, family and educational responsibilities. 2. The pt will tolerate regular texture foods and thin liquids of choice with no overt s/sx of aspiration or discomfort, as measured by pt report and clinician judgment. Treatment Activities Consulted with pt RE MBSS findings and current swallow function, which the pt reported is manageable but unchanged. Also discussed note -taking and management of classwork. The pt stated that her class this summer was not as challenging as others, making it easier to manage. Skilled feedback was provided RE continued use of voice-to- text software for note-taking and review of materials, as well as using audiobooks when able for course textbooks. The pt was able to obtain audiobooks for this course, which she finds helpful. Continued collaboration with pt RE calendar and information management with suggestions of using or creating a daytimer with various sections that allow the pt to consolidate various calendars and information into one tool. The pt was agreeable to this idea. Assessment Patient Response to Treatment Good Rehab Potential Good Impairments Identified Attention,Auditory Processing, Cognitive-Linguistic Skills, Expressive Language,Memory - Short Term,Memory - Working Progress Towards Goals Good Progress Assessment of Overall Progress Improving Assessment of Improvement The pt's deficits in areas of word recall, thought organization, and memory are negatively impacting her ability to complete coursework and, ultimately, her grades and ability to return to work, as well as ADLs when stress levels are increased. She was responsive to all education and strategies discussed today , in agreement, and verbalized intention to employ them. Continued skilled intervention is medically necessary for the pt to improve skills and strategies necessary to meet demands of her personal, school and family life and to return to work. Reviewed with Patient Goals,Progress Being Made,Home Exercise Program Patient/Caregiver Understanding Excellent Plan Amount of Therapy Recommended 6 Months Frequency of Treatment Once a Week Length of Session 45 Minutes Treatment Emphasis Next Session Memory & reading strategies for schoolwork Therapeutic Contents Client Education,Cognitive- Linguistic Training, Compensatory Swallowing Training,Home Exercise Program ,Information Processing, Swallowing/Feeding,Voice Training Provided Patient/Caregiver Instruction Home Exercise Program,Plan of Care,Questions/Concerns Therapy Recommendations Continue with Current Program
--- NOTE | 2021-03-30 18:40 | ST.OPTN ---
Visit Care Team Role Provider Type Yanelis SierraHELEN hicks Primary Care Provider Non-Staff Address: [address] [place] [address], [place], [address] Tyesha Ivan PA-C Attending Provider Non-Staff Referring Provider Address: [address] [place] [address], [address], [place], [address] TOOL AND DIE ASSEMBLER Treatment Note TOOL AND DIE ASSEMBLER Clinical Instructor Line Start: 06/15/20 13:28 Freq: Status: Active Protocol: Document 06/15/20 15:48 LNK (Rec: 06/15/20 15:48 LNK [id number]) Clinical Instructor Signature Clinical Instructor Clinical Instructor Yes TOOL AND DIE ASSEMBLER Treatment Note Start: 04/20/20 12:27 Freq: Status: Active Protocol: Document 04/21/21 18:36 SHEYLA (Rec: 04/21/21 18:40 SHEYLA [id number]) Speech Pathology Treatment Note Setting Treatment Setting Outpatient Care Visit Type Note Type Discharge Summary General Information General Information The pt is a 35-yr-old female familiar to this clinician from previous Speech Therapy targeting dysphagia and expressive, receptive and cognitive communication skills . Impairments resulted from a cervical spine injury sustained during a series of chiropractic treatments (Feb 2017) and ACDF surgery (July 2017). Dysphagia symptoms include difficutly transporting boluses through the pharynx with occasional sticking sensation and coughing. Communication deficits include word finding difficulties, occasional oral motor difficulties in producing speech, difficulty reading d/t visual impairments sustained during same injuries, and significant working and short-term memory. The pt reports amneisa of many events occurring during the 2-3 yrs immediately following injury, some of which are now starting to re- emerge. She also reports mild improvement of peripheral vision, but occasional significant episodes of vertigo associated with visual impairments. The pt lives at home with her 3 children. She is a single mother and full-time student. Subjective Observations/Patient Presentation Pt was last seen in July. New orders have been obtained. Pt is discharged from this course of therapy to begin a new course. Objective Short Term Goals PROGRESS MADE. GOALS NOT MET 1. The pt will develop and adhere to a routine of keeping and monitoring a calendar with at least 80% compliance to meet personal and family responsibilities. 2. The pt will demonstrate understanding of Plan-Execute- Repair strategy by completing its steps within structured tasks to improve ability to plan and follow steps to tasks . 3. The pt will complete structured working and short- term memory tasks with 80% accuracy to improve memory skills necessary to fulfill personal, family, and education responsibilities. Truck Unloader Goals PROGRESS MADE. GOALS NOT MET 1. Using external tools as needed, the pt will recall and attend to daily events/appts in 90% of opportunities to improve ability to recall and meet functional responsibilities for self, education, and family. 2. Using Kqam-[id number]-Ormbaf or other strategy as needed, the pt will complete tasks with multiple steps with 90% accuracy and latency WFL to meet demands of education and home responsibilities. 3. Using external memory tools as needed, the pt will recall functional information sufficient to fulfill personal , family, and education responsibilities in >80% of opportunities. Plan Therapy Recommendations Discharge from Speech Therapy
--- NOTE | 2021-04-21 18:40 | ST.OPDS ---
Visit Care Team Role Provider Type Yanelis SierraHELEN hicks Primary Care Provider Non-Staff Address: [address] [place] [address], [place], [address] Tyesha Ivan PA-C Attending Provider Non-Staff Referring Provider Address: [address] [place] [address], [address], [place], [address] DIRECTOR OF WOMEN'S SERVICES Treatment Note DIRECTOR OF WOMEN'S SERVICES Clinical Instructor Line Start: 06/15/20 13:28 Freq: Status: Active Protocol: Document 06/15/20 15:48 LNK (Rec: 06/15/20 15:48 LNK [id number]) Clinical Instructor Signature Clinical Instructor Clinical Instructor Yes DIRECTOR OF WOMEN'S SERVICES Treatment Note Start: 04/20/20 12:27 Freq: Status: Active Protocol: Document 04/21/21 18:36 SHEYLA (Rec: 04/21/21 18:40 SHEYLA [email or web address]) Speech Pathology Treatment Note Setting Treatment Setting Outpatient Care Visit Type Note Type Discharge Summary General Information General Information The pt is a 35-yr-old female familiar to this clinician from previous Speech Therapy targeting dysphagia and expressive, receptive and cognitive communication skills . Impairments resulted from a cervical spine injury sustained during a series of chiropractic treatments (Feb 2017) and ACDF surgery (July 2017). Dysphagia symptoms include difficutly transporting boluses through the pharynx with occasional sticking sensation and coughing. Communication deficits include word finding difficulties, occasional oral motor difficulties in producing speech, difficulty reading d/t visual impairments sustained during same injuries, and significant working and short-term memory. The pt reports amneisa of many events occurring during the 2-3 yrs immediately following injury, some of which are now starting to re- emerge. She also reports mild improvement of peripheral vision, but occasional significant episodes of vertigo associated with visual impairments. The pt lives at home with her 3 children. She is a single mother and full-time student. Subjective Observations/Patient Presentation Pt was last seen in July. New orders have been obtained. Pt is discharged from this course of therapy to begin a new course. Objective Short Term Goals PROGRESS MADE. GOALS NOT MET 1. The pt will develop and adhere to a routine of keeping and monitoring a calendar with at least 80% compliance to meet personal and family responsibilities. 2. The pt will demonstrate understanding of Plan-Execute- Repair strategy by completing its steps within structured tasks to improve ability to plan and follow steps to tasks . 3. The pt will complete structured working and short- term memory tasks with 80% accuracy to improve memory skills necessary to fulfill personal, family, and education responsibilities. Colored Liquid Plastic Applier Goals PROGRESS MADE. GOALS NOT MET 1. Using external tools as needed, the pt will recall and attend to daily events/appts in 90% of opportunities to improve ability to recall and meet functional responsibilities for self, education, and family. 2. Using Xgvq-Nbhwvch-Hepcfv or other strategy as needed, the pt will complete tasks with multiple steps with 90% accuracy and latency WFL to meet demands of education and home responsibilities. 3. Using external memory tools as needed, the pt will recall functional information sufficient to fulfill personal , family, and education responsibilities in >80% of opportunities. Plan Therapy Recommendations Discharge from Speech Therapy
== END 2021-05-03 10:40 ==
LOC: SP 09:30
PROVIDERS: PCP Naturopath; Referring Provider Physician Assistant; Visit Provider Physician Assistant
DX: R13.10 Dysphagia, unspecified (principal); R41.3 Other amnesia
CPT/HCPCS: 92507; 96125

== ENCOUNTER 2020-11-12 15:21 | Emergency (ER) | payer OTHER, MEDICAID, SELFPAY ==
[2020-11-12 16:18] VITALS: BP 115/77; PULSE 82; RESP 16; TEMP 36.8; O2SAT 99; BMI 20.1
--- NOTE | 2020-11-12 16:20 | DI.RAD.S_ITS ---
PROCEDURE: XR SHOULDER RT MIN 2V INDICATIONS: recent surgery, increase pain concerns of dislocation TECHNIQUE: 2 views of the shoulder were acquired. COMPARISON: [facility], CR, XR SHOULDER RT MIN 2V, 12/18/2019, 8:33. FINDINGS: Bones: Recent distal right clavicular resection. No fractures or dislocations. No suspicious bony lesions. Visualized ribs appear intact. Soft tissues: No suspicious soft tissue calcifications. IMPRESSION: Expected appearance post distal clavicular resection. evidence acute bony abnormality of the right shoulder. If clinical suspicion and/or symptoms persist, further assessment with repeat plain films, or advanced imaging (e.g., CT, MRI, or bone scan) may be helpful for further assessment. Dictated by: Warren Morris M.D. on 11/12/2020 at 17:02 Approved by: Warren Morris M.D. on 11/12/2020 at 17:03
[2020-11-12 19:43] VITALS: BP 138/82; PULSE 91; RESP 20; O2SAT 99
--- NOTE | 2020-11-12 19:45 | ED.UPPEXIN ---
HPI - Extremity Injury (Upper) General Chief Complaint: Extremity Injury, Upper Stated Complaint: states rt shoulder out of socket, recent surgery Time Seen by Provider: 11/12/20 18:40 Source: patient Mode of arrival: Ambulatory History of Present Illness HPI narrative: 35-year-old female former smoker with no significant chronic medical problems presents with a chief complaint that her right shoulder is dislocated. She is wearing a splint and a wrap from her orthopedic surgeon and just had a surgery at an outside facility a few days ago. She states that she feels like there is significant swelling and she has an inability to move her shoulder, she call the orthopedic office and they suggested she come to the emergency department as it sounds dislocated. She denies any trauma or injury. Patient denies any numbness, tingling or weakness Related Data Home Medications Medication Instructions Recorded Confirmed levothyroxine 50 mcg capsule 50 mcg PO DAILY 04/24/18 09/25/20 acetaminophen 325 mg capsule 325 mg PO ONCE PRN 12/18/19 09/25/20 (Tylenol) ibuprofen 200 mg tablet 200 mg PO Q6H PRN 12/18/19 09/25/20 bupropion HCl 150 mg tablet,12 hr 300 mg PO DAILY ea 07/02/20 09/25/20 sustained-release (Wellbutrin SR) Previous Rx's Medication Instructions Recorded pregabalin 150 mg capsule (Lyrica) 150 mg PO TID #90 cap 09/15/20 temazepam 15 mg capsule 30 mg PO BEDTIME #60 cap 11/02/20 Allergies Allergy/AdvReac Type Severity Reaction Status Date / Time adhesive [ADHESIVE] Allergy Unknown RASH Verified 11/12/20 16:20 latex [LATEX] Allergy Unknown RASH, SKIN Verified 11/12/20 16:20 CRACKING Penicillins [PENICILLINS] Allergy Unknown RASH Verified 11/12/20 16:20 egg [EGG] AdvReac Unknown NAUSEA Verified 11/12/20 16:20 Opioids - Morphine Analogues AdvReac Unknown NAUSEA Verified 11/12/20 16:20 [OPIOIDS - MORPHINE ANALOGUES] gabapentin AdvReac Verified 11/12/20 16:20 narcotics Allergy Intermediate NAUSEA / Uncoded 11/12/20 16:20 VOMITING Review of Systems Review of Systems Narrative: GENERAL: Denies chills, fatigue, malaise, fever, sweats. HEENT: Denies sinus pain, ear pain, sore throat, difficulty swallowing, dizziness. RESPIRATORY: Denies dyspnea, cough, wheezing, hemoptysis, sputum. CARDIOVASCULAR: Denies chest pain, palpitations, orthopnea, edema, GASTROINTESTINAL: Denies nausea, vomiting, abdominal pain, diarrhea, constipation, melena. : Denies dysuria, frequency, incontinence, hematuria, urinary retention. MUSCULOSKELETAL: denies weakness, joint pain, or bony pain SKIN: Denies rash, skin lesions, or other NEUROLOGIC: Denies weakness, headache, numbness, change in speech, confusion, seizures, incoordination. PSYCHIATRIC: No concerning psychosocial issues. 12 point review of systems is negative except for those stated above Patient History Medical History (Updated 11/12/20 @ 19:43 by Kumar Mathis DO) Anemia Anorexia nervosa (~1995) Anxiety (~1994) Asthma Bilateral hand pain Bladder problem (~2009) Bulimia (~1998) Cervical myelopathy Cervical radiculopathy Cervical somatic dysfunction Chicken pox (~1988) Chronic back pain Chronic right shoulder pain (~2017) Cranial somatic dysfunction Dysphagia Endometriosis (~2007) Foot pain Former smoker Headache History of ETOH abuse Hypothyroidism (~2011) Insomnia Knee pain, chronic Lumbar region somatic dysfunction Migraines Occipital neuralgia of right side Osteoarthritis (~2017) Painful menstrual periods Pancreatitis (~2009) Panic attacks (~1994) Pelvic somatic dysfunction PTSD (post-traumatic stress disorder) (~1994) Rotator cuff impingement syndrome of right shoulder Sacral region somatic dysfunction Seasonal allergies Segmental and somatic dysfunction of abdomen and other regions Spinal stenosis of cervical region Substance abuse (~2016) Tension headache, chronic Thoracic region somatic dysfunction Tinnitus Upper extremity somatic dysfunction Vertigo (~2017) Surgical History (Updated 08/24/20 @ 19:59 by Zeynep Varela) Anesthesia History of bilateral tubal ligation (04/28/17) History of section (01/14/16) Hx of appendectomy (~2005) Hx of laparoscopy (~2007) S/P cervical spinal fusion (~07/2019) Status post appendectomy Status post delivery (~2003) Status post delivery (~2004) Status post delivery (02/22/16) Status post laparoscopy (~2017) Family History (Updated 08/24/20 @ 20:01 by Zeynep Varela) Mother No problems noted. Father Hypothyroid Grandfather Cancer Grandfather Cancer Social History marital status: details: venancio Pham, lives in [place] number of children: 3 household members: spouse and children lives independently: Yes caregiver/support person: No housing: house education level: college do you feel safe at home: Yes Smoking Status: Former smoker alcohol intake: former substance use type: does not use Smoking Status: Former smoker Exam Narrative Exam Narrative: GEN: AOx3 and in mild distress EYES: Pupils are equal, round, and reactive to light and accommodation. Extraoccular muscles are intact bilaterally. There is no subconjunctival hemorrhage or exudate. CHEST: Lungs are clear to auscultation bilaterally and free of wheezes, rales, or rhonchi. Heart rate is regular rhythm, there are no murmurs, clicks, rubs, or gallops. There is no chest wall tenderness. ABD: Abdomen is soft and nontender. There is no guarding or rebound. Bowel sounds are normal in all 4 quadrants. There is no mass or organomegaly. EXT: Full but painful range of motion of right shoulder, no obvious deformity, closed, neurovascularly intact SKIN: Warm, pink, and dry. No erythema or rash Initial Vital Signs Initial Vital Signs: Vital Signs Temperature 98.2 F 11/12/20 16:18 Pulse Rate 82 11/12/20 16:18 Respiratory Rate 16 11/12/20 16:18 Blood Pressure 115/77 11/12/20 16:18 Pulse Oximetry 99 11/12/20 16:18 Course Orders Ordered: ED Orders 11/12/20 16:20 XR shoulder RT min 2V Stat Vital Signs Vital signs: Vital Signs - 8 hr 11/12/20 16:18 11/12/20 19:43 Temperature 98.2 F Pulse Rate 82 91 H Respiratory Rate 16 20 Blood Pressure 115/77 138/82 Pulse Oximetry 99 99 MDM - Extremity Injury (Upper) Imaging Data Extremity x-ray #1: Radiologist's Impression: Sarah Donohue?(Lin)??35??F??1985 ? Allergy/Adv: adhesive, latex, Penicillins, egg, Opioids - Morphine Analogues, gabapentin, [narcotics] (More??) Close Shoulder X-Ray (Signed) Warren Morris - 11/12/20 Cervical Spine X-Ray (Signed) Dameon Montoya - 05/19/20 Shoulder MRI (Signed) Dameon Montoya - 03/27/20 Shoulder Arthrogram (Cancelled) 03/27/20 Injection for MRI Arthrogram (Signed) Stella Stevens - 03/27/[address] (Signed) Jimbo Garland - 03/12/20 Shoulder X-Ray (Signed) Papi Ruiz - 12/18/19 Modified Barium Swallow (Signed) Stella Stevens - 09/17/19 DI Result 08/15/19 Cervical Spine MRI (Signed) Javi Allred - 03/22/19 Cervical Spine X-Ray (Signed) Hilaria Chaudhari - 11/13/18 Cervical Spine X-Ray (Signed) Papi Ruiz - 09/11/18 Hip X-Ray (Signed) Cele Bonner - 06/05/18 Hip X-Ray (Cancelled) 06/05/18 Pelvis Ultrasound (Signed) Papi Ruiz - 09/20/17 Cervical Spine X-Ray (Signed) Papi Ruiz - 06/07/17 Radiology - Historical 02/27/17 Radiology - Historical 08/01/15 [place] [address] XRay Report Signed Patient: Sarah Donohue MR#: [id number] : 1985 Acct:[id number] Age/Sex: 35 / F Date of Service: 11/12/20 Loc: ED Accession Number: [id number] ?? Procedure: XR shoulder RT min 2V Ordering Provider: Zamzam Shepard MD PROCEDURE:? XR SHOULDER RT MIN 2V ? INDICATIONS:? recent surgery, increase pain concerns of dislocation ? TECHNIQUE:? 2 views of the shoulder were acquired.? ? COMPARISON:? [facility], CR, XR SHOULDER RT MIN 2V, 12/18/2019, 8:33. ? FINDINGS:? ? Bones:? Recent distal right clavicular resection.? No fractures or dislocations.? No suspicious bony lesions.? Visualized ribs appear intact.? ? Soft tissues:? No suspicious soft tissue calcifications.? ? IMPRESSION:? Expected appearance post distal clavicular resection.? evidence acute bony abnormality of the right shoulder. ? If clinical suspicion and/or symptoms persist, further assessment with repeat plain films, or advanced imaging (e.g., CT, MRI, or bone scan) may be helpful for further assessment. ? Dictated by: Warren Morris M.D. on 11/12/2020 at 17:02 ? ? Approved by: Warren Morris M.D. on 11/12/2020 at 17:03 ? Discharge Plan Departure Patient Disposition: Home Clinical Impression: Acute shoulder pain Qualifiers: Laterality: right Qualified Code(s): M25.511 - Pain in right shoulder Instructions: DI for Shoulder Pain Activity Restrictions/Additional Instructions: *You have been diagnosed with [acute shoulder pain. This very well could be due to your block wearing off. Your physical exam and x-ray are very reassuring *What to do: *Please continue to take your regular medications as directed. [ ] New medication prescriptions sent to your pharmacy: [ ] [ ] New medication written as a paper prescription [ x] No new medications given *Please follow up with your primary care provider in 2-3 days, call for an appointment. Let them know you were seen in the Emergency Department and that we ask that you be seen in follow up. We will electronically transmit a record of today's note if your PCP is in our system *If you do not have a primary care provider please contact the [facility] Resource line at [phone]. They will ask some questions about your medical history and help get you set up with a doctor in the community. *Return to Emergency Department if you should have any new, worsening or concerning symptoms, such as [fever greater than 101 F, shaking chills, worsening pain, persistent vomiting or other bothersome symptoms] Prescriptions: No Action pregabalin [Lyrica] 150 mg capsule 150 mg PO TID Qty: 90 RF: 1 temazepam 15 mg capsule 30 mg PO BEDTIME Qty: 60 RF: 0 bupropion HCl [Wellbutrin SR] 150 mg tablet sustained-release 12 hr 300 mg PO DAILY RF: 0 ibuprofen 200 mg tablet 200 mg PO Q6H PRNRF: 0 acetaminophen [Tylenol] 325 mg capsule 325 mg PO ONCE PRNRF: 0 levothyroxine 50 mcg capsule 50 mcg PO DAILY RF: 0 Referrals: Juan Han DO [Primary Care Provider] -
--- NOTE | 2020-11-12 19:49 | PC.NURSE ---
Patient reports she is s/p right shoulder/clavicular surgery. Today reports she felt like it slipped out like ti used to in the past and she is afraid to pop it back in because of the surgery. States she feels like her scapula is sticking out more than it should.
== END 2020-11-12 19:54 | disposition home or self-care (01) ==
PROVIDERS: Emergency Provider Emergency Medicine; PCP Family Medicine
DX: M25.511 Pain in right shoulder (principal)
CPT/HCPCS: 73030; 99283

== ENCOUNTER → 2021-03-11 10:12 | Outpatient (CLI) | payer OTHER, MEDICAID, SELFPAY ==
--- NOTE | 2021-03-11 | DI.RAD.S_ITS ---
PROCEDURE: FL BARIUM SWALLOW INDICATIONS: Dysphagia, pharyngoesophageal phase COMPARISON: [facility], CR, XR SHOULDER 2+ VIEWS RIGHT, 01/11/2021, 7:29. FINDINGS: Function: There is normal esophageal peristalsis. No elicited gastroesophageal reflux. There is normal transit of a calibrated barium tablet through the esophagus into the stomach. Morphology: Air-contrast images demonstrate normal mucosal morphology. Single contrast views show no esophageal strictures, extrinsic mass effects, or diverticula. Limited images of the stomach demonstrate normal appearance. IMPRESSION: Normal barium swallow exam. Dictated by: Colt Chaudhari M.D. on 03/11/2021 at 11:21 Approved by: Colt Chaudhari M.D. on 03/11/2021 at 11:22
== END ==
PROVIDERS: PCP Family Medicine; Referring Provider Physician Assistant; Visit Provider Physician Assistant
DX: R13.14 Dysphagia, pharyngoesophageal phase (principal)
CPT/HCPCS: 74221

== ENCOUNTER 2021-06-23 13:30 | Outpatient (RCR) | payer MEDICARE, OTHER, MEDICAID, SELFPAY ==
--- NOTE | 2021-03-31 17:03 | ST.OPIE ---
Visit Care Team Role Provider Type Juan Han DO Attending Provider Physician Family Provider Primary Care Provider Referring Provider Specialty: Family Practice Address: [address] [place] [address], [facility] Email: Speech-Language Pathology Initial Evaluation PROGRAM ARRANGER Adult Cognitive Linguistic Eval Start: 03/31/21 15:34 Freq: Status: Active Protocol: Document 03/31/21 15:34 SHEYLA (Rec: 03/31/21 16:44 SHEYLA [id number]) Adult Cognitive Linguistic Evaluation Session Time Visit Start Time 15:30 Visit Stop Time 16:40 Total Visit Minutes 70 Visit Information Visit Number Initial Evaluation Plan of Care Dates 03/31/21 - 09/28/21 Insurance Information [employer] ([phone]; [id number] x 6 /yr authorized) Referral Referring Provider Dr. Juan Han Reason for Referral Mild cognitive impairment Setting Assessment Location Outpatient Care Visit Type Note Type Initial evaluation Next Note Type Next Note Type Treatment Note Patient Information Identification Type Name,ID Card Medical History The pt is a 35-yr-old female familiar to this clinician from previous Speech Therapy targeting dysphagia and expressive, receptive and cognitive communication skills . Impairments resulted from a cervical spine injury sustained during a series of chiropractic treatments (Feb 2017) and ACDF surgery (July 2017). Dysphagia symptoms include difficultly transporting boluses through the pharynx, experiencing occasional sticking sensation and coughing. Communication deficits include word finding difficulties, occasional oral motor difficulties in producing speech, difficulty reading d/t visual impairments sustained during same injuries, and significant working and short-term memory. The pt reports amnesia of many events occurring during the 2-3 yrs immediately following injury, some of which are now starting to re- emerge. She also reports mild improvement of peripheral vision, but occasional significant episodes of vertigo associated with visual impairments. The pt lives at home with her 3 children. She is a single mother and full-time student. Language(s) Spoken in the Home [place] Education Level Currently obtaining BA Occupation Status Not employed d/t injury; Full- time student Hearing Hearing Level Normal Vision Vision Status Impaired Comments Strabismus with reduced peripheral vision, per pt report Previous Therapy Previous Speech-Language Therapy Yes: 2 courses with this clinician since 10/2019 History of Therapy As described above Subjective Patient Report The pt arrived on time and provided updated case history: Intense visual processing, such as reading and navigating computer screens, increases brain fog and fatigue. She has found that reading comprehension is best if she can hear and see text at the same time. Auditory comprehension is better than reading comprehension when presented in isolation. She struggles with remembering appts, daily events (past and future) and has significant difficulty following/tracking steps to tasks. WFDs continue, especially when on the spot . She has noticed particular difficulty recalling and producing words starting with letters f, s and p and when she is tired. Handwriting is not as legible as PLOF and she often misspells words. Due to muscle and nerve pain in her dominant (right) arm and hand, she is only able to write for short periods of time (~5-10 min). The pt uses the following tools to compensate for deficits: [employer]ook[employer] technology to minimize writing /typing; Audio books in place of reading; Calendar to track daily events, though this is only minimally helpful as she often misplaces the calendar or struggles to keep it current; Reduced rate of speech to improve expressive language and WFDs. Her stated priorities for Speech Therapy are to improve working and short-term memory, calendar use, and ability to follow [id number] processes. Informal Assessment Receptive Language Normal Yes: Comprehension/retention impacted by vision & memory deficits Receptive Language Impairment(s) Following 3-step commands Expressive Language Normal No Expressive Language Impairment(s) Expression of complex thoughts /ideas,Written expression Pragmatic Language Normal Yes Speech Normal No Speech Impairment(s) Slow speech rate Cognition Normal No Cognitive Impairment(s) Short-term memory,Executive functioning Formal Assessment Standardized Test/Screener Type [facility] Status ([facility]) Administration Complete Results Total Score: 20/30, Moderate Neurocognitive Disorder Errors occurred in areas of recall of auditory information and in mental flexibility: Completion of addition/ subtraction when problem presented orally -- the pt was unable to recall components of story problem; on second presentation, addition was incorrect and subtraction was correct. Reverse ordering of 4-digit number; transposing of hands on clock (pt set time to 1:55 vs 11:10); recall of story details (50% acc). Findings/Results Language Function Mildly impaired Cognitive Function Moderately impaired Findings The pt presents with moderate neurocognitive disorder with deficits in areas of memory, mental flexibility, information processing speeds and executive function. These, in addition to vision and neuromuscular impairments, negatively impact reading and writing skills. She also presents with expressive speech and language impairments characterized by occasional halting and effortful speech indicative of WFDs as well as oral motor impairments. Impairments worsen when the pt is fatigued , and she is easily fatigued when visual processing and cognitive communication skills are taxed. The pt is completing a college degree program with use of supportive tools such as audio books, oral vs written exams and feedback from professors, [employer]ook[employer] technology, etc. Cognitive Communication Deficits Self-awareness of Cognitive- Predictive awareness (able to Communication Deficits predict problem; impact of impairments) Concomitant Factors Concomitant Factors Other (comment) Comment Strabismus, neuromuscular pain Impact on Functioning Activity Limits/Particip.Rest. Mild: Interpersonal Interactions Mod: General Tasks and Demands Household Tasks Education Sev: Employment Prognosis Prognosis Good Based on Cognitive status,Family support,Other (comment) Comment Pt motivation, age, and support from college Plan of Care Speech-Language Treatment Yes Frequency 6 visits Duration in 6 mos Patient/Caregiver Education Described results of evaluation,Patient expressed understanding of evaluation, Patient expressed agreement with goals and treatment plans Short Term Goals 1. The pt will develop and adhere to a routine of keeping and monitoring a calendar with at least 80% compliance to meet personal and family responsibilities. 2. The pt will demonstrate understanding of Plan-Execute- Repair strategy by completing its steps within structured tasks to improve ability to plan and follow steps to tasks . 3. The pt will complete structured working and short- term memory tasks with 80% accuracy to improve memory skills necessary to fulfill personal, family, and education responsibilities. Glue Jointer Operator Goals 1. Using external tools as needed, the pt will recall and attend to daily events/appts in 90% of opportunities to improve ability to recall and meet functional responsibilities for self, education, and family. 2. Using Tkul-[id number] or other strategy as needed, the pt will complete tasks with multiple steps with 90% accuracy and latency WFL to meet demands of education and home responsibilities. 3. Using external memory tools as needed, the pt will recall functional information sufficient to fulfill personal , family, and education responsibilities in >80% of opportunities.
--- NOTE | 2021-04-21 18:33 | ST.OPTN ---
Visit Care Team Role Provider Type Juan Han DO Attending Provider Physician Family Provider Primary Care Provider Referring Provider Address: [address] [place] [address], [id number] SPECIAL EFFECTS PERSON Treatment Note SPECIAL EFFECTS PERSON Treatment Note Start: 03/31/21 15:34 Freq: Status: Active Protocol: Document 04/21/21 18:16 SHEYLA (Rec: 04/21/21 18:17 SHEYLA [email or web address]) Speech Pathology Treatment Note Session Time Visit Start Time 15:30 Visit Stop Time 16:20 Total Visit Minutes 50 Visit Information Visit Number 03/14 Plan of Care Dates 03/31/21 - 09/28/21 Insurance Information [employer] ([phone], [phone] x 6 /yr authorized) Setting Treatment Setting Outpatient Care Visit Type Note Type Treatment Note Next Note Type Next Note Type Treatment Note General Information General Information The pt is a 35-yr-old female familiar to this clinician from previous Speech Therapy targeting dysphagia and expressive, receptive and cognitive communication skills . Impairments resulted from a cervical spine injury sustained during a series of chiropractic treatments (Feb 2017) and ACDF surgery (July 2017). Dysphagia symptoms include difficutly transporting boluses through the pharynx with occasional sticking sensation and coughing. Communication deficits include word finding difficulties, occasional oral motor difficulties in producing speech, difficulty reading d/t visual impairments sustained during same injuries, and significant working and short-term memory. The pt reports amneisa of many events occurring during the 2-3 yrs immediately following injury, some of which are now starting to re- emerge. She also reports mild improvement of peripheral vision, but occasional significant episodes of vertigo associated with visual impairments. The pt lives at home with her 3 children. She is a single mother and full-time student. Subjective Observations/Patient Presentation The pt arrived on time. She brought with her a Rocket ( smart') Notebook. She reported challenges with recalling algebra terminology required for one of her classes, and also reported continued frequent misplacing of objects , including the Rocket Notebook which she had misplaced for several days. This was particularly problematic because she was using its calendar feature. Chief Complaint(s) Language,Cognitive Patient Knowledge/Awareness of SPECIAL EFFECTS PERSON Role Excellent in Treatment Patient/Caregiver Compliance with Home Excellent Exercise Program Objective Short Term Goals 1. The pt will develop and adhere to a routine of keeping and monitoring a calendar with at least 80% compliance to meet personal and family responsibilities. 2. The pt will demonstrate understanding of Plan-Execute- Repair strategy by completing its steps within structured tasks to improve ability to plan and follow steps to tasks . 3. The pt will complete structured working and short- term memory tasks with 80% accuracy to improve memory skills necessary to fulfill personal, family, and education responsibilities. Penitentiary Goals 1. Using external tools as needed, the pt will recall and attend to daily events/appts in 90% of opportunities to improve ability to recall and meet functional responsibilities for self, education, and family. 2. Using Lzxq-Uddvudn-Qvjzoh or other strategy as needed, the pt will complete tasks with multiple steps with 90% accuracy and latency WFL to meet demands of education and home responsibilities. 3. Using external memory tools as needed, the pt will recall functional information sufficient to fulfill personal , family, and education responsibilities in >80% of opportunities. Treatment Activities Developed a written list of algebra terminology in paper format to assist with completion of math homework and to reduce the pt's exposure to computer screens and thereby reduce frequency and severity of headaches that she often gets from reading from screens. Collaborated with pt on Jobster Notebook calendar usage and a consistent place to keep the notebook to reduce likelihood of losing it. The pt recalled having purchased a computer bag for her schoolwork and identified this as a potentially effective place to keep her notebook. Agreed to trial this, and if the bag is too heavy or cumbersome to be protable, pt agreed to get a smaller bag with strap for the notebook, which can be taken in and out of the larger computer bag, thereby continuing to use the computer bag as the primary place for all of her school-related items. Assessment Patient Response to Treatment Good Rehab Potential Excellent Impairments Identified Cognitive-Linguistic Skills, Expressive Language,Memory - Short Term,Memory - Working, Problem Solving,Written Expression Progress Towards Goals Good Progress Assessment of Overall Progress Improving Assessment of Improvement The pt was partcipatory and collaborative. She continues with difficulty tracking objects and daily events. It is anticipated that use of the smart notebook will assist with organization of belongings and reducing the quantity of items to track. Establishing consistent storage places for belongings is necessary to reduce confusion and to assist the pt in having access to items necessary to fulfill personal, family, and school-related responsibilities. Reviewed with Patient Goals,Progress Being Made,Home Exercise Program Patient/Caregiver Understanding Excellent Plan Amount of Therapy Recommended 2-3 Months Frequency of Treatment Once a Week Length of Session 60 Minutes Treatment Emphasis Next Session F/U on notebook, calendar use & storage; initiate following directions Therapeutic Contents Client Education,Cognitive- Linguistic Training,Expressive Language Training,Home Exercise Program,Information Processing,Written Expression Provided Patient/Caregiver Instruction Home Exercise Program,Plan of Care,Questions/Concerns Therapy Recommendations Continue with Current Program
--- NOTE | 2021-04-28 17:20 | ST.OPTN ---
Visit Care Team Role Provider Type Juan Han DO Attending Provider Physician Family Provider Primary Care Provider Referring Provider Address: [address] [place] [address], [id number] ADDICTION SPECIALIST Treatment Note ADDICTION SPECIALIST Treatment Note Start: 03/31/21 15:34 Freq: Status: Active Protocol: Document 04/28/21 17:11 SHEYLA (Rec: 04/28/21 17:20 SHEYLA [email or web address]) Speech Pathology Treatment Note Session Time Visit Start Time 15:40 Visit Stop Time 16:40 Total Visit Minutes 60 Visit Information Visit Number 3 Plan of Care Dates 03/31/21 - 09/28/21 Insurance Information [employer] ([phone], [phone] x 6 /yr authorized) Setting Treatment Setting Outpatient Care Visit Type Note Type Treatment Note Next Note Type Next Note Type Treatment Note General Information Patient History The pt is a 35-yr-old female familiar to this ADDICTION SPECIALIST from previous treatement including Modified Barium Study administered 09/23/19, which revealed mild oropharyngeal dysphagia (see report for details). The pt has a complex past medical history. 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 Sequela of injury included upper body neuropathy (face, neck, arms, mostly right side; unable to feel right side of face for 9 mos), changes in cognition, vision, taste, smell, speech articulation, and language skills, and increased fatigue. She underwent ACDF surgery ( July 2018) during which muscle relaxers were required in order to displace laryngeal musculature to perform surgery . Since then, she has experienced difficulty initiating swallow trigger, coughing and choking, and sticking sensation with oral intake. 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 Distant medical history is significant for developmental trauma resulting in PTSD and OCD. The pt also has a history of alcoholism, currently with 2 yrs sobriety after admitting herself in emergent recovery care. Currently, the pt reports difficulty with reading d/t injury of eye muscles on the right side but states she has normal auditory comprehension. She has been wearing corrective glasses which has improved the balance of vision between the two eyes. She reported having seen an optomotrist in [facility] and a neuro-optomotrist in [place] who told her that her optic nerve is intact but she has muscle weakness. To address her PTSD and OCD, the pt is actively working with mental health professionals and taking Wellbutrin for trauma. She also reports participating in neuro feedback system therapy and is working with Physical Therapy at a different clinic for strengthening and addressing nerve pain. The pt has a neurosurgeon consultation scheduled at [facility] in December. 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 She reports difficulty with managing multiple tasks, invoicing clients, etc. 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 She anticipates sharing theater technician responsibilities with colleagues as it is difficult for her to manage independently. She feels doing tasks takes 5x longer than it used to. She reports that other board members are aware of deficits and are supportive . Subjective Observations/Patient Presentation The pt arrived on time. She brought her computer bag, computer, and notebook/ calendar with her. She reported organization strategies targeted in previous session were helping her track items. She had concerns related to recalling steps to tasks required in her coursework. Chief Complaint(s) Language,Cognitive Patient Knowledge/Awareness of ADDICTION SPECIALIST Role Excellent in Treatment Patient/Caregiver Compliance with Home Excellent Exercise Program Objective Short Term Goals 1. The pt will develop and adhere to a routine of keeping and monitoring a calendar with at least 80% compliance to meet personal and family responsibilities. 2. The pt will demonstrate understanding of Plan-Execute- Repair strategy by completing its steps within structured tasks to improve ability to plan and follow steps to tasks . 3. The pt will complete structured working and short- term memory tasks with 80% accuracy to improve memory skills necessary to fulfill personal, family, and education responsibilities. Skilled Nursing Goals 1. Using external tools as needed, the pt will recall and attend to daily events/appts in 90% of opportunities to improve ability to recall and meet functional responsibilities for self, education, and family. 2. Using Xfjg-Bdfqafm-Wyacbl or other strategy as needed, the pt will complete tasks with multiple steps with 90% accuracy and latency WFL to meet demands of education and home responsibilities. 3. Using external memory tools as needed, the pt will recall functional information sufficient to fulfill personal , family, and education responsibilities in >80% of opportunities. Treatment Activities The pt demonstrated academic tasks in which she was having difficulty recalling steps. Trained pt in use of kilgore words /mnemonics to track reduce complexity and improve recall. Using a sequence of steps required in one of her assignments, the pt generated 2 labels for kilgore components of the sequence. Using these labels, she accurately completed 2/3 tasks. Discussion of the error provided processing opportunity that reinforced the labels, and the pt was able to complete an additional task accurately and more quickly. She wrote notes to record the labels with examples for reinforcement. Assessment Patient Response to Treatment Good Rehab Potential Excellent Impairments Identified Cognitive-Linguistic Skills, Expressive Language,Memory - Short Term,Memory - Working, Problem Solving,Written Expression Progress Towards Goals Good Progress Assessment of Overall Progress Improving Assessment of Improvement The pt successfully generated labels for steps to tasks that assisted her in recalling steps and completing multi- step tasks of moderate complexity. She has followed through on organizational strategies developed in treatment with good success. Reviewed with Patient Goals,Progress Being Made,Home Exercise Program Patient/Caregiver Understanding Excellent Plan Amount of Therapy Recommended 2-3 Months Frequency of Treatment Once a Week Length of Session 60 Minutes Treatment Emphasis Next Session Continue training memory strategies for following multi -step directions Therapeutic Contents Client Education,Cognitive- Linguistic Training,Expressive Language Training,Home Exercise Program,Information Processing,Written Expression Provided Patient/Caregiver Instruction Home Exercise Program,Plan of Care,Questions/Concerns Therapy Recommendations Continue with Current Program
--- NOTE | 2021-05-12 17:04 | ST.OPTN ---
Visit Care Team Role Provider Type Juan Han DO Attending Provider Physician Family Provider Primary Care Provider Referring Provider Address: [address] [place] [address], [id number] PROJECT MANAGER/TEAM COACH Treatment Note PROJECT MANAGER/TEAM COACH Treatment Note Start: 03/31/21 15:34 Freq: Status: Active Protocol: Document 05/12/21 18:10 SHEYLA (Rec: 05/12/21 18:11 SHEYLA [email or web address]) Speech Pathology Treatment Note Session Time Visit Start Time 15:30 Visit Stop Time 16:30 Total Visit Minutes 60 Visit Information Visit Number 05/12 Plan of Care Dates 03/31/21 - 09/28/21 Insurance Information [employer] ([phone], [phone] x 6 /yr authorized) Setting Treatment Setting Outpatient Care Visit Type Note Type Treatment Note Next Note Type Next Note Type Treatment Note General Information Patient History The pt is a 35-yr-old female familiar to this PROJECT MANAGER/TEAM COACH from previous treatement including Modified Barium Study administered 09/23/19, which revealed mild oropharyngeal dysphagia (see report for details). The pt has a complex past medical history. 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 Sequela of injury included upper body neuropathy (face, neck, arms, mostly right side; unable to feel right side of face for 9 mos), changes in cognition, vision, taste, smell, speech articulation, and language skills, and increased fatigue. She underwent ACDF surgery ( July 2018) during which muscle relaxers were required in order to displace laryngeal musculature to perform surgery . Since then, she has experienced difficulty initiating swallow trigger, coughing and choking, and sticking sensation with oral intake. 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 Distant medical history is significant for developmental trauma resulting in PTSD and OCD. The pt also has a history of alcoholism, currently with 2 yrs sobriety after admitting herself in emergent recovery care. Currently, the pt reports difficulty with reading d/t injury of eye muscles on the right side but states she has normal auditory comprehension. She has been wearing corrective glasses which has improved the balance of vision between the two eyes. She reported having seen an optomotrist [facility] and a neuro-optomotrist in [place] who told her that her optic nerve is intact but she has muscle weakness. To address her PTSD and OCD, the pt is actively working with mental health professionals and taking Wellbutrin for trauma. She also reports participating in neuro feedback system therapy and is working with Physical Therapy at a different clinic for strengthening and addressing nerve pain. The pt has a neurosurgeon consultation scheduled at [facility] in December. 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 She reports difficulty with managing multiple tasks, invoicing clients, etc. 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 She anticipates sharing dental cream maker responsibilities with colleagues as it is difficult for her to manage independently. She feels doing tasks takes 5x longer than it used to. She reports that other board members are aware of deficits and are supportive . Subjective Observations/Patient Presentation The pt arrived on time. She brought her computer bag, computer, and notebook/ calendar with her. She reported omemory strategies targeted in last session were helpful but she continues to have difficulty remembering the amount of content necessary to complete math problems in a timely manner. Chief Complaint(s) Language,Cognitive Patient Knowledge/Awareness of PROJECT MANAGER/TEAM COACH Role Excellent in Treatment Patient/Caregiver Compliance with Home Excellent Exercise Program Objective Short Term Goals 1. The pt will develop and adhere to a routine of keeping and monitoring a calendar with at least 80% compliance to meet personal and family responsibilities. 2. The pt will demonstrate understanding of Plan-Execute- Repair strategy by completing its steps within structured tasks to improve ability to plan and follow steps to tasks . 3. The pt will complete structured working and short- term memory tasks with 80% accuracy to improve memory skills necessary to fulfill personal, family, and education responsibilities. Health And Wellness Advisor Goals 1. Using external tools as needed, the pt will recall and attend to daily events/appts in 90% of opportunities to improve ability to recall and meet functional responsibilities for self, education, and family. 2. Using Jgsv-Ssdrvqz-Binjvj or other strategy as needed, the pt will complete tasks with multiple steps with 90% accuracy and latency WFL to meet demands of education and home responsibilities. 3. Using external memory tools as needed, the pt will recall functional information sufficient to fulfill personal , family, and education responsibilities in >80% of opportunities. Treatment Activities Consulted with pt RE content that she's having difficulty tracking and recalling. Because concepts build on one another, PROJECT MANAGER/TEAM COACH recommended writing sequential steps on notecards all contained in order on a ring. The pt was agreeable to this system, which is small enough to be portable, and development of the system was initiated. Pt verbalized and demonstrated understanding of organization via creation of 2 notecards and agreed to continue development at home. Will follow up at next session and assist with development as needed. Will use notecards as tools for targeting internal memory strategies. Assessment Patient Response to Treatment Good Rehab Potential Excellent Impairments Identified Cognitive-Linguistic Skills, Expressive Language,Memory - Short Term,Memory - Working, Problem Solving,Written Expression Progress Towards Goals Good Progress Assessment of Overall Progress Improving Assessment of Improvement The pt continues to show excellent awareness of deficits and to be effectively collaborative in development of systems to improve organization and recall of functional information necessary for personal, family and academic responsibilities . Reviewed with Patient Goals,Progress Being Made,Home Exercise Program Patient/Caregiver Understanding Excellent Plan Amount of Therapy Recommended 2-3 Months Frequency of Treatment Once a Week Length of Session 60 Minutes Treatment Emphasis Next Session Continue training memory strategies for following multi -step directions Therapeutic Contents Client Education,Cognitive- Linguistic Training,Expressive Language Training,Home Exercise Program,Information Processing,Written Expression Provided Patient/Caregiver Instruction Home Exercise Program,Plan of Care,Questions/Concerns Therapy Recommendations Continue with Current Program
--- NOTE | 2021-06-23 18:24 | ST.OPTN ---
Visit Care Team Role Provider Type Juan Han DO Attending Provider Physician Family Provider Primary Care Provider Referring Provider Address: [address] [place] [address], [id number] LOAN REVIEW ANALYST Treatment Note LOAN REVIEW ANALYST Treatment Note Start: 03/31/21 15:34 Freq: Status: Active Protocol: Document 06/23/21 18:15 SHEYLA (Rec: 06/28/21 18:24 SHEYLA [id number]) Speech Pathology Treatment Note Session Time Visit Start Time 13:30 Visit Stop Time 14:25 Total Visit Minutes 55 Visit Information Visit Number 02/15 Plan of Care Dates 03/31/21 - 09/28/21 Insurance Information Medicare Setting Treatment Setting Outpatient Care Visit Type Note Type Treatment Note Next Note Type Next Note Type Treatment Note General Information Patient History The pt is a 35-yr-old female familiar to this LOAN REVIEW ANALYST from previous treatement including Modified Barium Study administered 09/23/19, which revealed mild oropharyngeal dysphagia (see report for details). The pt has a complex past medical history. 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 Sequela of injury included upper body neuropathy (face, neck, arms, mostly right side; unable to feel right side of face for 9 mos), changes in cognition, vision, taste, smell, speech articulation, and language skills, and increased fatigue. She underwent ACDF surgery ( July 2018) during which muscle relaxers were required in order to displace laryngeal musculature to perform surgery . Since then, she has experienced difficulty initiating swallow trigger, coughing and choking, and sticking sensation with oral intake. 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 Distant medical history is significant for developmental trauma resulting in PTSD and OCD. The pt also has a history of alcoholism, currently with 2 yrs sobriety after admitting herself in emergent recovery care. Currently, the pt reports difficulty with reading d/t injury of eye muscles on the right side but states she has normal auditory comprehension. She has been wearing corrective glasses which has improved the balance of vision between the two eyes. She reported having seen an optomotrist in [facility] and a neuro-optomotrist in [place] who told her that her optic nerve is intact but she has muscle weakness. To address her PTSD and OCD, the pt is actively working with mental health professionals and taking Wellbutrin for trauma. She also reports participating in neuro feedback system therapy and is working with Physical Therapy at a different clinic for strengthening and addressing nerve pain. The pt has a neurosurgeon consultation scheduled at [facility] in December. 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 She reports difficulty with managing multiple tasks, invoicing clients, etc. 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 She anticipates sharing electrophysiology technician responsibilities with colleagues as it is difficult for her to manage independently. She feels doing tasks takes 5x longer than it used to. She reports that other board members are aware of deficits and are supportive . Subjective Others Present Student Observations/Patient Presentation The pt arrived on time. She reported difficulty tracking information and completing tasks needed for her son's high school graduation. Chief Complaint(s) Language,Cognitive Patient Knowledge/Awareness of LOAN REVIEW ANALYST Role Excellent in Treatment Patient/Caregiver Compliance with Home Excellent Exercise Program Objective Short Term Goals 1. The pt will develop and adhere to a routine of keeping and monitoring a calendar with at least 80% compliance to meet personal and family responsibilities. 2. The pt will demonstrate understanding of Plan-Execute- Repair strategy by completing its steps within structured tasks to improve ability to plan and follow steps to tasks . 3. The pt will complete structured working and short- term memory tasks with 80% accuracy to improve memory skills necessary to fulfill personal, family, and education responsibilities. Harvester Operator Goals 1. Using external tools as needed, the pt will recall and attend to daily events/appts in 90% of opportunities to improve ability to recall and meet functional responsibilities for self, education, and family. 2. Using Aakg-Oowtodd-Rukwbx or other strategy as needed, the pt will complete tasks with multiple steps with 90% accuracy and latency WFL to meet demands of education and home responsibilities. 3. Using external memory tools as needed, the pt will recall functional information sufficient to fulfill personal , family, and education responsibilities in >80% of opportunities. Treatment Activities Trained pt in Ffwe-Ammj-Bm- Review (GPDR) strategy for completing tasks and solving problems. With LOAN REVIEW ANALYST guidance, the pt identified a goal for completing one step planning her son's democrat. In listed the materials and steps needed to complete the task, she initially included 50% of the materials needed, recalling additional items as she talked through the steps that needed to be completed. She identified steps that were partially completed but which had been disrupted d/t poor planning of items needed to complete them. This demonstrated the importance of a tool such as GPDR, and education and feedback was provided RE ways this structure can carry over to various tasks. The pt was receptive and agreed to use the tool to do the task. Will review at next session. Assessment Patient Response to Treatment Good Rehab Potential Excellent Progress Towards Goals Good Progress Assessment of Overall Progress Improving Assessment of Improvement The pt was responsive to training in GPDR and, during the process, acknowledged her need for such a planning tool in order to stay organized and complete and track tasks. She verbally acknowledged ways in which this tool can be applied to many tasks. Needs reinforcement. Reviewed with Patient Goals,Progress Being Made,Home Exercise Program Patient/Caregiver Understanding Excellent Plan Amount of Therapy Recommended 2-3 Months Frequency of Treatment Once a Week Length of Session 60 Minutes Treatment Emphasis Next Session F/U GPDR; Strategies for following multi-step directions Therapeutic Contents Client Education,Cognitive- Linguistic Training,Expressive Language Training,Home Exercise Program,Information Processing,Written Expression Provided Patient/Caregiver Instruction Home Exercise Program,Plan of Care,Questions/Concerns Therapy Recommendations Continue with Current Program
--- NOTE | 2021-09-01 18:28 | ST.OPDS ---
Visit Care Team Role Provider Type Juan Han DO Attending Provider Physician Family Provider Primary Care Provider Referring Provider Address: [address] [place] [address], [phone] ADMINISTRATIVE HEARING OFFICER Treatment Note ADMINISTRATIVE HEARING OFFICER Treatment Note Start: 03/31/21 15:34 Freq: Status: Active Protocol: Document 09/01/21 18:24 SHEYLA (Rec: 09/01/21 18:28 SHEYLA [id number]) Speech Pathology Treatment Note Visit Information Plan of Care Dates 03/31/21 - 09/28/21 Insurance Information Medicare Setting Treatment Setting Outpatient Care Visit Type Note Type Discharge Summary General Information Patient History The pt is a 35-yr-old female familiar to this ADMINISTRATIVE HEARING OFFICER from previous treatement including Modified Barium Study administered 09/23/19, which revealed mild oropharyngeal dysphagia (see report for details). The pt has a complex past medical history. 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 Sequela of injury included upper body neuropathy (face, neck, arms, mostly right side; unable to feel right side of face for 9 mos), changes in cognition, vision, taste, smell, speech articulation, and language skills, and increased fatigue. She underwent ACDF surgery ( July 2018) during which muscle relaxers were required in order to displace laryngeal musculature to perform surgery . Since then, she has experienced difficulty initiating swallow trigger, coughing and choking, and sticking sensation with oral intake. 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 Distant medical history is significant for developmental trauma resulting in PTSD and OCD. The pt also has a history of alcoholism, currently with 2 yrs sobriety after admitting herself in emergent recovery care. Currently, the pt reports difficulty with reading d/t injury of eye muscles on the right side but states she has normal auditory comprehension. She has been wearing corrective glasses which has improved the balance of vision between the two eyes. She reported having seen an [facility]omotrist [facility] and a neuro-optomotrist in [place] who told her that her optic nerve is intact but she has muscle weakness. To address her PTSD and OCD, the pt is actively working with mental health professionals and taking Wellbutrin for trauma. She also reports participating in neuro feedback system therapy and is working with Physical Therapy at a different clinic for strengthening and addressing nerve pain. The pt has a neurosurgeon consultation scheduled at [facility] in December. 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 She reports difficulty with managing multiple tasks, invoicing clients, etc. 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 She anticipates sharing wood heel attacher responsibilities with colleagues as it is difficult for her to manage independently. She feels doing tasks takes 5x longer than it used to. She reports that other board members are aware of deficits and are supportive . Subjective Observations/Patient Presentation The pt was last seen June 23. She has requested discharge d /t plan to continue treatment elsewhere. Chief Complaint(s) Language,Cognitive Objective Short Term Goals 1. The pt will develop and adhere to a routine of keeping and monitoring a calendar with at least 80% compliance to meet personal and family responsibilities. 2. The pt will demonstrate understanding of Plan-Execute- Repair strategy by completing its steps within structured tasks to improve ability to plan and follow steps to tasks . 3. The pt will complete structured working and short- term memory tasks with 80% accuracy to improve memory skills necessary to fulfill personal, family, and education responsibilities. Long-Term Goals 1. Using external tools as needed, the pt will recall and attend to daily events/appts in 90% of opportunities to improve ability to recall and meet functional responsibilities for self, education, and family. 2. Using Spif-Xegjeqq-Zqqwsj or other strategy as needed, the pt will complete tasks with multiple steps with 90% accuracy and latency WFL to meet demands of education and home responsibilities. 3. Using external memory tools as needed, the pt will recall functional information sufficient to fulfill personal , family, and education responsibilities in >80% of opportunities. Assessment Patient Response to Treatment Good Rehab Potential Good Impairments Identified Expressive language,Cognitive communication,Speech,Swallow Plan Therapy Recommendations Discharge from Speech Therapy Reason for Discharge Pt request
== END 2022-01-13 14:21 | disposition home or self-care (01) ==
LOC: SP 13:30
PROVIDERS: Family Provider Family Medicine; PCP Family Medicine; Referring Provider Family Medicine; Visit Provider Family Medicine
DX: G31.84 Mild cognitive impairment of uncertain or unknown etiology (principal)
CPT/HCPCS: 92507; 92523; 97129; 97130

== ENCOUNTER → 2021-07-23 09:28 | Outpatient (CLI) | payer MEDICARE, SELFPAY ==
[2021-07-24 03:55] LABS: Thyroid Stimulating Hormone 1.11 uIU/mL (0.47-4.68)
[2021-07-24 05:44] LABS: Homocysteine 5.9 umol/L (0.0-14.5)
[2021-07-24 11:24] LABS: Calcium 9.4 mg/dL (8.7-10.2); Parathyroid Hormone, Intact 17 pg/mL (15-65)
[2021-07-24 19:28] LABS: Anti Thyroglobulin Antibody <1.0 IU/mL (0.0-0.9); Thyroid Peroxidase Antibodies <8 IU/mL (0-34)
[2021-07-25 15:28] LABS: Free T3, Triiodothyronine Free 2.73 pg/mL (2.77-5.27); Free T4, Direct Thyroxine 1.36 ng/dL (0.78-2.19)
[2021-07-25 16:11] LABS: Vitamin B12 Reflex MMA if <400 815 pg/mL (239-931)
== END ==
PROVIDERS: Family Provider Family Medicine; PCP Family Medicine; Referring Provider Family Medicine; Visit Provider Family Medicine
DX: F32.9 Major depressive disorder, single episode, unspecified (principal); R13.19 Other dysphagia; G62.9 Polyneuropathy, unspecified; N94.6 Dysmenorrhea, unspecified; E83.52 Hypercalcemia
CPT/HCPCS: 36415; 82310; 82607; 83090; 83970; 84439; 84443; 84481; 86376; 86800

== ENCOUNTER → 2022-03-15 12:05 | Outpatient (CLI) | payer MEDICARE, SELFPAY ==
[2022-03-15 14:27] LABS: Free T3, Triiodothyronine Free 2.69 pg/mL (2.77-5.27); Free T4, Direct Thyroxine 1.65 ng/dL (0.78-2.19)
[2022-03-15 14:40] LABS: Thyroid Stimulating Hormone 0.194 uIU/mL (0.47-4.68)
[2022-03-15 16:56] LABS: Urine N gonorrhoeae NOT DETECTED
[2022-03-15 17:01] LABS: Urine Chlamydia NOT DETECTED
[2022-03-16 06:36] LABS: RPR Screen Non Reactive (Non Reactive)
[2022-03-16 08:36] LABS: HSV 2 IGG AB < 0.91 index (0.00-0.90)
[2022-03-17 16:01] LABS: Hepatitis B Surface Antigen NEGATIVE s/c (NEGATIVE)
[2022-03-17 16:29] LABS: HIV 1 & 2 Ab/Ag 4th Gen Combo NEGATIVE (NEGATIVE); Hep C Virus Ab w/Reflex Quant NEGATIVE s/c (NEGATIVE)
== END ==
PROVIDERS: Family Provider Family Medicine; PCP Family Medicine; Referring Provider Nurse Practitioner Family; Visit Provider Nurse Practitioner Family
DX: E03.9 Hypothyroidism, unspecified (principal); Z01.419 Encounter for gynecological examination (general) (routine) without abnormal findings; Z20.2 Contact with and (suspected) exposure to infections with a predominantly sexual mode of transmission
CPT/HCPCS: 36415; 84439; 84443; 84481; 86592; 86695; 86696; 86803; 87340; 87389; 87491; 87591

== ENCOUNTER → 2022-03-21 12:11 | Outpatient (CLI) | payer MEDICARE, SELFPAY ==
--- NOTE | 2022-03-21 12:12 | DI.CT.S_ITS ---
PROCEDURE: CT HEAD/BRAIN WO CON INDICATIONS: chronic headache TECHNIQUE: Noncontrast 4.5 mm thick angled axial sections acquired from the foramen magnum to the vertex, with coronal and sagittal reformats. For radiation dose reduction, the following was used: automated exposure control, adjustment of mA and/or kV according to patient size. COMPARISON: [facility], MR, BRAIN WITHOUT CONTRAST, 05/16/2017, 7:49. [facility], CT, HEAD AND NECK ANGIO, 02/27/2017, 21:50. FINDINGS: Image quality: Excellent. CSF spaces: Basal cisterns are patent. No extra-axial fluid collections. Ventricles are normal in size and shape. Brain: No midline shift. No intracranial masses or hemorrhage. Rodas-white matter interface is normal. Skull and face: Calvarium and visualized facial bones are intact, without suspicious lesions. Sinuses: Visualized sinuses and mastoids are clear. IMPRESSION: Unremarkable noncontrast head CT, without a cause of headache identified. Dictated by: Jimbo Garland M.D. on 03/21/2022 at 11:31 Approved by: Jimbo Garland M.D. on 03/21/2022 at 11:34
== END ==
PROVIDERS: Family Provider Family Medicine; PCP Family Medicine; Referring Provider Family Medicine; Visit Provider Family Medicine
DX: M54.12 Radiculopathy, cervical region (principal); G31.84 Mild cognitive impairment of uncertain or unknown etiology; G44.221 Chronic tension-type headache, intractable; Z98.1 Arthrodesis status; M54.81 Occipital neuralgia
CPT/HCPCS: 70450

== ENCOUNTER → 2022-07-29 10:22 | Outpatient (CLI) | payer MEDICARE, SELFPAY ==
[2022-07-29 12:41] LABS: Free T3, Triiodothyronine Free 4.59 pg/mL (2.77-5.27); Free T4, Direct Thyroxine 0.84 ng/dL (0.78-2.19)
[2022-07-29 12:55] LABS: Thyroid Stimulating Hormone 0.801 uIU/mL (0.47-4.68)
== END ==
PROVIDERS: Family Provider Family Medicine; PCP Family Medicine; Referring Provider Family Medicine; Visit Provider Family Medicine
DX: E03.9 Hypothyroidism, unspecified (principal)
CPT/HCPCS: 36415; 84439; 84443; 84481

== ENCOUNTER 2022-10-13 08:15 | Inpatient (IN) | payer MEDICARE, SELFPAY ==
[2022-10-05 07:49] VITALS: BMI 21.0
[2022-10-13] VITALS (7 sets, daily range): BP systolic 89–108; BP diastolic 52–74; PULSE 62–79; RESP 13–20; TEMP 36.3–36.9; O2SAT 93–100; BMI 21.0
--- NOTE | 2022-10-13 | PATH_ITS ---
[facility] Accession Number: [id number] No. of containers..01 Tissue . 01 Material submitted: . uterus - UTERUS AND BILATERAL FALLOPIAN TUBES . 01 Diagnosis: Uterus and Bilateral Fallopian Tubes; Supracervical Hysterectomy (Morcellated) and Bilateral Salpingectomy: Proliferative phase endometrium without evidence of endometrial polyps, hyperplasia, atypia or malignancy. No evidence of adenomyosis, on admitting representative sections examined. Benign bilateral fallopian tubes. MRV 10/20/2022 1535 Local . 01 Electronically signed: . Fouzia Alejandro MD, Pathologist NPI- [id number] . 01 Gross description: . Received in formalin, labeled with the patient's name and uterus and bilateral fallopian tubes is a 73 gram, 10 x 6 x 6 cm aggregate of morcellated and fragmented pink-bales trabecular tissue, as well as two fimbriated fallopian tubes averaging 3.4 cm long by 0.5 cm diameter. The serosa is pink-bales, smooth with no adhesions, were identified. The fragments with endometrium show red-pink endometrium with a 0.2 cm thickness. The myometrium is trabecular with no identified nodules or lesions. No cervix is identified. The myometrial thickness is suspected to be 2.0 cm. Personal Development Mentor sections are submitted: . A1-A3 = Endomyometrium and serosa. A4-A5 = One fallopian tube per cassette. ([id number]) /MRV 10/14/2022 1801 Local . 01 Pathologist provided ICD-10: R10.2, N94.6, Z87.42 . 01 CPT . 986742 Specimen Comment: A courtesy copy of this report has been sent to [phone] Performed at: 01 [facility] [address], [place], [place] [id number] MD Lio Tripp MD Phone: [phone]
[2022-10-13] MEDS: LACTATED RINGERS 1,000 ML 42 ML IV (08:28)
[2022-10-13] MEDS: SCOPOLAMINE 1 PATCH TOP (08:58)
--- NOTE | 2022-10-13 09:16 | PM.PREOP ---
Pre-operative Note COVID-19 Criteria for continued procedure: Non-surgical alternatives not available or appropriate per current SOC Interval Note History & Physical reviewed/Exam performed by Physician: Yes Changes to H&P: No H&P completed within 30 days and has changed as indicated here:: 10/07/22
--- NOTE | 2022-10-13 09:52 | SUR.OPER ---
Lithotomy on padded OR bed. Barnard Pad Positioner under torso. Head on pillow, arms padded and tucked at sides. Legs secured in padded yellow fins stirrups.
[2022-10-13] MEDS: CEFAZOLIN 2 GM/100 ML PREMIX 100 ML IV (10:03)
[2022-10-13] MEDS: BUPIVACAINE 0.5% (PF) 30 ML, EPINEPHrine 0.15 MG INJ (11:07)
[2022-10-13] MEDS: ROPIVACAINE 0.2% PF 2 MG/ML 20ML AMP 20 ML INJ (11:08)
--- NOTE | 2022-10-13 11:33 | P.OP_ITS ---
Operative Date/Time/Diagnoses Date of procedure: 10/13/22 Time of procedure: 11:33 Pre-op diagnosis: Dysmenorrhea Dyspareunia Pelvic pain History of endometriosis Post-op diagnosis: same Procedure & Clinicians Procedure: Procedures Operation Date: 10/13/22 09:15 Actual Procedure Side Surgeon p Laparoscopic Supracervical Hysterectomy; bilateral salpingectomy Not Applicable Sarah Lee MD Indications: 37 year old with dyspareunia, dysmenorrhea and pelvic pain. H/O endometriosis Surgeon: Sarah Lee Registration Officer: Romina Meredith Anesthesia Type: General and Local Operative Notes Findings: 8 wk size anteverted uterus Normal left ovary Right ovary with 3 endometriotic lesions Normal liver and gallbladder Appendix previously removed Tubes s/p ligation bilaterally Closure Type: primary Specimen(s): left tube, right tube and uterus Applied: catheter (Removed at the end of the case) Estimated blood loss (mL): 10 Blood products transfused: none Procedure in detail: The patient was taken to the operating room where she was placed in the dorsal supine position. After adequate general endotracheal anesthesia was achieved, she was placed in the dorsal lithotomy position, and prepped and draped in the usual sterile fashion. A timeout was performed. A bivalve speculum was placed into the vagina and the anterior lip of the cervix grasped with a single-tooth tenaculum. The cervical os was sequentially dilated until the ZUMI uterine manipulator could pass easily into the endometrial cavity. The single-tooth tenaculum was removed from the anterior lip of the cervix, and the bivalve speculum was removed from the vagina. Attention was then turned to the abdomen where 6 mL of half percent Marcaine with epinephrine were injected in the umbilical fold. A 5 mm incision was made. The Verees needle was placed into the peritoneal cavity, and its placement confirmed by aspiration and drop test. The Verees needle was removed. A 5 mm trocar was placed without difficulty. 2 other incisions were made 4 cm lateral to the umbilicus after 5 mL of half percent Marcaine with epinephrine were injected. These were 5 mm incisions. Two 5 mm trocars were placed under direct visualization. The pelvis and abdomen were examined with the findings noted above. The right tube was grasped with an atraumatic grasper. Using the power seal, the mesosalpinx was cauterized and cut all the way down to the cornua of the uterus. The cornua of the uterus was then grasped with an atraumatic grasper. The utero-ovarian ligaments were cauterized and cut. The round ligament and broad ligament was cauterized and cut with the power seal. Hemostasis was achieved. The bladder flap was created using the power seal with cautery and cut assisted across. The uterine arteries on the right side were extensively cauterized with the power seal. All of this was repeated on the left side. The remainder of the bladder flap was created using the power seal, and the bladder taken down off the lower uterine segment and cervix. Using the Linaloop, the cervix was amputated from the uterus 2 cm above the uterosacral ligaments, after the ZUMI uterine manipulator was removed from the uterus. There was a small amount of bleeding noted from the posterior edge of the cervix, and this was cauterized for hemostasis. A sponge stick was placed into the vagina. 6 mL of half percent Marcaine with epinephrine were injected above the pubic symphysis. A 12 mm trocar was placed. A large Endobag was placed through the suprapubic trocar and the uterus and tubes were placed into the Endobag. The trocar was removed. The edges of the bag were brought up through the skin. The uterus was grasped with a Daphne. The Victor Manuel placed into the endobag. The uterus and tubes were hand morcellated in approximately 10 pieces. The Endobag was removed from the peritoneal cavity. The fascia on the suprapubic incision was closed with 0 Vicryl in a running fashion. The abdomen was re-insufflated with carbon dioxide gas. The pelvis was examined and there was no bleeding noted. The 3 endometriotic lesions on the right ovary were extensively cauterized with the spatula cautery. The pelvis was copiously irrigated with warm normal saline. No bleeding was noted. The instruments were removed from the abdomen. The CO2 was allowed to escape. Two simple interrupted sutures with 3-0 Vicryl were placed in the subcutaneous layer of the suprapubic incision. All of the incisions were closed with 4-0 Monocryl in a subcuticular fashion. The moistened sponge stick was removed from the vagina. Sponge, lap, and instrument counts were correct x-2. The patient tolerated the procedure well, was taken to PACU in stable condition. Complications: none Post-operative Condition: stable Disposition: PACU Plan for aftercare: Home after recovery
[2022-10-13] MEDS: ACETAMINOPHEN 325 MG TABLET 650 MG PO (11:47)
[2022-10-13] MEDS: ONDANSETRON 4 MG/2 ML INJ IV (11:47)
[2022-10-13] MEDS: TRAMADOL 50 MG TABLET PO (12:09)
== END 2022-10-13 12:46 | disposition home or self-care (01) | DRG 743 ==
PROVIDERS: Admitting Provider Obstetrics & Gynecology; Family Provider Family Medicine; PCP Family Medicine; Referring Provider Obstetrics & Gynecology; Visit Provider Obstetrics & Gynecology
PROC: 0UT94ZL Resection of Uterus, Supracervical, Percutaneous Endoscopic Approach (ICD-10-PCS; principal; 2022-10-13 09:15)
DX: N80.101 Endometriosis of right ovary, unspecified depth (principal); N94.10 Unspecified dyspareunia; N94.6 Dysmenorrhea, unspecified; R10.2 Pelvic and perineal pain
CPT/HCPCS: J0171; J0690; J1100; J1885; J2250; J2405; J2704; J2795; J3010

== ENCOUNTER → 2023-06-07 14:47 | Outpatient (CLI) | payer MEDICARE, SELFPAY ==
[2023-06-07 15:40] LABS: Add Manual Diff / Slide Review NO; Basophils Absolute Auto 0 /uL (0-100); Basophils Percent Auto 1.2 % (0-2); Eosinophils Absolute Auto 0 /uL (0-450); Eosinophils Percent Auto 1.2 % (2-4); Hematocrit 38.6 % (36-46); Hemoglobin 12.9 g/dL (12.0-16.0); Lymphocytes Absolute Auto 1500 /uL (1100-4500); Lymphocytes Percent Auto 42.4 % (25-40); Mean Corpuscular HGB Conc 33.5 % (30-36); Mean Corpuscular Hemoglobin 32.9 PG (26-34); Mean Corpuscular Volume 98.1 fL (80-100); Monocytes Absolute Auto 300 /uL (0-900); Monocytes Percent Auto 8.8 % (3-14); Neutrophils Absolute Auto 1700 /uL (1500-7000); Neutrophils Percent Auto 46.4 % (50-75); Platelet Count 314 X10^3/uL (150-400); Red Blood Cell Count 3.94 X10^6/uL (4.0-5.2); Red Cell Distribution Width 12.6 % (11.6-14.8); White Blood Cell Count 3.6 X10^3/uL (4.5-11.0)
[2023-06-07 15:44] LABS: HEMOLYSIS < 15 (0-50); Iron 93 ug/dL (37-170)
[2023-06-07 15:51] LABS: Alanine Aminotransferase 27 IU/L (<35); Albumin 4.5 g/dL (3.5-5.0); Albumin Globulin Ratio 1.7 (1.0-2.8); Alkaline Phosphatase 56 U/L (38-126); Aspartate Aminotransferase 35 IU/L (14-36); BUN Creatinine Ratio 16.2 (6-22); Blood Urea Nitrogen 11 mg/dL (7-17); Carbon Dioxide 26 mmol/L (22-32); Chloride 107 mmol/L (98-107); Estimated Glomerular Filt Rate > 60 mL/min (>60); Globulin 2.7 g/dL (1.7-4.1); Glucose 86 mg/dL (70-100); HEMOLYSIS 25 (0-50); Magnesium 2.2 mg/dL (1.6-2.3); Potassium 4.2 mmol/L (3.4-5.1); Sodium 138 mmol/L (137-145); Total Protein 7.2 g/dL (6.3-8.2)
[2023-06-07 15:56] LABS: Percent Iron Saturation 38 % (15-50); Total Iron Binding Capacity 248 ug/dL (265-497); Transferrin 187 mg/dL (206-381)
[2023-06-07 16:15] LABS: TSH w/ Reflex to FT4 0.73 uIU/mL (0.47-4.68)
[2023-06-07 16:50] LABS: Folate 14.3 ng/mL (2.76-20.0); Vitamin B12 Reflex MMA if <400 780 pg/mL (239-931)
[2023-06-07 17:14] LABS: Vitamin D 25 Hydroxy (D3) 35.8 ng/mL (30.0-100.0)
== END ==
PROVIDERS: Family Provider Family Medicine; PCP Family Medicine; Referring Provider Family Medicine; Visit Provider Family Medicine
DX: E03.9 Hypothyroidism, unspecified (principal); G62.9 Polyneuropathy, unspecified; M62.838 Other muscle spasm; M54.12 Radiculopathy, cervical region; M54.81 Occipital neuralgia
CPT/HCPCS: 36415; 80053; 82306; 82607; 82746; 83540; 83550; 83735; 84443; 85025

== ENCOUNTER → 2023-06-15 11:22 | Outpatient (CLI) | payer MEDICARE, SELFPAY ==
[2023-06-16 22:07] LABS: Deamidated Gliadin Ab IgA 3 units (0-19); Deamidated Gliadin Ab IgG 2 units (0-19); Immunoglobulin A,Qn 156 mg/dL (87-352); t-Transglutaminase IgA <2 U/mL (0-3)
== END ==
LOC: LAB 11:24
PROVIDERS: Family Provider Family Medicine; PCP Family Medicine; Referring Provider Family Medicine; Visit Provider Family Medicine
DX: M62.838 Other muscle spasm (principal); E03.9 Hypothyroidism, unspecified; M54.50 Low back pain, unspecified; G89.29 Other chronic pain; G62.9 Polyneuropathy, unspecified; F32.9 Major depressive disorder, single episode, unspecified; Z87.42 Personal history of other diseases of the female genital tract
CPT/HCPCS: 36415; 82784; 83516; 86038

== ENCOUNTER 2023-11-30 14:30 | Outpatient (RCR) | payer MEDICARE, MEDICAID, SELFPAY ==
--- NOTE | 2023-07-04 17:27 | PT.OPPOC ---
Physical, Occupational & Speech Therapy At [facility] Current Diagnoses Pain in left shoulder (07/04/23) Low back pain, unspecified (07/04/23) Muscle weakness (generalized) (07/04/23) Other muscle spasm (07/04/23) Abnormal posture (07/04/23) Visit Care Team Role Provider Type Salbador Han DO Attending Provider Physician Family Provider Primary Care Provider Referring Provider Specialty: Family Practice Address: [address] [place] [address], [facility] Email: Plan Of Care PT-OP-T Assessment and Plan Start: 06/29/23 18:12 Freq: Status: Active Protocol: Document 07/04/23 10:33 [facility] (Rec: 07/04/23 11:23 [facility] [id number]) Physical Therapy Assessment Rehab Potential Rehabilitation Potential Good Evaluation Complexity Number of Personal Factors/Comorbidities 3 or More Number of Body Systems Impaired 4 or More Clinical Presentation at Evaluation Unstable Impairments Impairments Activity Tolerance,Balance, Functional Activities,Gait, Pain,Posture,ROM,Soft Tissue Mobility,Strength Goals activity Short Term Goal (STG) Pt will show good squat and hip hinge mechanics STG Duration 08/20 Mcfp Goal (LTG) 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 LTG Duration 09/26 Assessment Summary Assessment Pt presents w/L shoulder pain and instability w/hx of dislocation as young as 2 years old along w/other dislocations and subluxations later in life. She has hx of SLAP repair on R in 2020 and hx of C5-6 fusion after neck pain w/accident after chiro manipulations. She has had recent inc in L shoulder pain and LBP and pt is hoping to return to work (has been on disability since neck injury). 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 Pt may have instability of upper cervical based on pt reported symptoms and MRI reports not showing anything in brain. This will complicate recovery along w/central sensitization and inc sensitivity to touch throughout body. Pt would benefit from skilled PT to improve lumbar, thoracic, cervical and shoulder stabiltiy to improve her ability to be more active and return to work w/o inc pain. Physical Therapy Plan Frequency and Duration Frequency of Treatment 2x/Week Duration of treatment (weeks) 12 Plan of Care Start Date 07/04/23 Plan of Care End Date 09/27/23 Therapeutic Interventions Therapeutic Interventions Home Exercise Program,Joint Mobilizations,Manual Therapy, Neuromuscular Re-education, Patient/Caregiver Education, Self-Care/Home Management,Soft Tissue Mobilization, Therapeutic Activities, Therapeutic Exercises Modalities Cold Pack/Ice Massage,Electric Stimulation,Hot Packs, Infrared Therapy,Ultrasound Next Visit Focus/Plan Next Note Type Treatment Note Next Visit Plan WARN pt WITH ALL TOUCH try gentle close to body scap stability exercises, wall posture, scap setting, B ER, B rows light resistance latex free band; SL isometric core, supine core gentle manual to tspine & ribs & STM & gentle SI mobs Plan of Care Dates Plan of Care Start Date 07/04/23 Plan of Care End Date 09/27/23 Electronically Signed by: Yasmine Santos, PT 07/05/23 [id number] If you are in agreement with this Plan of Care, please return a signed and dated copy. I have reviewed this Plan of Care and certify that the skilled therapy services above are required to meet the patient?s needs. Physician Signature Date Printed Name and Credentials Clinical Instructor Signature Printed Name and Credentials
--- NOTE | 2023-07-04 17:27 | PT.OIE ---
Current Diagnoses Pain in left shoulder (07/04/23) Low back pain, unspecified (07/04/23) Muscle weakness (generalized) (07/04/23) Other muscle spasm (07/04/23) Abnormal posture (07/04/23) Past Medical History (Last Updated 03/22/23 @ 15:11 by Salbador Han DO) Acute left-sided low back pain without sciatica Acute pain of left shoulder Anemia Anorexia nervosa (~1995) Anxiety (~1994) Asthma Bilateral hand pain Bladder problem (~2009) Bulimia (~1998) Cervical myelopathy Cervical radiculopathy Cervical somatic dysfunction Chicken pox (~1988) Chronic left-sided thoracic back pain Chronic low back pain without sciatica Chronic right shoulder pain (~2017) Cranial somatic dysfunction Dysphagia Endometriosis (~2007) Foot joint stiffness, bilateral Foot pain Former smoker History of ETOH abuse Hx of endometriosis Hypercalcemia Hypothyroidism (~2011) Insomnia Knee pain, chronic Lumbar region somatic dysfunction Migraine headache with aura Migraines Mild cognitive impairment Occipital neuralgia of right side Osteoarthritis (~2017) Painful menstrual periods Pancreatitis (~2009) Panic attacks (~1994) Pelvic pain affecting in first trimester, antepartum Pelvic somatic dysfunction PTSD (post-traumatic stress disorder) (~1994) Rotator cuff impingement syndrome of right shoulder Sacral region somatic dysfunction Seasonal allergies Segmental and somatic dysfunction of abdomen and other regions Segmental and somatic dysfunction of rib cage Somatic dysfunction of lower extremity Spinal stenosis of cervical region Substance abuse (~2016) Tension headache, chronic Thoracic region somatic dysfunction Tinnitus Upper extremity somatic dysfunction Vertigo (~2017) Past Surgical History (Last Updated 08/24/20 @ 19:59 by Zeynep Varela) Anesthesia History of bilateral tubal ligation (04/28/17) History of section (01/14/16) Hx of appendectomy (~2005) Hx of laparoscopy (~2007) S/P cervical spinal fusion (~07/2019) Status post appendectomy Status post delivery (~2003) Status post delivery (~2004) Status post delivery (02/22/16) Status post laparoscopy (~2017) Visit Care Team Role Provider Type Salbador Han DO Attending Provider Physician Family Provider Primary Care Provider Referring Provider Specialty: Family Practice Address: [address] [place] [address], [facility] Email: Physical Therapy Initial Evaluation PT-OP-A Visit Information Start: 06/29/23 18:12 Freq: Status: Active Protocol: Document 07/04/23 10:33 [facility] (Rec: 07/04/23 11:23 [facility] [id number]) Out-Patient Physical Therapy Visit Information Visit Information Visit Type Initial Evaluation Visit Start Time 10:33 Visit Stop Time 11:18 Visit Number 1 Number of SAP SENIOR DEVELOPER Visits 0 PT-OP-B Current Condition Start: 06/29/23 18:12 Freq: Status: Active Protocol: Document 07/04/23 10:33 [facility] (Rec: 07/04/23 11:23 [facility] [id number]) Current Condition History of Current Condition Current Complaints L shoulder pain & LBP History of Current Condition Pt reports having R SLAP surgery in 2020. L shoulder is currently giving her issues like what R shoulder did. At night both arms are falling asleep. 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 She had a neck injury in 2017 resulting in C5-6 ACDF 2019. She has neck pain and vertigo afte that injury and has done PT alot. She avoids lifting as most of the time, this will inc her vertigo and neck symptoms and it takes a few days to resolve. She spasms pretty bad when gets flared up . If she uses too much UE motion, neck tightnes up and locks down and gets spasms in post and ant neck w/massive ORNELAS. She is careful to lift and keeps wt close to her and doesn't lift heavy. She is trying to get back to work as she has been on disability since neck injury. Pt has hx of 3 sections, tubal ligation, appendectomy, and hysterectomy. She still works w/[employer]. Even a light tap that is not anticipatory, that can inc symptoms of vertigo. She was injured in a too rough chiro adjustment and tried to communicate that it was worse, and further manipulation was treatment and it got worse. first 9 months had symptoms like L sided stroke but was cleared from doctor w/ potential for stroke. Xrays showed tailbone sitting in wrong direction. 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 She is going to school for forensic psychology . She is going to graduate in [facility] ( has had accomidations). She is going to take a gap year after that and will be going into a doctoral program. 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, have better desk set up PT-OP-C Subjective Start: 06/29/23 18:12 Freq: Status: Active Protocol: Document 07/04/23 10:33 [facility] (Rec: 07/04/23 11:23 [id number] OP-PT Pain Assessment Location low back Pain Location Details lumbo sacral Description Burning Other Pain Alleviating Factors hooklying L shoulder Pain Location Details L scap region & lat shoulder Intensity 8 Scale Used Numeric (0 - 10) Description With Movement Description- Other pops Pain Aggravating Factors Lifting Other Pain Aggravating Factors swing, lifting UE, rot PT-OP-F Manual Assessment Start: 06/29/23 18:12 Freq: Status: Active Protocol: Document 07/04/23 10:33 [facility] (Rec: 07/05/23 08:21 [id number] Manual Assessments Soft Tissue Assessment Soft Tissue Mobility Assessment tender to even light touch. If pt not warned to specific area of touch, pt will jump in response PT-OP-J Posture/Palpation/Skin Start: 06/29/23 18:12 Freq: Status: Active Protocol: Document 07/04/23 10:33 [facility] (Rec: 07/04/23 11:23 [facility] [id number]) Posture Evaluation Comments Posture Comments L scap elevated, L scap winging and abd,ant tipped, cervical L SB when sitting, inc kyphosis slight, scoliosis curvature noted through spine PT-OP-K Range of Motion Start: 06/29/23 18:12 Freq: Status: Active Protocol: Document 07/04/23 10:33 [facility] (Rec: 07/04/23 11:23 [facility] [id number]) Shoulder Goniometric Range of Motion Shoulder Left Active Flexion 150 Extension 62 Abduction 170 External Rotation at 0 degrees Abduction 75 Internal Rotation Behind Back (text) T5 Comments elbow bent w/flex/abd d/t inc pain w/arm away from body; goes into scaption w/abd and pops and pain w/flex and abd & rot PT-OP-Q Treatments Start: 06/29/23 18:12 Freq: Status: Active Protocol: Document 07/04/23 10:33 [facility] (Rec: 07/05/23 08:21 [facility] [id number]) Self-Care/Home Management Treatment Education Other Education 12 min: edu to pt re: her symptoms may be d/t neck instability and somethingt o discuss with neurologist and ask about prolo potentially etc but neurologist would be best for this. Edu how dec cervical stabiltiy likely affecting L shoulder also and w/hx of dislocations, likely has labral tear especially given how much pt can sublux surgery. PT-OP-T Assessment and Plan Start: 06/29/23 18:12 Freq: Status: Active Protocol: Document 07/04/23 10:33 [facility] (Rec: 07/04/23 11:23 [facility] [id number]) Physical Therapy Assessment Rehab Potential Rehabilitation Potential Good Evaluation Complexity Number of Personal Factors/Comorbidities 3 or More Number of Body Systems Impaired 4 or More Clinical Presentation at Evaluation Unstable Impairments Impairments Activity Tolerance,Balance, Functional Activities,Gait, Pain,Posture,ROM,Soft Tissue Mobility,Strength Goals activity Short Term Goal (STG) Pt will show good squat and hip hinge mechanics STG Duration 08/20 Bowling Pin Refinisher Goal (LTG) Pt will be able to work in [employer] w/o inc back/L shoulder pain greater than 2/ 10 LTG Duration 09/26 ROM Bowling Pin Refinisher Goal (LTG) Pt will have full L shoulder AROM w/o inc pain LTG Duration 09/26 desk Impairment can only sit very short bouts at desk Short Term Goal (STG) Pt will adjust desk set up for better ergonomics based on PT suggestions STG Duration 08/04 Penitentiary Goal (LTG) Pt will be able to sit for 1 hour at desk w/o inc shoulder or back pain. LTG Duration 09/26 Assessment Summary Assessment Pt presents w/L shoulder pain and instability w/hx of dislocation as young as 2 years old along w/other dislocations and subluxations later in life. She has hx of SLAP repair on R in 2020 and hx of C5-6 fusion after neck pain w/accident after chiro manipulations. She has had recent inc in L shoulder pain and LBP and pt is hoping to return to work (has been on disability since neck injury). 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 Pt may have instability of upper cervical based on pt reported symptoms and MRI reports not showing anything in brain. This will complicate recovery along w/central sensitization and inc sensitivity to touch throughout body. Pt would benefit from skilled PT to improve lumbar, thoracic, cervical and shoulder stabiltiy to improve her ability to be more active and return to work w/o inc pain. Physical Therapy Plan Frequency and Duration Frequency of Treatment 2x/Week Duration of treatment (weeks) 12 Plan of Care Start Date 07/04/23 Plan of Care End Date 09/27/23 Therapeutic Interventions Therapeutic Interventions Home Exercise Program,Joint Mobilizations,Manual Therapy, Neuromuscular Re-education, Patient/Caregiver Education, Self-Care/Home Management,Soft Tissue Mobilization, Therapeutic Activities, Therapeutic Exercises Modalities Cold Pack/Ice Massage,Electric Stimulation,Hot Packs, Infrared Therapy,Ultrasound Next Visit Focus/Plan Next Note Type Treatment Note Next Visit Plan WARN pt WITH ALL TOUCH try gentle close to body scap stability exercises, wall posture, scap setting, B ER, B rows light resistance latex free band; SL isometric core, supine core gentle manual to tspine & ribs & STM & gentle SI mobs
--- NOTE | 2023-07-10 13:16 | PT-OP ANOTE ---
Pt called re: no show and very apologetic. Reports that d/t injury, she has trouble w/executive function and new routines are difficult. Pt confirmed next appt. Reminded of no show policy
--- NOTE | 2023-07-12 11:16 | PT.OTN ---
Current Diagnoses Pain in left shoulder (07/12/23) Low back pain, unspecified (07/12/23) Muscle weakness (generalized) (07/12/23) Other muscle spasm (07/12/23) Abnormal posture (07/12/23) Physical Therapy Treatment Note PT-OP-A Visit Information Start: 06/29/23 18:12 Freq: Status: Active Protocol: Document 07/12/23 10:33 [facility] (Rec: 07/12/23 12:28 [facility] [id number]) Out-Patient Physical Therapy Visit Information Visit Information Visit Type Treatment Note Visit Start Time 10:33 Visit Stop Time 11:16 Visit Number 2 Number of SURVEILLANCE DIRECTOR Visits 1 PT-OP-B Current Condition Start: 06/29/23 18:12 Freq: Status: Active Protocol: Document 07/04/23 10:33 [facility] (Rec: 07/04/23 11:23 [facility] [id number]) Current Condition History of Current Condition Current Complaints L shoulder pain & LBP History of Current Condition Pt reports having R SLAP surgery in 2020. L shoulder is currently giving her issues like what R shoulder did. At night both arms are falling asleep. 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 She had a neck injury in 2017 resulting in C5-6 ACDF 2019. She has neck pain and vertigo afte that injury and has done PT alot. She avoids lifting as most of the time, this will inc her vertigo and neck symptoms and it takes a few days to resolve. She spasms pretty bad when gets flared up . If she uses too much UE motion, neck tightnes up and locks down and gets spasms in post and ant neck w/massive ORNELAS. She is careful to lift and keeps wt close to her and doesn't lift heavy. She is trying to get back to work as she has been on disability since neck injury. Pt has hx of 3 sections, tubal ligation, appendectomy, and hysterectomy. She still works w/[employer]. Even a light tap that is not anticipatory, that can inc symptoms of vertigo. She was injured in a too rough chiro adjustment and tried to communicate that it was worse, and further manipulation was treatment and it got worse. first 9 months had symptoms like L sided stroke but was cleared from doctor w/ potential for stroke. Xrays showed tailbone sitting in wrong direction. 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 She is planning to get back to [employer]. She is going to school for forensic psychology . She is going to graduate in [facility] ( has had accomidations). She is going to take a gap year after that and will be going into a doctoral program. 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 PT-OP-F Manual Assessment Start: 06/29/23 18:12 Freq: Status: Active Protocol: Document 07/04/23 10:33 [facility] (Rec: 07/05/23 08:21 [facility] [id number]) Manual Assessments Soft Tissue Assessment Soft Tissue Mobility Assessment tender to even light touch. If pt not warned to specific area of touch, pt will jump in response PT-OP-J Posture/Palpation/Skin Start: 06/29/23 18:12 Freq: Status: Active Protocol: Document 07/04/23 10:33 [facility] (Rec: 07/04/23 11:23 [facility] [id number]) Posture Evaluation Comments Posture Comments L scap elevated, L scap winging and abd,ant tipped, cervical L SB when sitting, inc kyphosis slight, scoliosis curvature noted through spine PT-OP-K Range of Motion Start: 06/29/23 18:12 Freq: Status: Active Protocol: Document 07/04/23 10:33 [facility] (Rec: 07/04/23 11:23 [facility] [id number]) Shoulder Goniometric Range of Motion Shoulder Left Active Flexion 150 Extension 62 Abduction 170 External Rotation at 0 degrees Abduction 75 Internal Rotation Behind Back (text) T5 Comments elbow bent w/flex/abd d/t inc pain w/arm away from body; goes into scaption w/abd and pops and pain w/flex and abd & rot PT-OP-Q Treatments Start: 06/29/23 18:12 Freq: Status: Active Protocol: Document 07/12/23 10:33 [facility] (Rec: 07/12/23 12:28 [facility] [id number]) Therapeutic Exercises Sidelying Exercises shld ER Sidelying Exercise Name added to HEP Side left Resistance AROM> 1# DB Reps/Minutes x10 Comments Cues for scap retracted neutral, elbow near hip slight depressed shld abd Sidelying Exercise Name added toHEP Side left Resistance AROM trialed 1# DB (hold few more tx) Reps/Minutes 8 reps Comments cued scap retracted neutral, slight SerAnt Press through range /c ER open book Sidelying Exercise Name added to HEP Side left Resistance AROM>1# DB Reps/Minutes x8 Comments cued segmental GH & scap glide , slight humeral ER Other Exercises Self STMs Other Exercise Name added toHEP Side left Equipment Used is self use ball wall posterior scap, Comments MWM head nods & turns use theracane CS- UT, subocc. Manual Therapy Treatment Soft Tissue Mobilization cranium & neck Body Location SOR, UT, SCM, Longus Colli, suprahyoids, cranial: perietal /frontal/sphenoid Body Position Hooklying Comments manual, ed MWM Joint Mobilizations L scapulothoracic Direction retraction, depression Grade II Comments STMs UT, Rhomboid, pec /c PROM scapular glides then tactile cues scapular ther ex. 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 LTG Duration 09/26 Assessment Summary Assessment Pt tolerated treatment well. Improved CS head nod and better understanding response decrease neck muscle tension post manual and ed use of theracane on neck MWM head nods/turns. Pt required some tactile cuing and VCs for L scapular retraction/depression stability with serratus press and humeral ER into OH ROM diminished pinch feeling top L hld and able to progress into 1# DB with low reps. Cued slow pacing for allowance stability and proper form. PNfree end tx and pleased with initiated HEP for home carryover including HOs. Physical Therapy Plan Frequency and Duration Frequency of Treatment 2x/Week Duration of treatment (weeks) 12 Plan of Care Start Date 07/04/23 Plan of Care End Date 09/27/23 Therapeutic Interventions Therapeutic Interventions Home Exercise Program,Joint Mobilizations,Manual Therapy, Neuromuscular Re-education, Patient/Caregiver Education, Self-Care/Home Management,Soft Tissue Mobilization, Therapeutic Activities, Therapeutic Exercises Modalities Cold Pack/Ice Massage,Electric Stimulation,Hot Packs, Infrared Therapy,Ultrasound Next Visit Focus/Plan Next Note Type Treatment Note Next Visit Plan WARN pt WITH ALL TOUCH Assess initiated sidelying HEP . POC: try gentle close to body scap stability exercises, wall posture, scap setting, B ER, B rows light resistance latex free band; SL isometric core, supine core gentle manual to tspine & ribs & STM & gentle SI mobs
--- NOTE | 2023-07-20 11:07 | PT.OTN ---
Current Diagnoses Pain in left shoulder (07/20/23) Low back pain, unspecified (07/20/23) Muscle weakness (generalized) (07/20/23) Other muscle spasm (07/20/23) Abnormal posture (07/20/23) Physical Therapy Treatment Note PT-OP-A Visit Information Start: 06/29/23 18:12 Freq: Status: Active Protocol: Document 07/20/23 10:27 SP (Rec: 07/20/23 11:18 SP [id number]) Out-Patient Physical Therapy Visit Information Visit Information Visit Type Treatment Note Visit Start Time 10:27 Visit Stop Time 11:07 Visit Number 3 Number of WOOD SHINGLE ROOFER Visits 2 Precautions Precautions sensitivity to latex PT-OP-B Current Condition Start: 06/29/23 18:12 Freq: Status: Active Protocol: Document 07/04/23 10:33 [facility] (Rec: 07/04/23 11:23 [facility] [id number]) Current Condition History of Current Condition Current Complaints L shoulder pain & LBP History of Current Condition Pt reports having R SLAP surgery in 2020. L shoulder is currently giving her issues like what R shoulder did. At night both arms are falling asleep. 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 She had a neck injury in 2017 resulting in C5-6 ACDF 2018. She has neck pain and vertigo afte that injury and has done PT alot. She avoids lifting as most of the time, this will inc her vertigo and neck symptoms and it takes a few days to resolve. She spasms pretty bad when gets flared up . If she uses too much UE motion, neck tightnes up and locks down and gets spasms in post and ant neck w/massive ORNELAS. She is careful to lift and keeps wt close to her and doesn't lift heavy. She is trying to get back to work as she has been on disability since neck injury. Pt has hx of 3 sections, tubal ligation, appendectomy, and hysterectomy. She still works w/[employer]. Even a light tap that is not anticipatory, that can inc symptoms of vertigo. She was injured in a too rough chiro adjustment and tried to communicate that it was worse, and further manipulation was treatment and it got worse. first 9 months had symptoms like L sided stroke but was cleared from doctor w/ potential for stroke. Xrays showed tailconstancee sitting in wrong direction. 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 She is planning to get back to [employer]. She is going to school for forensic psychology . She is going to graduate in [facility] ( has had accomidations). She is going to take a gap year after that and will be going into a doctoral program. 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 She did do some easy simple basketball with playground children, not to aggressive and made her sore with gross motor movement rotation front/ side and tightness in neck. Hasn't had time HEP past 2 days. Still side lift arm and neck tension arrival. Mentioned again ask if recommendation of a vision therapist to support R eye strength and headache reduction, being referred to by [facility], R side more delayed and especially computer time classes endurance but off this summer. At times get specs/sparkles when turning typically L and down but goes away with flexibility of neck tension reduction. PT-OP-F Manual Assessment Start: 06/29/23 18:12 Freq: Status: Active Protocol: Document 07/04/23 10:33 [facility] (Rec: 07/05/23 08:21 [facility] [id number]) Manual Assessments Soft Tissue Assessment Soft Tissue Mobility Assessment tender to even light touch. If pt not warned to specific area of touch, pt will jump in response PT-OP-J Posture/Palpation/Skin Start: 06/29/23 18:12 Freq: Status: Active Protocol: Document 07/04/23 10:33 [facility] (Rec: 07/04/23 11:23 [facility] [id number]) Posture Evaluation Comments Posture Comments L scap elevated, L scap winging and abd,ant tipped, cervical L SB when sitting, inc kyphosis slight, scoliosis curvature noted through spine PT-OP-K Range of Motion Start: 06/29/23 18:12 Freq: Status: Active Protocol: Document 07/04/23 10:33 [facility] (Rec: 07/04/23 11:23 [facility] [id number]) Shoulder Goniometric Range of Motion Shoulder Left Active Flexion 150 Extension 62 Abduction 170 External Rotation at 0 degrees Abduction 75 Internal Rotation Behind Back (text) T5 Comments elbow bent w/flex/abd d/t inc pain w/arm away from body; goes into scaption w/abd and pops and pain w/flex and abd & rot PT-OP-Q Treatments Start: 06/29/23 18:12 Freq: Status: Active Protocol: Document 07/20/23 10:27 SP (Rec: 07/20/23 11:18 SP [id number]) Therapeutic Exercises Sidelying Exercises shld ER Sidelying Exercise Name reviewed Side left Resistance AROM> 1# DB Equipment Used towel roll under arm Reps/Minutes x15 Comments Cues for scap retracted neutral, elbow near hip slight depressed shld abd Sidelying Exercise Name reviewed Side left Resistance AROM (hold 1# DB til next tx) Reps/Minutes 10 reps Comments cued scap retracted neutral, slight SerAnt Press through range /c ER OH- open book Sidelying Exercise Name added to HEP Side left Resistance AROM>1# DB Reps/Minutes 10- reminders breath Comments cued segmental GH & scap glide , slight humeral ER Standing Exercises shld rows & ext Standing Exercise Name added to HEP Side bilateral Resistance Tb #1 peach Reps/Minutes 2x8 each Comments cued for body positioning from wall, tall, scap retract/dep, open front Other Exercises Self STMs Other Exercise Name reviewed Side bilateral Equipment Used theracane Comments MWM head nods & turns use theracane CS- UT, subocc. Manual Therapy Treatment Soft Tissue Mobilization cranium & neck Body Location SOR, UT, SCM, scalenes Body Position Hooklying Comments manual STMs and MWM head nods turns, then ed performance with theracane for home carryover Joint Mobilizations L scapulothoracic Direction retraction, depression Grade II Comments STMs MWM pec and scapular glides AAROM tactile cues scapular corrections /c ther ex. PT-OP-T Assessment and Plan Start: 06/29/23 18:12 Freq: Status: Active Protocol: Document 07/20/23 10:27 SP (Rec: 07/20/23 11:18 SP [id number]) Physical Therapy Assessment Goals activity Short Term Goal (STG) Pt will show good squat and hip hinge mechanics STG Duration 08/20 Electrical Supervisor Goal (LTG) Pt will be able to work in [employer] w/o inc back/L shoulder pain greater than 2/ 10 LTG Duration 09/26 ROM Electrical Supervisor Goal (LTG) Pt will have full L shoulder AROM w/o inc pain LTG Duration 09/26 desk Impairment can only sit very short bouts at desk Short Term Goal (STG) Pt will adjust desk set up for better ergonomics based on PT suggestions STG Duration 08/04 Electrical Supervisor Goal (LTG) Pt will be able to sit for 1 hour at desk w/o inc shoulder or back pain. LTG Duration 09/26 Assessment Summary Assessment Pt good feedback response manual and better understanding self use theracane neck and scapula posteriorly for self relief home carryover. Occasional tactile cues retraction/ depression during sidelying HEP with slower pacing for stability and strengthening. Added standing shld ext and rows, reports feels good muscle engagement for better control that help activities home. Pt reports trying to put HOs where remind to perform home. PRovided latex free for home ex. Physical Therapy Plan Frequency and Duration Frequency of Treatment 2x/Week Duration of treatment (weeks) 12 Plan of Care Start Date 07/04/23 Plan of Care End Date 09/27/23 Therapeutic Interventions Therapeutic Interventions Home Exercise Program,Joint Mobilizations,Manual Therapy, Neuromuscular Re-education, Patient/Caregiver Education, Self-Care/Home Management,Soft Tissue Mobilization, Therapeutic Activities, Therapeutic Exercises Modalities Cold Pack/Ice Massage,Electric Stimulation,Hot Packs, Infrared Therapy,Ultrasound Other Referrals/Consults Referrals/Consults Recommended Has referral for Vision PT, hoping can have at or where recommend. Referral from [facility] for R eye, assist strength and headache recovery through summer before return to classes fall. Next Visit Focus/Plan Next Note Type Treatment Note Next Visit Plan WARN pt WITH ALL TOUCH, latex free Assess initiated sidelying HEP , progress wt as manju. POC: try gentle close to body scap stability exercises, wall posture, scap setting, B ER; SL isometric core, supine core gentle manual to tspine & ribs & STM & gentle SI mobs
--- NOTE | 2023-07-26 09:48 | PT.OTN ---
Current Diagnoses Pain in left shoulder (07/26/23) Low back pain, unspecified (07/26/23) Muscle weakness (generalized) (07/26/23) Other muscle spasm (07/26/23) Abnormal posture (07/26/23) Physical Therapy Treatment Note PT-OP-A Visit Information Start: 06/29/23 18:12 Freq: Status: Active Protocol: Document 07/26/23 09:12 SP (Rec: 07/26/23 09:52 SP [id number]) Out-Patient Physical Therapy Visit Information Visit Information Visit Type Treatment Note Visit Start Time 09:05 Visit Stop Time 09:48 Visit Number 4 Number of YARN DYER Visits 3 Precautions Precautions sensitivity to latex PT-OP-B Current Condition Start: 06/29/23 18:12 Freq: Status: Active Protocol: Document 07/04/23 10:33 [facility] (Rec: 07/04/23 11:23 [facility] [id number]) Current Condition History of Current Condition Current Complaints L shoulder pain & LBP History of Current Condition Pt reports having R SLAP surgery in 2020. L shoulder is currently giving her issues like what R shoulder did. At night both arms are falling asleep. 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 She had a neck injury in 2017 resulting in C5-6 ACDF 2018. She has neck pain and vertigo afte that injury and has done PT alot. She avoids lifting as most of the time, this will inc her vertigo and neck symptoms and it takes a few days to resolve. She spasms pretty bad when gets flared up . If she uses too much UE motion, neck tightnes up and locks down and gets spasms in post and ant neck w/massive ORNELAS. She is careful to lift and keeps wt close to her and doesn't lift heavy. She is trying to get back to work as she has been on disability since neck injury. Pt has hx of 3 sections, tubal ligation, appendectomy, and hysterectomy. She still works w/[employer]. Even a light tap that is not anticipatory, that can inc symptoms of vertigo. She was injured in a too rough chiro adjustment and tried to communicate that it was worse, and further manipulation was treatment and it got worse. first 9 months had symptoms like L sided stroke but was cleared from doctor w/ potential for stroke. Xrays showed chandni sitting in wrong direction. 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 She is planning to get back to [employer]. She is going to school for forensic psychology . She is going to graduate in [facility] ( has had accomidations). She is going to take a gap year after that and will be going into a doctoral program. 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 She reports neck tightness anterior R and posterior bilateral as over region nucal lig. She is compliant with HEP loraine open book and straight arm theraband, wants to review for form and how snapping reduction. When speaks today noted slower speech forming her words to complete sentance/ thought. She is seeing speech, pt reports slower delay form words due fatigued, didn't sleep well last night dog barking woke her up alot. PT-OP-F Manual Assessment Start: 06/29/23 18:12 Freq: Status: Active Protocol: Document 07/04/23 10:33 [facility] (Rec: 07/05/23 08:21 [facility] [id number]) Manual Assessments Soft Tissue Assessment Soft Tissue Mobility Assessment tender to even light touch. If pt not warned to specific area of touch, pt will jump in response PT-OP-J Posture/Palpation/Skin Start: 06/29/23 18:12 Freq: Status: Active Protocol: Document 07/04/23 10:33 [facility] (Rec: 07/04/23 11:23 [facility] [id number]) Posture Evaluation Comments Posture Comments L scap elevated, L scap winging and abd,ant tipped, cervical L SB when sitting, inc kyphosis slight, scoliosis curvature noted through spine PT-OP-K Range of Motion Start: 06/29/23 18:12 Freq: Status: Active Protocol: Document 07/04/23 10:33 [facility] (Rec: 07/04/23 11:23 [facility] [id number]) Shoulder Goniometric Range of Motion Shoulder Left Active Flexion 150 Extension 62 Abduction 170 External Rotation at 0 degrees Abduction 75 Internal Rotation Behind Back (text) T5 Comments elbow bent w/flex/abd d/t inc pain w/arm away from body; goes into scaption w/abd and pops and pain w/flex and abd & rot PT-OP-Q Treatments Start: 06/29/23 18:12 Freq: Status: Active Protocol: Document 07/26/23 09:12 SP (Rec: 07/26/23 09:52 SP [id number]) Therapeutic Exercises Supine Exercises abd /c IR& ER Supine Exercise Name trialed in PT (not home yet check next tx if ok then add with HO)- 90/90 Side left Resistance AROM Reps/Minutes x5 reps- pnfree, muscle tiring . Comments tactile cues for slow & inferior glide elbow press away- tendon, click gone Sidelying Exercises shld ER Sidelying Exercise Name reviewed Side left Resistance AROM, 1# DB Equipment Used towel roll under arm Reps/Minutes x15 AROM and 1# DB Comments Cues for scap retracted neutral, elbow near hip slight depressed shld abd Sidelying Exercise Name reviewed Side left Resistance 1# DB Reps/Minutes 10 reps Comments tactile & VC slower pacing and press away slightly, better control Standing Exercises shld rows & ext Standing Exercise Name continue rows, hold ext due to crackly at this time Side bilateral Resistance Tb #1 peach Reps/Minutes x10 each Comments cued for body positioning from wall, tall, scap retract/dep, open front Manual Therapy Treatment Soft Tissue Mobilization L shld Body Location bicep Comments MWM IR/ER cranium & neck Body Location SOR, UT, SCM, scalenes Body Position Hooklying Comments manual STMs, gave scanned images can get self SOR tool for home carrover trying to find effective. 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 LTG Duration 09/26 Assessment Summary Assessment Pt improved neck ROM, tension reduction after manual. Cued slower pacing and L humeral ER as needed with serratus press activiation improved GH control during ther ex with ability to use #1 DB. Trialed abd 90 deg /c IR& ER supine for assess progress open chain with tactile cue inferior GH glide- good response no crunch midrange and tiring weakness. Pt improved resisted shld rows with tactile cue inferior GH glide L but not able maintain during extension so holding this ex. Pt reports feels pretty good with progress making and realizes will be slow with weakness experiencing. Physical Therapy Plan Frequency and Duration Frequency of Treatment 2x/Week Duration of treatment (weeks) 12 Plan of Care Start Date 07/04/23 Plan of Care End Date 09/27/23 Therapeutic Interventions Therapeutic Interventions Home Exercise Program,Joint Mobilizations,Manual Therapy, Neuromuscular Re-education, Patient/Caregiver Education, Self-Care/Home Management,Soft Tissue Mobilization, Therapeutic Activities, Therapeutic Exercises Modalities Cold Pack/Ice Massage,Electric Stimulation,Hot Packs, Infrared Therapy,Ultrasound Other Referrals/Consults Referrals/Consults Recommended Has referral for Vision PT, hoping can have at or where recommend. Referral from [facility] for R eye, assist strength and headache recovery through summer before return to classes fall. Next Visit Focus/Plan Next Note Type Treatment Note Next Visit Plan WARN pt WITH ALL TOUCH and table adjust height, latex free Discussed email PT with verbage of Vision referral either our PT or [facility] more specific needed. Assess resisted ther ex, manual for support scap and GH re-ed. POC: try gentle close to body scap stability exercises, wall posture, scap setting, B ER; SL isometric core, supine core gentle manual to tspine & ribs & STM & gentle SI mobs
--- NOTE | 2023-08-02 09:38 | PT.OTN ---
Current Diagnoses Pain in left shoulder (08/02/23) Low back pain, unspecified (08/02/23) Muscle weakness (generalized) (08/02/23) Other muscle spasm (08/02/23) Abnormal posture (08/02/23) Physical Therapy Treatment Note PT-OP-A Visit Information Start: 06/29/23 18:12 Freq: Status: Active Protocol: Document 08/02/23 08:25 [facility] (Rec: 08/02/23 09:38 [facility] [id number]) Out-Patient Physical Therapy Visit Information Visit Information Visit Type Treatment Note Visit Start Time 08:22 Visit Stop Time 09:01 Visit Number 5 Number of PHYSICIAN REPRESENTATIVE Visits 0 PT-OP-B Current Condition Start: 06/29/23 18:12 Freq: Status: Active Protocol: Document 07/04/23 10:33 [facility] (Rec: 07/04/23 11:23 [facility] [id number]) Current Condition History of Current Condition Current Complaints L shoulder pain & LBP History of Current Condition Pt reports having R SLAP surgery in 2020. L shoulder is currently giving her issues like what R shoulder did. At night both arms are falling asleep. 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 She had a neck injury in 2017 resulting in C5-6 ACDF 2019. She has neck pain and vertigo afte that injury and has done PT alot. She avoids lifting as most of the time, this will inc her vertigo and neck symptoms and it takes a few days to resolve. She spasms pretty bad when gets flared up . If she uses too much UE motion, neck tightnes up and locks down and gets spasms in post and ant neck w/massive ORNELAS. She is careful to lift and keeps wt close to her and doesn't lift heavy. She is trying to get back to work as she has been on disability since neck injury. Pt has hx of 3 sections, tubal ligation, appendectomy, and hysterectomy. She still works w/[employer]. Even a light tap that is not anticipatory, that can inc symptoms of vertigo. She was injured in a too rough chiro adjustment and tried to communicate that it was worse, and further manipulation was treatment and it got worse. first 9 months had symptoms like L sided stroke but was cleared from doctor w/ potential for stroke. Xrays showed chandni sitting in wrong direction. 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 She is planning to get back to [place]. She is going to school for forensic psychology . She is going to graduate in [facility] ( has had accomidations). She is going to take a gap year after that and will be going into a doctoral program. 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 (Rec: 08/02/23 09:38 [facility] [id number]) OP-PT Subjective Patient Comments Patient Comments Pt reports shoulder pain cont. She has noted dizziness episodes again. Unsure why. Feels like exercises are okay PT-OP-F Manual Assessment Start: 06/29/23 18:12 Freq: Status: Active Protocol: Document 07/04/23 10:33 [facility] (Rec: 07/05/23 08:21 [facility] [id number]) Manual Assessments Soft Tissue Assessment Soft Tissue Mobility Assessment tender to even light touch. If pt not warned to specific area of touch, pt will jump in response PT-OP-J Posture/Palpation/Skin Start: 06/29/23 18:12 Freq: Status: Active Protocol: Document 07/04/23 10:33 [facility] (Rec: 07/04/23 11:23 [facility] [id number]) Posture Evaluation Comments Posture Comments L scap elevated, L scap winging and abd,ant tipped, cervical L SB when sitting, inc kyphosis slight, scoliosis curvature noted through spine PT-OP-K Range of Motion Start: 06/29/23 18:12 Freq: Status: Active Protocol: Document 07/04/23 10:33 [facility] (Rec: 07/04/23 11:23 [facility] [id number]) Shoulder Goniometric Range of Motion Shoulder Left Active Flexion 150 Extension 62 Abduction 170 External Rotation at 0 degrees Abduction 75 Internal Rotation Behind Back (text) T5 Comments elbow bent w/flex/abd d/t inc pain w/arm away from body; goes into scaption w/abd and pops and pain w/flex and abd & rot PT-OP-Q Treatments Start: 06/29/23 18:12 Freq: Status: Active Protocol: Document 08/02/23 08:25 [facility] (Rec: 08/02/23 09:38 [facility] [id number]) Therapeutic Exercises Sidelying Exercises shld ER Sidelying Exercise Name reviewed Side left Resistance 1# DB Equipment Used towel roll under arm Reps/Minutes 8 Comments Cues for scap retracted neutral, elbow near hip slight depressed shld abd Sidelying Exercise Name reviewed Side left Resistance no resistance d/t clicking Reps/Minutes 10 reps Comments cues for scap set open book Sidelying Exercise Name added to HEP Side bilateral Reps/Minutes 5 Comments cues for knees closer to chest Standing Exercises shld rows & ext Side bilateral Resistance Tb #1 peach Reps/Minutes x10 each Comments cued for body positioning from wall, tall, scap retract/dep, open front Manual Therapy Treatment Consent Patient gave verbal consent for manual Yes treatment Soft Tissue Mobilization scap Body Location L rhomboids, lats, tspine paraspinals Mobilization Type Rolling,Sustained Pressure Intensity/Depth Moderate Body Position Sidelying L shld Body Location L pecs, biceps Mobilization Type Rolling,Strumming,Sustained Pressure Intensity/Depth Moderate Body Position Supine cranium & neck Body Location L UT, LS, scalenes (distally), scalenes Mobilization Type Rolling,Sustained Pressure Intensity/Depth Moderate Body Position Sidelying Comments w/gentle scap motion Joint Mobilizations thoracic Joint T4 and 5 Grade II Body Position Sidelying Comments transverse R SC Joint L distraction & sup FM Body Position Sidelying AC Body Position Sidelying Comments L ant clavicle FM L GH Jt Body Position Supine Comments L post translation and post glide w/IR FM; distraction, inf glide FM PT-OP-T Assessment and Plan Start: 06/29/23 18:12 Freq: Status: Active Protocol: Document 08/02/23 08:25 [facility] (Rec: 08/02/23 09:38 [facility] [id number]) Physical Therapy Assessment Goals activity Short Term Goal (STG) Pt will show good squat and hip hinge mechanics STG Duration 08/20 Detention Goal (LTG) Pt will be able to work in [place] w/o inc back/L shoulder pain greater than 2/ 10 LTG Duration 09/26 ROM Detention Goal (LTG) Pt will have full L shoulder AROM w/o inc pain LTG Duration 09/26 desk Impairment can only sit very short bouts at desk Short Term Goal (STG) Pt will adjust desk set up for better ergonomics based on PT suggestions STG Duration 08/04 Detention Goal (LTG) Pt will be able to sit for 1 hour at desk w/o inc shoulder or back pain. LTG Duration 09/26 Assessment Summary Assessment PT demonstrated improved work with exercises w/very little cues needed w/rows. Encouraged stop ext d/t clicking and use 1# at home with ER but not abd d/t clicking along w/open book done B to improved mobility of tspine. Manual improved pt tolerance to and improved ROM in 90/90 IR and flex and abd. Physical Therapy Plan Frequency and Duration Frequency of Treatment 2x/Week Duration of treatment (weeks) 12 Plan of Care Start Date 07/04/23 Plan of Care End Date 09/27/23 Next Visit Focus/Plan Next Note Type Treatment Note Next Visit Plan WARN pt WITH ALL TOUCH and table adjust height, latex free SL isometric core, supine core start next session gentle manual to tspine & ribs & STM & gentle SI mobs as able
--- NOTE | 2023-08-08 14:33 | PT.OTN ---
Current Diagnoses Pain in left shoulder (08/08/23) Low back pain, unspecified (08/08/23) Muscle weakness (generalized) (08/08/23) Other muscle spasm (08/08/23) Abnormal posture (08/08/23) Physical Therapy Treatment Note PT-OP-A Visit Information Start: 06/29/23 18:12 Freq: Status: Active Protocol: Document 08/08/23 13:50 [facility] (Rec: 08/08/23 14:34 SP [id number]) Out-Patient Physical Therapy Visit Information Visit Information Visit Type Treatment Note Visit Start Time 13:50 Visit Stop Time 14:33 Visit Number 7 Number of GAS FLOW REGULATOR Visits 2 Precautions Precautions sensitivity to latex PT-OP-B Current Condition Start: 06/29/23 18:12 Freq: Status: Active Protocol: Document 07/04/23 10:33 [facility] (Rec: 07/04/23 11:23 [facility] [id number]) Current Condition History of Current Condition Current Complaints L shoulder pain & LBP History of Current Condition Pt reports having R SLAP surgery in 2020. L shoulder is currently giving her issues like what R shoulder did. At night both arms are falling asleep. 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 She had a neck injury in 2017 resulting in C5-6 ACDF 2018. She has neck pain and vertigo afte that injury and has done PT alot. She avoids lifting as most of the time, this will inc her vertigo and neck symptoms and it takes a few days to resolve. She spasms pretty bad when gets flared up . If she uses too much UE motion, neck tightnes up and locks down and gets spasms in post and ant neck w/massive ORNELAS. She is careful to lift and keeps wt close to her and doesn't lift heavy. She is trying to get back to work as she has been on disability since neck injury. Pt has hx of 3 sections, tubal ligation, appendectomy, and hysterectomy. She still works w/[employer]. Even a light tap that is not anticipatory, that can inc symptoms of vertigo. She was injured in a too rough chiro adjustment and tried to communicate that it was worse, and further manipulation was treatment and it got worse. first 9 months had symptoms like L sided stroke but was cleared from doctor w/ potential for stroke. Xrays showed chandni sitting in wrong direction. 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 She is planning to get back to [employer]. She is going to school for forensic psychology . She is going to graduate in [employer] [facility] ( has had accomidations). She is going to take a gap year after that and will be going into a doctoral program. 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 She will be calling [facility] in [place] to set up PT for assist R eye strengthening. She arrives tightness posterior neck and jaw, helped friend with resume, found turning head alot and now muscles tired and guarding. Exercises feel more strength getting into better posture. Trying to incorporate ex and use into her daily activities. PT-OP-F Manual Assessment Start: 06/29/23 18:12 Freq: Status: Active Protocol: Document 07/04/23 10:33 [facility] (Rec: 07/05/23 08:21 [facility] [id number]) Manual Assessments Soft Tissue Assessment Soft Tissue Mobility Assessment tender to even light touch. If pt not warned to specific area of touch, pt will jump in response PT-OP-J Posture/Palpation/Skin Start: 06/29/23 18:12 Freq: Status: Active Protocol: Document 07/04/23 10:33 [facility] (Rec: 07/04/23 11:23 [facility] [id number]) Posture Evaluation Comments Posture Comments L scap elevated, L scap winging and abd,ant tipped, cervical L SB when sitting, inc kyphosis slight, scoliosis curvature noted through spine PT-OP-K Range of Motion Start: 06/29/23 18:12 Freq: Status: Active Protocol: Document 07/04/23 10:33 [facility] (Rec: 07/04/23 11:23 [facility] [id number]) Shoulder Goniometric Range of Motion Shoulder Left Active Flexion 150 Extension 62 Abduction 170 External Rotation at 0 degrees Abduction 75 Internal Rotation Behind Back (text) T5 Comments elbow bent w/flex/abd d/t inc pain w/arm away from body; goes into scaption w/abd and pops and pain w/flex and abd & rot PT-OP-Q Treatments Start: 06/29/23 18:12 Freq: Status: Active Protocol: Document 08/08/23 13:50 [facility] (Rec: 08/08/23 14:34 SP [id number]) Therapeutic Exercises Supine Exercises chin tuck lift Supine Exercise Name DNF strengthening- added to HEP- declined HO Reps/Minutes 1. tucked 5 SH x5 2. tuck lift (cued forehead to wall-wall at ft) 2x5 reps Comments Extra time set up/form: improved lift strength, stretch post neck Standing Exercises Shld ER Standing Exercise Name added to HEP- declined HO Side bilateral Resistance TB #2 orange Equipment Used back against wall Reps/Minutes x10 Comments improved posterior chain effort, inhibited chest/ant neck shld rows & ext Standing Exercise Name rows, ext Side bilateral Resistance Tb #1 peach ext, TB #2 orange rows Reps/Minutes 2x10 each Comments no clicking with scap in back pocket- improvement Manual Therapy Treatment Soft Tissue Mobilization cranium & neck Body Location L UT, SOR Mobilization Type Rolling,Sustained Pressure Intensity/Depth Moderate Body Position Hooklying Comments decreased posterior neck tension Joint Mobilizations ribs Joint R 10- L anterolateral Grade II Body Position Supine Comments MWM breath- manual with ed self- eliminated spasming, ed can co perform with STMs to help benefits pnfree Self-Care/Home Management Treatment Education Patient Education Home Exercise Program,Posture Other Education Time spent: ergonomics desk get up move/ex for back/neck recovery/break support. Use post-it where walk by for making neurologist and vision therapy appt. PT-OP-T Assessment and Plan Start: 06/29/23 18:12 Freq: Status: Active Protocol: Document 08/08/23 13:50 [facility] (Rec: 08/08/23 14:34 [facility] [id number]) Physical Therapy Assessment Goals activity Short Term Goal (STG) Pt will show good squat and hip hinge mechanics STG Duration 7/15 [facility] Goal (LTG) Pt will be able to work in [place] w/o inc back/L shoulder pain greater than 2/ 10 LTG Duration 09/26 ROM [facility] Goal (LTG) Pt will have full L shoulder AROM w/o inc pain LTG Duration 09/26 desk Impairment can only sit very short bouts at desk Short Term Goal (STG) Pt will adjust desk set up for better ergonomics based on PT suggestions 08/08/23: brought pic, discussed elevated desk, chin nod, elongate TS. STG Duration 08/04 progressed 08/08/23 [facility] Goal (LTG) Pt will be able to sit for 1 hour at desk w/o inc shoulder or back pain. LTG Duration 09/26 Assessment Summary Assessment Pt improved no clicking in R shld this tx with reminder for scap in back pocket able increase TB #2 rows and initiated DNF nod holds then brief lift head to wall during exercises to support neutral CS positioning. Some time spent carryover scap and head DNF neutral positioning with ergonomics at desk. REviewed phone photo, identified corrections, utilize high low desk if possible. ALso discussed use post-it to help call set up neurologist and vision therapy referral appts where walk by for carryover completion. Physical Therapy Plan Frequency and Duration Frequency of Treatment 2x/Week Duration of treatment (weeks) 12 Plan of Care Start Date 07/04/23 Plan of Care End Date 09/27/23 Therapeutic Interventions Therapeutic Interventions Home Exercise Program,Joint Mobilizations,Manual Therapy, Neuromuscular Re-education, Patient/Caregiver Education, Self-Care/Home Management,Soft Tissue Mobilization, Therapeutic Activities, Therapeutic Exercises Modalities Cold Pack/Ice Massage,Electric Stimulation,Hot Packs, Infrared Therapy,Ultrasound Other Referrals/Consults Referrals/Consults Recommended Has referral for Vision PT, hoping can have at or where recommend. Referral from [facility] for R eye, assist strength and headache recovery through summer before return to classes fall. Next Visit Focus/Plan Next Note Type Treatment Note Next Visit Plan WARN pt WITH ALL TOUCH and table adjust height, latex free CHeck: DNF nod/lifts, increased resistance HEP. Next: SL isometric core, supine core start. POC: gentle manual to tspine & ribs & STM & gentle SI mobs as able
--- NOTE | 2023-08-16 09:48 | PT.OTN ---
Current Diagnoses Pain in left shoulder (08/16/23) Low back pain, unspecified (08/16/23) Muscle weakness (generalized) (08/16/23) Other muscle spasm (08/16/23) Abnormal posture (08/16/23) Physical Therapy Treatment Note PT-OP-A Visit Information Start: 06/29/23 18:12 Freq: Status: Active Protocol: Document 08/16/23 09:07 SP (Rec: 08/16/23 09:52 SP [id number]) Out-Patient Physical Therapy Visit Information Visit Information Visit Type Treatment Note Visit Note 07/16 after eval Visit Start Time 09:07 Visit Stop Time 09:48 Visit Number 8 Number of UROLOGIC SURGEON Visits 3 Precautions Precautions sensitivity to latex PT-OP-B Current Condition Start: 06/29/23 18:12 Freq: Status: Active Protocol: Document 07/04/23 10:33 [facility] (Rec: 07/04/23 11:23 [facility] [id number]) Current Condition History of Current Condition Current Complaints L shoulder pain & LBP History of Current Condition Pt reports having R SLAP surgery in 2020. L shoulder is currently giving her issues like what R shoulder did. At night both arms are falling asleep. 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 She had a neck injury in 2017 resulting in C5-6 ACDF 2018. She has neck pain and vertigo afte that injury and has done PT alot. She avoids lifting as most of the time, this will inc her vertigo and neck symptoms and it takes a few days to resolve. She spasms pretty bad when gets flared up . If she uses too much UE motion, neck tightnes up and locks down and gets spasms in post and ant neck w/massive ORNELAS. She is careful to lift and keeps wt close to her and doesn't lift heavy. She is trying to get back to work as she has been on disability since neck injury. Pt has hx of 3 sections, tubal ligation, appendectomy, and hysterectomy. She still works w/[employer]. Even a light tap that is not anticipatory, that can inc symptoms of vertigo. She was injured in a too rough chiro adjustment and tried to communicate that it was worse, and further manipulation was treatment and it got worse. first 9 months had symptoms like L sided stroke but was cleared from doctor w/ potential for stroke. Xrays showed chandni sitting in wrong direction. 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 She is planning to get back to [employer]. She is going to school for forensic psychology . She is going to graduate in [facility] ( has had accomidations). She is going to take a gap year after that and will be going into a doctoral program. 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 She reported had little vertigo lately laying side and when picks up head, has beel little while since had. PT-OP-F Manual Assessment Start: 06/29/23 18:12 Freq: Status: Active Protocol: Document 07/04/23 10:33 [facility] (Rec: 07/05/23 08:21 [facility] [id number]) Manual Assessments Soft Tissue Assessment Soft Tissue Mobility Assessment tender to even light touch. If pt not warned to specific area of touch, pt will jump in response PT-OP-J Posture/Palpation/Skin Start: 06/29/23 18:12 Freq: Status: Active Protocol: Document 07/04/23 10:33 [facility] (Rec: 07/04/23 11:23 [facility] [id number]) Posture Evaluation Comments Posture Comments L scap elevated, L scap winging and abd,ant tipped, cervical L SB when sitting, inc kyphosis slight, scoliosis curvature noted through spine PT-OP-K Range of Motion Start: 06/29/23 18:12 Freq: Status: Active Protocol: Document 07/04/23 10:33 [facility] (Rec: 07/04/23 11:23 [facility] [id number]) Shoulder Goniometric Range of Motion Shoulder Left Active Flexion 150 Extension 62 Abduction 170 External Rotation at 0 degrees Abduction 75 Internal Rotation Behind Back (text) T5 Comments elbow bent w/flex/abd d/t inc pain w/arm away from body; goes into scaption w/abd and pops and pain w/flex and abd & rot PT-OP-Q Treatments Start: 06/29/23 18:12 Freq: Status: Active Protocol: Document 08/16/23 09:07 SP (Rec: 08/16/23 09:52 SP [id number]) Therapeutic Exercises Supine Exercises chin tuck lift Supine Exercise Name DNF strengthening- added to HEP- declined HO Reps/Minutes 1. tucked 5 SH x5 2. tuck lift (cued forehead to wall-wall at ft) 3reps Comments cued nod toward chest lift better. Sidelying Exercises shld abd Sidelying Exercise Name verbalized doing home Side left Resistance 1# can home open book Sidelying Exercise Name doing home Side bilateral Resistance AROM Standing Exercises Shld ER Standing Exercise Name reviewed HEP- (declined HO) Side bilateral Resistance TB #2 orange Equipment Used back against wall Reps/Minutes x10 Comments improved posterior chain effort, inhibited chest/ant neck shld rows & ext Standing Exercise Name rows, ext Side bilateral Resistance TB #2 orange rows Reps/Minutes 2x10 each Comments continue no clicking with scap in back pocket- improvement Other Exercises quadruped Other Exercise Name trialed & added to HEP ( declined HO) Equipment Used dowel pelvis to head- improve neck alinment Reps/Minutes 10 SH x2 reps Comments stationary, reports head at 10 sec Manual Therapy Treatment Soft Tissue Mobilization TMJ Body Location R masseter, Med ptyergoid, mandible decompression, ear pull Comments manual and ed self cranium & neck Body Location L UT, scalene, scm, SOR, temporalis Mobilization Type Rolling,Sustained Pressure Intensity/Depth Moderate Body Position Hooklying Comments decreased posterior neck tension PT-OP-T Assessment and Plan Start: 06/29/23 18:12 Freq: Status: Active Protocol: Document 08/16/23 09:07 SP (Rec: 08/16/23 09:52 SP [id number]) Physical Therapy Assessment Goals activity Short Term Goal (STG) Pt will show good squat and hip hinge mechanics STG Duration [address] Man Goal (LTG) Pt will be able to work in [employer] w/o inc back/L shoulder pain greater than 2/ 10 LTG Duration [address] Man Goal (LTG) Pt will have full L shoulder AROM w/o inc pain LTG Duration 09/26 desk Impairment can only sit very short bouts at desk Short Term Goal (STG) Pt will adjust desk set up for better ergonomics based on PT suggestions 08/08/23: brought pic, discussed elevated desk, chin nod, elongate TS. STG Duration 08/04 progressed 08/08/23 Mcfp Goal (LTG) Pt will be able to sit for 1 hour at desk w/o inc shoulder or back pain. LTG Duration 09/26 Assessment Summary Assessment Pt decreased tension neck and R TMJ post manual. Challenging with DNF lift today but able perform 2 reps with tactile hand on chest support feedback . Improved strength with increased band exercises last tx and scap form. Trialed quadruped for progress cervical strengthening head against gravity with limited hold and rest childpose between. Physical Therapy Plan Frequency and Duration Frequency of Treatment 2x/Week Duration of treatment (weeks) 12 Plan of Care Start Date 07/04/23 Plan of Care End Date 09/27/23 Therapeutic Interventions Therapeutic Interventions Home Exercise Program,Joint Mobilizations,Manual Therapy, Neuromuscular Re-education, Patient/Caregiver Education, Self-Care/Home Management,Soft Tissue Mobilization, Therapeutic Activities, Therapeutic Exercises Modalities Cold Pack/Ice Massage,Electric Stimulation,Hot Packs, Infrared Therapy,Ultrasound Other Referrals/Consults Referrals/Consults Recommended Has referral for [facility] PT, hoping can have at or where recommend. Referral from [facility] for R eye, assist strength and headache recovery through summer before return to classes fall. Next Visit Focus/Plan Next Note Type Treatment Note Next Visit Plan WARN pt WITH ALL TOUCH and table adjust height, latex free Check added PT appt missed for 5th visit. CHeck: DNF lifts and added quadruped hold. Next: SL isometric core, supine core start. POC: gentle manual to tspine & ribs & STM & gentle SI mobs as able
--- NOTE | 2023-08-17 17:28 | PT.OTN ---
Current Diagnoses Pain in left shoulder (08/17/23) Low back pain, unspecified (08/17/23) Muscle weakness (generalized) (08/17/23) Other muscle spasm (08/17/23) Abnormal posture (08/17/23) Physical Therapy Treatment Note PT-OP-A Visit Information Start: 06/29/23 18:12 Freq: Status: Active Protocol: Document 08/17/23 15:19 [facility] (Rec: 08/17/23 17:28 [facility] [id number]) Out-Patient Physical Therapy Visit Information Visit Information Visit Type Treatment Note Visit Note 02/15 Visit Start Time 15:19 Visit Stop Time 16:01 Visit Number 9 Number of DRY CAN TENDER Visits 0 PT-OP-B Current Condition Start: 06/29/23 18:12 Freq: Status: Active Protocol: Document 07/04/23 10:33 [facility] (Rec: 07/04/23 11:23 [facility] [id number]) Current Condition History of Current Condition Current Complaints L shoulder pain & LBP History of Current Condition Pt reports having R SLAP surgery in 2020. L shoulder is currently giving her issues like what R shoulder did. At night both arms are falling asleep. 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 She had a neck injury in 2017 resulting in C5-6 ACDF 2018. She has neck pain and vertigo afte that injury and has done PT alot. She avoids lifting as most of the time, this will inc her vertigo and neck symptoms and it takes a few days to resolve. She spasms pretty bad when gets flared up . If she uses too much UE motion, neck tightnes up and locks down and gets spasms in post and ant neck w/massive ORNELAS. She is careful to lift and keeps wt close to her and doesn't lift heavy. She is trying to get back to work as she has been on disability since neck injury. Pt has hx of 3 sections, tubal ligation, appendectomy, and hysterectomy. She still works w/[employer]. Even a light tap that is not anticipatory, that can inc symptoms of vertigo. She was injured in a too rough chiro adjustment and tried to communicate that it was worse, and further manipulation was treatment and it got worse. first 9 months had symptoms like L sided stroke but was cleared from doctor w/ potential for stroke. Xrays showed chandni sitting in wrong direction. 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 She is planning to get back to [employer]. She is going to school for forensic psychology . She is going to graduate in [facility] ( has had accomidations). She is going to take a gap year after that and will be going into a doctoral program. 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 PT-OP-C Subjective Start: 06/29/23 18:12 Freq: Status: Active Protocol: Document 08/17/23 15:19 [facility] (Rec: 08/17/23 17:28 [facility] [id number]) OP-PT Subjective Patient Comments Patient Comments Pt reports she carried a 5 gallon bucket of water and that really aggrevated all her symptoms PT-OP-F Manual Assessment Start: 06/29/23 18:12 Freq: Status: Active Protocol: Document 07/04/23 10:33 [facility] (Rec: 07/05/23 08:21 [facility] [id number]) Manual Assessments Soft Tissue Assessment Soft Tissue Mobility Assessment tender to even light touch. If pt not warned to specific area of touch, pt will jump in response PT-OP-J Posture/Palpation/Skin Start: 06/29/23 18:12 Freq: Status: Active Protocol: Document 07/04/23 10:33 [facility] (Rec: 07/04/23 11:23 [facility] [id number]) Posture Evaluation Comments Posture Comments L scap elevated, L scap winging and abd,ant tipped, cervical L SB when sitting, inc kyphosis slight, scoliosis curvature noted through spine PT-OP-K Range of Motion Start: 06/29/23 18:12 Freq: Status: Active Protocol: Document 08/17/23 15:19 [facility] (Rec: 08/17/23 17:28 [facility] [id number]) Shoulder Goniometric Range of Motion Shoulder Left Active Flexion 148 Extension 64 Abduction 100 External Rotation at 0 degrees Abduction 80 Internal Rotation Behind Back (text) T5 Comments pain w/flex, ext and abd; ableto now go through pure abd PT-OP-Q Treatments Start: 06/29/23 18:12 Freq: Status: Active Protocol: Document 08/17/23 15:19 [facility] (Rec: 08/17/23 17:28 [facility] [id number]) Therapeutic Exercises Standing Exercises ROM Standing Exercise Name AROM L shoulder Therapeutic Activity Therapeutic Activity posture Reps/Minutes 10 min Comments standing working on alignment of ribcage over pelvis and working on scap set w/o back ext hip hinge Comments 1. seated x8 w/dowel on back 2. standing w/dowel on back ( comfortable range for dizziness) x4 Manual Therapy Treatment Consent Patient gave verbal consent for manual Yes treatment Soft Tissue Mobilization scap Body Location L rhomboids, lats, tspine paraspinals Mobilization Type Rolling,Sustained Pressure Intensity/Depth Moderate Body Position Sidelying L shld Body Location L pecs, deltoid Mobilization Type Rolling,Strumming,Sustained Pressure Intensity/Depth Moderate Body Position Supine cranium & neck Body Location L UT/LS Mobilization Type Rolling,Sustained Pressure Intensity/Depth Moderate Body Position Sidelying Joint Mobilizations L GH Jt Grade II Comments L post and inf w/manual facilitaton of jt mechanics PT-OP-T Assessment and Plan Start: 06/29/23 18:12 Freq: Status: Active Protocol: Document 08/17/23 15:19 [facility] (Rec: 08/17/23 17:28 [facility] [id number]) Physical Therapy Assessment Goals activity Short Term Goal (STG) Pt will show good squat and hip hinge mechanics 08/16-initiated today STG Duration 08/20 Button Sewer 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 STG Duration 08/04 progressed 08/08/23 Button Sewer Goal (LTG) Pt will be able to sit for 1 hour at desk w/o inc shoulder or back pain. 08/16-hasn't had to be at it as much; is self correcting LTG Duration 09/26 Assessment Summary Assessment Pt is making gradual progress to PT but is a complicated case w/signficiant neck instability w/vertigo from injury 6 years ago along w/ multiple pain areas including neck, back and B shoulders. She is noting more strength in shoulders and tolerance to UE activity but still pain w/ROM especially noted today w/abd. cont PT to work on mechanics and strength to resume more typical activity. Physical Therapy Plan Frequency and Duration Frequency of Treatment 2x/Week Duration of treatment (weeks) 12 Plan of Care Start Date 07/04/23 Plan of Care End Date 09/27/23 Next Visit Focus/Plan Next Note Type Treatment Note Next Visit Plan WARN pt WITH ALL TOUCH and table adjust height, latex free CHeck: DNF lifts and added quadruped hold. Next: SL isometric core, supine core start. POC: gentle manual to tspine & ribs & STM & gentle SI mobs as able
--- NOTE | 2023-08-21 16:15 | PT.OTN ---
Current Diagnoses Pain in left shoulder (08/21/23) Low back pain, unspecified (08/21/23) Muscle weakness (generalized) (08/21/23) Other muscle spasm (08/21/23) Abnormal posture (08/21/23) Physical Therapy Treatment Note PT-OP-A Visit Information Start: 06/29/23 18:12 Freq: Status: Active Protocol: Document 08/21/23 13:50 [facility] (Rec: 08/21/23 16:15 AB [id number]) Out-Patient Physical Therapy Visit Information Visit Information Visit Type Treatment Note Visit Note 03/18 Visit Start Time 13:50 Visit Stop Time 14:34 Visit Number 10 Number of CHILD LIFE ASSISTANT Visits 1 Precautions Precautions sensitivity to latex PT-OP-B Current Condition Start: 06/29/23 18:12 Freq: Status: Active Protocol: Document 07/04/23 10:33 [facility] (Rec: 07/04/23 11:23 [facility] [id number]) Current Condition History of Current Condition Current Complaints L shoulder pain & LBP History of Current Condition Pt reports having R SLAP surgery in 2020. L shoulder is currently giving her issues like what R shoulder did. At night both arms are falling asleep. 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 She had a neck injury in 2017 resulting in C5-6 ACDF 2019. She has neck pain and vertigo afte that injury and has done PT alot. She avoids lifting as most of the time, this will inc her vertigo and neck symptoms and it takes a few days to resolve. She spasms pretty bad when gets flared up . If she uses too much UE motion, neck tightnes up and locks down and gets spasms in post and ant neck w/massive ORNELAS. She is careful to lift and keeps wt close to her and doesn't lift heavy. She is trying to get back to work as she has been on disability since neck injury. Pt has hx of 3 sections, tubal ligation, appendectomy, and hysterectomy. She still works w/[employer]. Even a light tap that is not anticipatory, that can inc symptoms of vertigo. She was injured in a too rough chiro adjustment and tried to communicate that it was worse, and further manipulation was treatment and it got worse. first 9 months had symptoms like L sided stroke but was cleared from doctor w/ potential for stroke. Xrays showed tailpineda sitting in wrong direction. 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 She is planning to get back to [employer]. She is going to school for forensic psychology . She is going to graduate in [facility] ( has had accomidations). She is going to take a gap year after that and will be going into a doctoral program. 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 Patient reports she worked a wedding this weekend. PT-OP-F Manual Assessment Start: 06/29/23 18:12 Freq: Status: Active Protocol: Document 07/04/23 10:33 [facility] (Rec: 07/05/23 08:21 [facility] [id number]) Manual Assessments Soft Tissue Assessment Soft Tissue Mobility Assessment tender to even light touch. If pt not warned to specific area of touch, pt will jump in response PT-OP-J Posture/Palpation/Skin Start: 06/29/23 18:12 Freq: Status: Active Protocol: Document 07/04/23 10:33 [facility] (Rec: 07/04/23 11:23 [facility] [id number]) Posture Evaluation Comments Posture Comments L scap elevated, L scap winging and abd,ant tipped, cervical L SB when sitting, inc kyphosis slight, scoliosis curvature noted through spine PT-OP-K Range of Motion Start: 06/29/23 18:12 Freq: Status: Active Protocol: Document 08/17/23 15:19 [facility] (Rec: 08/17/23 17:28 [facility] [id number]) Shoulder Goniometric Range of Motion Shoulder Left Active Flexion 148 Extension 64 Abduction 100 External Rotation at 0 degrees Abduction 80 Internal Rotation Behind Back (text) T5 Comments pain w/flex, ext and abd; ableto now go through pure abd PT-OP-Q Treatments Start: 06/29/23 18:12 Freq: Status: Active Protocol: Document 08/21/23 13:50 [facility] (Rec: 08/21/23 16:15 [facility] [id number]) Therapeutic Exercises Supine Exercises rib hug, breathout, shrug, relax shoulder blades down Side bilateral Reps/Minutes X3 Comments Verbal cues CS rotation on occipital float Side bilateral Reps/Minutes 2 min Comments Verbal cues to perform in pain free range chin tuck lift Supine Exercise Name DNF strengthening- added to HEP- declined HO Reps/Minutes 1. tucked 5 SH x5 2. tuck lift (cued forehead to wall-wall at ft) 3reps Comments cued nod toward chest lift better. Sidelying Exercises open book Side bilateral Resistance AROM Reps/Minutes X5 each side Sitting Exercises Breathing from diaphragm Sitting Exercise Name HEP Side bilateral Equipment Used pillow Comments verbal cues to expand core into pillows when inhaling Standing Exercises rib hug, shrug, shoulder blades down Side bilateral Reps/Minutes X5 Comments verbal cues Other Exercises quadruped Other Exercise Name 1. dowel for CS positoning, 2. CS AROM Reps/Minutes X1 Manual Therapy Treatment Soft Tissue Mobilization cranium & neck Body Location B UT/LS, scalenes at lateral clavicles Mobilization Type Rolling,Sustained Pressure Intensity/Depth Moderate Body Position Sitting Joint Mobilizations L scapulothoracic Joint bilateral Direction retraction, depression Grade II Body Position Sidelying Comments monitored for pain PT-OP-T Assessment and Plan Start: 06/29/23 18:12 Freq: Status: Active Protocol: Document 08/21/23 13:50 [facility] (Rec: 08/21/23 16:15 [facility] [id number]) Physical Therapy Assessment Goals activity Short Term Goal (STG) Pt will show good squat and hip hinge mechanics 08/16-initiated today STG Duration 08/20 Detention Goal (LTG) 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 STG Duration 08/04 progressed 08/08/23 Detention Goal (LTG) Pt will be able to sit for 1 hour at desk w/o inc shoulder or back pain. 08/16-hasn't had to be at it as much; is self correcting LTG Duration 09/26 Assessment Summary Assessment Patient reports she is the same end of session, feels really tired today. Physical Therapy Plan Frequency and Duration Frequency of Treatment 2x/Week Duration of treatment (weeks) 12 Plan of Care Start Date 07/04/23 Plan of Care End Date 09/27/23 Next Visit Focus/Plan Next Note Type Treatment Note Next Visit Plan WARN pt WITH ALL TOUCH and table adjust height, latex free CHeck: DNF lifts and added quadruped hold. Next: SL isometric core, supine core start. POC: gentle manual to tspine & ribs & STM & focus on gentle SI mobs as able
--- NOTE | 2023-08-23 14:48 | PT.OTN ---
Current Diagnoses Pain in left shoulder (08/23/23) Low back pain, unspecified (08/23/23) Muscle weakness (generalized) (08/23/23) Other muscle spasm (08/23/23) Abnormal posture (08/23/23) Physical Therapy Treatment Note PT-OP-A Visit Information Start: 06/29/23 18:12 Freq: Status: Active Protocol: Document 08/23/23 08:11 AB (Rec: 08/23/23 09:48 AB [id number]) Out-Patient Physical Therapy Visit Information Visit Information Visit Type Treatment Note Visit Note 04/15 Visit Start Time 09:05 Visit Stop Time 09:46 Visit Number 11 Number of SUPERVISOR FISH HATCHERY Visits 2 Precautions Precautions sensitivity to latex PT-OP-B Current Condition Start: 06/29/23 18:12 Freq: Status: Active Protocol: Document 07/04/23 10:33 [facility] (Rec: 07/04/23 11:23 [facility] [id number]) Current Condition History of Current Condition Current Complaints L shoulder pain & LBP History of Current Condition Pt reports having R SLAP surgery in 2020. L shoulder is currently giving her issues like what R shoulder did. At night both arms are falling asleep. 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 She had a neck injury in 2017 resulting in C5-6 ACDF 2019. She has neck pain and vertigo afte that injury and has done PT alot. She avoids lifting as most of the time, this will inc her vertigo and neck symptoms and it takes a few days to resolve. She spasms pretty bad when gets flared up . If she uses too much UE motion, neck tightnes up and locks down and gets spasms in post and ant neck w/massive ORNELAS. She is careful to lift and keeps wt close to her and doesn't lift heavy. She is trying to get back to work as she has been on disability since neck injury. Pt has hx of 3 sections, tubal ligation, appendectomy, and hysterectomy. She still works w/[employer]. Even a light tap that is not anticipatory, that can inc symptoms of vertigo. She was injured in a too rough chiro adjustment and tried to communicate that it was worse, and further manipulation was treatment and it got worse. first 9 months had symptoms like L sided stroke but was cleared from doctor w/ potential for stroke. Xrays showed chandni sitting in wrong direction. 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 She is planning to get back to [employer]. She is going to school for forensic psychology . She is going to graduate in [facility] ( has had accomidations). She is going to take a gap year after that and will be going into a doctoral program. 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 PT-OP-F Manual Assessment Start: 06/29/23 18:12 Freq: Status: Active Protocol: Document 07/04/23 10:33 [facility] (Rec: 07/05/23 08:21 [facility] [id number]) Manual Assessments Soft Tissue Assessment Soft Tissue Mobility Assessment tender to even light touch. If pt not warned to specific area of touch, pt will jump in response PT-OP-J Posture/Palpation/Skin Start: 06/29/23 18:12 Freq: Status: Active Protocol: Document 07/04/23 10:33 [facility] (Rec: 07/04/23 11:23 [facility] [id number]) Posture Evaluation Comments Posture Comments L scap elevated, L scap winging and abd,ant tipped, cervical L SB when sitting, inc kyphosis slight, scoliosis curvature noted through spine PT-OP-K Range of Motion Start: 06/29/23 18:12 Freq: Status: Active Protocol: Document 08/17/23 15:19 [facility] (Rec: 08/17/23 17:28 [facility] [id number]) Shoulder Goniometric Range of Motion Shoulder Left Active Flexion 148 Extension 64 Abduction 100 External Rotation at 0 degrees Abduction 80 Internal Rotation Behind Back (text) T5 Comments pain w/flex, ext and abd; ableto now go through pure abd PT-OP-Q Treatments Start: 06/29/23 18:12 Freq: Status: Active Protocol: Document 08/23/23 08:11 AB (Rec: 08/23/23 09:48 AB [id number]) Therapeutic Exercises Supine Exercises bent knee fall out Side bilateral Reps/Minutes X10 each LE Comments verbal cues to brace as LE moves away from core Therapeutic Activity Therapeutic Activity log roll Comments one step verbal cues left and right side, multiple repetitions hip hinge Name sit to stand Reps/Minutes X3 and X 5 Comments Patient ed with spine model and self tactile cues for hip hinge Manual Therapy Treatment Soft Tissue Mobilization LS paraspinals and gluteal/SI area Body Location bilateral Mobilization Type Cross-Friction,Rolling, Sustained Pressure Intensity/Depth Moderate Body Position Sidelying Comments monitored for pain Manual Techniques MET for left AI right PI and pubic shotgun Comments very gentle, no dowel, performed in hooklying PT-OP-T Assessment and Plan Start: 06/29/23 18:12 Freq: Status: Active Protocol: Document 08/23/23 08:11 AB (Rec: 08/23/23 09:48 AB [id number]) Physical Therapy Assessment Goals activity Short Term Goal (STG) Pt will show good squat and hip hinge mechanics 08/16-initiated today STG Duration 08/20 Care Home Goal (LTG) 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 STG Duration 08/04 progressed 08/08/23 Snow Blower Goal (LTG) Pt will be able to sit for 1 hour at desk w/o inc shoulder or back pain. 08/16-hasn't had to be at it as much; is self correcting LTG Duration 09/26 Assessment Summary Assessment Patient able to perform log roll with good technique, but did initiate sit to supine with a reverse sit up post training, requiring review again during session. Patient reports she feels the same end of session. Physical Therapy Plan Frequency and Duration Frequency of Treatment 2x/Week Duration of treatment (weeks) 12 Plan of Care Start Date 07/04/23 Plan of Care End Date 09/27/23 Next Visit Focus/Plan Next Note Type Treatment Note Next Visit Plan WARN pt WITH ALL TOUCH and table adjust height, latex free CHeck: DNF lifts and added quadruped hold. Next: SL isometric core, supine core start. POC: gentle manual to tspine & ribs & STM & focus on gentle SI mobs as able
--- NOTE | 2023-08-28 16:18 | PT.OTN ---
Current Diagnoses Pain in left shoulder (08/28/23) Low back pain, unspecified (08/28/23) Muscle weakness (generalized) (08/28/23) Other muscle spasm (08/28/23) Abnormal posture (08/28/23) Physical Therapy Treatment Note PT-OP-A Visit Information Start: 06/29/23 18:12 Freq: Status: Active Protocol: Document 08/28/23 12:54 AB (Rec: 08/28/23 14:31 AB [id number]) Out-Patient Physical Therapy Visit Information Visit Information Visit Note 05/16 Visit Start Time 13:48 Visit Stop Time 14:31 Visit Number 12 Number of FIELD TECH Visits 3 Precautions Precautions sensitivity to latex PT-OP-B Current Condition Start: 06/29/23 18:12 Freq: Status: Active Protocol: Document 07/04/23 10:33 [facility] (Rec: 07/04/23 11:23 [facility] [id number]) Current Condition History of Current Condition Current Complaints L shoulder pain & LBP History of Current Condition Pt reports having R SLAP surgery in 2020. L shoulder is currently giving her issues like what R shoulder did. At night both arms are falling asleep. 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 She had a neck injury in 2017 resulting in C5-6 ACDF 2018. She has neck pain and vertigo afte that injury and has done PT alot. She avoids lifting as most of the time, this will inc her vertigo and neck symptoms and it takes a few days to resolve. She spasms pretty bad when gets flared up . If she uses too much UE motion, neck tightnes up and locks down and gets spasms in post and ant neck w/massive ORNELAS. She is careful to lift and keeps wt close to her and doesn't lift heavy. She is trying to get back to work as she has been on disability since neck injury. Pt has hx of 3 sections, tubal ligation, appendectomy, and hysterectomy. She still works w/[employer]. Even a light tap that is not anticipatory, that can inc symptoms of vertigo. She was injured in a too rough chiro adjustment and tried to communicate that it was worse, and further manipulation was treatment and it got worse. first 9 months had symptoms like L sided stroke but was cleared from doctor w/ potential for stroke. Xrays showed chandni sitting in wrong direction. 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 She is planning to get back to [employer]. She is going to school for forensic psychology . She is going to graduate in [facility] ( has had accomidations). She is going to take a gap year after that and will be going into a doctoral program. 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 Left shoulder flexion 128 deg AROM start of session. PT-OP-F Manual Assessment Start: 06/29/23 18:12 Freq: Status: Active Protocol: Document 07/04/23 10:33 [facility] (Rec: 07/05/23 08:21 [facility] [id number]) Manual Assessments Soft Tissue Assessment Soft Tissue Mobility Assessment tender to even light touch. If pt not warned to specific area of touch, pt will jump in response PT-OP-J Posture/Palpation/Skin Start: 06/29/23 18:12 Freq: Status: Active Protocol: Document 07/04/23 10:33 [facility] (Rec: 07/04/23 11:23 [facility] [id number]) Posture Evaluation Comments Posture Comments L scap elevated, L scap winging and abd,ant tipped, cervical L SB when sitting, inc kyphosis slight, scoliosis curvature noted through spine PT-OP-K Range of Motion Start: 06/29/23 18:12 Freq: Status: Active Protocol: Document 08/17/23 15:19 [facility] (Rec: 08/17/23 17:28 [facility] [id number]) Shoulder Goniometric Range of Motion Shoulder Left Active Flexion 148 Extension 64 Abduction 100 External Rotation at 0 degrees Abduction 80 Internal Rotation Behind Back (text) T5 Comments pain w/flex, ext and abd; ableto now go through pure abd PT-OP-Q Treatments Start: 06/29/23 18:12 Freq: Status: Active Protocol: Document 08/28/23 12:54 AB (Rec: 08/28/23 14:31 AB [id number]) Therapeutic Exercises Supine Exercises CS rotation on occipital float Side bilateral Reps/Minutes 2 min Comments Verbal cues to perform in pain free range Sidelying Exercises shld abd Side left Resistance 1# can home Reps/Minutes X10 left trial of X 2 right not manju Comments Monitored for pain open book Side bilateral Resistance AROM Reps/Minutes X5 left X 2 right not manju Standing Exercises rib hug, shrug, shoulder blades down Side bilateral Reps/Minutes X5 Comments verbal cues shld rows & ext Standing Exercise Name rows, ext Side bilateral Resistance TB #2 orange rows Reps/Minutes 2x10 each Comments continue no clicking with scap in back pocket- improvement Other Exercises quadruped Other Exercise Name 1. dowel for CS positoning, 2. CS AROM Reps/Minutes 1. X 1 with goni 2. X 10 Manual Therapy Treatment Soft Tissue Mobilization cranium & neck Body Location B UT/LS, scalenes at lateral clavicles Mobilization Type Rolling,Sustained Pressure Intensity/Depth Moderate Body Position Sitting Joint Mobilizations SC Joint bilateral Direction ing Grade II Body Position Sitting AC Joint bilateral Grade II Body Position Sidelying Comments L ant clavicle FM L scapulothoracic Joint bilateral Direction retraction, depression Grade II Body Position Sidelying Comments monitored for pain PT-OP-T Assessment and Plan Start: 06/29/23 18:12 Freq: Status: Active Protocol: Document 08/28/23 12:54 AB (Rec: 08/28/23 14:31 AB [id number]) Physical Therapy Assessment Goals activity Short Term Goal (STG) Pt will show good squat and hip hinge mechanics 08/16-initiated today STG Duration 08/20 Usp Goal (LTG) 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 STG Duration 08/04 progressed 08/08/23 Counselor/Art Therapist Goal (LTG) Pt will be able to sit for 1 hour at desk w/o inc shoulder or back pain. 08/16-hasn't had to be at it as much; is self correcting LTG Duration 09/26 Assessment Summary Assessment Lin rates headache pain as the same end of session. 144 deg AROM left shoulder flexion. Physical Therapy Plan Frequency and Duration Frequency of Treatment 2x/Week Duration of treatment (weeks) 12 Plan of Care Start Date 07/04/23 Plan of Care End Date 09/27/23 Next Visit Focus/Plan Next Note Type Treatment Note Next Visit Plan WARN pt WITH ALL TOUCH and table adjust height, latex free CHeck: DNF lifts and added quadruped hold. Next: SL isometric core, supine core start. POC: gentle manual to tspine & ribs & STM & focus on gentle SI mobs as able
--- NOTE | 2023-08-30 10:33 | PT.OTN ---
Current Diagnoses Pain in left shoulder (08/30/23) Low back pain, unspecified (08/30/23) Muscle weakness (generalized) (08/30/23) Other muscle spasm (08/30/23) Abnormal posture (08/30/23) Physical Therapy Treatment Note PT-OP-A Visit Information Start: 06/29/23 18:12 Freq: Status: Active Protocol: Document 08/28/23 12:54 AB (Rec: 08/28/23 14:31 AB [id number]) Out-Patient Physical Therapy Visit Information Visit Information Visit Note 05/16 Visit Start Time 13:48 Visit Stop Time 14:31 Visit Number 12 Number of STATISTICAL ENGINEER Visits 3 Precautions Precautions sensitivity to latex PT-OP-B Current Condition Start: 06/29/23 18:12 Freq: Status: Active Protocol: Document 07/04/23 10:33 [facility] (Rec: 07/04/23 11:23 [facility] [id number]) Current Condition History of Current Condition Current Complaints L shoulder pain & LBP History of Current Condition Pt reports having R SLAP surgery in 2020. L shoulder is currently giving her issues like what R shoulder did. At night both arms are falling asleep. 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 She had a neck injury in 2017 resulting in C5-6 ACDF 2018. She has neck pain and vertigo afte that injury and has done PT alot. She avoids lifting as most of the time, this will inc her vertigo and neck symptoms and it takes a few days to resolve. She spasms pretty bad when gets flared up . If she uses too much UE motion, neck tightnes up and locks down and gets spasms in post and ant neck w/massive ORNELAS. She is careful to lift and keeps wt close to her and doesn't lift heavy. She is trying to get back to work as she has been on disability since neck injury. Pt has hx of 3 sections, tubal ligation, appendectomy, and hysterectomy. She still works w/[employer]. Even a light tap that is not anticipatory, that can inc symptoms of vertigo. She was injured in a too rough chiro adjustment and tried to communicate that it was worse, and further manipulation was treatment and it got worse. first 9 months had symptoms like L sided stroke but was cleared from doctor w/ potential for stroke. Xrays showed chandni sitting in wrong direction. 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 She is planning to get back to [employer]. She is going to school for forensic psychology . She is going to graduate in [facility] ( has had accomidations). She is going to take a gap year after that and will be going into a doctoral program. 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 If pt not warned to specific area of touch, pt will jump in response PT-OP-J Posture/Palpation/Skin Start: 06/29/23 18:12 Freq: Status: Active Protocol: Document 07/04/23 10:33 [facility] (Rec: 07/04/23 11:23 [facility] [id number]) Posture Evaluation Comments Posture Comments L scap elevated, L scap winging and abd,ant tipped, cervical L SB when sitting, inc kyphosis slight, scoliosis curvature noted through spine PT-OP-K Range of Motion Start: 06/29/23 18:12 Freq: Status: Active Protocol: Document 08/17/23 15:19 [facility] (Rec: 08/17/23 17:28 [facility] [id number]) Shoulder Goniometric Range of Motion Shoulder Left Active Flexion 148 Extension 64 Abduction 100 External Rotation at 0 degrees Abduction 80 Internal Rotation Behind Back (text) T5 Comments pain w/flex, ext and abd; ableto now go through pure abd PT-OP-Q Treatments Start: 06/29/23 18:12 Freq: Status: Active Protocol: Document 08/30/23 09:05 [facility] (Rec: 08/30/23 10:33 [facility] [id number]) Therapeutic Exercises Supine Exercises rib hug, breathout, shrug, relax shoulder blades down Supine Exercise Name diaphragmatic breathing w/ hands lat for inc lat ribcage expasion Reps/Minutes 4x2 min w/cues and facilitation Therapeutic Activity Therapeutic Activity posture Reps/Minutes 4 min Comments standing working on alignment of ribcage over pelvis and working on scap set w/o back ext hip hinge Name sit to stand Comments x5 from mat x8 from chair x8tap chair x10 focus on posture set up w/ hands on stomach Manual Therapy Treatment Consent Patient gave verbal consent for manual Yes treatment Soft Tissue Mobilization L shld Body Location L pecs Mobilization Type Rolling,Strumming,Sustained Pressure Intensity/Depth Moderate Body Position Supine cranium & neck Body Location L UT/LS Mobilization Type Rolling,Sustained Pressure Intensity/Depth Moderate Body Position Sitting Joint Mobilizations SC Joint L Direction gapping Grade II Body Position Sitting AC Joint bilateral Grade II Body Position Sidelying Comments L ant clavicle FM L GH Jt Comments L inf FM PT-OP-T Assessment and Plan Start: 06/29/23 18:12 Freq: Status: Active Protocol: Document 08/30/23 09:05 [facility] (Rec: 08/30/23 10:33 [facility] [id number]) Physical Therapy Assessment Goals activity Short Term Goal (STG) Pt will show good squat and hip hinge mechanics 08/16-initiated today STG Duration 08/20 Senior Living Goal (LTG) 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 STG Duration 08/04 progressed 08/08/23 Senior Living Goal (LTG) Pt will be able to sit for 1 hour at desk w/o inc shoulder or back pain. 08/16-hasn't had to be at it as much; is self correcting LTG Duration 09/26 Assessment Summary Assessment Pt started w/about 120 deg flex and abd passively and improved to full range w/o pain passively after manual today. improved ability to set herself in good posture and do squatting motion. Good carryover w/log roll Physical Therapy Plan Next Visit Focus/Plan Next Note Type Treatment Note Next Visit Plan WARN pt WITH ALL TOUCH and table adjust height, latex free resume quadruped exercise for core and UE, further L shoulder and scap strengthening for ROM
--- NOTE | 2023-09-06 09:04 | PT.OTN ---
Current Diagnoses Pain in left shoulder (09/06/23) Low back pain, unspecified (09/06/23) Muscle weakness (generalized) (09/06/23) Other muscle spasm (09/06/23) Abnormal posture (09/06/23) Physical Therapy Treatment Note PT-OP-A Visit Information Start: 06/29/23 18:12 Freq: Status: Active Protocol: Document 09/06/23 08:20 SP (Rec: 09/06/23 09:07 SP [id number]) Out-Patient Physical Therapy Visit Information Visit Information Visit Type Treatment Note Visit Note 07/16 Visit Start Time 08:20 Visit Stop Time 09:04 Visit Number 14 Number of WARD NURSE Visits 1 Precautions Precautions sensitivity to latex PT-OP-B Current Condition Start: 06/29/23 18:12 Freq: Status: Active Protocol: Document 07/04/23 10:33 [facility] (Rec: 07/04/23 11:23 [facility] [id number]) Current Condition History of Current Condition Current Complaints L shoulder pain & LBP History of Current Condition Pt reports having R SLAP surgery in 2020. L shoulder is currently giving her issues like what R shoulder did. At night both arms are falling asleep. 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 She had a neck injury in 2017 resulting in C5-6 ACDF 2018. She has neck pain and vertigo afte that injury and has done PT alot. She avoids lifting as most of the time, this will inc her vertigo and neck symptoms and it takes a few days to resolve. She spasms pretty bad when gets flared up . If she uses too much UE motion, neck tightnes up and locks down and gets spasms in post and ant neck w/massive ORNELAS. She is careful to lift and keeps wt close to her and doesn't lift heavy. She is trying to get back to work as she has been on disability since neck injury. Pt has hx of 3 sections, tubal ligation, appendectomy, and hysterectomy. She still works w/[employer]. Even a light tap that is not anticipatory, that can inc symptoms of vertigo. She was injured in a too rough chiro adjustment and tried to communicate that it was worse, and further manipulation was treatment and it got worse. first 9 months had symptoms like L sided stroke but was cleared from doctor w/ potential for stroke. Xrays showed tailbone sitting in wrong direction. 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 She is planning to get back to [employer]. She is going to school for forensic psychology . She is going to graduate in [facility] ( has had accomidations). She is going to take a gap year after that and will be going into a doctoral program. 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 The only thing released it with time and breath was laying her R forearm on her head until it released. She stated compliant with HEP, getting more natural posture, TA fac seated positioning. She has been having some involuntary jaw chomps that bit her tongue then immediately released. PT-OP-F Manual Assessment Start: 06/29/23 18:12 Freq: Status: Active Protocol: Document 07/04/23 10:33 [facility] (Rec: 07/05/23 08:21 [facility] [id number]) Manual Assessments Soft Tissue Assessment Soft Tissue Mobility Assessment tender to even light touch. If pt not warned to specific area of touch, pt will jump in response PT-OP-J Posture/Palpation/Skin Start: 06/29/23 18:12 Freq: Status: Active Protocol: Document 07/04/23 10:33 [facility] (Rec: 07/04/23 11:23 [facility] [id number]) Posture Evaluation Comments Posture Comments L scap elevated, L scap winging and abd,ant tipped, cervical L SB when sitting, inc kyphosis slight, scoliosis curvature noted through spine PT-OP-K Range of Motion Start: 06/29/23 18:12 Freq: Status: Active Protocol: Document 08/17/23 15:19 LR (Rec: 08/17/23 17:28 [facility] [id number]) Shoulder Goniometric Range of Motion Shoulder Left Active Flexion 148 Extension 64 Abduction 100 External Rotation at 0 degrees Abduction 80 Internal Rotation Behind Back (text) T5 Comments pain w/flex, ext and abd; ableto now go through pure abd PT-OP-Q Treatments Start: 06/29/23 18:12 Freq: Status: Active Protocol: Document 09/06/23 08:20 SP (Rec: 09/06/23 09:07 SP [id number]) Therapeutic Exercises Supine Exercises chin tuck lift Supine Exercise Name DNF strengthening-reviewedHEP- (declined HO) Reps/Minutes 1. tucked 5 SH x5 2. tuck lift (cued forehead to wall-wall at ft) 3 x2reps Comments cued nod toward chest lift better. Other Exercises quadruped Other Exercise Name 1. dowel for CS pos /c UE ext OH 2. CS AROM 3. child's pose between Reps/Minutes 1. 2x5 reps 2. X 5 reps R & L 3 . 30 sec between 1 and 2 Comments no pain but little ear popping , states tends to have Manual Therapy Treatment Consent Patient gave verbal consent for manual Yes treatment Soft Tissue Mobilization TMJ Body Location Inral oral: R masseter, Med ptyergoid, mandible decompression Mobilization Type Myofascial Release,Rolling, Sustained Pressure Body Position Hooklying Comments manual and discussed ed self L shld Body Location L pecs, infra sp, rhomboid, Teres Major/Minor, prox mLat Mobilization Type Rolling,Strumming,Sustained Pressure Intensity/Depth Moderate Body Position Sidelying cranium & neck Body Location R UT/LS, scalenes Mobilization Type Rolling,Sustained Pressure Intensity/Depth Moderate Body Position Hooklying PT-OP-T Assessment and Plan Start: 06/29/23 18:12 Freq: Status: Active Protocol: Document 09/06/23 08:20 SP (Rec: 09/06/23 09:07 SP [id number]) Physical Therapy Assessment Goals activity Short Term Goal (STG) Pt will show good squat and hip hinge mechanics 08/16-initiated today STG Duration 08/20 Half-Way Goal (LTG) Pt will be able to work in [employer] w/o inc back/L shoulder pain greater than 2/ 10 LTG Duration 09/26 ROM Belt Operator Goal (LTG) Pt will have full L shoulder AROM w/o inc pain 08/16-some improvements w/pain LTG Duration 09/26 desk Impairment can only sit very short bouts at desk Short Term Goal (STG) Pt will adjust desk set up for better ergonomics based on PT suggestions 08/08/23: brought pic, discussed elevated desk, chin nod, elongate TS. STG Duration 08/04 progressed 08/08/23 Belt Operator Goal (LTG) Pt will be able to sit for 1 hour at desk w/o inc shoulder or back pain. 08/16-hasn't had to be at it as much; is self correcting LTG Duration 09/26 Assessment Summary Assessment FF standing 148 deg, 128 deg ABD with reports of pins and needles and loss of cirulation into that range pre activity& manual, forgot remeasure end tx. Good feedback response to manual TMJ and Scalenes states got alot relief after last tx .Improved neck DNF hold and able UE ext during quadruped Physical Therapy Plan Frequency and Duration Frequency of Treatment 2x/Week Duration of treatment (weeks) 12 Plan of Care Start Date 07/04/23 Plan of Care End Date 09/27/23 Therapeutic Interventions Therapeutic Interventions Home Exercise Program,Joint Mobilizations,Manual Therapy, Neuromuscular Re-education, Patient/Caregiver Education, Self-Care/Home Management,Soft Tissue Mobilization, Therapeutic Activities, Therapeutic Exercises Modalities Cold Pack/Ice Massage,Electric Stimulation,Hot Packs, Infrared Therapy,Ultrasound Other Referrals/Consults Referrals/Consults Recommended Has referral for Vision PT, hoping can have at or where recommend. Referral from [facility] for R eye, assist strength and headache recovery through summer before return to classes fall. Next Visit Focus/Plan Next Note Type Treatment Note Next Visit Plan WARN pt WITH ALL TOUCH and PRIOR to table adjust height due to reactional, latex free* resume quadruped exercise for core and UE, further L shoulder and scap strengthening for ROM
--- NOTE | 2023-09-13 10:33 | PT.OTN ---
Current Diagnoses Pain in left shoulder (09/13/23) Low back pain, unspecified (09/13/23) Muscle weakness (generalized) (09/13/23) Other muscle spasm (09/13/23) Abnormal posture (09/13/23) Physical Therapy Treatment Note PT-OP-A Visit Information Start: 06/29/23 18:12 Freq: Status: Active Protocol: Document 09/13/23 09:55 SP (Rec: 09/13/23 10:36 SP [id number]) Out-Patient Physical Therapy Visit Information Visit Information Visit Type Treatment Note Visit Note 08/15 Visit Start Time 09:55 Visit Stop Time 10:33 Visit Number 15 Number of LABORER [employer] Visits 2 Precautions Precautions High latex allergy PT-OP-B Current Condition Start: 06/29/23 18:12 Freq: Status: Active Protocol: Document 07/04/23 10:33 [facility] (Rec: 07/04/23 11:23 [facility] [id number]) Current Condition History of Current Condition Current Complaints L shoulder pain & LBP History of Current Condition Pt reports having R SLAP surgery in 2020. L shoulder is currently giving her issues like what R shoulder did. At night both arms are falling asleep. 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 She had a neck injury in 2017 resulting in C5-6 ACDF 2019. She has neck pain and vertigo afte that injury and has done PT alot. She avoids lifting as most of the time, this will inc her vertigo and neck symptoms and it takes a few days to resolve. She spasms pretty bad when gets flared up . If she uses too much UE motion, neck tightnes up and locks down and gets spasms in post and ant neck w/massive ORNELAS. She is careful to lift and keeps wt close to her and doesn't lift heavy. She is trying to get back to work as she has been on disability since neck injury. Pt has hx of 3 sections, tubal ligation, appendectomy, and hysterectomy. She still works w/[employer]. Even a light tap that is not anticipatory, that can inc symptoms of vertigo. She was injured in a too rough chiro adjustment and tried to communicate that it was worse, and further manipulation was treatment and it got worse. first 9 months had symptoms like L sided stroke but was cleared from doctor w/ potential for stroke. Xrays showed tailconstancee sitting in wrong direction. 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 She is planning to get back to [employer]. She is going to school for forensic psychology . She is going to graduate in [facility] ( has had accomidations). She is going to take a gap year after that and will be going into a doctoral program. 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 Hasn't recovered from it, upper thoracic tension addition today. She states R TMJ doing better, little more tension since lifting heavy groceries but overall better. PT-OP-F Manual Assessment Start: 06/29/23 18:12 Freq: Status: Active Protocol: Document 07/04/23 10:33 [facility] (Rec: 07/05/23 08:21 [facility] [id number]) Manual Assessments Soft Tissue Assessment Soft Tissue Mobility Assessment tender to even light touch. If pt not warned to specific area of touch, pt will jump in response PT-OP-J Posture/Palpation/Skin Start: 06/29/23 18:12 Freq: Status: Active Protocol: Document 07/04/23 10:33 [facility] (Rec: 07/04/23 11:23 [facility] [id number]) Posture Evaluation Comments Posture Comments L scap elevated, L scap winging and abd,ant tipped, cervical L SB when sitting, inc kyphosis slight, scoliosis curvature noted through spine PT-OP-K Range of Motion Start: 06/29/23 18:12 Freq: Status: Active Protocol: Document 08/17/23 15:19 [facility] (Rec: 08/17/23 17:28 [facility] [id number]) Shoulder Goniometric Range of Motion Shoulder Left Active Flexion 148 Extension 64 Abduction 100 External Rotation at 0 degrees Abduction 80 Internal Rotation Behind Back (text) T5 Comments pain w/flex, ext and abd; ableto now go through pure abd PT-OP-Q Treatments Start: 06/29/23 18:12 Freq: Status: Active Protocol: Document 09/13/23 09:55 SP (Rec: 09/13/23 10:36 SP [id number]) Therapeutic Exercises Sidelying Exercises shld abd Sidelying Exercise Name HEP reviewed Side left Resistance 1#DB ( not manju 2# DB trial 09/12 ) Reps/Minutes 10 (increased from 5x2 home) Comments painfree, cued humeral ER- pop free open book Side bilateral Resistance 2# DB Reps/Minutes 10 Comments cued stable no click range Standing Exercises Shld ER Standing Exercise Name reviewed HEP- (declined HO) Side bilateral Resistance TB #2 orange (latex free) Equipment Used free standing Reps/Minutes x10 Comments improved posterior chain effort, inhibited chest/ant neck Other Exercises quadruped Other Exercise Name 1. dowel for CS pos /c UE ext OH 2. CS AROM Reps/Minutes 1. x10 reps 2. X 5 reps R & L 3. 30 sec between 1 and 2 Comments reports L UE more tension raising arm but no pain Manual Therapy Treatment Soft Tissue Mobilization L shld Body Location L pecs, infra sp, rhomboid, Teres Major/Minor, prox mLat Mobilization Type Rolling,Strumming,Sustained Pressure Intensity/Depth Moderate Body Position Sidelying cranium & neck Body Location L>R UT/LS, scalenes Mobilization Type Rolling,Sustained Pressure Intensity/Depth Moderate Body Position Hooklying PT-OP-T Assessment and Plan Start: 06/29/23 18:12 Freq: Status: Active Protocol: Document 09/13/23 09:55 SP (Rec: 09/13/23 10:36 SP [id number]) Physical Therapy Assessment Goals activity Short Term Goal (STG) Pt will show good squat and hip hinge mechanics 08/16-initiated today STG Duration 08/20 Half-Way Goal (LTG) 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 STG Duration 08/04 progressed 08/08/23 Half-Way Goal (LTG) Pt will be able to sit for 1 hour at desk w/o inc shoulder or back pain. 08/16-hasn't had to be at it as much; is self correcting LTG Duration 09/26 Assessment Summary Assessment Pt reports reduction in neck tension able turn head ROM & stability and L shld decreased discomfort reaching on side over head slower pacing /c cues post manual and ther ex. She tolerated increased resistance 2 lb DB open book today, but still tiring quickly during L shld 1#DB unable progress to 2 lbs. Trialed shld ER level 2 resistance away from wall today, cued for TA draw in with neutral LS and elongated spinal alignment found a good challenge to allow support during ADLs. Future tx trial and discuss safe weight carrying weight (groceries) that doesn't cause over recruitment in neck/back and L shoulder. Pt good response to quadruped and carryover UE ext and CS rotation. Next tx ask if scheduled vision therapy to help support eye tracking and carryover functional mobility strengthening to allow success return to school and ADLs. Physical Therapy Plan Frequency and Duration Frequency of Treatment 2x/Week Duration of treatment (weeks) 12 Plan of Care Start Date 07/04/23 Plan of Care End Date 09/27/23 Therapeutic Interventions Therapeutic Interventions Home Exercise Program,Joint Mobilizations,Manual Therapy, Neuromuscular Re-education, Patient/Caregiver Education, Self-Care/Home Management,Soft Tissue Mobilization, Therapeutic Activities, Therapeutic Exercises Modalities Cold Pack/Ice Massage,Electric Stimulation,Hot Packs, Infrared Therapy,Ultrasound Other Referrals/Consults Referrals/Consults Recommended Has referral for Vision PT, hoping can have at or where recommend. Referral from [facility] for R eye, assist strength and headache recovery through summer before return to classes fall. Next Visit Focus/Plan Next Note Type Treatment Note Next Visit Plan WARN pt WITH ALL TOUCH and PRIOR to table adjust height due to reactional, HIGH Latex allergy Assess response HEP quadruped UE FF and CS rotation for core and UE, progress L shoulder and scap strengthening for ROM Future: prone side table vs Tball AROM.
--- NOTE | 2023-09-27 11:13 | PT.OTN ---
Current Diagnoses Pain in left shoulder (09/27/23) Low back pain, unspecified (09/27/23) Muscle weakness (generalized) (09/27/23) Other muscle spasm (09/27/23) Abnormal posture (09/27/23) Physical Therapy Treatment Note PT-OP-A Visit Information Start: 06/29/23 18:12 Freq: Status: Active Protocol: Document 09/27/23 09:50 SP (Rec: 09/27/23 11:13 SP [id number]) Out-Patient Physical Therapy Visit Information Visit Information Visit Type Treatment Note Visit Note 09/15 Visit Start Time 09:50 Visit Stop Time 10:40 Visit Number 16 Number of RAILROAD AUDITOR Visits 3 Precautions Precautions High latex allergy PT-OP-B Current Condition Start: 06/29/23 18:12 Freq: Status: Active Protocol: Document 07/04/23 10:33 [facility] (Rec: 07/04/23 11:23 [facility] [id number]) Current Condition History of Current Condition Current Complaints L shoulder pain & LBP History of Current Condition Pt reports having R SLAP surgery in 2020. L shoulder is currently giving her issues like what R shoulder did. At night both arms are falling asleep. 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 She had a neck injury in 2017 resulting in C5-6 ACDF 2018. She has neck pain and vertigo afte that injury and has done PT alot. She avoids lifting as most of the time, this will inc her vertigo and neck symptoms and it takes a few days to resolve. She spasms pretty bad when gets flared up . If she uses too much UE motion, neck tightnes up and locks down and gets spasms in post and ant neck w/massive ORNELAS. She is careful to lift and keeps wt close to her and doesn't lift heavy. She is trying to get back to work as she has been on disability since neck injury. Pt has hx of 3 sections, tubal ligation, appendectomy, and hysterectomy. She still works w/[employer]. Even a light tap that is not anticipatory, that can inc symptoms of vertigo. She was injured in a too rough chiro adjustment and tried to communicate that it was worse, and further manipulation was treatment and it got worse. first 9 months had symptoms like L sided stroke but was cleared from doctor w/ potential for stroke. Xrays showed chandni sitting in wrong direction. 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 She is planning to get back to [employer]. She is going to school for forensic psychology . She is going to graduate in [facility] ( has had accomidations). She is going to take a gap year after that and will be going into a doctoral program. 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 Has been needing to represent self in child court case so doing reasearchto prep and setting up work station to start school next week. Hard to reach lack strength LUE front put dishes away on shelf. 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 Pt has been able to set up Vision or Neurology with schedule and finances. PT-OP-F Manual Assessment Start: 06/29/23 18:12 Freq: Status: Active Protocol: Document 07/04/23 10:33 [facility] (Rec: 07/05/23 08:21 [facility] [id number]) Manual Assessments Soft Tissue Assessment Soft Tissue Mobility Assessment tender to even light touch. If pt not warned to specific area of touch, pt will jump in response PT-OP-J Posture/Palpation/Skin Start: 06/29/23 18:12 Freq: Status: Active Protocol: Document 07/04/23 10:33 [facility] (Rec: 07/04/23 11:23 [facility] [id number]) Posture Evaluation Comments Posture Comments L scap elevated, L scap winging and abd,ant tipped, cervical L SB when sitting, inc kyphosis slight, scoliosis curvature noted through spine PT-OP-K Range of Motion Start: 06/29/23 18:12 Freq: Status: Active Protocol: Document 09/27/23 09:50 SP (Rec: 09/27/23 11:13 SP [id number]) Shoulder Goniometric Range of Motion Shoulder Left Active Shoulder ROM WFL No Testing Position Sitting Flexion 135 Extension 68 Abduction 145 External Rotation at 0 degrees Abduction 88 Internal Rotation Behind Back (text) T4 Comments AROM L shld: FF: L shld pain starts at 45 deg, worsens into range, able tolerate 135 deg before need stop due to pain. REduction 10 deg tolerance since 08/16. ABD: pain starts 40deg, tolerated 145 deg gain of 17 deg before has to stop pain limitation. Ext: improvement by 3 deg with less pain, 68 deg. ER 1 eg abd: 88 deg ,gain 8 deg no pain. IR behind back: T4 gain 1 vertebra elevation but has pain anterior L shld PT-OP-Q Treatments Start: 06/29/23 18:12 Freq: Status: Active Protocol: Document 09/27/23 09:50 SP (Rec: 09/27/23 11:13 SP [id number]) Therapeutic Exercises Supine Exercises over noodle Supine Exercise Name FF, HABD T, diagonal 1/2 X- added to HEP Side bilateral Resistance TB #1 peach latex free Howard together Equipment Used spine along noodle, tongue roof mouth disengage suprahyoid/masseter recruit Reps/Minutes x10 each Comments good muscle fac and manju almost full range less pain Therapeutic Activity Therapeutic Activity body mechanics Name crate demo and return demo Reps/Minutes 20 min Comments split stance squat hip hinge in TIMUR to lift tray glasses off shelf and straight back to stand. Wt shift between BLEs hip hinge Name crate on floor Reps/Minutes x5 rep review Comments back straight hip hinge forward seated fish bait picker basket close to body then modified squat come to stand use glut straight back reverse to set on floor and sit back into chair eccentric control Manual Therapy Treatment Soft Tissue Mobilization TMJ Body Location External suprahyoid ( submandible) Mobilization Type Rolling Body Position Hooklying Comments manual and discussed ed self cranium & neck Body Location R>L UT/LS, scalenes, SOR Mobilization Type Rolling,Sustained Pressure Intensity/Depth Moderate Body Position Hooklying Comments manual STMs and MWM head nods turns with ed how self use SOR device ordered for relief posterior neck home. PT-OP-T Assessment and Plan Start: 06/29/23 18:12 Freq: Status: Active Protocol: Document 09/27/23 09:50 SP (Rec: 09/27/23 11:13 SP [id number]) Physical Therapy Assessment Goals activity Short Term Goal (STG) Pt will show good squat and hip hinge mechanics 08/16-initiated today 09/27/23: STG Duration 08/20 Senior Living Goal (LTG) Pt will be able to work in [employer] w/o inc back/L shoulder pain greater than 2/ 10 09/27/23: very light duty gardening 2 hrs/wk- doing mowing, trim work and debris raking and leaf blower but is lighting up neck and shoulder. Base level pain waking up and during 05/16 and increases to 6-8/10 latent response and takes 2 days to recover. Having to take NSAIDS and Migraine meds to support recovery. LTG Duration 09/26 slow progression 09/27/23 ROM J2Ee Engineer Goal (LTG) Pt will have full L shoulder AROM w/o inc pain 08/16-some improvements w/pain 09/27/23: See measurement and limitation due to pain but gains ROM. LTG Duration 09/26 Limited to pain. 09/27/23 desk Impairment can only sit very short bouts at desk Short Term Goal (STG) Pt will adjust desk set up for better ergonomics based on PT suggestions 08/08/23: brought pic, discussed elevated desk, chin nod, elongate TS. 09/26/23: GOAL MET:Is confident in positioning, need add more cushion sitting pad. Has high now desk can use sit and stand. STG Duration 08/04 GOAL MET 09/27/23 J2Ee Engineer Goal (LTG) Pt will be able to sit for 1 hour at desk w/o inc shoulder or back pain. 08/16-hasn't had to be at it as much; is self correcting 09/27/23: Has cognitive fatigues with pain level. Able to focus better 15 min longer than than previous 10 min (20 -30 min total now) before need change position. Still having pain in L shld and back . Trying to utillze audible composition to decrease needto type and help posturing support. LTG Duration 09/26 slow progression 09/27/23 Progress Towards Goals Progress Towards Goals Slow Progress due to Activity Tolerance Progress Comments AROM L shld: FF: L shld pain starts at 45 deg, worsens into range, able tolerate 135 deg before need stop due to pain. REduction 10 deg tolerance since 08/16. ABD: pain starts 40deg, tolerated 145 deg gain of 17 deg before has to stop pain limitation. Ext: improvement by 3 deg with less pain, 68 deg. ER 1 eg abd: 88 deg ,gain 8 deg no pain. IR behind back: T4 gain 1 vertebra elevation but has pain anterior L shld Assessment Summary Assessment Pt reports continues to have pain in L shld reaching >40 deg FF and ABD that can recruit neck and jaw and can turn into head tension and migraines. She noted able sit 20-30 min before her pain sets in and has to adjust positioning. 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 Pt improved demonstration return split stance during time spent for pullout trays low and using legs to lift to counter height needed. She is aware can also ask someone at work to help if needed due UE weakness and tendency to recruit neck and jaw then causing migraines later in day that takes couple days to recover from. Pt responded well to resisted supine over noodle shld ex FF, HABD and scaption 1/2 X less L shld pain and almost full ROM. Pt would benefit from continued therapy to progress strength to allow return to ADLs with less pain and reach out in front and over head to put dishes away. Physical Therapy Plan Frequency and Duration Frequency of Treatment 2x/Week Duration of treatment (weeks) 12 Plan of Care Start Date 07/04/23 Plan of Care End Date 09/27/23 Therapeutic Interventions Therapeutic Interventions Home Exercise Program,Joint Mobilizations,Manual Therapy, Neuromuscular Re-education, Patient/Caregiver Education, Self-Care/Home Management,Soft Tissue Mobilization, Therapeutic Activities, Therapeutic Exercises Modalities Cold Pack/Ice Massage,Electric Stimulation,Hot Packs, Infrared Therapy,Ultrasound Other Referrals/Consults Referrals/Consults Recommended Has referral for Vision PT, hoping can have at or where recommend. Referral from [facility] for R eye, assist strength and headache recovery through summer before return to classes fall. Pt also has a referral to Neurology hasn't been able to fit into her schedule. Next Visit Focus/Plan Next Note Type PRogress Note Next Visit Plan PT to complete update POC before next RAILROAD AUDITOR appt. WARN pt WITH ALL TOUCH and PRIOR to table adjust height due to reactional, HIGH Latex allergy Assess response HEP quadruped UE FF and CS rotation for core and UE, progress L shoulder and scap strengthening for ROM Future: prone side table vs Tball AROM.
--- NOTE | 2023-10-04 18:20 | PT.OTN ---
Current Diagnoses Pain in left shoulder (10/04/23) Low back pain, unspecified (10/04/23) Muscle weakness (generalized) (10/04/23) Other muscle spasm (10/04/23) Abnormal posture (10/04/23) Physical Therapy Treatment Note PT-OP-A Visit Information Start: 06/29/23 18:12 Freq: Status: Active Protocol: Document 10/04/23 09:02 [facility] (Rec: 10/04/23 18:20 [facility] [id number]) Out-Patient Physical Therapy Visit Information Visit Information Visit Type Progress Note Visit Note 02/15 Visit Start Time 09:07 Visit Stop Time 09:46 Visit Number 17 Number of KARATE BLACK BELT Visits 0 PT-OP-B Current Condition Start: 06/29/23 18:12 Freq: Status: Active Protocol: Document 07/04/23 10:33 [facility] (Rec: 07/04/23 11:23 [facility] [id number]) Current Condition History of Current Condition Current Complaints L shoulder pain & LBP History of Current Condition Pt reports having R SLAP surgery in 2020. L shoulder is currently giving her issues like what R shoulder did. At night both arms are falling asleep. 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 She had a neck injury in 2017 resulting in C5-6 ACDF 2018. She has neck pain and vertigo afte that injury and has done PT alot. She avoids lifting as most of the time, this will inc her vertigo and neck symptoms and it takes a few days to resolve. She spasms pretty bad when gets flared up . If she uses too much UE motion, neck tightnes up and locks down and gets spasms in post and ant neck w/massive ORNELAS. She is careful to lift and keeps wt close to her and doesn't lift heavy. She is trying to get back to work as she has been on disability since neck injury. Pt has hx of 3 sections, tubal ligation, appendectomy, and hysterectomy. She still works w/[employer]. Even a light tap that is not anticipatory, that can inc symptoms of vertigo. She was injured in a too rough chiro adjustment and tried to communicate that it was worse, and further manipulation was treatment and it got worse. first 9 months had symptoms like L sided stroke but was cleared from doctor w/ potential for stroke. Xrays showed chandni sitting in wrong direction. 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 She is planning to get back to [employer]. She is going to school for forensic psychology . She is going to graduate in [facility] ( has had accomidations). She is going to take a gap year after that and will be going into a doctoral program. 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 Also thinks may have lifted something too heavy. PT-OP-F Manual Assessment Start: 06/29/23 18:12 Freq: Status: Active Protocol: Document 07/04/23 10:33 [facility] (Rec: 07/05/23 08:21 [facility] [id number]) Manual Assessments Soft Tissue Assessment Soft Tissue Mobility Assessment tender to even light touch. If pt not warned to specific area of touch, pt will jump in response PT-OP-J Posture/Palpation/Skin Start: 06/29/23 18:12 Freq: Status: Active Protocol: Document 07/04/23 10:33 [facility] (Rec: 07/04/23 11:23 [facility] [id number]) Posture Evaluation Comments Posture Comments L scap elevated, L scap winging and abd,ant tipped, cervical L SB when sitting, inc kyphosis slight, scoliosis curvature noted through spine PT-OP-K Range of Motion Start: 06/29/23 18:12 Freq: Status: Active Protocol: Document 09/27/23 09:50 SP (Rec: 09/27/23 11:13 SP [id number]) Shoulder Goniometric Range of Motion Shoulder Left Active Shoulder ROM WFL No Testing Position Sitting Flexion 135 Extension 68 Abduction 145 External Rotation at 0 degrees Abduction 88 Internal Rotation Behind Back (text) T4 Comments AROM L shld: FF: L shld pain starts at 45 deg, worsens into range, able tolerate 135 deg before need stop due to pain. REduction 10 deg tolerance since 08/16. ABD: pain starts 40deg, tolerated 145 deg gain of 17 deg before has to stop pain limitation. Ext: improvement by 3 deg with less pain, 68 deg. ER 1 eg abd: 88 deg ,gain 8 deg no pain. IR behind back: T4 gain 1 vertebra elevation but has pain anterior L shld PT-OP-M Strength Start: 06/29/23 18:12 Freq: Status: Active Protocol: Document 10/04/23 09:02 [facility] (Rec: 10/04/23 18:20 [facility] [id number]) Shoulder Strength Shoulder Manual Muscle Testing Right Flexion 4 Good Extension 4 Good Abduction (C5) 4 Good External Rotation 4 Good Internal Rotation 4 Good Left Flexion 3+ Fair+ Extension 4 Good Abduction (C5) 3+ Fair+ External Rotation 4- Good- Internal Rotation 4- Good- PT-OP-Q Treatments Start: 06/29/23 18:12 Freq: Status: Active Protocol: Document 10/04/23 09:02 [facility] (Rec: 10/04/23 18:20 [facility] [id number]) Therapeutic Exercises Sitting Exercises chin tuck Reps/Minutes 5sec x5 Comments cues for head and shoulder position isometrics Sitting Exercise Name 1. cervical rot, 2.SB 3. ext Side bilateral Reps/Minutes 5x5sec Other Exercises isometrics Other Exercise Name BUE MMT Therapeutic Activity Therapeutic Activity posture Comments 8 min: working on neck, shoulder, and arm position for computer Manual Therapy Treatment Consent Patient gave verbal consent for manual Yes treatment Soft Tissue Mobilization scap Body Location L rhomboids, lats, tspine paraspinals Mobilization Type Rolling,Sustained Pressure Intensity/Depth Moderate Body Position Sitting Joint Mobilizations ribs Comments external torsion rib 8 and 9 FM L thoracic Comments UPA L T4-6 PT-OP-T Assessment and Plan Start: 06/29/23 18:12 Freq: Status: Active Protocol: Document 10/04/23 09:02 [facility] (Rec: 10/04/23 18:20 [facility] [id number]) Physical Therapy Assessment Goals activity Short Term Goal (STG) Pt will show good squat and hip hinge mechanics 08/16-initiated today 10/04/23: good hip hinge w/cues for neck only; squat cues needed STG Duration 11/06 Real Estate Legal Assistant Goal (LTG) Pt will be able to work in [employer] w/o inc back/L shoulder pain greater than 2/ 10 09/27/23: very light duty gardening 2 hrs/wk- doing mowing, trim work and debris raking and leaf blower but is lighting up neck and shoulder. Base level pain waking up and during /10 and increases to 6-8/10 latent response and takes 2 days to recover. Having to take NSAIDS and Migraine meds to support recovery. slow progression LTG Duration 12/26 ROM Mcfp Goal (LTG) Pt will have full L shoulder AROM w/o inc pain 08/16-some improvements w/pain 09/27/23: See measurement and limitation due to pain but gains ROM. LTG Duration 12/26 desk Impairment can only sit very short bouts at desk Short Term Goal (STG) Pt will adjust desk set up for better ergonomics based on PT suggestions 08/08/23: brought pic, discussed elevated desk, chin nod, elongate TS. 09/26/23: GOAL MET:Is confident in positioning, need add more cushion sitting pad. Has high now desk can use sit and stand. STG Duration GOAL MET 09/27/23 Real Estate Legal Assistant Goal (LTG) Pt will be able to sit for 1 hour at desk w/o inc shoulder or back pain. 08/16-hasn't had to be at it as much; is self correcting 09/27/23: Has cognitive fatigues with pain level. Able to focus better 15 min longer than than previous 10 min (20 -30 min total now) before need change position. Still having pain in L shld and back . Trying to utillze audible composition to decrease needto type and help posturing support. LTG Duration 12/26 Assessment Summary Assessment Pt is making slow progress w/ PT likely d/t complication of prior neck injury w/ signifiacnt pain and instability and vestibular issues. COnt PT to focus on L shoulder and neck stability to improve time at desk and w/ functional activiteis for work , adls and school Physical Therapy Plan Frequency and Duration Frequency of Treatment 1-2x/Week Duration of treatment (weeks) 12 Plan of Care Start Date 10/04/23 Plan of Care End Date 12/27/23 Therapeutic Interventions Therapeutic Interventions Home Exercise Program,Joint Mobilizations,Manual Therapy, Neuromuscular Re-education, Patient/Caregiver Education, Self-Care/Home Management,Soft Tissue Mobilization, Therapeutic Activities, Therapeutic Exercises Modalities Cold Pack/Ice Massage,Electric Stimulation,Hot Packs, Infrared Therapy,Ultrasound Next Visit Focus/Plan Next Note Type Treatment Note Next Visit Plan WARN pt WITH ALL TOUCH and PRIOR to table adjust height due to reactional, HIGH Latex allergy cont to advance scap strength/ stability
--- NOTE | 2023-10-04 18:20 | PT.OPPOC ---
Physical, Occupational & Speech Therapy At [facility] Current Diagnoses Pain in left shoulder (10/04/23) Low back pain, unspecified (10/04/23) Muscle weakness (generalized) (10/04/23) Other muscle spasm (10/04/23) Abnormal posture (10/04/23) Visit Care Team Role Provider Type Salbador Han DO Attending Provider Physician Family Provider Primary Care Provider Referring Provider Specialty: Family Practice Address: [address] [place] [address], [id number] Email: Plan Of Care PT-OP-B Current Condition Start: 06/29/23 18:12 Freq: Status: Active Protocol: Document 07/04/23 10:33 [facility] (Rec: 07/04/23 11:23 [facility] [id number]) Current Condition History of Current Condition Current Complaints L shoulder pain & LBP History of Current Condition Pt reports having R SLAP surgery in 2020. L shoulder is currently giving her issues like what R shoulder did. At night both arms are falling asleep. 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 She had a neck injury in 2017 resulting in C5-6 ACDF 2019. She has neck pain and vertigo afte that injury and has done PT alot. She avoids lifting as most of the time, this will inc her vertigo and neck symptoms and it takes a few days to resolve. She spasms pretty bad when gets flared up . If she uses too much UE motion, neck tightnes up and locks down and gets spasms in post and ant neck w/massive ORNELAS. She is careful to lift and keeps wt close to her and doesn't lift heavy. She is trying to get back to work as she has been on disability since neck injury. Pt has hx of 3 sections, tubal ligation, appendectomy, and hysterectomy. She still works w/[employer]. Even a light tap that is not anticipatory, that can inc symptoms of vertigo. She was injured in a too rough chiro adjustment and tried to communicate that it was worse, and further manipulation was treatment and it got worse. first 9 months had symptoms like L sided stroke but was cleared from doctor w/ potential for stroke. Xrays showed chandni sitting in wrong direction. 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 She is planning to get back to [employer] She is going to school for forensic psychology . She is going to graduate in [facility] [facility] ( has had accomidations). She is going to take a gap year after that and will be going into a doctoral program. 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 (Rec: 10/04/23 18:20 [facility] [id number]) Physical Therapy Assessment Goals activity Short Term Goal (STG) Pt will show good squat and hip hinge mechanics 08/16-initiated today 10/04/23: good hip hinge w/cues for neck only; squat cues needed STG Duration 11/06 [facility] Goal (LTG) Pt will be able to work in [employer] w/o inc back/L shoulder pain greater than 2/ 10 09/27/23: very light duty gardening 2 hrs/wk- doing mowing, trim work and debris raking and leaf blower but is lighting up neck and shoulder. Base level pain waking up and during 4/10 and increases to 6-8/10 latent response and takes 2 days to recover. Having to take NSAIDS and Migraine meds to support recovery. slow progression LTG Duration 12/26 ROM [facility] Goal (LTG) Pt will have full L shoulder AROM w/o inc pain 08/16-some improvements w/pain 09/27/23: See measurement and limitation due to pain but gains ROM. LTG Duration 12/26 desk Impairment can only sit very short bouts at desk Short Term Goal (STG) Pt will adjust desk set up for better ergonomics based on PT suggestions 08/08/23: brought pic, discussed elevated desk, chin nod, elongate TS. 09/26/23: GOAL MET:Is confident in positioning, need add more cushion sitting pad. Has high now desk can use sit and stand. STG Duration GOAL MET 09/27/23 [facility] Goal (LTG) Pt will be able to sit for 1 hour at desk w/o inc shoulder or back pain. 08/16-hasn't had to be at it as much; is self correcting 09/27/23: Has cognitive fatigues with pain level. Able to focus better 15 min longer than than previous 10 min (20 -30 min total now) before need change position. Still having pain in L shld and back . Trying to utillze audible composition to decrease needto type and help posturing support. LTG Duration 12/26 Assessment Summary Assessment Pt is making slow progress w/ PT likely d/t complication of prior neck injury w/ signifiacnt pain and instability and vestibular issues. COnt PT to focus on L shoulder and neck stability to improve time at desk and w/ functional activiteis for work , adls and school Physical Therapy Plan Frequency and Duration Frequency of Treatment 1-2x/Week Duration of treatment (weeks) 12 Plan of Care Start Date 10/04/23 Plan of Care End Date 12/27/23 Therapeutic Interventions Therapeutic Interventions Home Exercise Program,Joint Mobilizations,Manual Therapy, Neuromuscular Re-education, Patient/Caregiver Education, Self-Care/Home Management,Soft Tissue Mobilization, Therapeutic Activities, Therapeutic Exercises Modalities Cold Pack/Ice Massage,Electric Stimulation,Hot Packs, Infrared Therapy,Ultrasound Next Visit Focus/Plan Next Note Type Treatment Note Next Visit Plan WARN pt WITH ALL TOUCH and PRIOR to table adjust height due to reactional, HIGH Latex allergy cont to advance scap strength/ stability Plan of Care Dates Plan of Care Start Date 10/04/23 Plan of Care End Date 12/27/23 Electronically Signed by: Yasmine Santos, PT 10/04/23 0187 If you are in agreement with this Plan of Care, please return a signed and dated copy. I have reviewed this Plan of Care and certify that the skilled therapy services above are required to meet the patient?s needs. Physician Signature Date Printed Name and Credentials Clinical Instructor Signature Printed Name and Credentials
--- NOTE | 2023-10-11 17:52 | PT.OTN ---
Current Diagnoses Pain in left shoulder (10/11/23) Low back pain, unspecified (10/11/23) Muscle weakness (generalized) (10/11/23) Other muscle spasm (10/11/23) Abnormal posture (10/11/23) Physical Therapy Treatment Note PT-OP-A Visit Information Start: 06/29/23 18:12 Freq: Status: Active Protocol: Document 10/11/23 09:48 [facility] (Rec: 10/11/23 17:52 [facility] [id number]) Out-Patient Physical Therapy Visit Information Visit Information Visit Type Treatment Note Visit Note 03/18 Visit Start Time 10:36 Visit Stop Time 11:15 Visit Number 18 Number of CUSTOMS COLLECTOR Visits 0 PT-OP-B Current Condition Start: 06/29/23 18:12 Freq: Status: Active Protocol: Document 07/04/23 10:33 [facility] (Rec: 07/04/23 11:23 [facility] [id number]) Current Condition History of Current Condition Current Complaints L shoulder pain & LBP History of Current Condition Pt reports having R SLAP surgery in 2020. L shoulder is currently giving her issues like what R shoulder did. At night both arms are falling asleep. 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 She had a neck injury in 2017 resulting in C5-6 ACDF 2018. She has neck pain and vertigo afte that injury and has done PT alot. She avoids lifting as most of the time, this will inc her vertigo and neck symptoms and it takes a few days to resolve. She spasms pretty bad when gets flared up . If she uses too much UE motion, neck tightnes up and locks down and gets spasms in post and ant neck w/massive ORNELAS. She is careful to lift and keeps wt close to her and doesn't lift heavy. She is trying to get back to work as she has been on disability since neck injury. Pt has hx of 3 sections, tubal ligation, appendectomy, and hysterectomy. She still works w/[employer]. Even a light tap that is not anticipatory, that can inc symptoms of vertigo. She was injured in a too rough chiro adjustment and tried to communicate that it was worse, and further manipulation was treatment and it got worse. first 9 months had symptoms like L sided stroke but was cleared from doctor w/ potential for stroke. Xrays showed chandni sitting in wrong direction. 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 She is planning to get back to [employer]. She is going to school for forensic psychology . She is going to graduate in [facility] ( has had accomidations). She is going to take a gap year after that and will be going into a doctoral program. 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 (Rec: 10/11/23 17:52 [facility] [id number]) OP-PT Subjective Patient Comments Patient Comments Pt reports has had more trouble doing much self care d /t her school and hgetting her kid ready for school today. She feels like getting head in neutral is helping. PT-OP-F Manual Assessment Start: 06/29/23 18:12 Freq: Status: Active Protocol: Document 07/04/23 10:33 [facility] (Rec: 07/05/23 08:21 [facility] [id number]) Manual Assessments Soft Tissue Assessment Soft Tissue Mobility Assessment tender to even light touch. If pt not warned to specific area of touch, pt will jump in response PT-OP-J Posture/Palpation/Skin Start: 06/29/23 18:12 Freq: Status: Active Protocol: Document 07/04/23 10:33 [facility] (Rec: 07/04/23 11:23 [facility] [id number]) Posture Evaluation Comments Posture Comments L scap elevated, L scap winging and abd,ant tipped, cervical L SB when sitting, inc kyphosis slight, scoliosis curvature noted through spine PT-OP-K Range of Motion Start: 06/29/23 18:12 Freq: Status: Active Protocol: Document 09/27/23 09:50 [facility] (Rec: 09/27/23 11:13 [facility] [id number]) Shoulder Goniometric Range of Motion Shoulder Left Active Shoulder ROM WFL No Testing Position Sitting Flexion 135 Extension 68 Abduction 145 External Rotation at 0 degrees Abduction 88 Internal Rotation Behind Back (text) T4 Comments AROM L shld: FF: L shld pain starts at 45 deg, worsens into range, able tolerate 135 deg before need stop due to pain. REduction 10 deg tolerance since 08/16. ABD: pain starts 40deg, tolerated 145 deg gain of 17 deg before has to stop pain limitation. Ext: improvement by 3 deg with less pain, 68 deg. ER 1 eg abd: 88 deg ,gain 8 deg no pain. IR behind back: T4 gain 1 vertebra elevation but has pain anterior L shld PT-OP-M Strength Start: 06/29/23 18:12 Freq: Status: Active Protocol: Document 10/04/23 09:02 [facility] (Rec: 10/04/23 18:20 [facility] [id number]) Shoulder Strength Shoulder Manual Muscle Testing Right Flexion 4 Good Extension 4 Good Abduction (C5) 4 Good External Rotation 4 Good Internal Rotation 4 Good Left Flexion 3+ Fair+ Extension 4 Good Abduction (C5) 3+ Fair+ External Rotation 4- Good- Internal Rotation 4- Good- PT-OP-Q Treatments Start: 06/29/23 18:12 Freq: Status: Active Protocol: Document 10/11/23 09:48 [facility] (Rec: 10/11/23 17:52 [facility] [id number]) Therapeutic Exercises Sitting Exercises chin tuck Reps/Minutes 5sec x5 Comments cues for head and shoulder position isometrics Sitting Exercise Name 1. cervical rot, 2.SB 3. ext 4 . flex Side bilateral Reps/Minutes 5x5sec except rot 3 reps only x5 sec Manual Therapy Treatment Consent Patient gave verbal consent for manual Yes treatment Soft Tissue Mobilization L shld Body Location L delt, bicep, pec Mobilization Type Rolling,Strumming,Sustained Pressure Body Position Supine cranium & neck Body Location L>R UT/LS, scalenes, SOR Mobilization Type Rolling,Sustained Pressure Intensity/Depth Moderate Body Position Hooklying Comments . Joint Mobilizations AC Joint bilateral Grade II Body Position Sidelying Comments L ant clavicle FM L GH Jt Comments L inf, distraction & post FM PT-OP-T Assessment and Plan Start: 06/29/23 18:12 Freq: Status: Active Protocol: Document 10/11/23 09:48 [facility] (Rec: 10/11/23 17:52 [facility] [id number]) Physical Therapy Assessment Goals activity Short Term Goal (STG) Pt will show good squat and hip hinge mechanics 08/16-initiated today 10/04/23: good hip hinge w/cues for neck only; squat cues needed STG Duration 11/06 [facility] Goal (LTG) Pt will be able to work in [employer]ing w/o inc back/L shoulder pain greater than 2/ 10 09/27/23: very light duty gardening 2 hrs/wk- doing mowing, trim work and debris raking and leaf blower but is lighting up neck and shoulder. Base level pain waking up and during 05/16 and increases to 6-/ latent response and takes 2 days to recover. Having to take NSAIDS and Migraine meds to support recovery. slow progression LTG Duration 12/26 ROM [facility] Goal (LTG) Pt will have full L shoulder AROM w/o inc pain 08/16-some improvements w/pain 09/27/23: See measurement and limitation due to pain but gains ROM. LTG Duration 12/26 desk Impairment can only sit very short bouts at desk Short Term Goal (STG) Pt will adjust desk set up for better ergonomics based on PT suggestions 08/08/23: brought pic, discussed elevated desk, chin nod, elongate TS. 09/26/23: GOAL MET:Is confident in positioning, need add more cushion sitting pad. Has high now desk can use sit and stand. STG Duration GOAL MET 09/27/23 [facility] Goal (LTG) Pt will be able to sit for 1 hour at desk w/o inc shoulder or back pain. 08/16-hasn't had to be at it as much; is self correcting 09/27/23: Has cognitive fatigues with pain level. Able to focus better 15 min longer than than previous 10 min (20 -30 min total now) before need change position. Still having pain in L shld and back . Trying to utillze audible composition to decrease needto type and help posturing support. LTG Duration 12/26 Assessment Summary Assessment pt had improved performance w/ isometrics w/improved neutral position awareness. She had improved shoulder abd passively after manual Physical Therapy Plan Frequency and Duration Frequency of Treatment 1-2x/Week Duration of treatment (weeks) 12 Plan of Care Start Date 10/04/23 Plan of Care End Date 12/27/23 Next Visit Focus/Plan Next Note Type Treatment Note Next Visit Plan WARN pt WITH ALL TOUCH and PRIOR to table adjust height due to reactional, HIGH Latex allergy cont to advance scap strength/ stability
--- NOTE | 2023-11-07 16:18 | PT.OTN ---
Current Diagnoses Pain in left shoulder (11/07/23) Low back pain, unspecified (11/07/23) Muscle weakness (generalized) (11/07/23) Other muscle spasm (11/07/23) Abnormal posture (11/07/23) Physical Therapy Treatment Note PT-OP-A Visit Information Start: 06/29/23 18:12 Freq: Status: Active Protocol: Document 11/07/23 15:19 (Rec: 11/07/23 16:17 [id number]) Out-Patient Physical Therapy Visit Information Visit Information Visit Type Treatment Note Visit Note 04/15 Visit Start Time 15:16 Visit Stop Time 15:56 Visit Number 20 Number of DIRECTOR OF PEOPLE Visits 2 Precautions Precautions High latex allergy PT-OP-B Current Condition Start: 06/29/23 18:12 Freq: Status: Active Protocol: Document 07/04/23 10:33 [facility] (Rec: 07/04/23 11:23 [facility] [id number]) Current Condition History of Current Condition Current Complaints L shoulder pain & LBP History of Current Condition Pt reports having R SLAP surgery in 2020. L shoulder is currently giving her issues like what R shoulder did. At night both arms are falling asleep. 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 She had a neck injury in 2017 resulting in C5-6 ACDF 2018. She has neck pain and vertigo afte that injury and has done PT alot. She avoids lifting as most of the time, this will inc her vertigo and neck symptoms and it takes a few days to resolve. She spasms pretty bad when gets flared up . If she uses too much UE motion, neck tightnes up and locks down and gets spasms in post and ant neck w/massive ORNELAS. She is careful to lift and keeps wt close to her and doesn't lift heavy. She is trying to get back to work as she has been on disability since neck injury. Pt has hx of 3 sections, tubal ligation, appendectomy, and hysterectomy. She still works w/[employer]. Even a light tap that is not anticipatory, that can inc symptoms of vertigo. She was injured in a too rough chiro adjustment and tried to communicate that it was worse, and further manipulation was treatment and it got worse. first 9 months had symptoms like L sided stroke but was cleared from doctor w/ potential for stroke. Xrays showed chandni sitting in wrong direction. 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 She is planning to get back to [employer]. She is going to school for forensic psychology . She is going to graduate in [facility] ( has had accomidations). She is going to take a gap year after that and will be going into a doctoral program. 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 Palm and fingers feeling tingling, pins and needles, deep achy pain, wrist to palm in the last couple days, not sure if it is from more typing and writing in the last week, elbow to wrist. Pt reports did not do strengthening exercises, recovering from being sick. PT-OP-F Manual Assessment Start: 06/29/23 18:12 Freq: Status: Active Protocol: Document 07/04/23 10:33 [facility] (Rec: 07/05/23 08:21 [facility] [id number]) Manual Assessments Soft Tissue Assessment Soft Tissue Mobility Assessment tender to even light touch. If pt not warned to specific area of touch, pt will jump in response PT-OP-J Posture/Palpation/Skin Start: 06/29/23 18:12 Freq: Status: Active Protocol: Document 07/04/23 10:33 [facility] (Rec: 07/04/23 11:23 [facility] [id number]) Posture Evaluation Comments Posture Comments L scap elevated, L scap winging and abd,ant tipped, cervical L SB when sitting, inc kyphosis slight, scoliosis curvature noted through spine PT-OP-K Range of Motion Start: 06/29/23 18:12 Freq: Status: Active Protocol: Document 09/27/23 09:50 SP (Rec: 09/27/23 11:13 SP [id number]) Shoulder Goniometric Range of Motion Shoulder Left Active Shoulder ROM WFL No Testing Position Sitting Flexion 135 Extension 68 Abduction 145 External Rotation at 0 degrees Abduction 88 Internal Rotation Behind Back (text) T4 Comments AROM L shld: FF: L shld pain starts at 45 deg, worsens into range, able tolerate 135 deg before need stop due to pain. REduction 10 deg tolerance since 08/16. ABD: pain starts 40deg, tolerated 145 deg gain of 17 deg before has to stop pain limitation. Ext: improvement by 3 deg with less pain, 68 deg. ER 1 eg abd: 88 deg ,gain 8 deg no pain. IR behind back: T4 gain 1 vertebra elevation but has pain anterior L shld PT-OP-M Strength Start: 06/29/23 18:12 Freq: Status: Active Protocol: Document 10/04/23 09:02 [facility] (Rec: 10/04/23 18:20 [facility] [id number]) Shoulder Strength Shoulder Manual Muscle Testing Right Flexion 4 Good Extension 4 Good Abduction (C5) 4 Good External Rotation 4 Good Internal Rotation 4 Good Left Flexion 3+ Fair+ Extension 4 Good Abduction (C5) 3+ Fair+ External Rotation 4- Good- Internal Rotation 4- Good- PT-OP-Q Treatments Start: 06/29/23 18:12 Freq: Status: Active Protocol: Document 11/07/23 15:19 (Rec: 11/07/23 16:17 [id number]) Therapeutic Exercises Supine Exercises chin tuck lift Supine Exercise Name DNF strengthening-reviewedHEP- (declined HO) Reps/Minutes 1. tucked 5 SH x5 2. tuck lift (cued forehead to wall-wall at ft) 3 x2reps Comments cued nod toward chest lift better. Sitting Exercises chin tuck Reps/Minutes 5sec x5 Comments cues for head and shoulder position isometrics Sitting Exercise Name 1. cervical rot, 2.SB 3. ext 4 . flex Side bilateral Reps/Minutes 5x5sec except rot 3 reps only x5 sec Breathing from diaphragm Sitting Exercise Name Reviewed Comments cues during session Standing Exercises shld rows & ext Standing Exercise Name rows, ext Side bilateral Resistance Latex free TB #2 orange rows Reps/Minutes 2x10 each Comments verbal/tactile feedback Manual Therapy Treatment Consent Patient gave verbal consent for manual Yes treatment Soft Tissue Mobilization scap Body Location L rhomboids, lats, tspine paraspinals Mobilization Type Rolling,Sustained Pressure Intensity/Depth Moderate Body Position Sitting L shld Body Location L delt, bicep, pec Mobilization Type Rolling,Strumming,Sustained Pressure Body Position Supine cranium & neck Body Location L>R UT/LS, scalenes, SOR Mobilization Type Rolling,Sustained Pressure Intensity/Depth Moderate Body Position Hooklying Comments good response to SOR Joint Mobilizations L GH Jt Comments L inf, distraction & post FM PT-OP-T Assessment and Plan Start: 06/29/23 18:12 Freq: Status: Active Protocol: Document 11/07/23 15:19 (Rec: 11/07/23 16:17 [id number]) Physical Therapy Assessment Goals activity Short Term Goal (STG) Pt will show good squat and hip hinge mechanics 08/16-initiated today 10/04/23: good hip hinge w/cues for neck only; squat cues needed STG Duration 11/06 Halfway Goal (LTG) Pt will be able to work in [employer] w/o inc back/L shoulder pain greater than 2/ 10 09/27/23: very light duty gardening 2 hrs/wk- doing mowing, trim work and debris raking and leaf blower but is lighting up neck and shoulder. Base level pain waking up and during 05/16 and increases to 6-8/10 latent response and takes 2 days to recover. Having to take NSAIDS and Migraine meds to support recovery. slow progression LTG Duration 12/26 ROM [place] Goal (LTG) Pt will have full L shoulder AROM w/o inc pain 08/16-some improvements w/pain 09/27/23: See measurement and limitation due to pain but gains ROM. LTG Duration 12/26 desk Impairment can only sit very short bouts at desk Short Term Goal (STG) Pt will adjust desk set up for better ergonomics based on PT suggestions 08/08/23: brought pic, discussed elevated desk, chin nod, elongate TS. 09/26/23: GOAL MET:Is confident in positioning, need add more cushion sitting pad. Has high now desk can use sit and stand. STG Duration GOAL MET 09/27/23 [place] Goal (LTG) Pt will be able to sit for 1 hour at desk w/o inc shoulder or back pain. 08/16-hasn't had to be at it as much; is self correcting 09/27/23: Has cognitive fatigues with pain level. Able to focus better 15 min longer than than previous 10 min (20 -30 min total now) before need change position. Still having pain in L shld and back . Trying to utillze audible composition to decrease needto type and help posturing support. LTG Duration 12/26 Assessment Summary Assessment Treatment focus on STM this session to decrease tension in tissue and pt comfort, palpated multiple trigger points, palpable decreased tension post, though pt still has multiple trigger points along cervical musculature. Reviewed HEP exercises, pt had limited carryover of exercises recently due to being sick. Verbal cues throughout session for breath work, pt has tendency to hold breath during exercises, increasing tension in cervical spine tissues.Reviewed isometrics, pt had good carryover and awareness to neutral, minimal cueing for alignment with cervical ext isometrics. Physical Therapy Plan Frequency and Duration Frequency of Treatment 1-2x/Week Duration of treatment (weeks) 12 Plan of Care Start Date 10/04/23 Plan of Care End Date 12/27/23 Therapeutic Interventions Therapeutic Interventions Home Exercise Program,Joint Mobilizations,Manual Therapy, Neuromuscular Re-education, Patient/Caregiver Education, Self-Care/Home Management,Soft Tissue Mobilization, Therapeutic Activities, Therapeutic Exercises Modalities Cold Pack/Ice Massage,Electric Stimulation,Hot Packs, Infrared Therapy,Ultrasound Other Referrals/Consults Referrals/Consults Recommended Has referral for Vision PT, hoping can have at or where recommend. Referral from [facility] for R eye, assist strength and headache recovery through summer before return to classes fall. Pt also has a referral to Neurology hasn't been able to fit into her schedule. Next Visit Focus/Plan Next Note Type Treatment Note Next Visit Plan WARN pt WITH ALL TOUCH and PRIOR to table adjust height due to reactional, HIGH Latex allergy cont to advance scap strength/ stability
--- NOTE | 2023-11-14 14:34 | PT.OTN ---
Current Diagnoses Pain in left shoulder (11/14/23) Low back pain, unspecified (11/14/23) Muscle weakness (generalized) (11/14/23) Other muscle spasm (11/14/23) Abnormal posture (11/14/23) Physical Therapy Treatment Note PT-OP-A Visit Information Start: 06/29/23 18:12 Freq: Status: Active Protocol: Document 11/14/23 13:14 NB (Rec: 11/14/23 14:34 [facility] [id number]) Out-Patient Physical Therapy Visit Information Visit Information Visit Type Treatment Note Visit Note 05/16 Visit Start Time 13:08 Visit Stop Time 14:00 Visit Number 21 Number of MUSEUM INFORMATICS SPECIALIST Visits 3 Precautions Precautions High latex allergy PT-OP-B Current Condition Start: 06/29/23 18:12 Freq: Status: Active Protocol: Document 07/04/23 10:33 [facility] (Rec: 07/04/23 11:23 [facility] [id number]) Current Condition History of Current Condition Current Complaints L shoulder pain & LBP History of Current Condition Pt reports having R SLAP surgery in 2020. L shoulder is currently giving her issues like what R shoulder did. At night both arms are falling asleep. 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 She had a neck injury in 2017 resulting in C5-6 ACDF 2018. She has neck pain and vertigo afte that injury and has done PT alot. She avoids lifting as most of the time, this will inc her vertigo and neck symptoms and it takes a few days to resolve. She spasms pretty bad when gets flared up . If she uses too much UE motion, neck tightnes up and locks down and gets spasms in post and ant neck w/massive ORNELAS. She is careful to lift and keeps wt close to her and doesn't lift heavy. She is trying to get back to work as she has been on disability since neck injury. Pt has hx of 3 sections, tubal ligation, appendectomy, and hysterectomy. She still works w/[employer]. Even a light tap that is not anticipatory, that can inc symptoms of vertigo. She was injured in a too rough chiro adjustment and tried to communicate that it was worse, and further manipulation was treatment and it got worse. first 9 months had symptoms like L sided stroke but was cleared from doctor w/ potential for stroke. Xrays showed tailbone sitting in wrong direction. 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 She is planning to get back to [employer]. She is going to school for forensic psychology . She is going to graduate in [facility] ( has had accomidations). She is going to take a gap year after that and will be going into a doctoral program. 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 She rested this morning and pain is overall improved but she is very low energy today. 5/10 pain from high cervical spine down through throat around hyoid (not really jaw). It almost feels like I'm on crooked. TMJ has been pretty good lately. PT-OP-F Manual Assessment Start: 06/29/23 18:12 Freq: Status: Active Protocol: Document 07/04/23 10:33 [facility] (Rec: 07/05/23 08:21 [facility] [id number]) Manual Assessments Soft Tissue Assessment Soft Tissue Mobility Assessment tender to even light touch. If pt not warned to specific area of touch, pt will jump in response PT-OP-J Posture/Palpation/Skin Start: 06/29/23 18:12 Freq: Status: Active Protocol: Document 07/04/23 10:33 [facility] (Rec: 07/04/23 11:23 [facility] [id number]) Posture Evaluation Comments Posture Comments L scap elevated, L scap winging and abd,ant tipped, cervical L SB when sitting, inc kyphosis slight, scoliosis curvature noted through spine PT-OP-K Range of Motion Start: 06/29/23 18:12 Freq: Status: Active Protocol: Document 09/27/23 09:50 SP (Rec: 09/27/23 11:13 SP [id number]) Shoulder Goniometric Range of Motion Shoulder Left Active Shoulder ROM WFL No Testing Position Sitting Flexion 135 Extension 68 Abduction 145 External Rotation at 0 degrees Abduction 88 Internal Rotation Behind Back (text) T4 Comments AROM L shld: FF: L shld pain starts at 45 deg, worsens into range, able tolerate 135 deg before need stop due to pain. REduction 10 deg tolerance since 08/16. ABD: pain starts 40deg, tolerated 145 deg gain of 17 deg before has to stop pain limitation. Ext: improvement by 3 deg with less pain, 68 deg. ER 1 eg abd: 88 deg ,gain 8 deg no pain. IR behind back: T4 gain 1 vertebra elevation but has pain anterior L shld PT-OP-M Strength Start: 06/29/23 18:12 Freq: Status: Active Protocol: Document 10/04/23 09:02 [facility] (Rec: 10/04/23 18:20 [facility] [id number]) Shoulder Strength Shoulder Manual Muscle Testing Right Flexion 4 Good Extension 4 Good Abduction (C5) 4 Good External Rotation 4 Good Internal Rotation 4 Good Left Flexion 3+ Fair+ Extension 4 Good Abduction (C5) 3+ Fair+ External Rotation 4- Good- Internal Rotation 4- Good- PT-OP-Q Treatments Start: 06/29/23 18:12 Freq: Status: Active Protocol: Document 11/14/23 13:14 [facility] (Rec: 11/14/23 14:34 [facility] [id number]) Therapeutic Exercises Sitting Exercises chin tuck Sitting Exercise Name standing Reps/Minutes 5 sec x5 Comments cues for head and shoulder position isometrics Sitting Exercise Name 1. cervical rot, 2.SB 3. ext 4 . flex Side bilateral Reps/Minutes 5x5sec ea Comments cues for postural setting w/ cues for [id number] range with rotation Breathing from diaphragm Sitting Exercise Name w/ guided imagery and mantra for responding to pain Equipment Used supine w/ bolster under LEs, pt hand on chest and belly Reps/Minutes 8' Comments cues during session I will respond to my body's pain w/ respect. Manual Therapy Treatment Consent Patient gave verbal consent for manual Yes treatment Soft Tissue Mobilization cranium & neck Body Location L>R UT/LS, cervical paraspinals, scalenes, SOR Mobilization Type Rolling,Sustained Pressure Intensity/Depth Moderate Body Position Hooklying Self-Care/Home Management Treatment Education Other Education sitting posture at pt's kneeling desk discussed and pt edu about ways to recovery from falling into poor posture w/ focus on excessive cervical extension while working on computer long hours - Desk stretches and ergonomic setup HOs given. PT-OP-T Assessment and Plan Start: 06/29/23 18:12 Freq: Status: Active Protocol: Document 11/14/23 13:14 [facility] (Rec: 11/14/23 14:34 [facility] [id number]) Physical Therapy Assessment Goals activity Short Term Goal (STG) Pt will show good squat and hip hinge mechanics 08/16-initiated today 10/04/23: good hip hinge w/cues for neck only; squat cues needed STG Duration 11/06 Senior Living Goal (LTG) Pt will be able to work in [employer] w/o inc back/L shoulder pain greater than 2/ 10 09/27/23: very light duty gardening 2 hrs/wk- doing mowing, trim work and debris raking and leaf blower but is lighting up neck and shoulder. Base level pain waking up and during 05/16 and increases to 6-8/10 latent response and takes 2 days to recover. Having to take NSAIDS and Migraine meds to support recovery. slow progression LTG Duration 12/26 ROM [employer] Goal (LTG) Pt will have full L shoulder AROM w/o inc pain 08/16-some improvements w/pain 09/27/23: See measurement and limitation due to pain but gains ROM. LTG Duration 12/26 desk Impairment can only sit very short bouts at desk Short Term Goal (STG) Pt will adjust desk set up for better ergonomics based on PT suggestions 08/08/23: brought pic, discussed elevated desk, chin nod, elongate TS. 09/26/23: GOAL MET:Is confident in positioning, need add more cushion sitting pad. Has high now desk can use sit and stand. STG Duration GOAL MET 09/27/23 Senior Living Goal (LTG) Pt will be able to sit for 1 hour at desk w/o inc shoulder or back pain. 08/16-hasn't had to be at it as much; is self correcting 8/21/24: Has cognitive fatigues with pain level. Able to focus better 15 min longer than than previous 10 min (20 -30 min total now) before need change position. Still having pain in L shld and back . Trying to utillze audible composition to decrease needto type and help posturing support. LTG Duration 12/26 Assessment Summary Assessment Pt presents with cervical pain 5/10 which she attributes to tension headache and improves to 4/10 end of session. Treatment focus on postural education, diaphragmatic breathing, HEP review with cues for chin tuck and pain- free range of motion w/ cercical rotation, and manual therapy. Sitting posture at pt 's kneeling desk discussed and pt edu about ways to recover from falling into poor posture w/ focus on tendency towards excessive cervical extension while working on computer long hours - Desk stretches with cervical extensor focus and ergonomic setup HOs reviewed and given. Papable tension to cervical paraspinals and UT m. improves with manual therapy. Physical Therapy Plan Frequency and Duration Frequency of Treatment 1-2x/Week Duration of treatment (weeks) 12 Plan of Care Start Date 10/04/23 Plan of Care End Date 12/27/23 Therapeutic Interventions Therapeutic Interventions Home Exercise Program,Joint Mobilizations,Manual Therapy, Neuromuscular Re-education, Patient/Caregiver Education, Self-Care/Home Management,Soft Tissue Mobilization, Therapeutic Activities, Therapeutic Exercises Modalities Cold Pack/Ice Massage,Electric Stimulation,Hot Packs, Infrared Therapy,Ultrasound Other Referrals/Consults Referrals/Consults Recommended Has referral for Vision PT, hoping can have at or where recommend. Referral from [facility] for R eye, assist strength and headache recovery through summer before return to classes fall. Pt also has a referral to Neurology hasn't been able to fit into her schedule. Next Visit Focus/Plan Next Note Type Treatment Note Next Visit Plan WARN pt WITH ALL TOUCH and PRIOR to table adjust height due to reactional, HIGH Latex allergy cont to advance scap strength/ stability
--- NOTE | 2023-11-28 14:20 | PT.OTN ---
Current Diagnoses Pain in left shoulder (11/28/23) Low back pain, unspecified (11/28/23) Muscle weakness (generalized) (11/28/23) Other muscle spasm (11/28/23) Abnormal posture (11/28/23) Physical Therapy Treatment Note PT-OP-A Visit Information Start: 06/29/23 18:12 Freq: Status: Active Protocol: Document 11/28/23 13:07 [facility] (Rec: 11/28/23 14:20 [facility] [id number]) Out-Patient Physical Therapy Visit Information Visit Information Visit Type Progress Note Visit Note 02/15 Visit Start Time 13:05 Visit Stop Time 13:45 Visit Number 22 Number of PANTOGRAPH OPERATOR Visits 0 PT-OP-B Current Condition Start: 06/29/23 18:12 Freq: Status: Active Protocol: Document 07/04/23 10:33 [facility] (Rec: 07/04/23 11:23 [facility] [id number]) Current Condition History of Current Condition Current Complaints L shoulder pain & LBP History of Current Condition Pt reports having R SLAP surgery in 2020. L shoulder is currently giving her issues like what R shoulder did. At night both arms are falling asleep. 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 She had a neck injury in 2017 resulting in C5-6 ACDF 2018. She has neck pain and vertigo afte that injury and has done PT alot. She avoids lifting as most of the time, this will inc her vertigo and neck symptoms and it takes a few days to resolve. She spasms pretty bad when gets flared up . If she uses too much UE motion, neck tightnes up and locks down and gets spasms in post and ant neck w/massive ORNELAS. She is careful to lift and keeps wt close to her and doesn't lift heavy. She is trying to get back to work as she has been on disability since neck injury. Pt has hx of 3 sections, tubal ligation, appendectomy, and hysterectomy. She still works w/[employer]. Even a light tap that is not anticipatory, that can inc symptoms of vertigo. She was injured in a too rough chiro adjustment and tried to communicate that it was worse, and further manipulation was treatment and it got worse. first 9 months had symptoms like L sided stroke but was cleared from doctor w/ potential for stroke. Xrays showed chandni sitting in wrong direction. 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 She is planning to get back to [employer]. She is going to school for forensic psychology . She is going to graduate in [facility] ( has had accomidations). She is going to take a gap year after that and will be going into a doctoral program. 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 Pt has been standing first at desk but has noticed some sorenss in knees. Has some pinching in R neck and is having trouble to find a comfortable position to get sleeping. L shoulder okay. doing better at desk overall but still a problem. W/abd, still having some pain. Reports popping less and has bene using it easier for moveents. R shoulder has been burning some around scar. and there is a small lesion on her ant scar. PT-OP-F Manual Assessment Start: 06/29/23 18:12 Freq: Status: Active Protocol: Document 07/04/23 10:33 [facility] (Rec: 07/05/23 08:21 [facility] [id number]) Manual Assessments Soft Tissue Assessment Soft Tissue Mobility Assessment tender to even light touch. If pt not warned to specific area of touch, pt will jump in response PT-OP-J Posture/Palpation/Skin Start: 06/29/23 18:12 Freq: Status: Active Protocol: Document 07/04/23 10:33 [facility] (Rec: 07/04/23 11:23 [facility] [id number]) Posture Evaluation Comments Posture Comments L scap elevated, L scap winging and abd,ant tipped, cervical L SB when sitting, inc kyphosis slight, scoliosis curvature noted through spine PT-OP-K Range of Motion Start: 06/29/23 18:12 Freq: Status: Active Protocol: Document 11/28/23 13:07 [facility] (Rec: 11/28/23 14:20 [facility] [id number]) Shoulder Goniometric Range of Motion Shoulder Left Active Shoulder ROM WFL No Testing Position Sitting Flexion 164 Extension 50 Abduction 103 External Rotation at 0 degrees Abduction 88 Internal Rotation Behind Back (text) T4 Comments tight in scap w/flex, ext and ER, IR pain w/abd PT-OP-M Strength Start: 06/29/23 18:12 Freq: Status: Active Protocol: Document 11/28/23 13:07 [facility] (Rec: 11/28/23 14:20 [facility] [id number]) Shoulder Strength Shoulder Manual Muscle Testing Right Flexion 4 Good Extension 4+ Good+ Abduction (C5) 4 Good External Rotation 3+ Fair+ Internal Rotation 4+ Good+ Comments pain ER, abd Left Flexion 4- Good- Extension 4 Good Abduction (C5) 3+ Fair+ External Rotation 4 Good Internal Rotation 4 Good PT-OP-Q Treatments Start: 06/29/23 18:12 Freq: Status: Active Protocol: Document 11/28/23 13:07 [facility] (Rec: 11/28/23 14:20 [facility] [id number]) Therapeutic Exercises Standing Exercises ROM Standing Exercise Name AROM L shoulder Other Exercises isometrics Other Exercise Name BUE MMT Therapeutic Activity Therapeutic Activity posture Reps/Minutes 4 min Comments work on standing posture, unlock knees, neutral lumbar and thoracic stacked over pelvis hip hinge Reps/Minutes 4 min Comments hip hinge and squat mechanics w/cues for neutral hips and slowing down to monitor pelvis position Manual Therapy Treatment Consent Patient gave verbal consent for manual Yes treatment Soft Tissue Mobilization scap Body Location L rhomboids, lats, tspine paraspinals Mobilization Type Rolling,Sustained Pressure Intensity/Depth Moderate Body Position Sidelying Joint Mobilizations hip Comments free the ball ER L c/r and inf glide c/r Self-Care/Home Management Treatment Education Other Education 7 min: edu re: new referral for neck and ORNELAS d/t current referral fo rshoulder and back . Edu re: cont breaks at desk and cont HEP PT-OP-T Assessment and Plan Start: 06/29/23 18:12 Freq: Status: Active Protocol: Document 11/28/23 13:07 [facility] (Rec: 11/28/23 14:20 [facility] [id number]) Physical Therapy Assessment Goals activity Short Term Goal (STG) Pt will show good squat and hip hinge mechanics 08/16-initiated today 10/04/23: good hip hinge w/cues for neck only; squat cues needed 11/27-good hip hinge w/o cues; can squat partial depth w/min cues but more cues for ddep squat to reach to ground, does shift at hips some which improved w/manual STG Duration 11/06 Senior Communications Specialist Goal (LTG) Pt will be able to work in [employer] w/o inc back/L shoulder pain greater than 2/ 10 09/27/23: very light duty gardening 2 hrs/wk- doing mowing, trim work and debris raking and leaf blower but is lighting up neck and shoulder. Base level pain waking up and during 05/16 and increases to 6-/ latent response and takes 2 days to recover. Having to take NSAIDS and Migraine meds to support recovery. slow progression 11/27- has not been doing d/t not in season, does mostly well w/housework and is handling more than she was. Was able to get entire kitchen clean this weekend. LTG Duration stop goal as no longer doing; much improved around house ROM Senior Communications Specialist Goal (LTG) Pt will have full L shoulder AROM w/o inc pain 08/16-some improvements w/pain 09/27/23: See measurement and limitation due to pain but gains ROM. 11/27-improved ROM LTG Duration 12/26 desk Impairment can only sit very short bouts at desk Short Term Goal (STG) Pt will adjust desk set up for better ergonomics based on PT suggestions 08/08/23: brought pic, discussed elevated desk, chin nod, elongate TS. 09/26/23: GOAL MET:Is confident in positioning, need add more cushion sitting pad. Has high now desk can use sit and stand. STG Duration GOAL MET 09/27/23 Mcfp Goal (LTG) Pt will be able to sit for 1 hour at desk w/o inc shoulder or back pain. 08/16-hasn't had to be at it as much; is self correcting 09/27/23: Has cognitive fatigues with pain level. Able to focus better 15 min longer than than previous 10 min (20 -30 min total now) before need change position. Still having pain in L shld and back . Trying to utillze audible composition to decrease needto type and help posturing support. 11/27-can get a few hours done at a time w/small breaks but neck and head limit her LTG Duration achieved for shoulder and back pain -other issues limit her Assessment Summary Assessment Pt making good progress towards goals and is advancing in strength and ROM along w/L shoulder function.S he is more limited by neck and ORNELAS and encouraged to get new referral to focus on thsi area . Cont PT for next 2 visits to improve function and set up w /HEP for shoulder and back Physical Therapy Plan Frequency and Duration Frequency of Treatment 1-2x/Week Duration of treatment (weeks) 12 Plan of Care Start Date 10/04/23 Plan of Care End Date 12/27/23 Therapeutic Interventions Therapeutic Interventions Home Exercise Program,Joint Mobilizations,Manual Therapy, Neuromuscular Re-education, Patient/Caregiver Education, Self-Care/Home Management,Soft Tissue Mobilization, Therapeutic Activities, Therapeutic Exercises Modalities Cold Pack/Ice Massage,Electric Stimulation,Hot Packs, Infrared Therapy,Ultrasound Next Visit Focus/Plan Next Note Type Treatment Note Next Visit Plan WARN pt WITH ALL TOUCH and PRIOR to table adjust height due to reactional, HIGH Latex allergy cont to advance scap strength/ stability
--- NOTE | 2023-11-30 18:19 | PT.OTN ---
Current Diagnoses Pain in left shoulder (11/30/23) Low back pain, unspecified (11/30/23) Muscle weakness (generalized) (11/30/23) Other muscle spasm (11/30/23) Abnormal posture (11/30/23) Physical Therapy Treatment Note PT-OP-A Visit Information Start: 06/29/23 18:12 Freq: Status: Active Protocol: Document 11/30/23 14:34 [facility] (Rec: 11/30/23 18:19 [facility] [id number]) Out-Patient Physical Therapy Visit Information Visit Information Visit Type Treatment Note Visit Note 03/18 Visit Start Time 14:35 Visit Stop Time 15:15 Visit Number 23 Number of RN RECOVERY Visits 0 PT-OP-B Current Condition Start: 06/29/23 18:12 Freq: Status: Active Protocol: Document 07/04/23 10:33 [facility] (Rec: 07/04/23 11:23 [facility] [id number]) Current Condition History of Current Condition Current Complaints L shoulder pain & LBP History of Current Condition Pt reports having R SLAP surgery in 2020. L shoulder is currently giving her issues like what R shoulder did. At night both arms are falling asleep. 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 She had a neck injury in 2017 resulting in C5-6 ACDF 2018. She has neck pain and vertigo afte that injury and has done PT alot. She avoids lifting as most of the time, this will inc her vertigo and neck symptoms and it takes a few days to resolve. She spasms pretty bad when gets flared up . If she uses too much UE motion, neck tightnes up and locks down and gets spasms in post and ant neck w/massive ORNELAS. She is careful to lift and keeps wt close to her and doesn't lift heavy. She is trying to get back to work as she has been on disability since neck injury. Pt has hx of 3 sections, tubal ligation, appendectomy, and hysterectomy. She still works w/[employer]. Even a light tap that is not anticipatory, that can inc symptoms of vertigo. She was injured in a too rough chiro adjustment and tried to communicate that it was worse, and further manipulation was treatment and it got worse. first 9 months had symptoms like L sided stroke but was cleared from doctor w/ potential for stroke. Xrays showed chandni sitting in wrong direction. 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 She is planning to get back to [employer]. She is going to school for forensic psychology . She is going to graduate in [facility] ( has had accomidations). She is going to take a gap year after that and will be going into a doctoral program. 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 Had a click when lifting clickboard PT-OP-F Manual Assessment Start: 06/29/23 18:12 Freq: Status: Active Protocol: Document 07/04/23 10:33 [facility] (Rec: 07/05/23 08:21 [facility] [id number]) Manual Assessments Soft Tissue Assessment Soft Tissue Mobility Assessment tender to even light touch. If pt not warned to specific area of touch, pt will jump in response PT-OP-J Posture/Palpation/Skin Start: 06/29/23 18:12 Freq: Status: Active Protocol: Document 07/04/23 10:33 [facility] (Rec: 07/04/23 11:23 [facility] [id number]) Posture Evaluation Comments Posture Comments L scap elevated, L scap winging and abd,ant tipped, cervical L SB when sitting, inc kyphosis slight, scoliosis curvature noted through spine PT-OP-K Range of Motion Start: 06/29/23 18:12 Freq: Status: Active Protocol: Document 11/28/23 13:07 [facility] (Rec: 11/28/23 14:20 [facility] [id number]) Shoulder Goniometric Range of Motion Shoulder Left Active Shoulder ROM WFL No Testing Position Sitting Flexion 164 Extension 50 Abduction 103 External Rotation at 0 degrees Abduction 88 Internal Rotation Behind Back (text) T4 Comments tight in scap w/flex, ext and ER, IR pain w/abd PT-OP-M Strength Start: 06/29/23 18:12 Freq: Status: Active Protocol: Document 11/28/23 13:07 [facility] (Rec: 11/28/23 14:20 [facility] [id number]) Shoulder Strength Shoulder Manual Muscle Testing Right Flexion 4 Good Extension 4+ Good+ Abduction (C5) 4 Good External Rotation 3+ Fair+ Internal Rotation 4+ Good+ Comments pain ER, abd Left Flexion 4- Good- Extension 4 Good Abduction (C5) 3+ Fair+ External Rotation 4 Good Internal Rotation 4 Good PT-OP-Q Treatments Start: 06/29/23 18:12 Freq: Status: Active Protocol: Document 11/30/23 14:34 [facility] (Rec: 11/30/23 18:19 [facility] [id number]) Therapeutic Exercises Supine Exercises flex Supine Exercise Name Habd w/flex Side bilateral Reps/Minutes 10 Comments attempted standing but painful Sidelying Exercises open book Sidelying Exercise Name 1. elbow straight 2.elbow bent Side bilateral Reps/Minutes 5 ea Sitting Exercises chin tuck Sitting Exercise Name standing Reps/Minutes 5 sec x5 Comments cues for head position isometrics Sitting Exercise Name 1. cervical rot, 2.SB 3. . flex Side bilateral Reps/Minutes 2ea Comments cues for postural setting w/ cues for [id number] range with rotation Standing Exercises wall posture Standing Exercise Name roll up w/head ext isometric Shld ER Standing Exercise Name reviewed HEP- Side bilateral Resistance TB #2 orange (latex free) Equipment Used free standing Reps/Minutes x10 Comments cues for control shld rows & ext Standing Exercise Name rows, ext Side bilateral Resistance Latex free TB #2 orange rows Reps/Minutes 2x10 each Comments verbal/tactile feedback Manual Therapy Treatment Consent Patient gave verbal consent for manual Yes treatment Soft Tissue Mobilization scap Body Location L rhomboids, lats, tspine paraspinals & UT, LS Mobilization Type Rolling,Sustained Pressure Intensity/Depth Moderate Body Position Sidelying Joint Mobilizations thoracic Body Position Sidelying Comments transverse glide T4 and 7 and8 w/L rot PT-OP-T Assessment and Plan Start: 06/29/23 18:12 Freq: Status: Active Protocol: Document 11/30/23 14:34 [facility] (Rec: 11/30/23 18:19 [facility] [id number]) Physical Therapy Assessment Goals activity Short Term Goal (STG) Pt will show good squat and hip hinge mechanics 08/16-initiated today 10/04/23: good hip hinge w/cues for neck only; squat cues needed 11/27-good hip hinge w/o cues; can squat partial depth w/min cues but more cues for ddep squat to reach to ground, does shift at hips some which improved w/manual STG Duration 11/06 Professor Of [employer] Goal (LTG) Pt will be able to work in [employer] w/o inc back/L shoulder pain greater than 2/ 10 09/27/23: very light duty gardening 2 hrs/wk- doing mowing, trim work and debris raking and leaf blower but is lighting up neck and shoulder. Base level pain waking up and during 05/16 and increases to 6-09/15 latent response and takes 2 days to recover. Having to take NSAIDS and Migraine meds to support recovery. slow progression 11/27- has not been doing d/t not in season, does mostly well w/housework and is handling more than she was. Was able to get entire kitchen clean this weekend. LTG Duration stop goal as no longer doing; much improved around house ROM Detention Goal (LTG) Pt will have full L shoulder AROM w/o inc pain 08/16-some improvements w/pain 09/27/23: See measurement and limitation due to pain but gains ROM. 11/27-improved ROM LTG Duration 12/26 desk Impairment can only sit very short bouts at desk Short Term Goal (STG) Pt will adjust desk set up for better ergonomics based on PT suggestions 08/08/23: brought pic, discussed elevated desk, chin nod, elongate TS. 09/26/23: GOAL MET:Is confident in positioning, need add more cushion sitting pad. Has high now desk can use sit and stand. STG Duration GOAL MET 09/27/23 Detention Goal (LTG) Pt will be able to sit for 1 hour at desk w/o inc shoulder or back pain. 08/16-hasn't had to be at it as much; is self correcting 09/27/23: Has cognitive fatigues with pain level. Able to focus better 15 min longer than than previous 10 min (20 -30 min total now) before need change position. Still having pain in L shld and back . Trying to utillze audible composition to decrease needto type and help posturing support. 11/27-can get a few hours done at a time w/small breaks but neck and head limit her LTG Duration achieved for shoulder and back pain -other issues limit her Assessment Summary Assessment Pt did need some cues w/ exercises but improved w/ performance w/VC and tactile cues. She had improved scap retraction after manual. Physical Therapy Plan Frequency and Duration Frequency of Treatment 1-2x/Week Duration of treatment (weeks) 12 Plan of Care Start Date 10/04/23 Plan of Care End Date 12/27/23 Next Visit Focus/Plan Next Note Type Discharge Summary Next Visit Plan WARN pt WITH ALL TOUCH and PRIOR to table adjust height due to reactional, HIGH Latex allergy prep for DC
--- NOTE | 2024-01-17 07:57 | PT.OPDS ---
Current Diagnoses Pain in left shoulder (11/30/23) Low back pain, unspecified (11/30/23) Muscle weakness (generalized) (11/30/23) Other muscle spasm (11/30/23) Abnormal posture (11/30/23) Visit Care Team Role Provider Type Salbador Han DO Attending Provider Physician Family Provider Primary Care Provider Referring Provider Specialty: [facility] Address: [address] [place] [address], [facility] Email: Visit Number Visit Number 23 Discharge Summary PT-OP-B Current Condition Start: 06/29/23 18:12 Freq: Status: Active Protocol: Document 07/04/23 10:33 [facility] (Rec: 07/04/23 11:23 [facility] [id number]) Current Condition History of Current Condition Current Complaints L shoulder pain & LBP History of Current Condition Pt reports having R SLAP surgery in 2020. L shoulder is currently giving her issues like what R shoulder did. At night both arms are falling asleep. 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 She had a neck injury in 2018 resulting in C5-6 ACDF 2019. She has neck pain and vertigo afte that injury and has done PT alot. She avoids lifting as most of the time, this will inc her vertigo and neck symptoms and it takes a few days to resolve. She spasms pretty bad when gets flared up . If she uses too much UE motion, neck tightnes up and locks down and gets spasms in post and ant neck w/massive ORNELAS. She is careful to lift and keeps wt close to her and doesn't lift heavy. She is trying to get back to work as she has been on disability since neck injury. Pt has hx of 3 sections, tubal ligation, appendectomy, and hysterectomy. She still works w/[employer]. Even a light tap that is not anticipatory, that can inc symptoms of vertigo. She was injured in a too rough chiro adjustment and tried to communicate that it was worse, and further manipulation was treatment and it got worse. first 9 months had symptoms like L sided stroke but was cleared from doctor w/ potential for stroke. Xrays showed tailbone sitting in wrong direction. 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 She is planning to get back to [employer]. She is going to school for forensic psychology . She is going to graduate in [employer] ( has had accomidations). She is going to take a gap year after that and will be going into a doctoral program. 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 Had a click when lifting clickboard PT-OP-F Manual Assessment Start: 06/29/23 18:12 Freq: Status: Active Protocol: Document 07/04/23 10:33 [facility] (Rec: 07/05/23 08:21 [facility] [id number]) Manual Assessments Soft Tissue Assessment Soft Tissue Mobility Assessment tender to even light touch. If pt not warned to specific area of touch, pt will jump in response PT-OP-J Posture/Palpation/Skin Start: 06/29/23 18:12 Freq: Status: Active Protocol: Document 07/04/23 10:33 [facility] (Rec: 07/04/23 11:23 [facility] [id number]) Posture Evaluation Comments Posture Comments L scap elevated, L scap winging and abd,ant tipped, cervical L SB when sitting, inc kyphosis slight, scoliosis curvature noted through spine PT-OP-K Range of Motion Start: 06/29/23 18:12 Freq: Status: Active Protocol: Document 11/28/23 13:07 [facility] (Rec: 11/28/23 14:20 [facility] [id number]) Shoulder Goniometric Range of Motion Shoulder Left Active Shoulder ROM WFL No Testing Position Sitting Flexion 164 Extension 50 Abduction 103 External Rotation at 0 degrees Abduction 88 Internal Rotation Behind Back (text) T4 Comments tight in scap w/flex, ext and ER, IR pain w/abd PT-OP-M Strength Start: 06/29/23 18:12 Freq: Status: Active Protocol: Document 11/28/23 13:07 [facility] (Rec: 11/28/23 14:20 [facility] [id number]) Shoulder Strength Shoulder Manual Muscle Testing Right Flexion 4 Good Extension 4+ Good+ Abduction (C5) 4 Good External Rotation 3+ Fair+ Internal Rotation 4+ Good+ Comments pain ER, abd Left Flexion 4- Good- Extension 4 Good Abduction (C5) 3+ Fair+ External Rotation 4 Good Internal Rotation 4 Good PT-OP-T Assessment and Plan Start: 06/29/23 18:12 Freq: Status: Active Protocol: Document 01/17/24 07:48 [facility] (Rec: 01/17/24 07:50 [facility] [id number]) Physical Therapy Assessment Goals activity Short Term Goal (STG) Pt will show good squat and hip hinge mechanics 08/16-initiated today 10/04/23: good hip hinge w/cues for neck only; squat cues needed 11/27-good hip hinge w/o cues; can squat partial depth w/min cues but more cues for ddep squat to reach to ground, does shift at hips some which improved w/manual STG Duration 11/06 [employer] Goal (LTG) Pt will be able to work in [employer] w/o inc back/L shoulder pain greater than 2/ 10 09/27/23: very light duty gardening 2 hrs/wk- doing mowing, trim work and debris raking and leaf blower but is lighting up neck and shoulder. Base level pain waking up and during /10 and increases to 6-8/10 latent response and takes 2 days to recover. Having to take NSAIDS and Migraine meds to support recovery. slow progression 11/27- has not been doing d/t not in season, does mostly well w/housework and is handling more than she was. Was able to get entire kitchen clean this weekend. LTG Duration stop goal as no longer doing; much improved around house ROM Scale Tank Operator Goal (LTG) Pt will have full L shoulder AROM w/o inc pain 08/16-some improvements w/pain 09/27/23: See measurement and limitation due to pain but gains ROM. 11/27-improved ROM LTG Duration 12/26 desk Impairment can only sit very short bouts at desk Short Term Goal (STG) Pt will adjust desk set up for better ergonomics based on PT suggestions 08/08/23: brought pic, discussed elevated desk, chin nod, elongate TS. 09/26/23: GOAL MET:Is confident in positioning, need add more cushion sitting pad. Has high now desk can use sit and stand. STG Duration GOAL MET 09/27/23 [employer] Tank Operator Goal (LTG) Pt will be able to sit for 1 hour at desk w/o inc shoulder or back pain. 08/16-hasn't had to be at it as much; is self correcting 09/27/23: Has cognitive fatigues with pain level. Able to focus better 15 min longer than than previous 10 min (20 -30 min total now) before need change position. Still having pain in L shld and back . Trying to utillze audible composition to decrease needto type and help posturing support. 11/27-can get a few hours done at a time w/small breaks but neck and head limit her LTG Duration achieved for shoulder and back pain -other issues limit her Assessment Summary Assessment Pt plateaued in progress w/PT after 5 months and has HEP and is indep. Last scheduled visit to do planned DC d/t PT sick on 12/11. Pt needs no further appts at this time d/t plateau in progress. Physical Therapy Plan Discharge Physical Therapy Discharge Reasons Plateau in Progress
== END 2024-01-24 15:18 | disposition home or self-care (01) ==
LOC: PHYS 14:30
PROVIDERS: Family Provider Family Medicine; PCP Family Medicine; Referring Provider Family Medicine; Visit Provider Family Medicine
DX: M25.512 Pain in left shoulder (principal); M62.838 Other muscle spasm; M54.50 Low back pain, unspecified; M62.81 Muscle weakness (generalized); R29.3 Abnormal posture
CPT/HCPCS: 97110; 97140; 97163; 97530; 97535

== ENCOUNTER → 2024-01-01 13:10 | Outpatient (CLI) | payer MEDICARE, SELFPAY ==
[2024-01-01 14:25] LABS: Adenovirus Not Detected (Not Detect); B. parapertussis Not Detected (Not Detecte); Bordetella pertussis Not Detected (Not Detect); Chlamydophila pneumoniae Not Detected (Not Detect); Coronavirus 229E Not Detected (Not Detect); Coronavirus HKU1 Not Detected (Not Detect); Coronavirus NL 63 Not Detected (Not Detect); Coronavirus OC43 Not Detected (Not Detect); Human Metapneumovirus Not Detected (Not Detect); Human Rhinovirus/Enterovirus Not Detected (Not Detect); Influenza A Not Detected (Not Detect); Influenza B Not Detected (Not Detect); Mycoplasma pneumoniae Not Detected (Not Detect); Parainfluenza Virus 1 Not Detected (Not Detect); Parainfluenza Virus 2 Not Detected (Not Detect); Parainfluenza Virus 3 Not Detected (Not Detect); Parainfluenza Virus 4 Not Detected (Not Detect); Respiratory Syncytial Virus Not Detected (Not Detect); SARS- CoV-2 Not Detected (Not Detecte)
== END ==
PROVIDERS: Family Provider Family Medicine; PCP Family Medicine; Visit Provider Nurse Practitioner Family
DX: R05.1 Acute cough (principal)
CPT/HCPCS: 87070; 87633

== ENCOUNTER → 2024-01-01 13:28 | Outpatient (CLI) | payer MEDICARE, SELFPAY ==
--- NOTE | 2024-01-01 13:29 | DI.RAD.S_ITS ---
PROCEDURE: XR CHEST 2V INDICATIONS: Cough TECHNIQUE: 2 views of the chest were acquired. COMPARISON: None. FINDINGS: Heart, mediastinum and pulmonary vascular: Heart is normal in size and configuration. Mediastinum is unremarkable. Pulmonary vascular is normal. Lungs: Moderate-sized patchy infiltrate is seen throughout the left upper lobe and lingula. Pleural spaces: Normal-no effusions or pneumothorax. Bones and soft tissues: Normal IMPRESSION: Moderate left upper lobe and lingula pneumonia. Dictated by: Humberto Matthews M.D. on 01/02/2024 at 10:15 Approved by: Humberto Matthews M.D. on 01/02/2024 at 10:16
== END ==
LOC: RAD 13:29
PROVIDERS: Family Provider Family Medicine; PCP Family Medicine; Referring Provider Nurse Practitioner Family; Visit Provider Nurse Practitioner Family
DX: J18.9 Pneumonia, unspecified organism (principal); R05.1 Acute cough
CPT/HCPCS: 71046; 87070; 87633

== ENCOUNTER 2024-01-02 09:55 | Emergency (ER) | payer MEDICARE, SELFPAY ==
[2024-01-02 10:00] VITALS: BP 101/63; PULSE 91; RESP 16; TEMP 36.4; O2SAT 96; BMI 21.5
[2024-01-02] MEDS: ONDANSETRON 4 MG ODT SL (10:05)
[2024-01-02 11:51] VITALS: BP 108/61; PULSE 83; RESP 16; O2SAT 100
--- NOTE | 2024-01-02 16:39 | ED_ITS ---
HPI - Nausea/Vomiting/Diarrhea <Meir Estevez PA-C - Last Filed: 01/02/24 16:48> General Chief complaint: Nausea/Vomiting/Diarrhea Stated complaint: Having a reaction to meds from the [facility] Time Seen by Provider: 01/02/24 11:13 Source: patient Mode of arrival: Ambulatory History of Present Illness HPI Narrative: 38-year-old female presents to the ED status post a potential adverse reaction from benzonatate. Patient had an upper respiratory infection for which she went to the walk-in clinic yes given benzonatate for cough. Patient states that she was having URI symptoms as well as some GI symptoms such as nausea and anorexia. Viral panel was negative yesterday. Patient states that within 15 minutes of taking a dose of the benzonatate, her GI symptoms intensified. Patient states significant nausea and vomiting, was having a hard time keeping things down. Patient stopped taking the benzonatate after that 1 dose. Patient came into the ED today, was given a dose of Zofran which has given her good relief. Patient came into the ED to be evaluated for the reaction. Patient denies chest pain, shortness of breath, lightheadedness, dizziness, syncope. Related Data Previous Rx's Medication Instructions Recorded pregabalin 150 mg capsule See Rx Instructions .Route 08/15/23 .COMPLEX #60 caps sumatriptan succinate 25 mg tablet See Rx Instructions PO .COMPLEX 09/11/23 #20 tabs bupropion HCl 150 mg 24 hr tablet, 150 mg PO QAM #90 tabs 09/13/23 extended release bupropion HCl 75 mg tablet 75 mg PO BEDTIME #90 tabs 09/13/23 levothyroxine 50 mcg tablet 50 mcg PO DAILY #90 tabs 09/13/23 liothyronine 5 mcg tablet 5 mcg PO DAILY #90 tabs 09/13/23 pregabalin 200 mg capsule 200 mg PO DAILY #90 caps 09/13/23 temazepam 15 mg capsule See Rx Instructions .Route 11/14/23 .COMPLEX #60 caps benzonatate 200 mg capsule 200 mg PO BID PRN cough #28 caps 01/01/24 levofloxacin 750 mg tablet 750 mg PO DAILY #5 tabs 01/02/24 ondansetron 4 mg disintegrating 4 mg PO Q8H PRN nausea and 01/02/24 tablet vomiting #20 tabs Allergies Allergy/AdvReac Type Severity Reaction Status Date / Time adhesive [ADHESIVE] Allergy Unknown RASH Verified 01/02/24 10:17 coconut Allergy Unknown Hives, Verified 01/02/24 10:17 vomiting latex [LATEX] Allergy Unknown RASH, SKIN Verified 01/02/24 10:17 CRACKING Penicillins [PENICILLINS] Allergy Unknown RASH Verified 01/02/24 10:17 gabapentin AdvReac Severe Headache, Verified 01/02/24 10:17 pitted rash egg [EGG] AdvReac Unknown Rash Verified 01/02/24 10:17 Opioids - Morphine Analogues AdvReac Unknown NAUSEA Verified 01/02/24 10:17 [OPIOIDS - MORPHINE ANALOGUES] narcotics Allergy Intermediate NAUSEA / Uncoded 09/13/23 11:06 VOMITING steri strips Allergy Blister Uncoded 09/13/23 11:06 Review of Systems <Meir Estevez PA-C - Last Filed: 01/02/24 16:48> Constitutional Constitutional: Denies chills, Denies fatigue, Reports fever(s), Denies frequent falls, Denies lethargy, Reports poor appetite and Denies weakness Eyes Eyes: Denies change in vision, Denies eye discharge, Denies irritation and Denies loss of vision ENT Ears, Nose, Mouth, and Throat: Denies change in voice, Denies dizziness, Denies neck pain, Denies sore throat and Denies throat swelling Cardiovascular Cardiovascular: Denies chest pain, Denies irregular heart rhythm, Denies lightheadedness, Denies palpitations, Denies dyspnea, Denies dyspnea on exertion and Denies orthopnea Respiratory Respiratory: Reports cough, Denies dyspnea, Denies dyspnea on exertion and Denies wheezing Gastrointestinal Gastrointestinal: Denies abdominal pain, Denies change in bowel habits, Reports diarrhea, Reports nausea and Reports vomiting Musculoskeletal Musculoskeletal: Denies neck pain and Denies numbness Integumentary/Breasts Skin/Breast: Denies pruritus, Denies erythema, Denies rash and Denies wounds Neurologic Neurologic: Denies behavioral changes, Denies confusion, Denies dizziness, Denies frequent falls, Denies loss of vision, Denies numbness and Denies weakness Psychiatric Psychiatric: Denies anxiety, Denies behavioral changes, Denies confusion, Denies depression, Denies homicidal ideation and Denies suicidal ideation Endocrine Endocrine: Denies fatigue, Denies flushing and Denies palpitations Hematologic/Lymphatic Hematologic/Lymphatic: Denies easy bruising Allergic/Immunologic Allergic/Immunologic: Denies urticaria, Denies throat swelling and Denies wheezing Patient History <Meir Estevez PA-C - Last Filed: 01/02/24 16:48> Medical History (Updated 01/02/24 @ 11:40 by Meir Estevez PA-C) Chronic pain Hypothyroidism (acquired) Acute pain of left shoulder Migraine headache with aura Hx of endometriosis Acute left-sided low back pain without sciatica Hypercalcemia Mild cognitive impairment Chronic left-sided thoracic back pain Chronic low back pain without sciatica Segmental and somatic dysfunction of rib cage Somatic dysfunction of lower extremity Foot joint stiffness, bilateral Substance abuse (~2016) Bulimia (~1998) Anorexia nervosa (~1995) Foot pain Chicken pox (~1988) Vertigo (~2017) Tinnitus Painful menstrual periods Bladder problem (~2009) Chronic right shoulder pain (~2017) Upper extremity somatic dysfunction Sacral region somatic dysfunction Pelvic somatic dysfunction Segmental and somatic dysfunction of abdomen and other regions Lumbar region somatic dysfunction Thoracic region somatic dysfunction Cervical somatic dysfunction Cranial somatic dysfunction Tension headache, chronic Bilateral hand pain Knee pain, chronic Dysphagia Rotator cuff impingement syndrome of right shoulder Occipital neuralgia of right side Cervical radiculopathy Cervical myelopathy History of ETOH abuse Spinal stenosis of cervical region Osteoarthritis (~2017) Anemia Panic attacks (~1994) Anxiety (~1994) Endometriosis (~2007) Pancreatitis (~2009) Hypothyroidism (~2011) Seasonal allergies Asthma Former smoker Migraines PTSD (post-traumatic stress disorder) (~1994) Insomnia Pelvic pain affecting in first trimester, antepartum Surgical History (Updated 08/24/20 @ 19:59 by Zeynep Varela) Anesthesia S/P cervical spinal fusion (~07/2019) Hx of laparoscopy (~2007) History of bilateral tubal ligation (04/28/17) Hx of appendectomy (~2005) History of section (01/14/16) Status post delivery (02/22/16) Status post laparoscopy (~2017) Status post appendectomy Status post delivery (~2004) Status post delivery (~2003) Family History (Updated 08/24/20 @ 20:01 by Zeynep Varela) Mother No problems noted. Father Hypothyroid Grandfather Cancer Grandfather Cancer Social History marital status: details: venancio Pham, lives in [place] number of children: 3 household members: children lives independently: Yes caregiver/support person: No housing: house education level: college do you feel safe at home: Yes Smoking Status: Former smoker alcohol intake: former substance use type: does not use Smoking Status: Former smoker alcohol intake frequency: holidays/special occasions only Substance Use Type: does not use Exam <Meir Estevez PA-C - Last Filed: 01/02/24 16:48> Narrative Exam Narrative: Const General:?cooperative, healthy appearing and comfortable, no rash HENMT Head:?normal to inspection Ears:?hearing grossly normal bilaterally Nose:?external nose normal Face and sinus:?normal facial exam and sinuses nontender Mouth:?oral mucosae normal Throat:?posterior oropharynx normal; airway is patent, no angioedema Eyes General:?appearance normal, both eyes and all related structures Neck Neck:?normal visual inspection and no lymphadenopathy noted Resp Effort & Inspection:?normal respiratory effort Auscultation:?clear to auscultation bilaterally Cardio Rate:?regular rate Rhythm:?regular rhythm Neuro General:?patient alert, patient awake and patient oriented x3 Initial Vital Signs Initial Vital Signs: Vital Signs Temperature 97.6 F 01/02/24 10:00 Pulse Rate 91 H 01/02/24 10:00 Respiratory Rate 16 01/02/24 10:00 Blood Pressure 101/63 01/02/24 10:00 Pulse Oximetry 96 01/02/24 10:00 Oxygen Delivery Method Room Air 01/02/24 10:00 <Tripp Becker MD - Last Filed: 01/02/24 18:47> Initial Vital Signs Initial Vital Signs: Vital Signs Temperature 97.6 F 01/02/24 10:00 Pulse Rate 91 H 01/02/24 10:00 Respiratory Rate 16 01/02/24 10:00 Blood Pressure 101/63 01/02/24 10:00 Pulse Oximetry 96 01/02/24 10:00 Oxygen Delivery Method Room Air 01/02/24 10:00 Course <Meir Estevez PA-C - Last Filed: 01/02/24 16:48> Orders Ordered: Discontinued Medications Lidocaine HCl (Lidocaine 2% Inj Sdv 5ml) 5 ml INJ INTRA-OP ONE Stop: 01/02/24 11:27 Last Admin: 01/02/24 11:35 Dose: Not Given Documented By: Ondansetron HCl (Ondansetron 4 Mg/2 Ml Inj) 4 mg IV NOW PRN PRN Reason: Nausea And Vomiting Ondansetron HCl (Ondansetron 4 Mg Odt) 4 mg SL NOW PRN PRN Reason: Nausea And Vomiting Last Admin: 01/02/24 10:05 Dose: 4 mg Documented By: KELLY Vital Signs Vital signs: Vital Signs - 8 hr 01/02/24 11:51 Pulse Rate 83 Respiratory Rate 16 Blood Pressure 108/61 Pulse Oximetry 100 Oxygen Delivery Method Room Air <Tripp Becker MD - Last Filed: 01/02/24 18:47> Orders Ordered: Discontinued Medications Lidocaine HCl (Lidocaine 2% Inj Sdv 5ml) 5 ml INJ INTRA-OP ONE Stop: 01/02/24 11:27 Last Admin: 01/02/24 11:35 Dose: Not Given Documented By: Ondansetron HCl (Ondansetron 4 Mg/2 Ml Inj) 4 mg IV NOW PRN PRN Reason: Nausea And Vomiting Ondansetron HCl (Ondansetron 4 Mg Odt) 4 mg SL NOW PRN PRN Reason: Nausea And Vomiting Last Admin: 01/02/24 10:05 Dose: 4 mg Documented By: KELLY Vital Signs Vital signs: Vital Signs - 8 hr 01/02/24 11:51 Pulse Rate 83 Respiratory Rate 16 Blood Pressure 108/61 Pulse Oximetry 100 Oxygen Delivery Method Room Air MDM - Nausea/Vomiting/Diarrhea <Meir Estevez PA-C - Last Filed: 01/02/24 16:48> [facility] Narrative Medical decision making narrative: 38-year-old female presents to the ED status post a potential adverse reaction from benzonatate. Concern for URI versus gastroenteritis versus adverse medication reaction versus other. Physical exam is reassuring. Given that it is inconclusive if patient's severe GI symptoms were due to the URI versus an adverse reaction to the medication, advised patient to stop taking benzonatate. Patient may take [id number] medications for cough. Recommend follow-up with PCP. ED return precautions discussed with patient. Patient verbalized. Medical records reviewed: Yes Discharge Plan Departure Patient Disposition: Home Clinical Impression: Nausea & vomiting Qualifiers: Vomiting type: unspecified Qualified Code(s): R11.2 - Nausea with vomiting, unspecified Instructions: DI for Viral Upper Respiratory Infection -- Adult Activity Restrictions/Additional Instructions: You were evaluated in the ED today for nausea and vomiting after taking benzonatate for cough. You were given a dose of Zofran with good relief. You are being prescribed Zofran to take at home as needed for nausea. Please continue to stay well hydrated. It is unclear if your symptoms are due to the viral upper respiratory infection versus the benzonatate, so it is advisable that you stop taking the benzonatate. You may take other prescription [id number] cough medicines as needed. Please follow-up with your PCP as soon as possible. Return to the ED if you have worsening symptoms, chest pain, shortness of breath. Prescriptions: New ondansetron 4 mg tablet,disintegrating 4 mg PO Q8H PRN (Reason: nausea and vomiting) Qty: 20 0RF No Action benzonatate 200 mg capsule 200 mg PO BID PRN (Reason: cough) Qty: 28 0RF pregabalin 150 mg capsule See Rx Instructions .ROUTE .COMPLEX Qty: 60 5RF Rx Instructions: Take 1 capsule by mouth twice daily sumatriptan succinate 25 mg tablet See Rx Instructions PO .COMPLEX Qty: 20 3RF Rx Instructions: take 1 tab at onset of headache; if no relief may repeat 1 tab after at least 2 hrs; max = 4 tabs/24 hr PO temazepam 15 mg capsule See Rx Instructions .ROUTE .COMPLEX Qty: 60 5RF Rx Instructions: Take 1 capsule by mouth nightly at bedtime and in the middle of night as needed for sleep and anxiety levofloxacin 750 mg tablet 750 mg PO DAILY Qty: 5 0RF bupropion HCl 150 mg tablet extended release 24 hr 150 mg PO QAM Qty: 90 3RF bupropion HCl 75 mg tablet 75 mg PO BEDTIME Qty: 90 3RF levothyroxine 50 mcg tablet 50 mcg PO DAILY Qty: 90 3RF liothyronine 5 mcg tablet 5 mcg PO DAILY Qty: 90 3RF pregabalin 200 mg capsule 200 mg PO DAILY Qty: 90 3RF Referrals: Salbador Han DO [Primary Care Provider] - Stand Alone Forms: Patient Portal/API/Survey ED Sign-out <Tripp Becker MD - Last Filed: 11/26/24 18:47> Cosign ED Attending Cosignature Attestation: I was immediately available in the department for consultation. This documentation has been reviewed and I agree with assessment and plan. Supervised by Tripp Becker MD
== END 2024-01-02 11:52 | disposition home or self-care (01) ==
PROVIDERS: Emergency Provider Student in an Organized Health Care Education/Training Program; Family Provider Family Medicine; PCP Family Medicine
DX: R11.2 Nausea with vomiting, unspecified (principal); T48.3X5A Adverse effect of antitussives, initial encounter; R50.9 Fever, unspecified
CPT/HCPCS: 99283

== ENCOUNTER → 2024-08-12 17:27 | Outpatient (CLI) | payer OTHER, MEDICARE, SELFPAY ==
[2024-08-12 18:29] LABS: Add Manual Diff / Slide Review NO; Hematocrit 40.6 % (36-46); Hemoglobin 13.6 g/dL (12.0-16.0); Lymphocytes Absolute Auto 2200 /uL (1100-4500); Mean Corpuscular HGB Conc 33.5 % (30-36); Mean Corpuscular Hemoglobin 32.6 PG (26-34); Mean Corpuscular Volume 97.3 fL (80-100); Platelet Count 311 X10^3/uL (150-400)
[2024-08-12 18:41] LABS: Alanine Aminotransferase 19 IU/L (<35); Albumin 4.6 g/dL (3.5-5.0); Albumin Globulin Ratio 1.7 (1.0-2.8); Alkaline Phosphatase 47 U/L (38-126); Blood Urea Nitrogen 10 mg/dL (7-17); Calcium 9.5 mg/dL (8.4-10.2); Carbon Dioxide 26 mmol/L (22-32); Chloride 104 mmol/L (98-107); Estimated Glomerular Filt Rate > 60 mL/min (>60); Globulin 2.7 g/dL (1.7-4.1); Glucose 60 mg/dL (70-99); HEMOLYSIS < 15 (0-50); Potassium 4.1 mmol/L (3.4-5.1); Sodium 137 mmol/L (137-145); Total Protein 7.3 g/dL (6.3-8.2)
[2024-08-12 18:58] LABS: Free T3, Triiodothyronine Free 3.34 pg/mL (2.77-5.27); Free T4, Direct Thyroxine 1.02 ng/dL (0.78-2.19)
[2024-08-12 19:12] LABS: Thyroid Stimulating Hormone 0.339 uIU/mL (0.47-4.68)
== END ==
PROVIDERS: Family Provider Family Medicine; PCP Family Medicine; Referring Provider Family Medicine; Visit Provider Family Medicine
DX: E61.1 Iron deficiency (principal); E03.9 Hypothyroidism, unspecified; G89.29 Other chronic pain
CPT/HCPCS: 36415; 80053; 84439; 84443; 84481; 85025

== ENCOUNTER → 2024-09-18 10:14 | Outpatient (CLI) | payer OTHER, MEDICARE, SELFPAY ==
[2024-09-18 11:50] LABS: Amylase 60 U/L (30-110); Lipase 76 U/L (23-300)
== END ==
PROVIDERS: Family Provider Family Medicine; PCP Family Medicine; Referring Provider Family Medicine; Visit Provider Family Medicine
DX: R10.9 Unspecified abdominal pain (principal); Z87.19 Personal history of other diseases of the digestive system
CPT/HCPCS: 36415; 82150; 83690